=== PATIENT | female | born 1950 | race Caucasian/White ===

== ENCOUNTER → 2017-09-16 13:21 | Outpatient (CLI) | payer MEDICARE, OTHER, SELFPAY ==
--- NOTE | 2017-09-16 13:25 | US_ITS ---
STUDY: ULTRASOUND BREAST - RIGHT REASON FOR EXAM: Female, 67 years old. 4 month follow-up for lumpectomy in the upper outer quadrant of the breasts. TECHNIQUE: Axial and longitudinal images of the RIGHT breast were performed with a high resolution ultrasound transducer. COMPARISON: Comparison is made with prior examination dated May 14, 2017. FINDINGS: RIGHT Breast: At the lumpectomy site at the 10:00 position breast at 3 cm some nipple, there is a 2.6 cm x 1.6 cm x 2.1 cm area of shadowing. This has an irregular shape. This is unchanged. This most likely is postoperative scarring. US/Breast Limited Unilateral IMPRESSION: Stable examination. The findings most likely correspond to postoperative scarring. ASSESSMENT CATEGORY: BIRADS Category 2: Benign. A letter regarding these results will be sent to the patient by the facility within 30 days. Electronically Signed: Tomi Hinton MD at 14:14 EDT Tel [phone], Service support ,
== END ==
PROVIDERS: Family Provider Family Medicine; PCP Family Medicine; Visit Provider Surgery
DX: R92.8 Other abnormal and inconclusive findings on diagnostic imaging of breast (principal)
CPT/HCPCS: 76642

== ENCOUNTER → 2017-10-15 09:25 | Outpatient (CLI) | payer MEDICARE, OTHER, SELFPAY ==
[2017-10-15 12:31] LABS: Cholesterol 163 mg/dL (200); Glucose 97 mg/dL (74-106); High Density Lipoprotein 57 mg/dL; Triglycerides 91 mg/dL; Very Low Density Lipoprotein 18 mg/dL (5-40)
== END ==
PROVIDERS: Family Provider Family Medicine; PCP Family Medicine; Visit Provider Family Medicine
DX: I10 Essential (primary) hypertension (principal); E78.5 Hyperlipidemia, unspecified; Z13.1 Encounter for screening for diabetes mellitus
CPT/HCPCS: 36415; 80061; 82947

== ENCOUNTER 2017-11-01 08:35 | Day surgery (SDC) | payer MEDICARE, OTHER, SELFPAY ==
[2017-11-01 09:16] VITALS: BP 178/61; PULSE 64; RESP 14; TEMP 36.4; O2SAT 98; BMI 32.3
--- NOTE | 2017-11-01 10:04 | PCM.HP.STD ---
Problem List (1) Personal history of colonic polyps Status: Acute History of Present Illness Date of Admission: 11/01/17 The patient is a 67 year old F is been feeling well. Her most recent colonoscopy was 5 years ago. That point she had some benign colon polyps. She has no family history of colon cancer. She does have a personal history of surgically treated bilateral breast cancer. She denies chest pain. No shortness of breath. No abdominal pain. No bright red blood per rectum or melena. No change of bowel habits. She has not had any previous DVT. 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) Allergies No Known Allergies Allergy (Unverified 10/29/17 09:46) Home Medications: Ambulatory Orders Medication Instructions Recorded Escitalopram Oxalate [Lexapro] 20 mg PO DAILY 04/22/17 Esomeprazole Mag Trihydrate 40 mg PO DAILY 04/22/17 [Nexium] Lorazepam [Ativan] 1 mg PO QHS 04/22/17 Metoprolol Succinate [Toprol Xl] 50 mg PO DAILY 04/22/17 Simvastatin [Zocor] 20 mg PO QHS 04/22/17 Surgical History: cholecystectomy, - - Previous bilateral breast surgery for bilateral breast cancer at separate intervals Smoking Status: Never smoker Tobacco Use: Non-smoker Review of Systems Constitutional: Denies: Anorexia Eyes: Denies: Blurred vision HEENT: Denies: Difficulty Hearing Cardiovascular: Denies: Chest Pain Respiratory: Denies: Cough Gastrointestinal: Denies: Abdominal Pain Genitourinary: Denies: Dysuria Psychiatric: Reports: Anxiety Endocrine: Denies: Change in Body Habitus VTE Information - Inpt Only VTE Present on Admission: No Patient Problems: Active and Suspected Problems Personal history of colonic polyps (Acute) - Physical Exam General: Alert, Oriented x3, Cooperative, No apparent distress HEENT: Atraumatic Oral: Moist Mucosa Neck: Supple Lungs: Clear to auscultation Cardiovascular: Regular rate, Regular Rhythm Abdomen: Bowel Sounds Present, Soft, Non Tender, Non-Distended Extremities: No clubbing Skin: No rashes Musculoskeletal: No Tenderness to Palpation of Joints or Extremities Lymphatic: No Cervical, Supraclavicular, or Inguinal Adenopathy Neurological: Cranial nerves II-XII grossly intact Psych/Mental Status: Normal Affect Vital Signs Temp Pulse Resp BP Pulse Ox 97.6 F L 64 14 178/61 H 98 11/01/17 09:16 11/01/17 09:16 11/01/17 09:16 11/01/17 09:16 11/01/17 09:16 Oxygen Delivery Method Room Air Weight: 182 lb 12.211 oz Body Mass Index (BMI) 32.3 Assessment/Plan Active and Suspected Problems Personal history of colonic polyps (Acute) Plan is to proceed with colonoscopy with possible biopsy or polypectomy is indicated. The patient is aware of the technique, benefits, risks, alternatives. She has had an opportunity to ask and have questions answered. We will proceed at her discretion. Fco Jarvis M.D., F.A.C.S.
--- NOTE | 2017-11-01 10:30 | PCM.OPRPT ---
Problem List (1) Personal history of colonic polyps Status: Acute Report of Operation Date of Procedure: 11/01/17 Pre-Operative Diagnosis: Personal history of colon polyps Post-Operative Diagnosis: Minimal sigmoid diverticulosis Surgery/Procedure Performed:: Colonoscopy Description of Surgical Findings:: Timeout and informed consent was obtained. 67-year-old female was taken to the endoscopy suite. Throughout the procedure in aliquots she received a total of 150 mg of Demerol and 3 mg of Versed is intravenous sedation. Digital rectal exam performed. Normal anal tone. No mass lesions. Flexible colonoscope inserted the rectum advanced with tight tortuous sigmoid colon with some minimal scattered few diverticula. Scope was advanced past the flexure the patient needed to be placed supine to get the scope to advanced through the transverse colon and then with some transabdominal pressure was advanced to the ascending colon down to the cecum. The cecum ileocecal valve area was achieved. The patient has a lipoma of the ileocecal valve. No other mass lesions. The scope was carefully withdrawn from the ascending transverse descending and sigmoid colon. Bowel prep was good. No acute findings noted. Scope was retroflexed within the rectum. Anorectal verge inspected no acute findings. Excess fluid and air was aspirated with free procedure was completed with the patient tolerating it well. Impression Minimal few scattered sigmoid diverticula. No acute findings. Patient has a remote history of colon polyps. Consider follow-up colonoscopy at 5 years. Previous colonoscopy was 5 years ago Cc: Dr. Javon Early Medications were given at 1010 seizure started at 1012. The cecum was reached at 1022. Procedure was completed at 1028. Fco Jarvis M.D., F.A.C.S. Type of Anesthesia:: IV Sedation
[2017-11-01 10:35] VITALS: BP 121/51; BP 178/61; PULSE 65; RESP 16; TEMP 36.7; O2SAT 94
[2017-11-01 10:40] VITALS: BP 126/53; BP 178/61; PULSE 65; RESP 16; O2SAT 96
[2017-11-01 10:45] VITALS: BP 128/50; BP 178/61; PULSE 63; RESP 16; O2SAT 96
[2017-11-01 10:50] VITALS: BP 130/50; BP 178/61; PULSE 66; RESP 16; TEMP 36.4; O2SAT 96
[2017-11-01 11:12] VITALS: BP 178/61
== END 2017-11-01 11:40 | disposition home or self-care (01) ==
LOC: EN 08:35 → AC 08:36
PROVIDERS: Family Provider Family Medicine; PCP Family Medicine; Visit Provider Surgery
PROC: 0DJD8ZZ Inspection of Lower Intestinal Tract, Via Natural or Artificial Opening Endoscopic (ICD-10-PCS; CPT 45378; principal; 2017-11-01 09:40)
DX: Z12.11 Encounter for screening for malignant neoplasm of colon (principal); K57.30 Diverticulosis of large intestine without perforation or abscess without bleeding; D17.79 Benign lipomatous neoplasm of other sites; Z79.899 Other long term (current) drug therapy; Z86.010 Personal history of colon polyps; Z85.3 Personal history of malignant neoplasm of breast
CPT/HCPCS: G0105; 99152; 99153; J7120

== ENCOUNTER → 2018-05-07 09:58 | Outpatient (CLI) | payer MEDICARE, OTHER, SELFPAY ==
--- NOTE | 2018-05-07 10:03 | BI_ITS ---
MAMMOGRAPHY - UNILATERAL DIAGNOSTIC: RIGHT BREAST REASON FOR EXAM: Female, 68 years old. Status post left mastectomy. Right lateral breast soreness for 6 weeks. Prior right lumpectomy and radiation therapy. PERTINENT HISTORY: Personal history of breast cancer. TECHNIQUE: Digital unilateral breast alison (3D mammographic acquisition) in the CC and MLO projections. 2-D mediolateral oblique (MLO) and craniocaudad (CC) views of both breasts were obtained. CAD: Full Field Digital Mammography with Computer Added Detection was performed. COMPARISON: Comparison is made with prior examination dated May 06, 2017 and April 25, 2016. FINDINGS: Breast Composition: There are scattered areas of fibroglandular density. Architectural distortion is once again seen in the deep slightly lateral portion of the right breast with a resultant postoperative changes. There is also evidence of postoperative changes at the level of the areola. No new abnormality is present. No other significant abnormalities are identified. There has been no significant change since the prior study. BI/UNILAT RT SCRN W/CAD IMPRESSION: Stable unilateral diagnostic mammogram. One year follow-up mammogram recommended. (A) ASSESSMENT CATEGORY: BIRADS Category 2: Benign. A letter regarding these results will be sent to the patient by the facility within 30 days. Approximately 10% of breast cancers are not detected by mammography. A normal mammogram should not delay biopsy of a clinically suspicious abnormality. Electronically Signed: Tomi Hinton MD at 12:18 EST Tel [phone], Service support ,
--- OUTSIDE RECORDS SUMMARY | 2018-07-02 17:51 | XMS RPT_ITS ---
:1950 Author Organization OHIP Care Team Providers Name Role Phone Miranda Nguyen Attending Unavailable Javon Early Primary Care Unavailable Fco Jarvis Attending Unavailable Fco Jarvis Referring Unavailable Nneka, Javon Primary Care Unavailable Nurse, Surgery Attending Unavailable Javon Early Referring Unavailable Javon Early Attending Unavailable Nneka, Javon Primary Care Unavailable Fco Jarvis Attending Unavailable Javon Early Referring Unavailable Nneka, Javon Primary Care Unavailable Fco Jarvis Attending Unavailable Nneka, Javon Referring Unavailable Nneka, Javon Primary Care Unavailable Fco Jarvis Consulting Unavailable Miranda Nguyen Attending Unavailable Nneka, Javon Primary Care Unavailable NnekaJavon gonzales Attending Unavailable Nneka, Javon Primary Care Unavailable Miranda Nguyen Attending Unavailable Javon Early Primary Care Unavailable Miranda Nguyen Consulting Unavailable PROBLEMS PROBLEMS DATE TYPE CONDITION / CODE ATTENDING STATUS SOURCE 05/14/2018 Unknown C50.911 - Fabio Nguyen Malignant neoplasm [facility] of unspecified Hospital site of right Repository female breast / C50.911(ICD-10) 05/12/2018 Unknown I10 - Essential NnekaJavon gonzalesoster (primary) [facility] hypertension / Hospital I10(ICD-10) Repository 05/12/2018 Unknown E78.5 - Javon Early [facility] [place] Hyperlipidemia, [facility] unspecified / Hospital E78.5(ICD-10) Repository 01/28/2018 Unknown Z12.11 - Encounter Fco Jarvis [place] for screening for [facility] malignant neoplasm [facility] colon / Repository Z12.11(ICD-10) 01/28/2018 Unknown R92.8 - [facility] Hospital findings on Repository diagnostic imaging of breast / R92.8(ICD-10) PROCEDURES PROCEDURES No Procedure Records FoundRESULTS RESULTS ONCOLOGY VISIT REPORT Observed: 05/14/2018 Status: F Source: [place] 2:06 PM [facility] REPOSITORY [facility] Medical Oncology [address] [place] [address] OFFICE VISIT Date of Service: 05/14/18 1340 MR#: [id number] Acct: [id number] Name: MAGDY RUFF Rep #: [id number] : 1950 From: Miranda Nguyen MD Age/Sex: 68/F Location: OMD Status: Signed - Problem List (1) Malignant neoplasm of right female breast Status: Chronic (2) 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 DCIS of the left breast status post mastectomy in 1995. 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 Date of diagnosis was March 2002. - Past Medical/Social History Past Medical History Past Medical History: Anxiety,Osteopenia Other Past Medical History: IBS Cancer: Breast cancer Other Cancer History: DCIS LEFT BREAST INVASIVE CARCINOMA RT BREAST Past Surgical History Surgical: Hysterectomy,Tubal ligation Other Surgical History: LUMPECTOMY RT BREAST WITH AXILLARY DISSECTION OF LYMPH NODE Family History Paternal Past Medical History: Liver disease Maternal Past Medical History: Heart disease,Hypertension Social History Smoking Status Never smoker Review of Systems Constitutional:: Denies: Fever, Sweats, Weight loss, Appetite change, Chills Cardiovascular:: Denies: Chest pain, Palpitations, Dyspnea on exertion, Orthopnea, PND, Shortness of breath Respiratory: Denies: Cough, Hemoptysis, Shortness of Breath, Wheezing Gastrointestinal:: Denies: Abdominal pain, Nausea, Vomiting, Diarrhea, Constipation, Hematochezia Genitourinary: Denies: Dysuria, Hematuria, 15, Flank pain Musculoskeletal:: Denies: Back pain, Myalgia, Arthralgia Skin: Denies: Rash, Skin Changes, Wounds Neurological:: Denies: Headache, Dizziness, Visual changes, Tinnitus, Hearing loss Psychiatric: Denies: Anxiety, Depression, Homicidal Ideations, Suicidal Ideations Vital Signs Weight: 84.822 kg Weight in Pounds 187.0 lbs Pulse Ox 97 - Physical Exam General: Alert, Oriented x3, No apparent distress, - - ECOG 0, overweight HEENT: Atraumatic, PERRLA, EOMI, Normocephalic Oropharynx:: Dry mucosa Neck:: Supple, Trachea midline. Negative for: JVD, bilateral Cardiac:: Regular rate, Regular rhythm, Normal S1, Normal S2. Negative for: Murmur Lungs: Clear to auscultation, Excusion symmetrical. Negative for: Rhonchi, Wheezes Abdomen:: Soft, Non-tender, Non-distended. Negative for: Hepatosplenomegaly Extremities:: Negative for: Cyanosis, Edema Neurological: Neuro grossly intact Skin:: Negative for: Lesions, Rash, Petechiae, Ecchymosis Psychiatric:: Appropriate affect, Euthymic Lymphatics:: Negative for: Cervical lymphadenopathy, Supraclavicular lymphadenopathy, Axillary lymphadenopathy Breast:: - - Left breast mastectomy scar and right breast with scar of a prior surgery, no masses Laboratory Data: CBC, CMP May 2018 reviewed in EMR Diagnostic Data: Mammogram April 2018 Neg Assessment and Plan 68-year-old female with 1. Stage I invasive ductal cancer of the right breast status post partial mastectomy and axillary dissection 2001 followed by adjuvant chemotherapy and radiation therapy (see HPI for details). No evidence to suggest cancer recurrence or post chemotherapy complications. 2. DCIS of the left breast status post simple mastectomy 1995 From medical oncology will continue annual surveillance. Medications: Prescriptions This Visit Medication Instructions Recorded Escitalopram Oxalate [Lexapro] 20 mg PO DAILY 04/22/17 Esomeprazole Mag Trihydrate 40 mg PO DAILY 04/22/17 Primary Care Provider: Javon Early MD Referring Provider: 05/14/18 1406 <Electronically signed by Miranda Nguyen MD> Date Miranda Nguyen MD Cosigner Signature: Date (if applicable) CC: Javon Early MD CBC W/DIFF, AUTOMATED Collected: 05/12/2018 Status: F Source: [place] 2:32 PM [facility] [place] TYPE CODE TESTS RESULT OUT OF RANGE REFERENCE UNITS LAB L100.1000 4.4-11.0 K/mm3 Normal WBC 6.2 LAB L100.1200 4.2-5.4 M/mm3 Normal RBC 4.60 LAB L100.1300 12.0-15.0 g/dl Normal HGB 14.5 LAB L100.1400 37-47 % Normal HCT 44.5 LAB L100.1500 81-99 fL Normal MCV 96.7 LAB L100.1600 27.0-32.0 pg Normal MCH 31.5 LAB L100.1700 32-36 g/gl Normal MCHC 32.6 LAB L100.1810 11.6-14.6 % Normal RDW CV 13.4 LAB L100.1820 35.1-43.9 fl High RDW SD 46.2 LAB L100.1900 150-450 K/mm3 Normal PLT 208 LAB L100.2000 6.2-12.0 fl Normal MPV 11.3 LAB L100.2100 47-70 % High NEUT% 72.7 LAB L100.2200 19-41 % Low LY% 18.8 LAB L100.2300 0-10 % Normal MONO% 7.1 LAB L100.2400 0-5 % Normal EO% 1.1 LAB L100.2500 0-1 % Normal BASO% 0.3 LAB L100.2550 0.0-0.9 % Normal IM GRAN % 0.000 Result Comment: IG% - Immature Granulocytes (promyelocytes, myelocytes and metamyelocytes) > 1% indicates that a LEFT SHIFT is Present. LAB L100.2620 2.0-7.7 X10 3/uL Normal Absolute Neut 4.5 LAB L100.2720 0.83-4.51 X10 3/ul Normal Absolute Lymph 1.16 Performed By: #### L100.0100 #### [facility] [address] [place], [address] BASIC METABOLIC Collected: 05/12/2018 Status: F Source: [place] PROFILE (BMP) 2:32 PM [facility] [place] TYPE CODE TESTS RESULT OUT OF RANGE REFERENCE UNITS LAB L501.0100 74-106 mg/dL Normal GLU 86 Result Comment: Please note revised GLUCOSE reference range effective 2017. LAB L501.1000 7-18 mg/dL Normal BUN 15 LAB L501.1100 0.55-1.02 mg/dL Normal CREAT,SERUM 0.80 Result Comment: The validity of the calculated GFR AND GFRAA in patients over 70 years has not been determined. Clinical correlation is essential. LAB L501.1110 >60 mL/min Normal EST GFR 76 Result Comment: Non- GFR Calc LAB L501.1115 >60 mL/min Normal EST GFR - AA 91 Result Comment: GFR Calc LAB L501.1300 10-20 RATIO Normal BUN/CRE 18.8 LAB L501.2200 8.5-10.1 mg/dL CA Normal 9.2 LAB L501.5300 136-145 mmol/L NA Normal 142 LAB L501.5600 3.5-5.1 mmol/L K Normal 4.6 LAB L501.5900 98-107 mmol/L CL Normal 107 LAB L501.6100 21.0-32.0 mmol/L Normal CO2 27.0 LAB L501.6200 5-15 Normal GAP 8 Performed By: #### L500.2500, L501.9520 #### [facility] [address] [place], [address] THYROID STIM HORMONE Collected: 05/12/2018 Status: F Source: [place] (TSH) 2:32 PM [facility] [place] TYPE CODE TESTS RESULT OUT OF RANGE REFERENCE UNITS LAB L501.9520 0.358-3.74 uIU/mL Normal TSH 2.05 Performed By: #### L500.2500, L501.9520 #### [facility] [address] [place], [address] UNILAT RT SCRN Observed: 05/07/2018 Status: F Source: [place] W/CAD 10:03 AM [facility] [place] [facility] Imaging Services [address] [facility] [place] [address] UNILAT RT SCRN W/CAD MR#: [id number] Acct: [id number] Name: MAGDY RUFF Rep #: [id number] : 1950 F 68 From: Tomi Hinton MD PCP: Javon Early MD Status: REG CLI Study: UNILAT RT SCRN W/CAD Date of Exam: 05/07/18 Exam# [id number] Ordering Dr: Miranda Nguyen MD MAMMOGRAPHY - UNILATERAL DIAGNOSTIC: RIGHT BREAST REASON FOR EXAM: Female, 68 years old. Status post left mastectomy. Right lateral breast soreness for 6 weeks. Prior right lumpectomy and radiation therapy. PERTINENT HISTORY: Personal history of breast cancer. TECHNIQUE: Digital unilateral breast alison (3D mammographic acquisition) in the CC and MLO projections. 2-D mediolateral oblique (MLO) and craniocaudad (CC) views of both breasts were obtained. CAD: Full Field Digital Mammography with Computer Added Detection was performed. COMPARISON: Comparison is made with prior examination dated May 06, 2017 and April 25, 2016. FINDINGS: Breast Composition: There are scattered areas of fibroglandular density. Architectural distortion is once again seen in the deep slightly lateral portion of the right breast with a resultant postoperative changes. There is also evidence of postoperative changes at the level of the areola. No new abnormality is present. No other significant abnormalities are identified. There has been no significant change since the prior study. BI/UNILAT RT SCRN W/CAD IMPRESSION: Stable unilateral diagnostic mammogram. One year follow-up mammogram recommended. (A) ASSESSMENT CATEGORY: BIRADS Category 2: Benign. A letter regarding these results will be sent to the patient by the facility within 30 days. Approximately 10% of breast cancers are not detected by mammography. A normal mammogram should not delay biopsy of a clinically suspicious abnormality. Electronically Signed: Tomi Hinton MD at 12:18 EST Tel [phone], Service support , CC: Miranda Nguyen MD; Javon Early MD Soil Science Teacher: Signed OPERATIVE REPORT Observed: 11/01/2017 Status: F Source: [place] 10:34 AM [facility] [place] [facility] Medical Records Department [address] [place] [address] Operative Report 11/01/17 1030 MR#: [id number] Acct: [id number] Name: MAGDY RUFF Rep #: [id number] : 1950 67 From: Fco Jarvis MD PCP: Javon Early Status: REG [facility] [place] Location: [place] [address]- Problem List (1) Personal history of colonic polyps Status: Acute Report of Operation Date of Procedure: 11/01/17 Pre-Operative Diagnosis: Personal history of colon polyps Post-Operative Diagnosis: Minimal sigmoid diverticulosis Surgery/Procedure Performed:: Colonoscopy Description of Surgical Findings:: Timeout and informed consent was obtained. 67-year-old female was taken to the endoscopy suite. Throughout the procedure in aliquots she received a total of 150 mg of Demerol and 3 mg of Versed is intravenous sedation. Digital rectal exam performed. Normal anal tone. No mass lesions. Flexible colonoscope inserted the rectum advanced with tight tortuous sigmoid colon with some minimal scattered few diverticula. Scope was advanced past the flexure the patient needed to be placed supine to get the scope to advanced through the transverse colon and then with some transabdominal pressure was advanced to the ascending colon down to the cecum. The cecum ileocecal valve area was achieved. The patient has a lipoma of the ileocecal valve. No other mass lesions. The scope was carefully withdrawn from the ascending transverse descending and sigmoid colon. Bowel prep was good. No acute findings noted. Scope was retroflexed within the rectum. Anorectal verge inspected no acute findings. Excess fluid and air was aspirated with free procedure was completed with the patient tolerating it well. Impression Minimal few scattered sigmoid diverticula. No acute findings. Patient has a remote history of colon polyps. Consider follow- up colonoscopy at 5 years. Previous colonoscopy was 5 years ago Cc: Dr. Javon Early Medications were given at 1010 seizure started at 1012. The cecum was reached at 1022. Procedure was completed at 1028. Fco Jarvis M.D., F.A.C.S. Type of Anesthesia:: IV Sedation 11/01/17 1034 <Electronically signed by Fco Jarvis MD> Date Fco Jarvis MD CC: Fco Jarvis MD; Javon Early Signed HISTORY AND PHYSICAL Observed: 11/01/2017 Status: F Source: [place] EXAM 10:07 AM [facility] [place] [facility] Medical Records Department [address] [place] [address] History and Physical 11/01/17 1004 MR#: [id number] Acct: [id number] Name: MAGDY RUFF Antione Rep #: [id number] : 1950 67 From: Fco Jarvis MD PCP: Javon Early Status: REG [facility] Y Location: [place] [address] Problem List (1) Personal history of colonic polyps Status: Acute History of Present Illness Date of Admission: 11/01/17 The patient is a 67 year old F is been feeling well. Her most recent colonoscopy was 5 years ago. That point she had some benign colon polyps. She has no family history of colon cancer. She does have a personal history of surgically treated bilateral breast cancer. She denies chest pain. No shortness of breath. No abdominal pain. No bright red blood per rectum or melena. No change of bowel habits. She has not had any previous DVT. 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) Allergies No Known Allergies Allergy (Unverified 10/29/17 09:46) Home Medications: Ambulatory Orders Medication Instructions Recorded Escitalopram Oxalate [Lexapro] 20 mg PO DAILY 04/22/17 Esomeprazole Mag Trihydrate 40 mg PO DAILY 04/22/17 Surgical History: cholecystectomy, - - Previous bilateral breast surgery for bilateral breast cancer at separate intervals Smoking Status: Never smoker Tobacco Use: Non-smoker Review of Systems Constitutional: Denies: Anorexia Eyes: Denies: Blurred vision HEENT: Denies: Difficulty Hearing Cardiovascular: Denies: Chest Pain Respiratory: Denies: Cough Gastrointestinal: Denies: Abdominal Pain Genitourinary: Denies: Dysuria Psychiatric: Reports: Anxiety Endocrine: Denies: Change in Body Habitus VTE Information - Inpt Only VTE Present on Admission: No Patient Problems: Active and Suspected Problems Personal history of colonic polyps (Acute) - Physical Exam General: Alert, Oriented x3, Cooperative, No apparent distress HEENT: Atraumatic Oral: Moist Mucosa Neck: Supple Lungs: Clear to auscultation Cardiovascular: Regular rate, Regular Rhythm Abdomen: Bowel Sounds Present, Soft, Non Tender, Non-Distended Extremities: No clubbing Skin: No rashes Musculoskeletal: No Tenderness to Palpation of Joints or Extremities Lymphatic: No Cervical, Supraclavicular, or Inguinal Adenopathy Neurological: Cranial nerves II-XII grossly intact Psych/Mental Status: Normal Affect Vital Signs Temp Pulse Resp BP Pulse Ox 97.6 F L 64 14 178/61 H 98 11/01/17 09:16 11/01/17 09:16 11/01/17 09:16 11/01/17 09:16 11/01/17 09:16 Oxygen Delivery Method Room Air Weight: 182 lb 12.211 oz Body Mass Index (BMI) 32.3 Assessment/Plan Active and Suspected Problems Personal history of colonic polyps (Acute) Plan is to proceed with colonoscopy with possible biopsy or polypectomy is indicated. The patient is aware of the technique, benefits, risks, alternatives. She has had an opportunity to ask and have questions answered. We will proceed at her discretion. Fco Jarvis M.D., F.A.C.S. 11/01/17 1007 <Electronically signed by Fco Jarvis MD> Date Fco Jarvis MD Cosigner Signature: Date (if applicable) CC: Fco Jarvis MD; Javon Early Signed LIPID PROFILE Collected: 10/15/2017 Status: F Source: [place] 9:27 AM [facility] [place] TYPE CODE TESTS RESULT OUT OF RANGE REFERENCE UNITS LAB L501.4900 200 mg/dL Normal CHOL 163 Result Comment: <200 mg/dL Desirable 200-240 mg/dL Borderline >240 mg/dL High Risk LAB L501.5000 mg/dL Normal TRIG 91 Result Comment: The drugs N-Acetylcysteine and Metamizole may falsely depress this assay. Serum Triglycerides Reference Interval Normal <150 mg/dL Borderline high 150 - 199 mg/dL High 200 - 499 mg/dL Very High > or = 500 mg/dL LAB L501.6400 mg/dL Normal HDL 57 Result Comment: The drugs N-Acetylcysteine and Metamizole may falsely depress this assay. Reference Range HDL <40 mg/dL Low HDL Cholesterol HDL >or= 60 mg/dL High HDL Cholesterol LAB L501.6500 0-130 mg/dL Normal LDL 88 LAB L501.6600 5-40 mg/dL Normal VLDL 18 Performed By: #### L500.4100, L501.0100 #### [facility] [address] [place], [address] GLUCOSE Collected: 10/15/2017 Status: F Source: [place] 9:27 AM [facility] [place] TYPE CODE TESTS RESULT OUT OF RANGE REFERENCE UNITS LAB L501.0100 74-106 mg/dL Normal GLU 97 Result Comment: Please note revised GLUCOSE reference range effective 2017. Performed By: #### L500.4100, L501.0100 #### [facility] [address] [place], [address] BREAST LIMITED Observed: 09/16/2017 Status: F Source: [place] UNILATERAL 1:28 PM [facility] [place] Imaging Services [address] [place] [address] Breast Limited Unilateral MR#: [id number] Acct: [id number] Name: MAGDY RUFF Rep #: [id number] : 1950 F 67 From: Tomi Hinton MD PCP: Javon Early Status: REG CLI Study: Breast Limited Unilateral Date of Exam: 09/16/17 Exam# [id number] Ordering Dr: Fco Jarvis MD STUDY: ULTRASOUND BREAST - RIGHT REASON FOR EXAM: Female, 67 years old. 4 month follow-up for lumpectomy in the upper outer quadrant of the breasts. TECHNIQUE: Axial and longitudinal images of the RIGHT breast were performed with a high resolution ultrasound transducer. COMPARISON: Comparison is made with prior examination dated May 14, 2017. FINDINGS: RIGHT Breast: At the lumpectomy site at the 10:00 position breast at 3 cm some nipple, there is a 2.6 cm x 1.6 cm x 2.1 cm area of shadowing. This has an irregular shape. This is unchanged. This most likely is postoperative scarring. US/Breast Limited Unilateral IMPRESSION: Stable examination. The findings most likely correspond to postoperative scarring. ASSESSMENT CATEGORY: BIRADS Category 2: Benign. A letter regarding these results will be sent to the patient by the facility within 30 days. Electronically Signed: Tomi Hinton MD at 14:14 EDT Tel [phone], Service support , CC: Fco Jarvis MD; Javon Early Soil Science Teacher: Signed ALLERGIES ALLERGIES DATE TYPE / CODE NAME / CODE REACTION SEVERITY SOURCE 05/14/2018 Drug No Known Unknown [place] [facility] Allergy/4160 Allergies/F00 Hospital 52123(SNOMED 1642265(RXNOR Repository CT) M) ENCOUNTERS ENCOUNTERS ADMIT/DISCHARGE ACCOUNT ADMITTING ENCOUNTER LOCATION SOURCE NUMBER CLASS 05/14/2018 [id number] Ambulatory BMSBuilding:B [place] 9 MS.CF.Critical access hospital Repository 05/14/2018 [id number] Ambulatory [place] 4 [facility] ing:OMD Repository 05/12/2018 [id number] Ambulatory [place] 7 [facility] ing:BFHLAB Repository 05/07/2018 [id number] Ambulatory [place] 1 [facility] ing:OPBI Repository 11/01/2017/ [id number] Ambulatory [place] 8 8 [facility] ing:EN Repository 11/01/2017 [id number] Ambulatory BMSBuilding:B [place] 7 [facility].CF.[facility] Repository 10/15/2017 [id number] Ambulatory [place] 0 [facility] ing:BFHLAB Repository 10/14/2017/ [id number] Ambulatory BMSBuilding:B [place] 8 6 [facility] Repository 09/16/2017 [id number] Ambulatory [place] 8 [facility] ing:OPUS Repository PAYERS PAYERS ENCOUNTER GUARANTOR PAYER SUBSCRIBER SOURCE 05/14/2018 TRAVIS Alvarado Primary MAGDY Talbot [place] [id number] Insurance:MEDICARE PATTERSONDOB: Community [place]ALA PART A [facility] [id number] Repository [id number]: 330 [id number] [phone] () Date:2017-01-02 05/14/2018 Secondary MAGDY Talbot [place] Insurance:PHYSICIAN PATTERSONDOB: Community MUTUAL INS COPolicy [id number] Hospital Number: Repository [id number] Date:[id number] [place] [address]LT: 05/14/2018 Tertiary NOT GIVENUNK [place] Insurance:SELF PAY [facility] Number: Effective Repository Date:2018-05-14 05/14/2018 TRAVIS Alvarado Primary MAGDY Talbot [place] [id number] Insurance:MEDICARE PATTERSONDOB: Community [place] PART A [facility] [id number] Number: Repository [id number]: 330 [id number] [phone] () Date:2017-01-02 05/14/2018 Secondary MAGDY Talbot [place] Insurance:PHYSICIAN PATTERSONDOB: Community [facility]UTUAL INS [facility] [id number] Hospital Number: Repository [id number] Date:[id number] [address] [place] [address]UX: 05/14/2018 Tertiary NOT GIVENUNK [place] Insurance:SELF PAY [facility] Number: Effective Repository Date:2017-01-02 05/12/2018 MAGDY Talbot Primary MAGDY Talbot [place] [id number] Insurance:MEDICARE PATTERSONDOB: Community [employer]AL[employer] PART A [facility] [id number] Number: Repository [id number]: 330 [id number] [phone] () Date:2018-05-12 05/12/2018 Secondary MAGDY Talbot [place] Insurance:PHYSICIAN PATTERSONDOB: Community M[employer]UAL INS [employer]olicy [id number] Hospital Number: Repository [id number] Date:[id number] [address]DQ: 05/12/2018 Tertiary NOT GIVENUNK [place] Insurance:SELF PAY [facility] Effective Repository Date:2018-05-12 05/07/2018 TRAVIS Alvarado Primary MAGDY Talbot [place] [id number] Insurance:MEDICARE PATTERSONDOB: Community Impala PART A [id number] [place] Number[facility] Repository [id number]: [phone] [id number] [phone] () Date:2018-03-12 05/07/2018 Secondary MAGDY Talbot [place] Insurance:PHYSICIAN PATTERSONDOB: Community MUTUAL INS [facility] [id number] Hospital Number: Repository [id number] Date:[id number] [address]MG: 05/07/2018 Tertiary NOT GIVENUNK [place] Insurance:SELF PAY [facility] Number: Effective Repository Date:2018-03-12 11/01/2017 Travis Alvarado Primary MAGDY Talbot [place] [id number] Insurance:MEDICARE PATTERSONDOB: Community [employer] PART A [facility] [id number] [place] Number: Repository [id number]: [phone] [id number] [phone] () Date:2017-10-14 11/01/2017 Secondary MAGDY Talbot [place] Insurance:PHYSICIAN PATTERSONDOB: Community [facility] [id number] Hospital Number: Repository [id number] Date:[id number] [address]EO: 11/01/2017 Tertiary NOT GIVENUNK [place] Insurance:SELF PAY [facility] Rep[facility] Date:2017-10-14 11/01/2017 Travis Alvarado Primary MAGDY Talbot Harper [id number] Insurance:MEDICARE PATTERSONDOB: Community [place] PART A [facility] [id number] [place] Number: Repository [id number]: [id number] [phone] Date:2017-10-14 (HP) 11/01/2017 Secondary MAGDY Talbot Carol Insurance:PHYSICIAN PATTERSONDOB: Community MUTUAL INS [employer] [id number] Hospital Number: Repository [id number] Date:[id number] [address]GH: 11/01/2017 Tertiary NOT GIVENUNK Carol Insurance:SELF PAY [facility] Effective Repository Date:2017-11-01 10/15/2017 Travis Alvarado Primary MAGDY Talbot Harper [id number] Insurance:MEDICARE PATTERSONDOB: Community [place] PART A [facility] [id number] Number: Repository [id number]: [phone] [id number] [phone] () Date:2017-10-15 10/15/2017 Secondary MAGDY Talbot Harper Insurance:PHYSICIAN PATTERSONDOB: Community MUTUAL INS COP[employer]icy [id number] Hospital Number: Repository [id number] Date:[id number] [address]ZZ: 10/15/2017 Tertiary NOT GIVENUNK Harper Insurance:SELF PAY [facility] Number: Effective Repository Date:2017-10-15 10/14/2017 Travis Alvarado Primary MAGDY Talbot Harper [id number] Insurance:MEDICARE PATTERSONDOB: Community [place] PART A [facility] [id number] Number[place] [id number]: [id number] [phone] Date:2017-10-14 (HP) 10/14/2017 Secondary MAGDY Talbot Harper Insurance:PHYSICIAN PATTERSONDOB: Community MUTUAL INS [employer]icy [id number] Hospital Number: Repository [id number] Date:[id number] [address]YW: 10/14/2017 Tertiary NOT GIVENUNK Harper Insurance:SELF PAY [facility] Number: Effective Repository Date:2017-10-14 09/16/2017 Travis Alvarado Primary MAGDY Medina [id number] Insurance:MEDICARE PATTERSONDOB: Community [place] PART A [facility] [id number] Number: Repository [address]Khd: [phone] [id number] [phone] () Date:2017-09-12 09/16/2017 Secondary MAGDY Medina Insurance:PHYSICIAN PATTERSONDOB: Community MUTUAL INS [facility] [id number] Hospital Number: Repository [id number] Date:[id number] [address]RD: 09/16/2017 Tertiary NOT GIVENKERLINE Medina Insurance:SELF PAY [facility] Number: Effective Repository Date:2017-09-12
== END ==
PROVIDERS: Family Provider Family Medicine; PCP Family Medicine; Visit Provider Internal Medicine Hematology & Oncology
DX: Z12.31 Encounter for screening mammogram for malignant neoplasm of breast (principal); Z85.3 Personal history of malignant neoplasm of breast
CPT/HCPCS: 77061; 77063; 77067; G0279

== ENCOUNTER → 2018-05-12 14:29 | Outpatient (CLI) | payer MEDICARE, OTHER, SELFPAY ==
[2018-05-12 17:35] LABS: Absolute Lymphocyte Count 1.16 X10^3/ul (0.83-4.51); Absolute Neutrophil Count 4.5 X10^3/uL (2.0-7.7); Basophil# 0.02 X10^3/uL; Basophil% 0.3 % (0-1); Eosinophil# 0.07 X10^3/uL; Eosinophils% 1.1 % (0-5); Hematocrit 44.5 % (37-47); Hemoglobin 14.5 g/dl (12.0-15.0); Lymphocyte # 1.16 X10^3/ul (4.0); Lymphocyte % 18.8 % (19-41); Mean Corp Hgb Conc 32.6 g/gl (32-36); Mean Corpuscular Hgb 31.5 pg (27.0-32.0); Mean Corpuscular Volume 96.7 fL (81-99); Mean Platelet Vol. 11.3 fl (6.2-12.0); Monocyte# 0.44 X10^3/uL; Monocyte% 7.1 % (0-10); Neutrophil # 4.49 X10^3/uL (2.7-7.7); Neutrophil % 72.7 % (47-70); Platelet Count 208 K/mm3 (150-450); RBC Distribution Width CV 13.4 % (11.6-14.6); RBC Distribution Width SD 46.2 fl (35.1-43.9); White Blood Count 6.2 K/mm3 (4.4-11.0)
[2018-05-12 17:36] LABS: POSITIVE COUNT NO; POSITIVE DIFFERENTIAL NO; POSITIVE MORPHOLOGY NO
[2018-05-12 17:52] LABS: Anion Gap 8 (5-15); BUN 15 mg/dL (7-18); BUN/Creat Ratio 18.8 RATIO (10-20); Calcium,Total 9.2 mg/dL (8.5-10.1); Chloride 107 mmol/L (98-107); EST Glomerular Filtration Rate 76 mL/min (>60); Est Glom Filt Rate - Afr Amer 91 mL/min (>60); Glucose 86 mg/dL (74-106); Potassium 4.6 mmol/L (3.5-5.1); Sodium Level 142 mmol/L (136-145); Thyroid Stim Hormone (TSH) 2.05 uIU/mL (0.358-3.74)
== END ==
PROVIDERS: Family Provider Family Medicine; PCP Family Medicine; Visit Provider Family Medicine
DX: I10 Essential (primary) hypertension (principal); E78.5 Hyperlipidemia, unspecified
CPT/HCPCS: 36415; 80048; 84443; 85025

== ENCOUNTER → 2018-11-27 14:54 | Outpatient (CLI) | payer MEDICARE, OTHER, SELFPAY ==
[2018-11-12 09:26] VITALS: BMI 32.1
--- NOTE | 2018-11-27 14:55 | ECHODONC_ITS ---
Reason For Study: HLD, ABNL diagnostic imaging of heart test (calcium CT) Procedure This was a 2D Doppler, Color Flow transthoracic echocardiogram. Myocardial strain analysis was performed in this exam to aid in the assessment of cardiac function. Exam performed in department. Left Ventricle Normal LV size. Left ventricular systolic function is normal. The estimated ejection fraction is 65 %. Stage 2 diastolic dysfunction. No regional wall motion abnormalities noted. Right Ventricle Normal RV size. Normal systolic function. Atria Normal left atrium. Normal right atrium. Mitral Valve Normal mitral valve. Mild (1+) eccentric mitral valve insufficiency. Tricuspid Valve Normal tricuspid valve. Mild tricuspid valve insufficiency. Pulmonary artery systolic pressure is 35 mmHg. Aortic Valve Normal aortic valve. Trisinus/trileaflet aortic valve. Pulmonic Valve Normal pulmonic valve. Great Vessels Normal aortic root. The pulmonary artery is normal size. Normal inferior vena cava. Pericardium/Pleural No pericardial effusion. MMode/2D Measurements & Calculations LVIDd: 5.1 cm IVSd: 1.0 cm Ao root diam: 2.9 cm LVIDs: 2.9 cm LVPWd: 1.0 cm RVDd: 3.4 cm FS: 42.7 % LAV(MOD-bp): 57.4 ml LA A4 area: 18.0 cm2 LA dimension(2D): 4.0 cm LAV(MOD-bp) Indexed: 31.0 ml/m2 LAV(MOD-sp2): 59.1 ml LAV(MOD-sp4): 50.9 ml RA A4 area: 13.2 cm2 Time Measurements MV dec time: 0.18 sec Doppler Measurements & Calculations MV E max mamadou: 102.8 cm/sec Lat Peak E' Mamadou: 9.1 cm/sec Med Peak E' Mamadou: 6.0 cm/sec MV A max mamadou: 73.2 cm/sec E/E' lat: 11.3 E/E' med: 17.1 MV E/A: 1.4 MV V2 max: 554.8 cm/sec Ao V2 max: 137.9 cm/sec LV V1 max: 71.8 cm/sec MV max P.1 mmHg Ao max P.6 mmHg LV V1 max P.1 mmHg MV V2 mean: 451.5 cm/sec MV mean P.0 mmHg MV V2 VTI: 221.9 cm MR max mamadou: 586.7 cm/sec PA V2 max: 90.6 cm/sec TR max mamadou: 278.3 cm/sec MR max P.7 mmHg TR max P.1 mmHg Interpretation Summary Normal LV size. Left ventricular systolic function is normal. The estimated ejection fraction is 65 %. Stage 2 diastolic dysfunction. Mild (1+) eccentric mitral valve insufficiency. The global longitudinal strain is normal. The global longitudinal strain = -19.9 % (normal). Ordering Physician: Rakan Adkins Referring Physician: Javon Early Performed By: Caprice Wang, KAYLI, RVT
== END ==
PROVIDERS: Family Provider Family Medicine; PCP Family Medicine; Referring Provider Internal Medicine Cardiovascular Disease; Visit Provider Internal Medicine Cardiovascular Disease
DX: I11.9 Hypertensive heart disease without heart failure (principal); I34.0 Nonrheumatic mitral (valve) insufficiency; E78.5 Hyperlipidemia, unspecified; R00.1 Bradycardia, unspecified; C50.911 Malignant neoplasm of unspecified site of right female breast; D05.12 Intraductal carcinoma in situ of left breast; R93.1 Abnormal findings on diagnostic imaging of heart and coronary circulation; Z92.21 Personal history of antineoplastic chemotherapy
CPT/HCPCS: 0399T; 93306

== ENCOUNTER → 2019-01-27 12:03 | Outpatient (CLI) | payer MEDICARE, OTHER, SELFPAY ==
[2018-11-12 09:26] VITALS: BMI 32.1
--- NOTE | 2019-01-27 12:10 | RAD_ITS ---
STUDY: X-RAY - PELVIS AND LEFT HIP REASON FOR EXAM: Female, 68 years old. Left hip pain TECHNIQUE: 3 views of the pelvis and hip. COMPARISON: None. FINDINGS: There is a non-specific bowel gas pattern. Normal visualized soft tissue structures. Intact bilateral iliac wings, sacroiliac joints and visualized sacrum. Intact bilateral superior and inferior pubic rami. Mild pubic symphysitis Normal bilateral ischial tuberosities. [id number]-[id number] left and mild right osteoarthritis of the hip joints. RAD/HIP, UNI W/ Pelvis 2-3 Views IMPRESSION: Gpdi-[id number]-[id number] left and mild right osteoarthritis of the hip joints. Electronically Signed: Michael Najera MD at 15:40 EDT Tel [phone], Service support ,
== END ==
PROVIDERS: Family Provider Family Medicine; PCP Family Medicine; Referring Provider Family Medicine; Visit Provider Family Medicine
DX: M70.62 Trochanteric bursitis, left hip (principal); Y93.9 Activity, unspecified; M25.552 Pain in left hip
CPT/HCPCS: 73502

== ENCOUNTER → 2019-03-04 16:37 | Outpatient (CLI) | payer MEDICARE, OTHER, SELFPAY ==
[2018-11-12 09:26] VITALS: BMI 32.1
--- NOTE | 2019-03-04 16:41 | RAD_ITS ---
STUDY: X-RAY - LUMBAR SPINE REASON FOR EXAM: Female, 68 years old. Low back and hip pain TECHNIQUE: 5 view(s) of the lumbar spine were obtained. COMPARISON: Report of previous study of 08/13/2011 FINDINGS: Normal lumbar lordosis. There is no substantial scoliosis. There is a normal alignment of the vertebrae. There is endplate spondylosis of L2 and L3. There is severe narrowing of the L2-3 disc space and mild narrowing of the L1-2 and L3-4 disc spaces. There is no demonstrated fracture. There is no demonstrated spondylolysis of the pars interarticulares. There are calcified plaques of the abdominal aorta. RAD/L/S Spine Min 4 Views IMPRESSION: Degenerative changes of the spine, as detailed above. Electronically Signed: Duncan Leonard MD at 22:45 EDT , Service support ,
== END ==
PROVIDERS: Family Provider Family Medicine; PCP Family Medicine; Referring Provider Nurse Practitioner Family; Visit Provider Nurse Practitioner Family
DX: M51.37 Other intervertebral disc degeneration, lumbosacral region (principal); M54.9 Dorsalgia, unspecified
CPT/HCPCS: 72110

== ENCOUNTER → 2019-04-21 09:55 | Outpatient (CLI) | payer MEDICARE, OTHER, SELFPAY ==
[2018-11-12 09:26] VITALS: BMI 32.1
[2019-04-21 12:24] LABS: Absolute Lymphocyte Count 0.99 X10^3/uL (0.83-4.51); Absolute Neutrophil Count 4.4 X10^3/uL (2.0-7.7); Basophil# 0.03 X10^3/uL; Basophil% 0.5 % (0-1); Eosinophil# 0.05 X10^3/uL; Eosinophils% 0.9 % (0-5); Hematocrit 43.4 % (37-47); Hemoglobin 14.2 g/dL (12.0-15.0); Lymphocyte # 0.99 X10^3/ul (4.0); Mean Corp Hgb Conc 32.7 g/dL (32-36); Mean Corpuscular Hgb 31.9 pg (27.0-32.0); Mean Corpuscular Volume 97.5 fL (81-99); Monocyte# 0.36 X10^3/uL; Monocyte% 6.2 % (0-10); NRBC Flagged by Analyzer 0 % (0-5); Neutrophil # 4.37 X10^3/uL (2.7-7.7); Neutrophil % 75.2 % (47-70); Platelet Count 226 K/mm3 (150-450); RBC Distribution Width CV 13.3 % (11.6-14.6); Red Blood Count 4.45 M/mm3 (4.2-5.4); White Blood Count 5.8 K/mm3 (4.4-11.0)
[2019-04-21 12:55] LABS: Hemoglobin A1c 5.4 % (4.2-6.3)
[2019-04-21 13:09] LABS: AST(SGOT) 15 U/L (15-37); Alanine Aminotransfer ALT/SGPT 24 U/L (13-56); Albumin, Serum 3.3 g/dL (3.2-5.0); Alkaline Phosphatase 77 U/L (45-117); Anion Gap 6 (5-15); BUN 18 mg/dL (7-18); Chloride 108 mmol/L (98-107); Creatinine, Serum 0.82 mg/dL (0.55-1.02); EST Glomerular Filtration Rate 73 mL/min (>60); Est Glom Filt Rate - Afr Amer 89 mL/min (>60); Globulin 3.4 g/dL (2.2-4.2); Glucose 95 mg/dL (74-106); Potassium 4.2 mmol/L (3.5-5.1); Protein, Total 6.7 g/dL (6.4-8.2); Sodium Level 141 mmol/L (136-145); Thyroid Stim Hormone (TSH) 2.42 uIU/mL (0.358-3.74)
== END ==
PROVIDERS: Family Provider Family Medicine; PCP Family Medicine; Visit Provider Family Medicine
DX: I10 Essential (primary) hypertension (principal); G47.00 Insomnia, unspecified; E78.5 Hyperlipidemia, unspecified; R73.01 Impaired fasting glucose; Z13.1 Encounter for screening for diabetes mellitus
CPT/HCPCS: 36415; 80053; 83036; 84443; 85025

== ENCOUNTER → 2019-05-14 15:16 | Outpatient (CLI) | payer MEDICARE, OTHER, SELFPAY ==
[2018-11-12 09:26] VITALS: BMI 32.1
--- NOTE | 2019-05-14 15:18 | BI_ITS ---
MAMMOGRAPHY - UNILATERAL SCREENING: RIGHT BREAST REASON FOR EXAM: Female, 69 years old. Routine annual screening examination (unilateral). PERTINENT HISTORY: Personal history of breast cancer. Prior left lumpectomy. Prior right lumpectomy and right stereotactic breast biopsy. TECHNIQUE: Digital unilateral breast marilee (3D mammographic acquisition) in the CC and MLO projections. 2-D mediolateral oblique (MLO) and craniocaudad (CC) views of both breasts were obtained. CAD: Full Field Digital Mammography with Computer Added Detection was performed. COMPARISON: Comparison is made with prior study dated May 07, 2018 and May 06, 2017. FINDINGS: Breast Composition: There are scattered areas of fibroglandular density. There are no dominant masses or suspicious calcifications. Stable postoperative scarring and postoperative calcification in the deep portion of the right breast with evidence of periareolar thickening. This is in keeping with the prior lumpectomy and postoperative scarring. No other significant abnormalities are identified. There has been no significant change since the prior study. BI/SCREEN MAMM (CAD) W/MARILEE UNI R IMPRESSION: Stable unilateral screening mammogram. Yearly follow-up mammogram recommended. (A) ASSESSMENT CATEGORY: BIRADS Category 2: Benign. A letter regarding these results will be sent to the patient by the facility within 30 days. Approximately 10% of breast cancers are not detected by mammography. A normal mammogram should not delay biopsy of a clinically suspicious abnormality. [id number] Electronically Signed: Tomi Hinton, at 8:12 EST , Service support ,
== END ==
PROVIDERS: Family Provider Family Medicine; PCP Family Medicine; Referring Provider Internal Medicine Hematology & Oncology; Visit Provider Internal Medicine Hematology & Oncology
DX: Z12.31 Encounter for screening mammogram for malignant neoplasm of breast (principal); Z85.3 Personal history of malignant neoplasm of breast
CPT/HCPCS: 77063; 77067

== ENCOUNTER → 2020-03-14 14:32 | Outpatient (CLI) | payer MEDICARE, OTHER, SELFPAY ==
[2019-05-19 13:19] VITALS: BMI 32.0
--- NOTE | 2020-03-14 14:35 | RAD_ITS ---
STUDY: X-RAY - LUMBAR SPINE REASON FOR EXAM: Female, 69 years old. LOW BACK PAIN, NO INJURY TECHNIQUE: view(s) of the lumbar spine were obtained. COMPARISON: None FINDINGS: There is straightening of the normal lumbar lordosis. There is no substantial scoliosis. There is 5 mm retrolisthesis at L1-2 and L2-3. There is multilevel endplate spondylosis of the lumbar vertebrae. There is multi-level degenerative disc disease with multi-level disc space narrowing. There is atherosclerotic calcification of the abdominal aorta without a demonstrated aneurysm. RAD/L/S Spine Min 4 Views IMPRESSION: Degenerative changes of the spine, as detailed above. Electronically Signed: Dalton Gloria, at 14:26 EDT Tel , Service support ,
== END ==
PROVIDERS: PCP Family Medicine; Referring Provider Nurse Practitioner Family; Visit Provider Nurse Practitioner Family
DX: M54.9 Dorsalgia, unspecified (principal)
CPT/HCPCS: 72110

== ENCOUNTER → 2020-04-22 10:34 | Outpatient (CLI) | payer MEDICARE, OTHER, SELFPAY ==
[2019-05-19 13:19] VITALS: BMI 32.0
[2020-04-22 12:54] LABS: Absolute Lymphocyte Count 0.84 X10^3/uL (0.83-4.51); Absolute Neutrophil Count 4.9 X10^3/uL (2.0-7.7); Basophil# 0.02 X10^3/uL; Basophil% 0.3 % (0-1); Hematocrit 45.8 % (37-47); Hemoglobin 14.6 g/dL (12.0-15.0); Lymphocyte # 0.84 X10^3/ul (4.0); Lymphocyte % 13.8 % (19-41); Mean Corp Hgb Conc 31.9 g/dL (32-36); Mean Corpuscular Hgb 30.2 pg (27.0-32.0); Mean Corpuscular Volume 94.6 fL (81-99); Monocyte# 0.34 X10^3/uL; Monocyte% 5.6 % (0-10); NRBC Flagged by Analyzer 0 % (0-5); Neutrophil # 4.87 X10^3/uL (2.7-7.7); Platelet Count 244 K/mm3 (150-450); RBC Distribution Width CV 13.2 % (11.6-14.6); RBC Distribution Width SD 46.1 fl (35.1-43.9); Red Blood Count 4.84 M/mm3 (4.2-5.4); White Blood Count 6.1 K/mm3 (4.4-11.0)
[2020-04-22 13:05] LABS: Hemoglobin A1c 5.3 % (3.8-5.6)
[2020-04-22 13:39] LABS: ALB/GLOB Ratio 0.9 RATIO (0.9-2.4); AST(SGOT) 17 U/L (15-37); Alanine Aminotransfer ALT/SGPT 29 U/L (13-56); Albumin, Serum 3.5 g/dL (3.2-5.0); Alkaline Phosphatase 115 U/L (45-117); Anion Gap 6 (5-15); BUN 21 mg/dL (7-18); Calcium,Total 9.2 mg/dL (8.5-10.1); Chloride 110 mmol/L (98-107); Creatinine, Serum 0.75 mg/dL (0.55-1.02); EST Glomerular Filtration Rate 81 mL/min (>60); Est Glom Filt Rate - Afr Amer 98 mL/min (>60); Globulin 3.7 g/dL (2.2-4.2); Glucose 94 mg/dL (74-106); Potassium 3.8 mmol/L (3.5-5.1); Protein, Total 7.2 g/dL (6.4-8.2); Sodium Level 141 mmol/L (136-145); Thyroid Stim Hormone (TSH) 1.31 uIU/mL (0.358-3.74)
== END ==
PROVIDERS: PCP Family Medicine; Visit Provider Family Medicine
DX: E78.5 Hyperlipidemia, unspecified (principal); I10 Essential (primary) hypertension; R73.01 Impaired fasting glucose
CPT/HCPCS: 36415; 80053; 83036; 84443; 85025

== ENCOUNTER → 2020-05-16 10:47 | Outpatient (CLI) | payer MEDICARE, OTHER, SELFPAY ==
[2019-05-19 13:19] VITALS: BMI 32.0
--- NOTE | 2020-05-16 10:52 | BI_ITS ---
MAMMOGRAPHY - UNILATERAL SCREENING: RIGHT BREAST REASON FOR EXAM: Female, 70 years old. Routine annual screening examination (unilateral). PERTINENT HISTORY: Personal history of breast cancer. Prior left mastectomy. History of prior right lumpectomy and right stereotactic breast biopsy. History of right nipple inversion. TECHNIQUE: Digital unilateral breast marilee (3D mammographic acquisition) in the CC and MLO projections. 2-D mediolateral oblique (MLO) and craniocaudad (CC) views of both breasts were obtained. CAD: Full Field Digital Mammography with Computer Added Detection was performed. COMPARISON: Comparison is made with prior study dated 05/14/2019 and 05/07/2018. FINDINGS: Breast Composition: There are scattered areas of fibroglandular density. There are no dominant masses or suspicious calcifications. Stable architectural distortion in the deep retroareolar region of the right breast with evidence of inversion of the right nipple. A tissue clip marker is once again seen in the retroareolar region of the right breast. No other significant abnormalities are identified. There has been no significant change since the prior study. BI/SCREEN MAMM (CAD) W/MARILEE UNI R IMPRESSION: Stable unilateral screening mammogram. Yearly follow-up mammogram recommended. (A) ASSESSMENT CATEGORY: BIRADS Category 2: Benign. A letter regarding these results will be sent to the patient by the facility within 30 days. Approximately 10% of breast cancers are not detected by mammography. A normal mammogram should not delay biopsy of a clinically suspicious abnormality. [id number] Electronically Signed: Tomi Hinton, at 11:35 EST , Service support ,
== END ==
PROVIDERS: PCP Family Medicine; Referring Provider Internal Medicine Hematology & Oncology; Visit Provider Internal Medicine Hematology & Oncology
DX: Z12.31 Encounter for screening mammogram for malignant neoplasm of breast (principal); Z90.13 Acquired absence of bilateral breasts and nipples; Z85.3 Personal history of malignant neoplasm of breast
CPT/HCPCS: 77063; 77067

== ENCOUNTER → 2020-06-30 12:54 | Outpatient (CLI) | payer MEDICARE, OTHER, SELFPAY ==
[2020-05-19 13:46] VITALS: BMI 33.6
--- NOTE | 2020-06-30 13:00 | BD_ITS ---
STUDY: DUAL ENERGY X-RAY ABSORPTIOMETRY / DXA REASON FOR EXAM: Female, 70 years old. Age of sav[place] 38 partial hysterectomy. Pat is 191.7# and 62 and quot; a loss of 2 and quot; per pat. Past use of an inhaler for 30 days a long time ago. Past hx of using Boniva and Evista for short times. Hx of a foot stress fx and a right wrist fx. Hx of melanie breast CA, Left sided mastectomy and a right sided lumpectomy. Patient does not exercise. TECHNIQUE: Bone Mineral Density (BMD) measurements of lumbar spine and bilateral hips were obtained. COMPARISON: Comparison is made with prior examination dated 05/17/2015. FINDINGS: Lumbar Spine (L1-L4): g/cm2 (1.005) / T-score (-1.5) / Z-score (0.2) Findings are suggestive of osteopenia with a low fracture risk. Left Femur Total: g/cm2 (0.813) / T-score (-1.5) / Z-score (0.0) Left Femoral Neck: g/cm2 (0.848) / T-score (-1.4) / Z-score (0.4) Right Femur Total: g/cm2 (0.741) / T-score (-2.1) / Z-score (-0.5) Right Femoral Neck: g/cm2 (0.669) / T-score (-2.7) / Z-score (-0.9) The T-Scores on the most recent prior examination were: Lumbar Spine (L1-L4): There has been no change of bone density since the previous examination. Left Femur Total: which represents a worsening of 2.2%. Right Femur Total: which represents a worsening of 3.5%. BD/Dexa Bone Density Study IMPRESSION: The patient is considered osteoporotic as outlined below according to World Jhon Organization (WHO) criteria with a high fracture risk. There has been worsening of bone density since the previous examination. Reference Information: The T-score is the number of standard deviations above or below the standard which is normal for young adults at their peak bone mineral density. The World Health Organization (WHO) interprets the T-scores as follows: Above -1 Normal bone density Between -1 and -2.5 Osteopenia Equal to / or below -2.5 Osteoporosis As a practical clinical guideline, osteopenia may be graded as follows: Mild -1 through -1.5 Moderate -1.6 through -2.0 Severe -2.1 through -2.4 The Z-score is the number of standard deviations above or below age-matched controls. A Z-score of less than -1.5 would be considered abnormal. References: 1. NIH Osteoporosis and Related Bone Diseases www osteo.org 2. International Society for Clinical Densitometry www iscd.org 3. National Osteoporosis Foundation www nof.org Electronically Signed: Tomi Hinton MD at 13:37 EST , Service support ,
== END ==
PROVIDERS: PCP Family Medicine; Referring Provider Internal Medicine Hematology & Oncology; Visit Provider Internal Medicine Hematology & Oncology
DX: M81.0 Age-related osteoporosis without current pathological fracture (principal)
CPT/HCPCS: 77080

== ENCOUNTER 2020-08-03 14:00 | Outpatient (RCR) | payer MEDICARE, OTHER, SELFPAY ==
[2020-05-19 13:46] VITALS: BMI 33.6
[2020-07-25 13:50] VITALS: BMI 34.4
== END 2020-08-03 23:59 ==
LOC: IMMUN 14:00
PROVIDERS: PCP Family Medicine; Visit Provider Family Medicine
DX: Z23 Encounter for immunization (principal)
CPT/HCPCS: 0011A; 0012A; 91301

== ENCOUNTER → 2020-08-10 12:08 | Outpatient (CLI) | payer MEDICARE, OTHER, SELFPAY ==
[2020-07-25 13:50] VITALS: BMI 34.4
--- NOTE | 2020-08-10 12:12 | CT_ITS ---
STUDY: CT LUMBAR SPINE WITHOUT CONTRAST REASON FOR EXAM: Female, 70 years old. Radiculopathy, lumbar region POSS FRACTURE RADIATION DOSAGE (If Supplied By Facility): CTDIvol = ( 30.43 ) mGy, DLP = ( 853.86 ) mGycm TECHNIQUE: The patient was scanned in a multi detector CT scanner. High resolution transaxial imaging was performed. Images were obtained from L1 to S1 vertebral level. Sagittal and coronal images were reconstructed. Individualized dose optimization techniques were used for this CT. COMPARISON: None FINDINGS: Normal lumbar lordosis. There is no substantial scoliosis. Normal vertebrae of the lumbar spine. L1-2: Mild degree of disc space narrowing and anterior spondylosis. L2-3: Moderate degree of disc space narrowing with spondylosis. Subchondral sclerosis. Mild degree of diffuse posterior disc bulge causing mild degree of bilateral neural foraminal stenosis. L3-4: Mild degree of disc space narrowing. Mild to moderate degree of central canal stenosis due to hypertrophy of facet joints and ligamentum flavum as well as diffuse posterior disc bulge. L4-5: Mild to moderate degree of central canal stenosis due to the hypertrophy of the facet joints as well as the ligamenta flava with diffuse posterior disc bulge. L5-S1: Normal endplates. Normal disc height and morphology. Normal bilateral facet joints. Normal central canal and bilateral lateral recesses. Normal bilateral intervertebral neural foramina. Normal visualized paraspinous soft tissue structures. CT/Spine Lumbar without Contrast IMPRESSION: Multilevel degenerative changes, as described above. Spinal stenosis at the L3-L4 and L4-L5 levels. Electronically Signed: Tomi Hinton MD at 13:03 EST , Service support ,
== END ==
PROVIDERS: PCP Family Medicine; Referring Provider Family Medicine; Visit Provider Family Medicine
DX: M54.16 Radiculopathy, lumbar region (principal); M47.816 Spondylosis without myelopathy or radiculopathy, lumbar region; M48.061 Spinal stenosis, lumbar region without neurogenic claudication
CPT/HCPCS: 72131

== ENCOUNTER → 2020-09-05 15:15 | Outpatient (CLI) | payer MEDICARE, OTHER, SELFPAY ==
[2020-07-25 13:50] VITALS: BMI 34.4
--- NOTE | 2020-09-05 15:20 | RAD_ITS ---
STUDY: X-RAY - PELVIS AND LEFT HIP REASON FOR EXAM: Female, 70 years old. Left hip pain TECHNIQUE: 3 views of the pelvis and hip. COMPARISON: None. FINDINGS: There is a non-specific bowel gas pattern. Normal visualized soft tissue structures. There is narrowing with cortical sclerosis and osteophyte formation of the sacroiliac joint consistent with degenerative osteoarthritic changes. Normal bilateral superior and inferior pubic rami. Normal pubic symphysis. Normal bilateral ischial tuberosities. Normal visualized femoral head. Normal acetabulum. There is moderate articular joint space narrowing of the hip. Similar arthritic changes noted in the right hip. RAD/HIP, UNI W/ Pelvis 2-3 Views IMPRESSION: Age consistent left hip and SI joint arthrosis, no demonstrated fracture or suspicious osseous lesion Electronically Signed: Axel Ledesma MD at 13:41 EDT , Service support ,
== END ==
PROVIDERS: PCP Family Medicine; Referring Provider Nurse Practitioner Family; Visit Provider Nurse Practitioner Family
DX: M13.852 Other specified arthritis, left hip (principal)
CPT/HCPCS: 73502

== ENCOUNTER → 2020-11-22 13:44 | Outpatient (CLI) | payer MEDICARE, OTHER, SELFPAY ==
[2020-07-25 13:50] VITALS: BMI 34.4
--- NOTE | 2020-11-22 13:47 | CDU_ITS ---
Reason For Study: Bilateral disease on screening Rt. Velocities/BP Lt. Velocities/BP Prox CCA 78.6/10.8 cm/sec. Prox CCA 75.2/10.2 cm/sec. Mid CCA 83.9/10.8 cm/sec. Mid CCA 70.3/9 cm/sec. Dist CCA 72.1/12.1 cm/sec. Dist CCA 66.6/9 cm/sec. Prox ICA 117.4/20.6 cm/sec. Prox ICA 152.1/26.1 cm/sec. Mid ICA 84.6/15.2 cm/sec. Mid ICA 85.1/12.6 cm/sec. Dist ICA 75.3/13.9 cm/sec. Dist ICA 74.1/13.9 cm/sec. Rt. ICA/CCA = 1.49. Lt. ICA/CCA = 2.16. Prox ECA 100.8/5.6 cm/sec. Prox ECA 70.4/4.7 cm/sec. Rt. Vert. 61.8 cm/sec. Lt. Vert. 67.9/5.3 cm/sec. Right Extracranial There is heterogeneous, smooth atherosclerotic plaque noted in the right common carotid artery. There is heterogeneous, irregular atherosclerotic plaque noted in the right internal carotid artery. The atherosclerotic plaque causes acoustic shadowing. There is heterogeneous, irregular atherosclerotic plaque noted in the right external carotid artery. Antegrade flow is noted in the right vertebral artery. Left Extracranial There is homogeneous, smooth atherosclerotic plaque noted in the left common carotid artery. There is heterogeneous, irregular atherosclerotic plaque noted in the left internal carotid artery. The atherosclerotic plaque causes acoustic shadowing. There is heterogeneous, irregular atherosclerotic plaque noted in the left external carotid artery. Antegrade flow is noted in the left vertebral artery. Procedure Carotid Duplex [id number]. This is a Carotid Duplex examination using B-mode, color flow and specral Doppler. Exam performed in department. VL/Carotid Duplex Ultrasound Interpretation Summary Irregular calcific plaque with shadowing at the proximal right internal carotid artery with less than 50% stenosis Less than 50% stenosis right external carotid artery Irregular calcific plaque with shadowing at the proximal left internal carotid artery with 50 to 69% stenosis. Less than 50% stenosis left external carotid artery Patent and antegrade vertebral arteries bilaterally Ordering Physician: Javon Early Referring Physician: Javon Early Performed By: Elle Grubbs RVT
== END ==
PROVIDERS: PCP Family Medicine; Referring Provider Family Medicine; Visit Provider Family Medicine
DX: I65.23 Occlusion and stenosis of bilateral carotid arteries (principal)
CPT/HCPCS: 93880

== ENCOUNTER → 2021-05-17 11:35 | Outpatient (CLI) | payer MEDICARE, OTHER, SELFPAY ==
--- NOTE | 2021-05-17 11:37 | BI_ITS ---
MAMMOGRAPHY - UNILATERAL SCREENING: RIGHT BREAST REASON FOR EXAM: Female, 71 years old. Routine annual screening examination (unilateral). PERTINENT HISTORY: Personal history of breast cancer. Prior left mastectomy and right lumpectomy with radiation treatment. There are multiple right stereotactic breast biopsy. TECHNIQUE: Digital unilateral breast marilee (3D mammographic acquisition) in the CC and MLO projections. 2-D mediolateral oblique (MLO) and craniocaudad (CC) views of both breasts were obtained. CAD: Full Field Digital Mammography with Computer Added Detection was performed. COMPARISON: Comparison is made with prior examination dated 05/16/2020 and 05/14/2019. FINDINGS: Breast Composition: There are scattered areas of fibroglandular density. There are no dominant masses or suspicious calcifications. The patient is status post lumpectomy in the deep central aspect of the right breast with resultant architectural distortion and postoperative scarring. Dystrophic calcification is seen at the operative site. This also evidence of overlying skin thickening and deformity of the breast. Surgical clips are seen in the right axillary region. A tissue clip marker is once again seen in the retroareolar region of the right breast. No other significant abnormalities are identified. There has been no significant change since the prior study. BI/SCREEN MAMM (CAD) W/MARILEE UNI R IMPRESSION: Stable unilateral screening mammogram. Yearly follow-up mammogram recommended. (A) ASSESSMENT CATEGORY: BIRADS Category 2: Benign. A letter regarding these results will be sent to the patient by the facility within 30 days. Approximately 10% of breast cancers are not detected by mammography. A normal mammogram should not delay biopsy of a clinically suspicious abnormality. [id number] Electronically Signed: Tomi Hinton MD at 12:42 EST , Service support ,
== END ==
PROVIDERS: PCP Family Medicine; Referring Provider Internal Medicine Hematology & Oncology; Visit Provider Internal Medicine Hematology & Oncology
DX: Z12.31 Encounter for screening mammogram for malignant neoplasm of breast (principal); C50.911 Malignant neoplasm of unspecified site of right female breast; Z90.12 Acquired absence of left breast and nipple; Z85.3 Personal history of malignant neoplasm of breast
CPT/HCPCS: 77063; 77067

== ENCOUNTER 2021-06-29 13:31 | Outpatient (CLI) | payer MEDICARE, OTHER, SELFPAY | END 2021-06-29 23:59 | disposition short-term general hospital (02) | LOC: LABSPEC 13:34 | PROVIDERS: PCP Family Medicine; Referring Provider Physician Assistant; Visit Provider Physician Assistant | DX: Z20.822 Contact with and (suspected) exposure to COVID-19 (principal) | CPT/HCPCS: 87635; U0003; U0005 ==

== ENCOUNTER → 2021-12-27 | Outpatient (CLI) | payer MEDICARE, OTHER, SELFPAY ==
[2021-12-27 10:02] LABS: Absolute Lymphocyte Count 1.12 X10^3/uL (0.83-4.51); Absolute Neutrophil Count 3.2 X10^3/uL (2.0-7.7); Basophil# 0.03 X10^3/uL; Basophil% 0.6 % (0-1); Eosinophil# 0.11 X10^3/uL; Eosinophils% 2.3 % (0-5); Hematocrit 44.2 % (37-47); Hemoglobin 14.8 g/dL (12.0-15.0); Lymphocyte # 1.12 X10^3/ul (0.83-4.51); Lymphocyte % 23.4 % (19-41); Mean Corp Hgb Conc 33.5 g/dL (32-36); Mean Corpuscular Volume 95.7 fL (81-99); Mean Platelet Vol. 10.2 fl (6.2-12.0); Monocyte# 0.29 X10^3/uL; Monocyte% 6.1 % (0-10); NRBC Flagged by Analyzer 0 % (0-5); Neutrophil # 3.22 X10^3/uL (2.7-7.7); Neutrophil % 67.4 % (47-70); Platelet Count 203 K/mm3 (150-450); RBC Distribution Width CV 13.9 % (11.6-14.6); RBC Distribution Width SD 48.8 fl (35.1-43.9); Red Blood Count 4.62 M/mm3 (4.2-5.4); White Blood Count 4.8 K/mm3 (4.4-11.0)
[2021-12-27 10:26] LABS: Hemoglobin A1c 5.6 % (3.8-5.6)
[2021-12-27 11:01] LABS: ALB/GLOB Ratio 0.9 RATIO (0.9-2.4); AST(SGOT) 19 U/L (15-37); Alanine Aminotransfer ALT/SGPT 25 U/L (13-56); Albumin, Serum 3.1 g/dL (3.2-5.0); Alkaline Phosphatase 79 U/L (45-117); Anion Gap 5 (5-15); BUN 15 mg/dL (7-18); BUN/Creat Ratio 18.7 RATIO (10-20); Calcium,Total 9.2 mg/dL (8.5-10.1); Chloride 111 mmol/L (98-107); Cholesterol 168 mg/dL (200); EST Glomerular Filtration Rate 74 mL/min (>60); Est Glom Filt Rate - Afr Amer 90 mL/min (>60); Globulin 3.6 g/dL (2.2-4.2); Glucose 94 mg/dL (74-106); High Density Lipoprotein 60 mg/dL; Protein, Total 6.7 g/dL (6.4-8.2); Sodium Level 143 mmol/L (136-145); Triglycerides 90 mg/dL; Very Low Density Lipoprotein 18 mg/dL (5-40)
== END | disposition home or self-care (01) ==
PROVIDERS: PCP Family Medicine; Referring Provider Family Medicine; Visit Provider Family Medicine
DX: E78.5 Hyperlipidemia, unspecified (principal); I10 Essential (primary) hypertension; R73.01 Impaired fasting glucose
CPT/HCPCS: 36415; 80053; 80061; 83036; 84443; 85025

== ENCOUNTER → 2022-04-10 | Outpatient (CLI) | payer MEDICARE, OTHER, SELFPAY ==
[2022-04-10 11:57] LABS: Erythrocyte Sedimentation Rate 18 mm/hr (0-30)
[2022-04-10 11:58] LABS: Absolute Lymphocyte Count 0.91 X10^3/uL (0.83-4.51); Absolute Neutrophil Count 4.2 X10^3/uL (2.0-7.7); Basophil# 0.02 X10^3/uL; Basophil% 0.4 % (0-1); Eosinophil# 0.04 X10^3/uL; Eosinophils% 0.7 % (0-5); Hematocrit 43.4 % (37-47); Hemoglobin 14.4 g/dL (12.0-15.0); Lymphocyte # 0.91 X10^3/ul (0.83-4.51); Lymphocyte % 16.2 % (19-41); Mean Corp Hgb Conc 33.2 g/dL (32-36); Mean Corpuscular Hgb 32.4 pg (27.0-32.0); Mean Corpuscular Volume 97.7 fL (81-99); Mean Platelet Vol. 10.3 fl (6.2-12.0); Monocyte% 7.1 % (0-10); NRBC Flagged by Analyzer 0 % (0-5); Neutrophil # 4.24 X10^3/uL (2.7-7.7); Neutrophil % 75.4 % (47-70); Platelet Count 240 K/mm3 (150-450); RBC Distribution Width CV 13.3 % (11.6-14.6); RBC Distribution Width SD 48.1 fl (35.1-43.9); Red Blood Count 4.44 M/mm3 (4.2-5.4); White Blood Count 5.6 K/mm3 (4.4-11.0)
[2022-04-10 12:07] LABS: ALB/GLOB Ratio 0.9 RATIO (0.9-2.4); AST(SGOT) 30 U/L (15-37); Alanine Aminotransfer ALT/SGPT 42 U/L (13-56); Albumin, Serum 3.4 g/dL (3.2-5.0); Alkaline Phosphatase 149 U/L (45-117); Amylase 37 U/L (25-115); Anion Gap 5 (5-15); BUN 15 mg/dL (7-18); BUN/Creat Ratio 18.7 RATIO (10-20); Calcium,Total 9.3 mg/dL (8.5-10.1); Chloride 108 mmol/L (98-107); EST Glomerular Filtration Rate 74 mL/min (>60); Est Glom Filt Rate - Afr Amer 90 mL/min (>60); Globulin 3.6 g/dL (2.2-4.2); Glucose 95 mg/dL (74-106); LDH 176 U/L (84-246); Lipase 115 U/L (73-393); Potassium 4.4 mmol/L (3.5-5.1); Sodium Level 140 mmol/L (136-145)
[2022-04-11 14:09] LABS: Endomysial Antibody IgA Negative (Negative)
[2022-04-11 16:29] LABS: Immunoglobulin A 300 mg/dL (64-422); t-Transglutaminase IgA <2 U/mL (0-3)
[2022-04-18 12:08] LABS: Anti-Centromere B Ab <0.2 AI (0.0-0.9); Anti-Chromatin <0.2 AI (0.0-0.9); Anti-Jo <0.2 AI (0.0-0.9); Anti-Scleroderma-70 AB <0.2 AI (0.0-0.9); Beef <0.10 kU/L (Class 0); Corn <0.10 kU/L (Class 0); Egg, Whole 0.14 kU/L (Class 0/I); Peanut <0.10 kU/L (Class 0); Pork <0.10 kU/L (Class 0); RNP Ab <0.2 AI (0.0-0.9); SJOGREN'S Anti-SS-A test < 0.2 AI (0.0-0.9); SJOGREN'S Anti-SS-B test < 0.2 AI (0.0-0.9); Smith Ab <0.2 AI (0.0-0.9); Soybean <0.10 kU/L (Class 0); Wheat <0.10 kU/L (Class 0)
[2022-04-18 17:03] LABS: Anti-dsDNA Ab <1 IU/mL (0-9); Chocolate <0.10 kU/L (Class 0)
[2022-04-18 22:07] LABS: Albumin 3.4 g/dL (2.9-4.4); Alpha-1-Globulins 0.3 g/dL (0.0-0.4); Alpha-2-Globulins 0.8 g/dL (0.4-1.0); Cytoplasmic Ab (C-ANCA) <1:20 titer (Neg:<1:20); Gamma Globulin 0.6 g/dL (0.4-1.8); Immunoglobulin A 293 mg/dL (64-422); Immunoglobulin E 55 IU/mL (6-495); Immunoglobulin G 641 mg/dL (586-1602); Immunoglobulin M 73 mg/dL (26-217); PROEL- TOTAL PROTEIN 6.3 g/dL (6.0-8.5)
[2022-04-20 14:35] LABS: Anti-Parietal Cell AB, QN 1.8 Units (0.0-20.0); Gastrin, Serum 564 pg/mL (0-115); Perinuclear Ab (P-ANCA) <1:20 titer (Neg:<1:20)
== END | disposition home or self-care (01) ==
PROVIDERS: PCP Family Medicine; Visit Provider Internal Medicine Gastroenterology
DX: R19.7 Diarrhea, unspecified (principal); C50.911 Malignant neoplasm of unspecified site of right female breast; K21.9 Gastro-esophageal reflux disease without esophagitis; Z17.1 Estrogen receptor negative status [ER-]
CPT/HCPCS: 36415; 80053; 82150; 82784; 82785; 82941; 83516; 83615; 83690; 84165; 85025; 85652; 86003; 86005; 86140; 86225; 86235; 86255; 86256; 86334; 86340

== ENCOUNTER → 2022-04-13 | Outpatient (CLI) | payer MEDICARE, OTHER, SELFPAY ==
[2022-04-18 19:13] LABS: Pancreatic Elastase, Fecal 151 (>200)
[2022-04-20 14:29] LABS: Calprotectin, Stool 43 ug/g (0-120); Fats, Neutral Increased (.); Fats, Total Increased (.)
== END | disposition home or self-care (01) ==
LOC: LAB 11:12 → LABSPEC 11:13
PROVIDERS: PCP Family Medicine; Referring Provider Internal Medicine Gastroenterology; Visit Provider Internal Medicine Gastroenterology
DX: R19.7 Diarrhea, unspecified (principal); K21.9 Gastro-esophageal reflux disease without esophagitis
CPT/HCPCS: 82653; 82705; 83630; 83993; 87177; 87209; 87329; 87493

== ENCOUNTER → 2022-05-21 | Outpatient (CLI) | payer MEDICARE, OTHER, SELFPAY ==
--- NOTE | 2022-05-21 13:03 | BI_ITS ---
MAMMOGRAPHY - UNILATERAL SCREENING: RIGHT BREAST REASON FOR EXAM: Female, 72 years old. Routine annual screening examination (unilateral). PERTINENT HISTORY: Personal history of breast cancer. Prior left mastectomy. History of prior right lumpectomy and right stereotactic breast biopsy with radiation and chemotherapy. Chronic right nipple inversion. TECHNIQUE: Digital unilateral breast marilee (3D mammographic acquisition) in the CC and MLO projections. 2-D mediolateral oblique (MLO) and craniocaudad (CC) views of both breasts were obtained. CAD: Full Field Digital Mammography with Computer Added Detection was performed. COMPARISON: Comparison is made with prior study dated 05/17/2021 and 05/16/2020. FINDINGS: Breast Composition: There are scattered areas of fibroglandular density. There are no dominant masses or suspicious calcifications. The patient is status post lumpectomy in the deep upper slightly lateral aspect of the right breast with postoperative dystrophic calcification and scarring. Surgical clips are also seen in the right axillary region. There is inversion of the right nipple. A tissue clip marker is also seen deep to the right retroareolar complex. No other significant abnormalities are identified. There has been no significant change since the prior study. BI/SCREEN MAMM (CAD) W/MARILEE UNI R IMPRESSION: Stable unilateral screening mammogram. Yearly follow-up mammogram recommended. (A) ASSESSMENT CATEGORY: BIRADS Category 2: Benign. A letter regarding these results will be sent to the patient by the facility within 30 days. Approximately 10% of breast cancers are not detected by mammography. A normal mammogram should not delay biopsy of a clinically suspicious abnormality. [id number] Electronically Signed: Tomi Hinton MD at 14:25 EST ,
== END | disposition home or self-care (01) ==
LOC: OPBI 13:02
PROVIDERS: PCP Family Medicine; Visit Provider Internal Medicine Hematology & Oncology
DX: Z12.31 Encounter for screening mammogram for malignant neoplasm of breast (principal); Z90.12 Acquired absence of left breast and nipple; Z92.21 Personal history of antineoplastic chemotherapy
CPT/HCPCS: 77063; 77067

== ENCOUNTER 2022-07-26 13:00 | Outpatient (RCR) | payer MEDICARE, OTHER, SELFPAY ==
--- NOTE | 2022-06-25 14:28 | HP.PTEVAL_ITS ---
Patient's Visit Information MAGDY RUFF is a 72 year old F referred to Physical Therapy by TJ Peng with a diagnosis of Bilateral Knee Pain. Date of Evaluation: 06/25/22 Physical Therapist: Helen Petty DPT - Visit Plan Frequency: 2x /Week Duration: 4 Weeks Plan: Focus on LE and core strength/stabilization- bilateral knee OA. HEP Given IE: SLR, bridge, hamstring stretch supine, hip add, hip abd, sit to stand - Subjective Patient reports that she has bilateral knee pain- she went to see Flavio Kang and her knees have been really stiff and painful. He did x-rays and they showed some arthritis on the medial side of the knees. She takes medications for her BP in Nov she started to have swelling in her ankles/feet and she started to wear compression garments and feels that the swelling and the compression garments may have let to increased knee discomfort. She feels the knees are worse with the fluid. Flavio gave her a prescription cream and now she is feeling to much better. She can now get out of the chair without using her arms. Strengthening around the knee will help. Pain was limiting her function Worst: 8-9/10 Agg: stairs, being up on them. Eases: cream, sitting. Best: 0/10. She has trouble with hips and low back- she has had pain injections- last ones were about a year ago. She gets bursitis in the left hip. Dr. Kay has given some in her low back and hip. The left is worse than the right. Describes the pain as achy. Pain is located along the whole knee-Does not radiate. No N/T in the toes. She would say she is average in activity- does not have and exercise program. Her overall walking ability has really changed in the last 2-3 years. Sleep: not disturbed. Lives in a first floor set up with a finished basement and laundry. PMHx/Meds: no changes since saw ortho 06/18/22. - Objective Posture: FH, RS- does correct with change of position but does not maintain when stationary in sitting or standing. Gait: decreased ivan, wide base of suppor t no AD. Stairs: asc/desc 8 stairs recip with 1 HR- poor control with descent and asc she requires UE A for propulsion forwards. HR/TR: able with UE A. SLS: weight shift but does not feel confident enough to attempt SLS without UE A. ROM: 0-125 degrees without pain at end ranges. Sensation: WNL to gross touch bilateral. Flex: HS: moderate, Gastroc: moderate. Strength: Core: fair minus, Hip: 4-/5 throughout flexion, abduction, IR/ER, extn: 4/5, Knee: flexion: 4+/5, Extn: 5/5, Ankle: 5/5. Palpation: tender along medial joint line and in the quads right>left - Balance/Special Test Scores Lower Extremity Functional Score: 26 TUG Test Time Seconds: 15 - Goals Goal 1:: Patient will be I with HEP and progression Goal Time Frame: 4-6 Weeks Goal 2:: Patient will asc/desc 8 stairs recip with 1 HR Goal Time Frame: 4-6 Weeks Goal 3:: Patient will ambulate >300 feet with a normalized gait pattern. Goal 4:: Patient will be I with HEP and progression Goal Time Frame: 4-6 Weeks - Rehabilitation Potential Physical Therapy Diagnosis: Patient presents with hypomobility- she has decreased LE and core strength/stabilization, flex and muscular endurance leading to abnormal gait and increased pain with ADL's Rehabilitation Potential: Fair - Anticipated Interventions Patient/Client Instruction: Educate patient on: Benefits of Fitness Program Therapeutic Exercise to Include: Strength training, Endurance training, Coordination, Agility training, Body mechanics, Postural training, Flexibilty training, Gait and locomotor training, Neuromotor development, Dynamic Lumbar Stabilization, Scapular Strength/Stabilization For the Purpose of:: To improve muscle performance and motor function Thank you for the opportunity to evaluate your patient. For Medicare and Medicare HMO plans, please review the plan of care and approve it. It will need to be FAXED BACK to us at [phone] for Medicare purposes. For Medicare only, by signing this I certify the plan of care. Please let me know if there are questions or concerns regarding this plan of care. Physician Signature: Date:
--- NOTE | 2022-07-26 13:27 | HP.PTDCSUM ---
It has been my pleasure to treat MAGDY RUFF referred by TJ Peng, with the diagnosis of Bilateral Knee Pain for a total of 8 visit(s). Discharge Date: Please see the following information for a summary of their discharge status. Subjective: Patient reports that she is happy with progress and her and her would like to joint HP and do an indep HEP % Improvement: 25 Objective/Function: Patient was able to complete without incidence. No questions on machines will attempt indep Goal 1:: Patient will be I with HEP and progression Goal 2:: Patient will asc/desc 8 stairs recip with 1 HR Goal 3:: Patient will ambulate >300 feet with a normalized gait pattern. Goal 4:: Patient will be I with HEP and progression Plan: 07/26/22: d/c to HEP- will ask if questions arise. Focus on LE and core strength/stabilization- bilateral knee OA. HEP Given IE: SLR, bridge, hamstring stretch supine, hip add, hip abd, sit to stand If there are questions or concerns regarding this patient's physical therapy, please feel free to call me at [phone]. Thank you for the referral of this patient. Sincerely, Helen Petty, KARENT Balance/Gait/Functional tests - Balance/Special Test Scores Lower Extremity Functional Score: 38 TUG Test Time Seconds: 15 Tug Test: <20 sec.=mostly independent
== END 2022-07-26 14:27 | disposition home or self-care (01) ==
LOC: PT 13:00
PROVIDERS: PCP Family Medicine; Referring Provider Physician Assistant; Visit Provider Physician Assistant
DX: M17.0 Bilateral primary osteoarthritis of knee
CPT/HCPCS: 97110; 97162; 97530

== ENCOUNTER → 2022-11-02 | Outpatient (CLI) | payer MEDICARE, OTHER, SELFPAY ==
--- NOTE | 2022-11-02 14:54 | ECHODONC_ITS ---
Reason For Study: MV Regurgitation Procedure This was a 2D Doppler, Color Flow transthoracic echocardiogram. Myocardial strain analysis was performed in this exam to aid in the assessment of cardiac function. Exam performed in department. Left Ventricle Normal LV size. Left ventricular systolic function is normal. The estimated ejection fraction is 60 %. Stage 1 diastolic dysfunction. No regional wall motion abnormalities noted. Right Ventricle Normal RV size. Normal systolic function. Atria Normal left atrium. Normal right atrium. Mitral Valve Normal mitral valve. Mild (1+) eccentric mitral valve insufficiency. Tricuspid Valve Normal tricuspid valve. Mild (1+) tricuspid valve insufficiency. Pulmonary artery systolic pressure is 36 mmHg. Aortic Valve Normal aortic valve. Trisinus/trileaflet aortic valve. Pulmonic Valve Normal pulmonic valve. Great Vessels Normal aortic root. The pulmonary artery is normal size. Normal inferior vena cava. Pericardium/Pleural No pericardial effusion. MMode/2D Measurements & Calculations LVIDd: 4.6 cm IVSd: 0.90 cm Ao root diam: 3.0 cm LVIDs: 3.1 cm LVPWd: 0.96 cm RVDd: 2.9 cm FS: 32.5 % LAV(MOD-bp): 44.1 ml LVAd ap4: 24.6 cm2 SV(MOD-sp4): 44.7 ml LAV(MOD-bp) Indexed: 24.4 ml/m2 LVLd ap4: 6.9 cm LAV(MOD-sp2): 51.9 ml EDV(MOD-sp4): 72.3 ml LAV(MOD-sp4): 37.1 ml EDV(sp4-el): 73.9 ml LVAs ap4: 13.4 cm2 LVLs ap4: 5.6 cm ESV(MOD-sp4): 27.6 ml ESV(sp4-el): 27.1 ml EF(MOD-sp4): 61.8 % EF(sp4-el): 63.3 % SV(sp4-el): 46.8 ml LA A4 area: 14.9 cm2 LA dimension(2D): 4.1 cm RA A4 area: 12.1 cm2 Time Measurements MV dec time: 0.26 sec Doppler Measurements & Calculations MV E max mamadou: 70.8 cm/sec Lat Peak E' Mamadou: 6.3 cm/sec Med Peak E' Mamadou: 5.2 cm/sec MV A max mamadou: 77.8 cm/sec E/E' lat: 11.2 E/E' med: 13.7 MV E/A: 0.91 Ao V2 max: 134.4 cm/sec LV V1 max: 106.5 cm/sec MV dec slope: 276.4 cm/sec2 Ao max P.2 mmHg LV V1 max P.5 mmHg Ao V2 mean: 100.3 cm/sec Ao mean P.4 mmHg Ao V2 VTI: 34.3 cm PA V2 max: 89.8 cm/sec PI end-d mamadou: 119.7 cm/sec TR max mamadou: 286.2 cm/sec TR max P.8 mmHg ECHO/ONC Echo Complete Interpretation Summary Normal LV size. Left ventricular systolic function is normal. The estimated ejection fraction is 60 %. Stage 1 diastolic dysfunction. Pulmonary artery systolic pressure is 36 mmHg. The global longitudinal strain is normal. The global longitudinal strain = -17. 8 % (normal). Ordering Physician: Rakan Adkins Referring Physician: Renzo De Paz Performed By: Dianelys Joseph, ANGELCS, RVT
== END | disposition home or self-care (01) ==
LOC: CVS 14:50
PROVIDERS: PCP Family Medicine; Referring Provider Internal Medicine Cardiovascular Disease; Visit Provider Internal Medicine Cardiovascular Disease
DX: I34.0 Nonrheumatic mitral (valve) insufficiency (principal)
CPT/HCPCS: 93306; 93356

== ENCOUNTER → 2022-12-05 | Outpatient (CLI) | payer MEDICARE, OTHER, SELFPAY ==
[2022-12-10 18:07] LABS: Gastrin, Serum 106 pg/mL (0-115)
== END | disposition home or self-care (01) ==
LOC: LAB 13:01
PROVIDERS: PCP Family Medicine; Referring Provider Internal Medicine Gastroenterology; Visit Provider Internal Medicine Gastroenterology
DX: K86.81 Exocrine pancreatic insufficiency (principal); E16.4 Increased secretion of gastrin
CPT/HCPCS: 36415; 82941

== ENCOUNTER → 2022-12-06 | Outpatient (CLI) | payer MEDICARE, OTHER, SELFPAY ==
[2022-12-10 17:07] LABS: Fats, Neutral Normal (.); Fats, Total Increased (.)
[2022-12-17 04:06] LABS: Pancreatic Elastase, Fecal 54 (>200)
== END | disposition home or self-care (01) ==
LOC: LABSPEC 12:06
PROVIDERS: PCP Family Medicine; Referring Provider Internal Medicine Gastroenterology; Visit Provider Internal Medicine Gastroenterology
DX: E16.4 Increased secretion of gastrin (principal)
CPT/HCPCS: 82653; 82705

== ENCOUNTER 2023-03-21 05:24 | Day surgery (SDC) | payer MEDICARE, OTHER, SELFPAY ==
[2023-03-21 05:58] VITALS: BP 170/70; PULSE 74; RESP 18; TEMP 36.2; O2SAT 99; BMI 32.8
[2023-03-21] MEDS: Lactated Ringers 1,000 ML 15 ML IV (06:22)
--- NOTE | 2023-03-21 06:30 | COLBX_PTH ---
PATIENT: MAGDY RUFF LOC: EN U#:[id number] AGE/SX: 72/F ROOM: RE03/21/[address]: Dr. Yonatan Avila DO : 1950 BED: DIS: 03/21/2023 SPEC #: [id number] RECD: 03/21/23 11:09 STATUS: INOCENCIO REBabak #: [id number] DANNY: 03/21/23 06:[address]: Yonatan Avila DEPT: SURGICAL PATHOLOGY RECD BY: Suyapa Romero ENTERED: 03/21/23 11:32 SP TYPE: COLON BX OTHR DR: Dr. Renzo De Paz DO Tissues: A - COLON BIOPSY B - Ileum, NOS C - COLON BIOPSY Procedures: Surgery Specimen Level IV HEADER OPERATION: Colonoscopy ([facility]) PRE-OP DIAGNOSIS: Hypergastrinemia, exocrine pancreatic insufficiency TISSUE SUBMITTED: A - Hepatic flexure, B - Terminal ileum, C - Random colon MICROSCOPIC DIAGNOSIS A. Colonic polyp at hepatic flexure, biopsy: Fragments of hyperplastic polyp. B. Terminal ileum, biopsy: No pathologic change. C. Colon, random biopsy: No pathologic change. AM:raffaele 03/22/2023 MICROSCOPIC DESCRIPTION Slides are reviewed. GROSS DESCRIPTION A - Received in fixative is one container labeled with the patient's name and designated hepatic flexure. The specimen consists of two irregular fragments of light aguirre soft tissue that in aggregate measure 0.6 x 0.3 x 0.1 cm. The specimen is totally submitted in one cassette. B - Received in fixative is one container labeled with the patient's name and designated terminal ileum. The specimen consists of multiple irregular fragments of light aguirre soft tissue that in aggregate measure 1.0 x 0.5 x 0.1 cm. The specimen is totally submitted in one cassette. C - Received in fixative is one container labeled with the patient's name and designated random colon. The specimen consists of multiple irregular fragments of light aguirre soft tissue that in aggregate measure 2.0 x 0.7 x 0.1 cm. The specimen is totally submitted in one cassette. / AM:raffaele 03/21/2023 TC:5 CPT: 74781 x3
--- NOTE | 2023-03-21 06:38 | PCM.HP.BLA ---
History and Physical Date of Admission: 03/21/23 MGUS & Breast cancer follow-up Details: MAGDY RUFF, is a 72 F who presents to the office today for follow up. PMH breast cancer, osteopenia/porosis for which she is supposed to take a medication but because of bloating and diarrhea she is not able to take the additional Vit D and calcium.? PSH cholecystectomy ? *BGI established 04.10.22. Diarrhea and reflux with stomach pain/discomfort has been ongoing for many years.?Nexium?used for the last ten years with varying effectiveness;?Sucralfate?is helpful. EGD with Dr. Jarvis noted gastritis. ? Loose stools 2-3 times a morning with worsening intensity and yellow color and oily consistency with recent worsening to include increased gas, worsening consistency and increased frequency.?Metamucil (citrus flavored),?improved loose stools but caused increased reflux.??PCP also prescribed?Lomotil?which was helpful with increased symptoms and is now returned to her baseline of diarrhea. Increased difficulty with particular foods which she attempts to avoid. ? Biochemical?CBC, amylase, LDH, lipase, ESR, RENEE comp, ANCA, celiac, GAME, anti-parietal ab, intrinsic factor, IBD profile without pertinent abnormality.? AlkP H149, CRP H7.10, gastrin H564, M-Vicente 0.2;?RAST Equivocal/low cow?s milk, egg? Stool testing lactoferrin, C.Difficile, ova/parasite, giardia, calprotectin WNL.?Elastase L151, fecal fats neutral and total +? Zenpep, sucralfate, Nexium. ? OV 07.06.23 Continues to have intermittent epigastric pain and minimal bloating. Overall though her symptoms have much improved with use of Zenpep to include resolution of loose stools. ? Would like to know if she should use sucralfate (Rx?d by PCP) versus Nexium. Is looking at steroid injections but would like to know if this will affect her pancreatic function. ? ? Pt doing better since last visit. Denies HB, abdominal pain and bloating. States Pepcid has been helpful. Has increased Zenpep to 3 with meals and diarrhea has gotten better but still has some issues. Has 2 loose BM in the morning but is fine the rest of the day.. ROS Const Constitutional: Positive for weakness; No fatigue ENT ENT: No difficulty swallowing Cardio Cardiology: Positive for leg pain with exertion Gastro GI: Positive for bloating, diarrhea, heartburn and excessive flatus; No abdominal pain, belching, change in bowel habits, change in stool character, coffee ground emesis, constipation, cramping, difficulty swallowing, feeling full early, incontinent of stools, Vomiting blood/hematemesis, Blood in stool, loose stools, Black,tarry stools, nausea/dyspepsia, pain with swallowing, vomiting or other Musc Musculoskeletal: Positive for joint pain, back pain, stiffness, Arthritis and leg pain with exertion Skin Skin: No yellowing of the eye or itchy eyes Neuro Neurology: Positive for weakness Psych Psychiatric: Positive for anxiety and Positive for depression Endo Endocrine: No fatigue Aller/Imm Allergy/Immunologic: No itchy eyes Jordan/Lymp Hematologic/Lymphatic: No easy bleeding or easy bruising Exam Const General: cooperative and comfortable Nutritional Appearance: average body habitus and well nourished HENMT Head: normal to inspection Ears: hearing grossly normal bilaterally Nose: external nose normal Face and sinus: normal facial exam Mouth: oral mucosae normal Throat: posterior oropharynx normal Eyes General: appearance normal, both eyes and all related structures Neck Neck: normal visual inspection Chest Chest palpation & inspection: normal inspection of the chest and normal palpation of entire chest wall Resp Effort & Inspection: normal respiratory effort Auscultation: Bilateral: Clear to Auscultation Cardio Palpation: normal PMI Rate: regular rate Rhythm: regular rhythm GI Inspection: normal to inspection Auscultation: normal bowel sounds Percussion: normal to percussion Palpation: no hepatosplenomegaly Skin General: no rashes or lesions noted Neuro General: patient alert Extrem General: normal to inspection Psych Affect: normal affect Quality Reporting Tobacco Screening ([facility] 138) Smoking Status: Never smoker Assessment and Plan Assessment and Plan (1) Hypergastrinemia: Status: Acute Plan: I suspect hypergastrinemia is secondary to PPI therapy. Therapy and we will wean her off PPI therapy. She will stop Sulcrafate therapy. I will start her on BID PPI therapy. (2) Exocrine pancreatic insufficiency: Status: Chronic Plan: She will continue on pancreatic enzymes at her current dose. I suspect that she has an activation of pancreatic enzymes due to her she has hypergastrinemia and decrease amount of acid that is needed to activate pancreatic enzymes. Therefore we will continue to supplement her and hopefully when we recheck her fecal elastase will be within normal limits. Orders: Orders Fecal Fat, Qualitative Today E16.4 - Increased secretion of gastrin Pancreatic Elastase, Fecal Today E16.4 - Increased secretion of gastrin Gastrin, Serum Today E16.4 - Increased secretion of gastrin, K86.81 - Exocrine pancreatic insufficiency Medications: New colestipol 2 grams (2 x 1 gram) PO QHS 60 tabs 0RF Refilled famotidine 40 mg PO BID 60 tabs 5RF I have examined the patient and the H&P has been reviewed. There are no clinical changes since date of exam.
[2023-03-21 07:15] VITALS: BP 121/45; BP 170/70; PULSE 75; RESP 16; TEMP 36.1; O2SAT 98
--- NOTE | 2023-03-21 07:17 | OP.CCLET_ITS ---
03/21/2023 Renzo De Paz [address] [facility] [place] [address] Re : Colonoscopy procedure for Lisbet Maradiaga Dear Dr. De Paz This procedure was performed on March. My impressions and recommendations are as follows: Impressions : - Diverticulosis in the recto-sigmoid colon and in the sigmoid colon. - One 7 mm polyp at the hepatic flexure, removed with a hot snare. Resected and retrieved. - Congested mucosa in the recto-sigmoid colon, in the sigmoid colon and at the hepatic flexure. Biopsied. - Congested mucosa in the terminal ileum. Recommendations : - Discharge patient to home. - Resume previous diet. - Continue present medications. - Await pathology results. - Repeat colonoscopy in 5 years for surveillance. My findings are described in the full procedure note, which is enclosed. If I can be of further assistance, please feel free to contact me at . Sincerely, Yonatan Avila, 03/21/2023 7:17:06 AM This report has been signed electronically.
--- NOTE | 2023-03-21 07:17 | OP.COLON_ITS ---
Patient Name: Lisbet Maradiaga Procedure Date: 03/21/2023 6:11 AM Date of : 1950 Age: 72 Procedure: Colonoscopy Indications: Clinically significant diarrhea of unexplained origin Providers: Yonatan Avila DO Medicines: Monitored Anesthesia Care Patient Profile: This is a 72 year old female. Refer to note in patient chart for documentation of history and physical. Last Colonoscopy: date unknown. Unable to locate last colonoscopy report. Complications: No immediate complications. Procedure: Pre-Anesthesia Assessment: - Prior to the procedure, a History and Physical was performed, and patient medications and allergies were reviewed. The risks and benefits of the procedure and the sedation options and risks were discussed with the patient. All questions were answered and informed consent was obtained. Patient identification and proposed procedure were verified by the physician in the pre-procedure area. Mental Status Examination: alert and oriented. Airway Examination: normal oropharyngeal airway and neck mobility. Respiratory Examination: clear to auscultation. CV Examination: normal. Prophylactic Antibiotics: The patient does not require prophylactic antibiotics. Prior Anticoagulants: The patient has taken no anticoagulant or antiplatelet agents. ASA Grade Assessment: II - A patient with mild systemic disease. After reviewing the risks and benefits, the patient was deemed in satisfactory condition to undergo the procedure. The anesthesia plan was to use monitored anesthesia care (MAC). Immediately prior to administration of medications, the patient was re-assessed for adequacy to receive sedatives. The heart rate, respiratory rate, oxygen saturations, blood pressure, adequacy of pulmonary ventilation, and response to care were monitored throughout the procedure. The physical status of the patient was re-assessed after the procedure. After I obtained informed consent, the scope was passed under direct vision. Throughout the procedure, the patient's blood pressure, pulse, and oxygen saturations were monitored continuously. The Colonoscope was introduced through the anus and advanced to the terminal ileum. The colonoscopy was performed without difficulty. The patient tolerated the procedure well. The quality of the bowel preparation was adequate. The terminal ileum, ileocecal valve, appendiceal orifice, and rectum were photographed. Scope In: 6:44:00 AM Scope Withdrawal Time 0 hours 15 minutes 55 seconds Scope Out: 7:09:30 AM Total Procedure Duration Time 0 hours 25 minutes 30 seconds Findings: The perianal and digital rectal examinations were normal. Multiple small and large-mouthed diverticula were found in the recto-sigmoid colon and sigmoid colon. A 7 mm polyp was found in the hepatic flexure. The polyp was sessile. The polyp was removed with a hot snare. Resection and retrieval were complete. Verification of patient identification for the specimen was done. Estimated blood loss was minimal. An area of mildly congested mucosa was found in the recto-sigmoid colon, in the sigmoid colon and at the hepatic flexure. Biopsies for histology were taken with a cold forceps from the entire colon for evaluation of microscopic colitis. Verification of patient identification for the specimen was done. Estimated blood loss was minimal. A patchy area of the terminal ileum was congested. Impression: - Diverticulosis in the recto-sigmoid colon and in the sigmoid colon. - One 7 mm polyp at the hepatic flexure, removed with a hot snare. Resected and retrieved. - Congested mucosa in the recto-sigmoid colon, in the sigmoid colon and at the hepatic flexure. Biopsied. - Congested mucosa in the terminal ileum. Recommendation: - Discharge patient to home. - Resume previous diet. - Continue present medications. - Await pathology results. - Repeat colonoscopy in 5 years for surveillance. Procedure Code(s): --- Professional --- 88911, Colonoscopy, flexible; with removal of tumor(s), polyp(s), or other lesion(s) by snare technique 00843, 59, Colonoscopy, flexible; with biopsy, single or multiple CPT copyright 2021 [employer]. All rights reserved. The codes documented in this report are preliminary and upon tugboat engineer review may be revised to meet current compliance requirements. Yonatan Avila DO 03/21/2023 7:17:06 AM This report has been signed electronically. Number of Addenda: 0 Note Initiated On: 03/21/2023 6:11 AM
[2023-03-21 07:20] VITALS: BP 121/49; BP 170/70; PULSE 66; RESP 16; O2SAT 100
[2023-03-21 07:25] VITALS: BP 156/63; BP 170/70; PULSE 67; RESP 16; O2SAT 100
[2023-03-21 07:29] VITALS: BP 163/68; BP 170/70; PULSE 61; RESP 16; TEMP 36.5; O2SAT 100
[2023-03-21 07:44] VITALS: BP 170/70
== END 2023-03-21 07:58 | disposition home or self-care (01) ==
LOC: EN 05:24 → AC 05:25
PROVIDERS: PCP Family Medicine; Referring Provider Internal Medicine Gastroenterology; Visit Provider Internal Medicine Gastroenterology
PROC: 0DJD8ZZ Inspection of Lower Intestinal Tract, Via Natural or Artificial Opening Endoscopic (ICD-10-PCS; CPT 45378; principal; 2023-03-21 06:25)
DX: K63.5 Polyp of colon (principal); E16.4 Increased secretion of gastrin; K63.89 Other specified diseases of intestine; R19.7 Diarrhea, unspecified; K57.30 Diverticulosis of large intestine without perforation or abscess without bleeding; K86.81 Exocrine pancreatic insufficiency; Z85.3 Personal history of malignant neoplasm of breast; M81.0 Age-related osteoporosis without current pathological fracture
CPT/HCPCS: 45380; 45385; 88305; J7120; J2405

== ENCOUNTER 2023-04-15 08:27 | Emergency (ER) | payer MEDICARE, OTHER, SELFPAY ==
[2023-04-15 08:27] VITALS: BP 144/74; PULSE 73; RESP 14; TEMP 36.1; O2SAT 97
--- NOTE | 2023-04-15 08:46 | ED.VIS.LOWEX ---
HPI History of Present Illness Chief Complaint: Lower Extremity Injury Detail of Chief Complaint: Hip pain right side Informant: patient Occured/Mechanism Comment: No history of trauma. History of osteoporosis. Onset/Context/Timing Onset: Yesterday Context: Sudden Onset Timing: Continuous and Waxes and wanes Quality of Pain: Aching Location: Right inguinal, greater trochanteric and area of ischial tuberosity Current Severity: Gone Maximum Severity: Severe Worsened by: Weightbearing Relieved by: Sitting or supine position Associated Symptoms Associated Symptoms: Negative for Parasthesia, Weakness or Loss of Funtion Narrative Narrative: Patient is a 73-year-old woman history of breast cancer, ductal carcinoma in situ left breast, essential hypertension, hyperlipidemia and osteoporosis who presents with atraumatic pain in the right hip region that started yesterday. She states she went to [facility] with her grandchild. She walked around [facility]. She then got in her car to drive to her brothers. When she arrived at her brother's house she had severe pain with weightbearing. She denies paresthesia, anesthesia or motor weakness. She denies history of DVT. She denies leg swelling or discoloration. She denies symptoms of claudication. She localizes the pain in the right buttocks, greater trochanteric region and right inguinal area. She does complain of pain radiating posteriorly as well as anteriorly. She has an appointment with Dr. Kay her pain management physician this afternoon. She presents because of the pain. She denies weight loss or weight gain. She denies night sweats. She denies fever or chills. She denies dysuria, frequency, urgency or hematuria. She denies similar pain. 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 Essential (primary) hypertension Gastric reflux Herniated disc, cervical History of echocardiogram History of pain when walking Hyperlipidemia IBS (irritable bowel syndrome) Impingement of left shoulder Malignant neoplasm of right breast Malignant neoplasm of right female breast MGUS (monoclonal gammopathy of unknown significance) Non-smoker Obesity Osteoporosis Personal history of colonic polyps Wears glasses Home Medications lorazepam 1 mg tablet 1 mg PO QHS 04/22/17 [History Last Taken Unknown] metoprolol succinate 50 mg tablet,extended release 24 hr 50 mg PO DAILY 04/22/17 [History Last Taken 03/21/23 03:30] acetaminophen 500 mg tablet (Tylenol Extra Strength) 500 mg PO Q6H PRN Pain Score 1-03/1911/12/18 [History Last Taken Unknown] cyclobenzaprine 10 mg tablet 10 mg PO TID PRN muscle spasm 01/30/22 [History Last Taken Unknown] loudth-rcjihvam-vaiuixw 40,000-126,000-168,000 unit capsule, delay rel (Zenpep) See Rx Instructions PO TID #320 caps 04/25/22 [Rx Last Taken Unknown] escitalopram oxalate 20 mg tablet 20 mg PO QHS 05/28/22 [History Last Taken Unknown] simvastatin 40 mg tablet 40 mg PO QHS 05/28/22 [History Last Taken Unknown] lisinopril 10 mg-hydrochlorothiazide 12.5 mg tablet 1 tab PO DAILY 10/19/22 [History Last Taken Unknown] famotidine 40 mg tablet 40 mg PO BID #60 tabs 12/05/22 [Rx Last Taken 03/21/23 03:30] colestipol 1 gram tablet 1 g PO QHS 03/19/23 [History Last Taken Unknown] Allergy/AdvReac Type Severity Reaction Status Date / Time No Known Allergies Allergy Verified 04/15/23 08:30 Family History Mother Heart disease Hypertension Anxiety Hyperlipidemia Sister Diabetes Heart disease Hypertension Brother Diabetes Father Heart disease Hypertension Surgical History History of cholecystectomy History of hysterectomy History of lumpectomy of right breast (2001) History of mastectomy (~1997) Social History (Updated 04/15/23 @ 08:[address] Lonnie Dwyer MD) household members: spouse Smoking Status: Never smoker alcohol intake: never ROS ROS ED Constitutional Constitutional ED: Denies chills, fever(s), subjective, sweats or weight loss Eyes Eyes: Denies blurry vision, change in vision or diplopia Cardiovascular Cardiovascular: Denies chest pain or palpitations Respiratory/Chest Respiratory/Chest: Denies cough, dyspnea or dyspnea on exertion Gastrointestinal Gastrointestinal: Denies abdominal pain, constipation, diarrhea, nausea or vomiting Genitourinary Genitourinary ED: Denies dysuria, hematuria or urinary frequency Musculoskeletal Musculoskeletal: Reports other Details: Per HPI narrative ; Denies arthralgias, back pain, myalgias or neck pain Integumentary Denies rash Neurologic Neurologic: Denies paresthesias or weakness Hematologic/Lymphatic Hematologic/Lymphatic: Denies easy bleeding or easy bruising EXAM Physical Exam Const Vital Signs: 04/15/23 08:27 Temperature 97.0 F L Temperature Source Temporal Pulse Rate 73 Respiratory Rate 14 Blood Pressure 144/74 H Blood Pressure Mean 97 Pulse Ox 97 Oxygen Delivery Method Room Air Positive well nourished, well developed and obese General Appearance ED: well developed and NAD Nutritional Appearance: obese HEENT Reports moist mucous membranes normocephalic and atraumatic Eyes PERRL Eyes Narrative: Extraocular muscles are intact. Sclera is anicteric. Conjunctive is pink Neck full ROM and supple Chest Wall inspection of chest normal and palpation of chest normal Resp normal respiratory effort, no retractions and clear to auscultation bilaterally Cardio regular rate, regular rhythm, S1 normal heart sound, S2 normal heart sound and no murmurs GI non-tender, non-distended and no masses GI Narrative: There is no palpable or pulsatile mass. There is no abdominal bruit. Palpation: soft Back/Spine Lumbar Spine / Lower Back: Negative for lumbar spinal tenderness Extremity normal to inspection and full ROM Extremity Narrative: Patient able to lift her right lower extremity up against gravity. Logrolling does not cause discomfort. Zaid Mathew test is positive with pain in the right inguinal area which would suggest hip pathology. There is no pain with palpation over the greater trochanteric region or the ischial tuberosity. DP and PT pulse are palpable. There is no stigmata of PAD. Passive as well as active flexion and extension at the hip and knee elicits no pain. There are no dermatologic lesions noted. General Extremety ED: Yes weight-bearing difficulty; Negative for cyanosis or edema General Extremity: weight-bearing difficulty; Negative for cyanosis or edema Neuro oriented x3, CN's II-XII intact bilaterally and moves all extremities Sensorium / Orientation: alert Plantar Reflex: Downgoing: bilateral (There is no clonus.) Psych mental status grossly normal Skin no wounds Lesions: no lesions Rashes: no rashes MDM MDM MDM Narrative Medical decision making narrative: Differential diagnosis would include degenerative joint disease, osteoporosis, avascular necrosis. Doubt greater trochanteric bursitis since there is no tenderness over that area. Since patient has no pain with active or passive range of motion doubt pyogenic arthritis or crystal induced arthritis. X-ray was obtained. Patient was offered pain medicine which she declined. History & Record Review Additional record(s) reviewed:: Prior ED visit and Prior labs Radiography Chest X-Ray - ED: Read by ED Physician (Three-view x-ray of the right hip was independent reviewed interpreted by me as degenerative changes. There is no evidence of fracture or changes suggest avascular necrosis. There is no asymmetry of the joint.) Diagnostic Testing: Clinical Impression(s) from Imaging Studies Hip/Pelvis X-Ray 04/15/23 09:10 IMPRESSION: Degenerative changes. Electronically Signed: Tomi Hinton MD at 9:37 EST , Treatment and Re-Evaluation Narrative: Patient and were informed of x-ray results. They were instructed to keep their appointment with Dr. Kay for noon this afternoon. Her pain improved significantly with IV morphine. Since she is in pain management prescription was not dispensed. Furthermore she has an appointment with pain management at noon Discharge Plan Triage Chief Complaint: Lower Extremity Injury ED Provider: Lonnie Dwyer Dx/Rx/DC Orders Clinical Impression: Acute pain of right hip, History of breast cancer, Osteoarthritis of right hip, Hyperlipidemia, GERD (gastroesophageal reflux disease) Instructions: ED Osteoarthritis Prescriptions: No Action acetaminophen [Tylenol Extra Strength] 500 mg tablet 500 mg PO Q6H PRN (Reason: Pain Score 1-10/10) cyclobenzaprine 10 mg tablet 10 mg PO TID PRN (Reason: muscle spasm) simvastatin 40 mg tablet 40 mg PO QHS escitalopram oxalate 20 mg tablet 20 mg PO QHS famotidine 40 mg tablet 40 mg PO BID Qty: 60 5RF lisinopril-hydrochlorothiazide 10-12.5 mg tablet 1 tab PO DAILY metoprolol succinate 50 MG tablet extended release 24 hr 50 mg PO DAILY lorazepam 1 MG tablet 1 mg PO QHS colestipol 1 gram tablet 1 g PO QHS Zenpep 40,000-126,000- 168,000 unit capsule,delayed release(DR/EC) See Rx Instructions PO TID Qty: 320 11RF Rx Instructions: take 2-3 capsules with meals and 1-2 with snacks Primary Care Provider: Renzo De Paz Referrals: Damion Hooks MD [Med Staff - Active Staff] - Keep Brandon appointment Renzo De Paz DO [Primary Care Provider] - Disposition Disposition: Home, Self Care
--- NOTE | 2023-04-15 09:10 | RAD_ITS ---
STUDY: X-RAY - PELVIS AND RIGHT HIP REASON FOR EXAM: Female, 73 years old. Right-sided pain. TECHNIQUE: 3 views of the pelvis and hip. COMPARISON: None. FINDINGS: There is a non-specific bowel gas pattern. Normal visualized soft tissue structures. Normal bilateral iliac wings, sacroiliac joints and visualized sacrum. Normal bilateral superior and inferior pubic rami. Normal pubic symphysis. Normal bilateral ischial tuberosities. Normal visualized femoral head. Normal acetabulum. There is moderate articular joint space narrowing of the hip. Moderate degree of joint space narrowing of the left hip with degenerative spur formation along the femoral head. RAD/HIP, UNI W/ Pelvis 2-3 Views IMPRESSION: Degenerative changes. Electronically Signed: Tomi Hinton MD at 9:37 EST ,
[2023-04-15 10:00] VITALS: BP 128/78; PULSE 64; RESP 14; TEMP 36.4; O2SAT 99
== END 2023-04-15 10:05 | disposition home or self-care (01) ==
PROVIDERS: Emergency Provider Emergency Medicine; PCP Family Medicine; Visit Provider Emergency Medicine
DX: M25.551 Pain in right hip (principal); I10 Essential (primary) hypertension; E78.5 Hyperlipidemia, unspecified; I25.10 Atherosclerotic heart disease of native coronary artery without angina pectoris; Z85.3 Personal history of malignant neoplasm of breast; F41.8 Other specified anxiety disorders; Z79.899 Other long term (current) drug therapy; K21.9 Gastro-esophageal reflux disease without esophagitis; Z90.49 Acquired absence of other specified parts of digestive tract; Z90.710 Acquired absence of both cervix and uterus; Z90.10 Acquired absence of unspecified breast and nipple; M16.11 Unilateral primary osteoarthritis, right hip
CPT/HCPCS: 73502; 99282

== ENCOUNTER 2023-05-07 13:30 | Outpatient (RCR) | payer MEDICARE, OTHER, SELFPAY ==
--- NOTE | 2023-04-03 15:17 | HP.PTEVAL_ITS ---
Patient's Visit Information Visit Information Visit Information: MAGDY RUFF is a 72 year old F referred to Physical Therapy by ENMA Hinton with a diagnosis of Left Shoulder Impingement. Date of Evaluation: 04/03/23 Physical Therapist: Helen Petty DPT Visit Plan Frequency: 2x /Week Duration: 4 Weeks Plan: Focus on scapular strength/stabilization below 90 degrees and gentle ROM HEP Given IE: Posture, Scapular Retractions, Bilateral ER, Upper Trap Stretch Subjective Subjective: Left shoulder- insidious onset- backing her car out- turning her car out and then had a sharp pain- it didn't bother her for awhile and it was okay- on the trip home 3 weeks ago she started having aching pain. Since then lifting and going backwards its just been painful. She saw the PA and she has been using ice. The pain is in the anterior shoulder and down the deltoid but not past the elbow. When she moves the shoulder the pain is sharp. She did have an injection by the ortho PA on 03/28/23- she reports that it is 50% better. She is now able to sleep on that shoulder. It is improved from what it was but it is not right. She just does not want it to get worse. She had an x-ray which showed a little bit of OA. Right hand dominate. No N/T in the hand and no decrease in finger dexterity or measurement technician strength. No neck pain or SHEPARD, blurred vision or dizziness. No injury to the left shoulder. Very careful driving, harder to get dressed, hook her bra, driving and everyday tasks a just a little bit harder. PMHx/Meds: See chart with ortho. Objective Objective: Posture: forward head, rounded shoulders- guarding of the left UE Gait: decreased arm swing and trunk rotation with mild guarding of the left UE Palpation: tender throughout UE occiput throughout upper trap to tip of acromion along medial border of the scapula to the bicipital groove to the elbow ROM: Finger dexterity: WFL, able to make a fist. elbow: WFL, Cervical: WFL with mild soreness and tightness with SB to the right, Shoulder: ROM: AROM: Flexion: WNL with painful arc Abd: 120 degrees with pain, IR to belt line with pain, ER: WNL Strength: Isometric: Shoulder: 4-/5 with discomfort at neutral, Elbow: 4+/5, Magnetic Resonance Technologist: equal to right Special Tests L Shoulder Drop Sign - IS Test: Positive L Shoulder Empty Can - SS: Positive L Shoulder Belly Press - SupScap: Positive L Shoulder Neer - Impingement: Positive L Shoulder Arana Jeremy - Impingement: Positive Balance/Special Test Scores Quick DASH Score: 50.0000 Goals Goal 1:: Patient will report participation in home exercise program activities a minimum of 5 days per week, as adjunct to skilled physical therapy intervention in preparation for independent home management upon discharge. Goal Time Frame: 4-6 Weeks Goal 2:: Patient will report an decrease of 14 in Quick Dash to show minimal clinical significant difference on patients functional outcome measure. Goal Time Frame: 4-6 Weeks Goal 3:: Patient will demo full AROM of the left shoulder without pain to ease ADL's Goal Time Frame: 4-6 Weeks Goal 4:: Patient will maintain proper posture t/o tx session to demo scapular s/s Goal Time Frame: 4-6 Weeks Goal 5:: Patient will report no pain with ADL's for 1 week Goal Time Frame: 4-6 Weeks Rehabilitation Potential Physical Therapy Diagnosis: Patient presents with hypomobility- she has decreased pain free ROM, UE scapular strength/stabilization and muscular endurance leading to poor posture pain and decreased ability to perform ADL's Rehabilitation Potential: Good Anticipated Interventions Patient/Client Instruction: Educate patient on: Benefits of Fitness Program Therapeutic Exercise to Include: Strength training, Endurance training, Agility training, Body mechanics, Postural training, Neuromotor development, Passive ROM and Active ROM For the Purpose of:: To improve muscle performance and motor function TENS: Yes Cryotherapy (ice pack, ice massage): Yes Thermo therapy (hot pack): Yes Ultrasound (thermal/non thermal): Yes Text: Thank you for the opportunity to evaluate your patient. For Medicare and Medicare HMO plans, please review the plan of care and approve it. It will need to be FAXED BACK to us at [phone] for Medicare purposes. For Medicare only, by signing this I certify the plan of care. Please let me know if there are questions or concerns regarding this plan of care. Physician Signature: Date:
--- NOTE | 2023-05-07 14:01 | HP.PTDCSUM ---
Discharge Summary D/C summary: It has been my pleasure to treat MAGDY RUFF referred by ENMA Hinton, with the diagnosis of Left Shoulder Impingement for a total of 9 visit(s). Discharge Date: 05/07/23 Please see the following information for a summary of their discharge status. Subjective Subjective: IT DOESN'T ACHE ANYMORE. I CAN SLEEP ON MY LEFT SIDE. I CAN DO MY REGULAR HOUSE HOLD CHORES AND REGULAR ACTIVITIES INCLUDING PUTTING SEATBELT ON AND HOOKING BRA IN BACK. I CAN EVEN HOLD DRYING IN L HAND. WITH NORMAL ACTIVITIES IT IS MUCH IMPROVED BUT NOT COMPLETELY PAINFREE. PATIENT STATES SHE WOULD LIKE TO SEE HOW IT GOES ON HER OWN AT THIS POINT AND WILL FOLLOW UP WITH HER DOCTOR NEEDED. Pain Left Shoulder: Pain Intensity (Out of 10): 1 Overall Improvement % Improvement: 95 Objective Objective/Function: PATIENT WAS SEEN TODAY FOR RE-ASSESSMENT OF PROGRESS TOWARD THE SET PT GOALS AND THE NEED FOR FURTHER PHYSICAL THERAPY VS READINESS FOR DISCHARGE. UPON EXAM TODAY PATIENT HAS FULL L SHLD ROM ALL PLANES AND DENIES PAIN WITH TESTING EXCEPT MILD PAIN WITH IR TESTING AT THE END OF THE AVAILABLE RANGE. L UE STRENGTH IS 5/5 EXCEPT L SHLD ABD AND ER 4+/5. PATIENT DENIES PAIN WITH MMT'ING. SHE IS INDEP WITH A HEP. SEE QUICK DASH SCORE IMPROVEMENT AND GOAL ASSESSMENT BELOW. Goals Goal 1:: Patient will report participation in home exercise program activities a minimum of 5 days per week, as adjunct to skilled physical therapy intervention in preparation for independent home management upon discharge. Goal Progress: Goal Met Goal 2:: Patient will report an decrease of 14 in Quick Dash to show minimal clinical significant difference on patients functional outcome measure. Goal Progress: Goal Met Goal 3:: Patient will demo full AROM of the left shoulder without pain to ease ADL's Goal 4:: Patient will maintain proper posture t/o tx session to demo scapular s/s Goal Progress: Progressing Goal 5:: Patient will report no pain with ADL's for 1 week Goal Progress: Progressing Plan Plan: D/C TO INDEP HEP D/C Information d/c sentence: If there are questions or concerns regarding this patient's physical therapy, please feel free to call me at [phone]. Thank you for the referral of this patient. Sincerely, Quynh Cole, PT, Cert MDT Balance/Gait/Functional tests Balance/Special Test Scores Quick DASH Score: 6.8175 Improvement % Improvement: 95
== END 2023-05-07 19:00 | disposition home or self-care (01) ==
LOC: PT 13:30
PROVIDERS: PCP Family Medicine; Referring Provider Nurse Practitioner; Visit Provider Nurse Practitioner
DX: M25.812 Other specified joint disorders, left shoulder (principal)
CPT/HCPCS: 97110; 97162; 97164

== ENCOUNTER → 2023-05-08 | Outpatient (CLI) | payer MEDICARE, OTHER, SELFPAY ==
[2023-05-08 12:34] LABS: Absolute Lymphocyte Count 1.32 X10^3/uL (0.83-4.51); Absolute Neutrophil Count 3.4 X10^3/uL (2.0-7.7); Basophil# 0.02 X10^3/uL; Basophil% 0.4 % (0-1); Eosinophil# 0.05 X10^3/uL; Hematocrit 44.9 % (37-47); Hemoglobin 14.6 g/dL (12.0-15.0); Lymphocyte # 1.32 X10^3/ul (0.83-4.51); Lymphocyte % 25.6 % (19-41); Mean Corp Hgb Conc 32.5 g/dL (32-36); Mean Corpuscular Hgb 32.4 pg (27.0-32.0); Mean Corpuscular Volume 99.6 fL (81-99); Mean Platelet Vol. 9.9 fl (6.2-12.0); Monocyte# 0.35 X10^3/uL; Monocyte% 6.8 % (0-10); NRBC Flagged by Analyzer 0 % (0-5); Neutrophil % 65.8 % (47-70); Platelet Count 257 K/mm3 (150-450); RBC Distribution Width CV 14.1 % (11.6-14.6); RBC Distribution Width SD 51.5 fl (35.1-43.9); Red Blood Count 4.51 M/mm3 (4.2-5.4); White Blood Count 5.2 K/mm3 (4.4-11.0)
[2023-05-08 13:09] LABS: Hemoglobin A1c 5.7 % (3.8-5.6)
[2023-05-08 13:28] LABS: ALB/GLOB Ratio 0.9 RATIO (0.9-2.4); AST(SGOT) 19 U/L (15-37); Alanine Aminotransfer ALT/SGPT 24 U/L (13-56); Albumin, Serum 3.1 g/dL (3.2-5.0); Alkaline Phosphatase 69 U/L (45-117); Anion Gap 4 (5-15); BUN 22 mg/dL (7-18); BUN/Creat Ratio 21.6 RATIO (10-20); Calcium,Total 9.5 mg/dL (8.5-10.1); Chloride 109 mmol/L (98-107); Cholesterol 202 mg/dL (200); Creatinine, Serum 1.02 mg/dL (0.55-1.02); EST Glomerular Filtration Rate 56 mL/min (>60); Est Glom Filt Rate - Afr Amer 68 mL/min (>60); Globulin 3.6 g/dL (2.2-4.2); Glucose 96 mg/dL (74-106); High Density Lipoprotein 63 mg/dL; Protein, Total 6.7 g/dL (6.4-8.2); Sodium Level 140 mmol/L (136-145); Triglycerides 121 mg/dL; Very Low Density Lipoprotein 24 mg/dL (5-40)
== END | disposition home or self-care (01) ==
LOC: BFHLAB 09:46
PROVIDERS: PCP Family Medicine; Referring Provider Family Medicine; Visit Provider Family Medicine
DX: I25.10 Atherosclerotic heart disease of native coronary artery without angina pectoris (principal); I10 Essential (primary) hypertension; E78.5 Hyperlipidemia, unspecified; R73.01 Impaired fasting glucose
CPT/HCPCS: 36415; 80053; 80061; 83036; 85025

== ENCOUNTER → 2023-05-13 | Outpatient (CLI) | payer MEDICARE, OTHER, SELFPAY ==
--- NOTE | 2023-05-13 17:58 | MRI_ITS ---
EXAM: MR RIGHT LOWER EXTREMITY WITHOUT INTRAVENOUS CONTRAST, HIP CLINICAL INDICATION: RT HIP PAIN, OA TECHNIQUE: Multiplanar and multisequence MR images of the right hip without intravenous contrast. COMPARISON: April 15, 2023 hip/pelvis FINDINGS: TENDONS: FLEXORS: Unremarkable. Intact. EXTENSORS/HAMSTRING: Unremarkable. Intact. ABDUCTORS: At least high-grade tearing involving the trochanteric attachment of the right gluteus medius tendon. ADDUCTORS: Unremarkable. Intact. ROTATORS: Unremarkable. Intact. MUSCLES: Unremarkable. Normal bulk and signal. FLUID: At least high-grade tearing involving the trochanteric attachment of the right gluteus medius tendon. Fluid signal along the greater trochanter suggests a component of trochanteric bursitis. No significant hip joint effusion. LABRUM: Unremarkable. No evidence of a tear on this non-arthrogram exam. CARTILAGE: Unremarkable. Articular cartilage intact. BONES/JOINTS: At least moderate bilateral hip osteoarthrosis. Degenerative changes of the pubic symphysis. No femoral neck fracture. No avascular necrosis of the femoral head. No sacral insufficiency fracture. No suspicious bone marrow signal alteration. OTHER SOFT TISSUES: Unremarkable. BOWEL: Distal colonic diverticulosis without acute diverticulitis. INTRAPERITONEAL SPACE: Decompressed bladder. No free fluid in the pelvis. MRI/Lower Ext Joint Only (Routine) IMPRESSION: At least high-grade tearing involving the trochanteric attachment of the right gluteus medius tendon. Fluid signal along the greater trochanter suggests a component of trochanteric bursitis. Electronically Signed: Andrei Zavaleta MD at 22:16 EST ,
== END | disposition home or self-care (01) ==
LOC: MRI 12:46
PROVIDERS: PCP Family Medicine; Referring Provider Family Medicine; Visit Provider Family Medicine
DX: M16.11 Unilateral primary osteoarthritis, right hip (principal)
CPT/HCPCS: 73721

== ENCOUNTER → 2023-05-23 | Outpatient (CLI) | payer MEDICARE, OTHER, SELFPAY ==
--- NOTE | 2023-05-23 12:52 | BI_ITS ---
MAMMOGRAPHY - UNILATERAL SCREENING: RIGHT BREAST REASON FOR EXAM: Female, 73 years old. Routine annual screening examination (unilateral). PERTINENT HISTORY: Personal history of breast cancer. Prior left mastectomy. Prior right lumpectomy with radiation and chemotherapy. Right nipple inversion. TECHNIQUE: Digital unilateral breast marilee (3D mammographic acquisition) in the CC and MLO projections. 2-D mediolateral oblique (MLO) and craniocaudad (CC) views of both breasts were obtained. CAD: Full Field Digital Mammography with Computer Added Detection was performed. COMPARISON: Comparison is made with prior examination May 21, 2022 and May 17, 2021. FINDINGS: Breast Composition: There are scattered areas of fibroglandular density. There are no dominant masses or suspicious calcifications. The patient is status post lumpectomy in the deep central slightly upper outer aspect of the right breast with resultant postoperative dystrophic calcification and scarring. There is retraction of the areola. A tissue clip marker is also seen deep to the right retroareolar region. No other significant abnormalities are identified. There has been no significant change since the prior study. BI/SCREEN MAMM (CAD) W/MARILEE UNI R IMPRESSION: Stable unilateral screening mammogram. Yearly follow-up mammogram recommended. (A) ASSESSMENT CATEGORY: BIRADS Category 2: Benign. A letter regarding these results will be sent to the patient by the facility within 30 days. Approximately 10% of breast cancers are not detected by mammography. A normal mammogram should not delay biopsy of a clinically suspicious abnormality. [id number] Electronically Signed: Tomi Hinton MD at 13:57 EST ,
== END | disposition home or self-care (01) ==
LOC: OPBI 12:51
PROVIDERS: PCP Family Medicine; Referring Provider Internal Medicine Hematology & Oncology; Visit Provider Internal Medicine Hematology & Oncology
DX: Z12.31 Encounter for screening mammogram for malignant neoplasm of breast (principal); Z90.12 Acquired absence of left breast and nipple; Z85.3 Personal history of malignant neoplasm of breast
CPT/HCPCS: 77063; 77067

== ENCOUNTER → 2023-06-19 | Outpatient (CLI) | payer MEDICARE, OTHER, SELFPAY ==
--- NOTE | 2023-06-19 10:51 | RAD_ITS ---
INDICATION: PERSISTENT COUGH EXAMINATION/TECHNIQUE: X-RAY - XR Chest 2 Views COMPARISON: Prior study dated: 04/15/2017 FINDINGS: LINES/DEVICES: None. LUNGS: No consolidation, edema or effusion. No pneumothorax. MEDIASTINUM AND CARDIOVASCULAR STRUCTURES: Cardiac silhouette not enlarged. Central airways and mediastinal contour are unremarkable. BONES AND SOFT TISSUES: Surgical clips in the right axilla. Unremarkable osseous structures. RAD/Chest PA and Lateral IMPRESSION: No radiographic evidence of acute cardiopulmonary disease. Electronically Signed: Yang Swan MD at 11:04 EST ,
--- OUTSIDE RECORDS SUMMARY | 2023-06-19 11:11 | XMS RPT_ITS | CCD ---
Author Name Unknown Address [address] [place] [address] Organization [facility] Care Team Providers Care Mystery Shopper Name Role Phone Fco Jarvis MD Unavailable Medications Completed/Discontinued Medications Medication Drug Class(es) Dates Sig (Normalized) Sig (Original) chlorpheniramine (2 sources) Histamine-1 Receptor Antagonist Start: 11-19-2011 CHLOR-TRIMETON prn CHLOR-TRIMETON [place] Problems Active Problems Problem Classification Problem Date Documented Da te Episodic/Chronic Cancer of breast (1 source) Carcinoma of breast ; Translations: [Malignant neoplasm of unspecified site of right female breast] Onset: 03-13-2002 09-30-2014 Chronic Past or Other Problems Problem Classification Problem Date Documented Da te Episodic/Chronic Nonmalignant breast conditions (1 source) Pain of breast; Translations: [Mastodynia] Onset: 05-08-2017 05-08-2017 Episodic Other skin disorders (1 source) Skin lesion; Translations: [Disorder of the skin and subcutaneous tissue, unspecified] Onset: 05-02-2015 05-02-2015 Episodic Results Test Name Value Interpretation Reference Range Facil ity Vital Signs Date Time Vital Sign Value Performing Clinician Facility 05-08-2017 08:55-0500 BMI (Body Mass Index) 32.8 kg/m2 Fco Jarvis MD [facility] Work Phone: 05-08-2017 08:55-0500 Body Temperature 98.1 [degF] Fco Jarvis MD [facility] Work Phone: 05-08-2017 08:55-0500 BP Diastolic 72 mm[Hg] Fco Jarvis MD [facility] Work Phone: 05-08-2017 08:55-0500 BP Systolic 175 mm[Hg] Fco Jarvis MD [facility] Work Phone: 05-08-2017 08:55-0500 Height 160.02 cm Fco Jarvis MD [facility] Work Phone: 05-08-2017 08:55-0500 Pulse (Heart Rate) 62 /min Fco Jarvis MD [facility] Work Phone: 05-08-2017 08:55-0500 Respiratory Rate 18 /min Fco Jarvis MD [facility] Work Phone: 05-08-2017 08:55-0500 Weight 84.01 kg Fco Jarvis MD [facility] Work Phone: 05-07-2016 12:54-0500 BSA (Body Surface Area) 1.88 m2 Fco Jarvis MD [facility] Work Phone: 05-07-2016 12:54-0500 Height 160.02 cm Fco Jarvis MD [facility] Work Phone: 05-07-2016 12:54-0500 Weight 85 kg Fco Jarvis MD [facility] Work Phone: 02-03-2015 10:39-0400 Body Temperature 97.9 [degF] Fco Jarvis MD [facility] Work Phone: Procedures Date Procedure Procedure Detail Performing Clinician Start: 05-08-2017 End: 05-08-2017 Us exam, breast(s) Fco Jarvis MD Work Phone: Start: 10-31-2015 End: 10-31-2015 *CMP Complete Metabolic Panel Mushtaq Nixon Work Phone: Start: 10-31-2015 End: 10-31-2015 Lactate dehydrogenase [Enzymatic activity/volume] in Serum or Plasma Mushtaq Nixon Work Phone: Start: 10-31-2015 End: 10-31-2015 Urate [Mass/volume] in Serum or Plasma Mushtaq Nixon Work Phone: Start: 05-02-2015 End: 05-02-2015 *CMP Complete Metabolic Panel Mushtaq Nixon Work Phone: Start: 05-02-2015 End: 05-02-2015 Lactate dehydrogenase [Enzymatic activity/volume] in Serum or Plasma Mushtaq Nixon Work Phone: Start: 05-02-2015 End: 05-02-2015 Urate [Mass/volume] in Serum or Plasma Mushtaq Nixon Work Phone: Start: 02-03-2015 End: 02-03-2015 *CMP Complete Metabolic Panel Msuhtaq Nixon Work Phone: Start: 02-03-2015 End: 02-03-2015 Lactate dehydrogenase [Enzymatic activity/volume] in Serum or Plasma Mushtaq Nixon Work Phone: Start: 02-03-2015 End: 02-03-2015 Urate [Mass/volume] in Serum or Plasma Mushtaq Nixon Work Phone: Start: 10-07-2014 End: 10-07-2014 *CBC with Differential Mushtaq Nixon Work Phone: Plan of Treatment Date Care Activity Detail Author Start: 05-08-2017 End: 05-08-2017 Us exam, breast(s) US Breast(s) [facility] Work Phone: Start: 05-08-2017 End: 05-08-2017 Appointment Appointment [facility] Work Phone: Start: 10-31-2015 End: 05-02-2015 *CBC with Differential *CBC with Differential [facility] Work Phone: Start: 10-31-2015 End: 10-31-2015 *CMP Complete Metabolic Panel *CMP Complete Metabolic Panel [facility] Work Phone: Start: 10-31-2015 End: 10-31-2015 Lactate dehydrogenase (LDH) *LDH -LDH (Lactate Dehydrogenase) [facility] Work Phone: Start: 10-31-2015 End: 10-31-2015 Urate *Uric Acid Blood [facility] Work Phone: Start: 05-02-2015 End: 03-29-2015 *CBC with Differential *CBC with Differential [facility] Work Phone: Start: 05-02-2015 End: 05-02-2015 *CMP Complete Metabolic Panel *CMP Complete Metabolic Panel [facility] Work Phone: Start: 05-02-2015 End: 05-02-2015 Dermatology Referral Dermatology Referral Sid Oates MD, [address] [place], [address] [facility] Work Phone: Start: 05-02-2015 End: 05-02-2015 Lactate dehydrogenase (LDH) *LDH -LDH (Lactate Dehydrogenase) [facility] Work Phone: Start: 05-02-2015 End: 05-02-2015 Urate *Uric Acid Blood [facility] Work Phone: Start: 02-03-2015 End: 02-02-2015 *CBC with Differential *CBC with Differential [facility] Work Phone: Start: 02-03-2015 End: 02-03-2015 *CMP Complete Metabolic Panel *CMP Complete Metabolic Panel [facility] Work Phone: Start: 02-03-2015 End: 02-03-2015 Lactate dehydrogenase (LDH) *LDH -LDH (Lactate Dehydrogenase) [facility] Work Phone: Start: 02-03-2015 End: 02-03-2015 Urate *Uric Acid Blood [facility] Work Phone: Start: 10-07-2014 End: 10-07-2014 *CBC with Differential *CBC with Differential [facility] Work Phone: Additional Source Comments FOR RECORDS PERTAINING TO PATIENTS WHO ARE OR HAVE BEEN ENROLLED IN A CHEMICAL DEPENDENCY/SUBSTANCEABUSE PROGRAM, SOME INFORMATION MAY BE OMITTED. This clinical summary was aggregated from multiple sources. Caution should be exercised in using it in the provision of clinical care. This summary normalizes information from multiple sources, and as a consequence, information in this document may materially change the coding, format and clinical context of patient data. In addition, data may be omitted in some cases. CLINICAL DECISIONS SHOULD BE BASED ON THE PRIMARY CLINICAL RECORDS. [facility] [employer] [facility]. provides no warranty or guarantee of the accuracy or completeness of information in this document.
== END | disposition home or self-care (01) ==
LOC: MTRAD 10:50
PROVIDERS: PCP Family Medicine; Referring Provider Family Medicine; Visit Provider Family Medicine
DX: R05.3 Chronic cough (principal)
CPT/HCPCS: 71046

== ENCOUNTER → 2023-08-26 | Outpatient (CLI) | payer MEDICARE, OTHER, SELFPAY ==
--- NOTE | 2023-08-26 14:00 | MRI_ITS ---
STUDY: MRI LEFT ANKLE WITHOUT CONTRAST REASON FOR EXAM: Female, 73 years old. Osteoarthritis. TECHNIQUE: Standardized fat and water weighted pulse sequences were obtained in all 3 orthogonal planes. COMPARISON: None. FINDINGS: Normal posterior tibialis tendon. Normal flexor digitorum longus tendon. Normal flexor hallucis longus tendon. Normal peroneus longus and brevis tendons. Normal tibialis anterior tendon. Normal extensor hallucis longus tendon. Normal extensor digitorum longus tendons. Normal Achilles tendon and teno-osseous insertion. Normal plantar fascia. There is a small plantar calcaneal spur. Normal intrinsic muscles of the rearfoot. Normal distal tibiofibular syndesmotic ligamentous complex. Normal lateral ligamentous complex. Normal subtalar ligaments and sinus tarsi. Normal deltoid ligamentous complex. Normal plantar calcaneonavicular (spring) ligament. There is a 7 mm osteochondral lesion along the mid talar dome (sagittal STIR series 10 image 11). There are small tibiotalar and posterior subtalar joint effusions. Normal talonavicular articulation. Normal calcaneocuboid articulation. Normal navicular-cuneiform articulations. There is mild subcutaneous soft tissue edema along the medial and lateral aspects of the ankle. MRI/Lower Ext Joint Only (Routine) IMPRESSION: 7 mm osteochondral lesion along the mid talar dome. Small tibiotalar and posterior subtalar joint effusions. Mild subcutaneous soft tissue edema along the medial and lateral aspects of the ankle. Small plantar calcaneal spur. Electronically Signed: Channing Wills MD at 9:36 EDT ,
== END | disposition home or self-care (01) ==
LOC: MRI 13:29
PROVIDERS: PCP Family Medicine; Referring Provider Podiatrist; Visit Provider Podiatrist
DX: M19.072 Primary osteoarthritis, left ankle and foot (principal)
CPT/HCPCS: 73721

== ENCOUNTER → 2023-08-29 | Outpatient (CLI) | payer MEDICARE, OTHER, SELFPAY | END | disposition home or self-care (01) | LOC: LABSPEC 15:02 | PROVIDERS: PCP Family Medicine; Visit Provider Family Medicine | DX: R39.9 Unspecified symptoms and signs involving the genitourinary system (principal) | CPT/HCPCS: 87077; 87086; 87088; 87186 ==

== ENCOUNTER 2023-10-09 15:34 | Emergency (ER) | payer MEDICARE, OTHER, SELFPAY ==
[2023-10-09 15:35] VITALS: BP 134/78; PULSE 64; RESP 18; TEMP 36.4; O2SAT 99; BMI 33.7
== END 2023-10-09 16:29 | disposition left against medical advice (07) ==
LOC: ED 16:29
PROVIDERS: PCP Family Medicine
DX: Z53.21 Procedure and treatment not carried out due to patient leaving prior to being seen by health care provider (principal)

== ENCOUNTER → 2023-10-09 | Outpatient (CLI) | payer MEDICARE, OTHER, SELFPAY ==
--- NOTE | 2023-10-09 14:55 | VDLE_ITS ---
Reason For Study: BLE PAin RIGHT LEFT GSV is normal. GSV is normal. CFV is compressible, spontaneous, phasic, CFV is compressible, spontaneous, phasic, competent and demonstrates normal competent, and demonstrates normal augmentation. augmentation. FV is compressible, spontaneous, phasic, FV is compressible, spontaneous, phasic, competent and demonstrates normal competent and demonstrates normal augmentation. augmentation. POP V is compressible, spontaneous, phasic, POP V is compressible, spontaneous, and competent and demonstrates normal phasic. augmentation. T/P Trunk is compressible. T/P Trunk is compressible. Acute deep vein thrombosis is noted in the PTV is compressible. PTV. It is dilated and NONCOMPRESSIBLE. RT PerV is compressible. LT PerV is compressible. Procedure This is a venous duplex using B-mode, color flow and spectral Doppler. Exam performed in department. The exam was diagnostic. A preliminary report was called and/or faxed to Dr Meyer. VL/Venous Duplex US - John Extrem Interpretation Summary Acute deep vein thrombosis is noted in the left posterior tibial vein. Deep veins of the right lower extremity are patent and compressible segmentally . There is no evidence of right lower extremity deep vein thrombosis. The bilateral great sap henous veins appear patent and compressible segmentally. Ordering Physician: Damion Meyer Referring Physician: Renzo De Paz Performed By: Lokesh Huang, RVT
== END | disposition home or self-care (01) ==
LOC: CVS 14:55
PROVIDERS: PCP Family Medicine; Referring Provider Podiatrist; Visit Provider Podiatrist
DX: I82.493 Acute embolism and thrombosis of other specified deep vein of lower extremity, bilateral (principal)
CPT/HCPCS: 93970

== ENCOUNTER → 2023-10-18 | Outpatient (CLI) | payer MEDICARE, OTHER, SELFPAY ==
[2023-10-18 17:41] LABS: Absolute Lymphocyte Count 1.38 X10^3/uL (0.83-4.51); Absolute Neutrophil Count 6.8 X10^3/uL (2.0-7.7); Basophil# 0.03 X10^3/uL; Basophil% 0.3 % (0-1); Eosinophil# 0.07 X10^3/uL; Eosinophils% 0.8 % (0-5); Hematocrit 45.2 % (37-47); Hemoglobin 14.3 g/dL (12.0-15.0); Lymphocyte # 1.38 X10^3/ul (0.83-4.51); Lymphocyte % 15.1 % (19-41); Mean Corp Hgb Conc 31.6 g/dL (32-36); Mean Corpuscular Hgb 30.8 pg (27.0-32.0); Mean Corpuscular Volume 97.4 fL (81-99); Mean Platelet Vol. 10.6 fl (6.2-12.0); Monocyte# 0.83 X10^3/uL; Monocyte% 9.1 % (0-10); NRBC Flagged by Analyzer 0 % (0-5); Neutrophil % 74.3 % (47-70); Platelet Count 265 K/mm3 (150-450); RBC Distribution Width SD 50.3 fl (35.1-43.9); Red Blood Count 4.64 M/mm3 (4.2-5.4); White Blood Count 9.2 K/mm3 (4.4-11.0)
[2023-10-18 18:08] LABS: AST(SGOT) 20 U/L (15-37); Alanine Aminotransfer ALT/SGPT 27 U/L (13-56); Albumin, Serum 3.3 g/dL (3.2-5.0); Alkaline Phosphatase 70 U/L (45-117); Anion Gap 6 (5-15); BUN 31 mg/dL (7-18); BUN/Creat Ratio 26.7 RATIO (10-20); Chloride 105 mmol/L (98-107); Creatinine, Serum 1.16 mg/dL (0.55-1.02); EST Glomerular Filtration Rate 48 mL/min (>60); Est Glom Filt Rate - Afr Amer 59 mL/min (>60); Globulin 3.4 g/dL (2.2-4.2); Glucose 111 mg/dL (74-106); Potassium 3.9 mmol/L (3.5-5.1); Protein, Total 6.7 g/dL (6.4-8.2); Sodium Level 138 mmol/L (136-145)
== END | disposition home or self-care (01) ==
LOC: BFHLAB 14:57
PROVIDERS: PCP Family Medicine; Referring Provider Family Medicine; Visit Provider Family Medicine
DX: I10 Essential (primary) hypertension (principal); R79.89 Other specified abnormal findings of blood chemistry; Z51.81 Encounter for therapeutic drug level monitoring
CPT/HCPCS: 36415; 80053; 85025

== ENCOUNTER → 2023-11-11 | Outpatient (CLI) | payer MEDICARE, OTHER, SELFPAY ==
--- NOTE | 2023-11-11 11:00 | MRI_ITS ---
STUDY: MRI LUMBAR SPINE WITHOUT CONTRAST REASON FOR EXAM: Female, 73 years old. RADICULOPATHY, PAIN INTO R LEG TECHNIQUE: Standardized fat and water weighted pulse sequences were obtained in the sagittal and axial planes. COMPARISON: None FINDINGS: T12-L1: Normal endplates. Normal disc height, desiccation and tiny central disc protrusion. Normal bilateral facet joints. Normal central canal and bilateral lateral recesses. Normal bilateral intervertebral neural foramina. Normal lumbar lordosis. There is no substantial scoliosis. Normal conus medullaris that terminates at T12-L1 L1-2: Grade 1 retrolisthesis. Degenerative endplate changes.. Narrowed disc space and minor bulging disc osteophyte complex Normal bilateral facet joints. Normal central canal and bilateral lateral recesses. Normal bilateral intervertebral neural foramina. L2-3: Degenerative endplate changes. Narrowed disc space with desiccation of the disc and mild annular bulge with small left foraminal disc protrusion. Normal facet joints.. Normal central canal and bilateral lateral recesses. Mild right neural foraminal stenosis and moderate narrowing of the left L3-4:: Normal endplates. Normal disc height, desiccation and minor annular bulge with tiny left foraminal disc protrusion. Facet arthropathy and thickening of ligamenta flava.. Normal central canal and bilateral lateral recesses. Mild left neural foraminal stenosis. There is also a small perineural cyst in the left nerve root foramen. L4-5: Grade 1 spondylolisthesis Normal endplates. Normal disc height desiccation of the disc and minor bulging disc osteophyte complex. Facet arthropathy and thickening of ligamenta flava more pronounced on the left. Normal central canal and bilateral lateral recesses. Mild left neural foraminal stenosis L5-S1: Normal endplates. Normal disc height, hydration and morphology. Normal bilateral facet joints. Normal central canal and bilateral lateral recesses. Normal bilateral intervertebral neural foramina. Normal visualized sacral ala. Normal visualized paraspinous soft tissue structures. MRI/Spine Lumbar (Routine) IMPRESSION: No evidence for acute fracture or other significant bony pathology. Mild spondylosis and multilevel spinal stenosis secondary to disc disease and bony hypertrophy Findings as above Electronically Signed: Damion Hickman MD at 20:07 EDT Reading Location ID and State: [address] [place] [address] Tel , Service support ,
== END | disposition home or self-care (01) ==
LOC: MRI 10:27
PROVIDERS: PCP Family Medicine; Referring Provider Family Medicine; Visit Provider Family Medicine
DX: M54.16 Radiculopathy, lumbar region (principal)
CPT/HCPCS: 72148

== ENCOUNTER → 2023-11-20 | Outpatient (CLI) | payer MEDICARE, OTHER, SELFPAY ==
--- NOTE | 2023-11-20 12:34 | MRI_ITS ---
STUDY: MRI LEFT ANKLE WITHOUT CONTRAST REASON FOR EXAM: Female, 73 years old. Posterior tibialis pain. TECHNIQUE: Standardized fat and water weighted pulse sequences were obtained in all 3 orthogonal planes. COMPARISON: None. FINDINGS: Diffuse subcutaneous soft tissue edema (coronal series 9 images 1-21). Superficial subcutaneous lipoma of the medial and posterior aspect of the plantar surface of the foot adjacent to the medial limb of the plantar fascia measuring 2.7 cm x 1.1 cm x 1.2 cm. No aggressive features (axial series 4 images 21-26, sagittal series 7 images 12-15). Minimal posterior tibialis tendinosis with tenosynovitis (axial series 4 images 14-17). Normal flexor digitorum longus tendon. Normal flexor hallucis longus tendon. Normal peroneus longus and brevis tendons. Normal tibialis anterior tendon. Normal extensor hallucis longus tendon. Normal extensor digitorum longus tendons. Normal Achilles tendon and teno-osseous insertion. Normal plantar fascia. Normal plantar calcaneal tubercles. Normal intrinsic muscles of the rearfoot. Normal distal tibiofibular syndesmotic ligamentous complex. Normal lateral ligamentous complex. Normal subtalar ligaments and sinus tarsi. Normal deltoid ligamentous complexes. Normal plantar calcaneonavicular (spring) ligament. Moderate arthrosis of the tibiotalar joint with a large tibiotalar joint effusion (sagittal series 8 images 6-14). Extensive near complete bone marrow edema of the talus with a low signal intensity line in the dome of the talus. Findings are compatible with insufficiency fracture of the dome of the talus. Early avascular necrosis is in the differential diagnosis (sagittal series 8 images 5-15). Mild arthrosis of the subtalar joint (sagittal series 8 images 12-16). Moderate arthrosis of the talonavicular joint with a dorsal dissecting septated ganglion cyst (sagittal series 8 images 11-14). Normal calcaneocuboid articulation. Normal navicular-cuneiform articulations. MRI/Lower Ext Joint Only (Routine) IMPRESSION: Minimal posterior tibialis tendinosis with tenosynovitis. Extensive bone marrow edema within almost the entirety of the talus with a low signal intensity subchondral focus in the dome of the talus. Findings most compatible with insufficiency fracture. Early avascular necrosis is in the differential diagnosis. Superficial subcutaneous lipoma on the plantar surface of the foot adjacent to the medial limb of the plantar fascia. Moderate arthrosis of the tibiotalar joint with a large tibiotalar joint effusion. Mild arthrosis of the subtalar joint. Moderate arthrosis of the talonavicular joint with a dorsal dissecting septated ganglion cyst. Diffuse subcutaneous soft tissue edema. Electronically Signed: Jarrett Sparrow MD at 15:52 EDT ,
== END | disposition home or self-care (01) ==
LOC: MRI 12:28
PROVIDERS: PCP Family Medicine; Referring Provider Podiatrist; Visit Provider Podiatrist
DX: M76.822 Posterior tibial tendinitis, left leg (principal)
CPT/HCPCS: 73721

== ENCOUNTER → 2023-11-28 | Outpatient (CLI) | payer MEDICARE, OTHER, SELFPAY ==
[2023-11-28 15:45] LABS: ALB/GLOB Ratio 0.8 RATIO (0.9-2.4); AST(SGOT) 34 U/L (15-37); Alanine Aminotransfer ALT/SGPT 37 U/L (13-56); Alkaline Phosphatase 154 U/L (45-117); Anion Gap 5 (5-15); BUN 18 mg/dL (7-18); BUN/Creat Ratio 19.1 RATIO (10-20); Calcium,Total 9.6 mg/dL (8.5-10.1); Chloride 109 mmol/L (98-107); Creatinine, Serum 0.94 mg/dL (0.55-1.02); EST Glomerular Filtration Rate 61 mL/min (>60); Est Glom Filt Rate - Afr Amer 74 mL/min (>60); Globulin 3.9 g/dL (2.2-4.2); Glucose 132 mg/dL (74-106); Potassium 3.9 mmol/L (3.5-5.1); Protein, Total 6.9 g/dL (6.4-8.2); Sodium Level 139 mmol/L (136-145)
[2023-11-28 16:59] LABS: Vitamin D,25 Hydroxy 30.7 ng/mL
== END | disposition home or self-care (01) ==
LOC: MTLAB 12:37
PROVIDERS: PCP Family Medicine; Referring Provider Podiatrist; Visit Provider Podiatrist
DX: M84.372D Stress fracture, left ankle, subsequent encounter for fracture with routine healing (principal); N18.31 Chronic kidney disease, stage 3a; M25.572 Pain in left ankle and joints of left foot; X58.XXXD Exposure to other specified factors, subsequent encounter
CPT/HCPCS: 36415; 80053; 82306

== ENCOUNTER → 2023-12-06 | Outpatient (CLI) | payer MEDICARE, OTHER, SELFPAY ==
[2023-12-06 15:35] LABS: Anion Gap 8 (5-15); BUN 20 mg/dL (7-18); BUN/Creat Ratio 20.9 RATIO (10-20); Calcium,Total 9.7 mg/dL (8.5-10.1); Chloride 106 mmol/L (98-107); Creatinine, Serum 0.96 mg/dL (0.55-1.02); EST Glomerular Filtration Rate 60 mL/min (>60); Est Glom Filt Rate - Afr Amer 73 mL/min (>60); Glucose 134 mg/dL (74-106); Potassium 3.9 mmol/L (3.5-5.1); Sodium Level 140 mmol/L (136-145)
== END | disposition home or self-care (01) ==
LOC: BFHLAB 13:11
PROVIDERS: PCP Family Medicine; Referring Provider Family Medicine; Visit Provider Family Medicine
DX: I10 Essential (primary) hypertension (principal)
CPT/HCPCS: 36415; 80048

== ENCOUNTER 2023-12-10 12:43 | Outpatient (CLI) | payer MEDICARE, OTHER, SELFPAY ==
[2023-12-10 12:53] VITALS: BP 157/57; PULSE 73; RESP 16; TEMP 35.8; O2SAT 93; BMI 33.8
[2023-12-10] MEDS: DENOSUMAB 60 MG/ML SC (12:56)
== END 2023-12-10 23:59 | disposition home or self-care (01) ==
LOC: MEDOUTP 12:43
PROVIDERS: PCP Family Medicine; Referring Provider Family Medicine; Visit Provider Family Medicine
DX: M81.0 Age-related osteoporosis without current pathological fracture (principal)
CPT/HCPCS: 96372; J0897

== ENCOUNTER → 2023-12-16 | Outpatient (CLI) | payer MEDICARE, OTHER, SELFPAY ==
--- NOTE | 2023-12-16 09:48 | STRESSREP ---
Stress Test Report Pharmacologic myocardial perfusion stress test. 73-year-old lady with a history of coronary artery disease Resting EKG demonstrates sinus rhythm with a rate of 66 bpm. Resting blood pressure is 138/74 mmHg. 0.4 mg of regadenoson was infused per usual protocol followed by rapid intravenous saline flush injection. Continuous EKG monitoring was performed. The maximum heart rate was 86 bpm which was 59% of max impacted heart rate the maximum workload was 1 metabolic equivalent. At rest there were no ST or T wave changes noted to suggest ischemia and at peak infusion nonspecific ST changes were noted which did not meet the criteria for ischemia. No clinical angina is noted. The final blood pressure was 128/60 mmHg. Myocardial perfusion protocol. 15 mCi of technetium 99m sestamibi was injected at rest. 0.4 mg of regadenoson was infused per usual protocol. At peak infusion 44.3 mCi of technetium 99m sestamibi was injected stress images were obtained stress and rest images were reconstructed and compared in the short axis vertical long and horizontal long axis. Gated images were also obtained. Perfusion SPECT analysis: Review of the stress images demonstrate normal uptake of tracer noted in all areas of the myocardium. The resting images similar demonstrated normal uptake of tracer noted in all areas of the myocardium. No areas of reversibility are noted to suggest ischemia and no previous infarct is noted. Gated SPECT analysis: The gated ejection fraction is 78%. Conclusion: Normal pharmacologic myocardial perfusion stress test. Preserved ejection fraction.
== END | disposition home or self-care (01) ==
LOC: CVS 06:41
PROVIDERS: PCP Family Medicine; Referring Provider Internal Medicine Cardiovascular Disease; Visit Provider Internal Medicine Cardiovascular Disease
DX: I25.10 Atherosclerotic heart disease of native coronary artery without angina pectoris (principal); R93.1 Abnormal findings on diagnostic imaging of heart and coronary circulation
CPT/HCPCS: 78452; 93017; A9500; A4216; J2785

== ENCOUNTER 2023-12-17 14:30 | Outpatient (RCR) | payer MEDICARE, OTHER, SELFPAY ==
--- NOTE | 2023-11-18 19:41 | HP.PTEVAL_ITS ---
Patient's Visit Information Visit Information Visit Information: MAGDY RUFF is a 73 year old F referred to Physical Therapy by Dr. Renzo De Paz DO with a diagnosis of PAIN IN RIGHT LEG. Date of Evaluation: 11/18/23 Physical Therapist: Luis E Briggs PT, Cert MDT, OCS Visit Plan Frequency: 2x /Week Duration: 4 Weeks Plan: PRECAUTIONS: OSTEOPOROSIS PATIENT HAS GLUTEUS MEDIUS TEAR PT INTERVENTIONS GRADED HIP STRENGTHENING ,CORE EX'S ,POSTURAL STRENGTHENING ,OKAY FOR MODALITIES TO GLUT MEDIUS ,ACTIVITY MODIFICATION AND MANUAL THERAPY Subjective Subjective: This 73 y/o female presents to physical therapy with right leg pain with glut medius tear. Patient has had back symptoms back 3 years. Most recently developed buttock feels like pulling ,but also has symptom in hamstrings. Initially seen DR Barnard recommended PT form glut medius tear but had other issues medically to resolve. Patient has developed pain in hip glut. Patient had MRI several years .MRI ankle showed 7 mm osteochondral lesion along the mid talar dome.small tibiotalar and posterior subtalar joint effusions.Mild subcutaneous soft tissue edema along the medial and lateral aspects of ankle. MRI hip least high-grade tearing involving the trochanteric attachment of the right gluteus medius tendon. . Fluid signal along the greater trochanter suggests a component of trochanteric bursitis.suggests a component of trochanteric bursitis. MRI lumbar showed stenosis DDD ,and bulging discs. Patient tries prednisone x 2 trails pain medication . Aggravating factors sitting ,walking standing in posterior,and bending and lifting to glut pain.. Unable to squat /kneeling ,difficulty with stairs .Patient did have cortisone injection right and left hip. Denies paresthesia/tingling right leg but minor left hip.Patient unable to walk on right leg needs walker. Patient pain affects sleeping supine or side. Bowel/bladder -. Coughing/sneezing -. Dr Barnard d iscussed with patient about surgery and would have to go out of town ,but patient wants to try conservative treatment. No abnormal night pain.Patient condition affects QOL and function/walking right glut medius tear . Patient goals to walk normal without pain.Precaution : OSTEOPOROSIS SOCAIL: VOCTAION: RETIRED Pain Right Back: Pain Intensity (Out of 10): 0 Pain Intensity Range: 10 Right Buttocks: Pain Intensity (Out of 10): 8 Objective Objective: POSTURE: mild forward posture NEURO: denies paresthesia/tingling ,reflexes L3-4,L4-5 ,L5-S1 1/3 PALPATION: glut mediums ,right greater trochanter GAIT: reciprocal pattern slow ivan antalgic gait with decrease stance time right leg LUMBAR ROM: flexion mod loss pulling in glut ,extension mod loss ,side glides min loss SEATED BACK FLEXION: pulling in glut HIP PROM: flexion 110 degrees ,IR 40 pian ,ER 55 degrees MMT: quads/hams 4/5 ,hip flexion 4-/5 ,hip IR /ER 4-/5 pain glut medius 10.7 pain Special Tests L/S Slump test left side: Negative L/S Slump test right side: Negative L/S Left Straight Leg Raise: Negative L/S Right Straight Leg Raise: Negative R Hip Scour: Negative R Hip Trendelenberg - Glut Medius: Positive Comment: Pain glut medius Balance/Special Test Scores Lower Extremity Functional Score: 11 Goals Goal 1:: Patient to be I with HEP for hip Goal Time Frame: 6-8 Weeks Goal 2:: Patient to ambulate with straight cane with improved gait pattern 80% Goal Time Frame: 6-8 Weeks Goal 3:: Patient to improve hip strength by 5-10 # to improve gait Goal Time Frame: 6-8 Weeks Goal 4:: Patient to improve LFES score by 5-10 points to improve QOL and functioin. Goal Time Frame: 6-8 Weeks Goal 5:: Patient to demonstrate 50% improvement with less pain and improved function with walking Goal Time Frame: 6-8 Weeks Rehabilitation Potential Physical Therapy Diagnosis: Patient has right gluteus medius tear with pain and weakness glut medius ,impairs gait and standing ,unable to lay supine due to severity of pain in glut medius ,bending causes pulling in glut medius ,Symptoms appear not to be influenced by lumbar but does have h/o back pain and with MRI lumbar only min findings thus will recommend PT Rehabilitation Potential: Good Anticipated Interventions Manual Therapy Techniques to Include: Soft tissue mobilization Comment: STICK IT BAND For the Purpose of:: To decrease pain and To increase ROM Text: Thank you for the opportunity to evaluate your patient. For Medicare and Medicare HMO plans, please review the plan of care and approve it. It will need to be FAXED BACK to us at [phone] for Medicare purposes. For Medicare only, by signing this I certify the plan of care. Please let me know if there are questions or concerns regarding this plan of care. Physician Signature: Date:
--- NOTE | 2023-12-17 15:14 | HP.PTDCSUM ---
Discharge Summary D/C summary: It has been my pleasure to treat MAGDY RUFF referred by Dr. Renzo De Paz DO, with the diagnosis of PAIN IN RIGHT LEG for a total of 5 visit(s). Discharge Date: 12/17/23 Please see the following information for a summary of their discharge status. Subjective Subjective: Patient was able to move better ,bend over ,walking better ,able to do around house Patient missed due to edema edema in legs from medication from HTN Patient had pain after ex's Patient seen MD try to back off ex' s make it easier Pain Right Back: Pain Intensity (Out of 10): 1 Right Buttocks: Pain Intensity (Out of 10): 1 Overall Improvement % Improvement: 75 Objective Objective/Function: Patient doing much better Ambulated with no device reciprocal pattern mild decrease stance time MMT: quads 4/5 ,hamstrings 4/5 ,hip flexion 4-/5 ,hip abduction 3+/5 no pain Goals Goal 1:: Patient to be I with HEP for hip Goal Progress: Goal Met Goal 2:: Patient to ambulate with straight cane with improved gait pattern 80% Goal Progress: Goal Met Goal 3:: Patient to improve hip strength by 5-10 # to improve gait Goal Progress: Progressing Goal 4:: Patient to improve LFES score by 5-10 points to improve QOL and functioin. Goal Progress: Goal Met Goal 5:: Patient to demonstrate 50% improvement with less pain and improved function with walking Goal Progress: Goal Met Plan Plan: D/C TO HEP D/C Information Discharge Comments: HEP d/c sentence: If there are questions or concerns regarding this patient's physical therapy, please feel free to call me at [phone]. Thank you for the referral of this patient. Sincerely, Luis E Briggs, PT, Cert MDT, OCS Balance/Gait/Functional tests Balance/Special Test Scores Lower Extremity Functional Score: 40 Improvement % Improvement: 75
== END 2023-12-17 19:00 | disposition home or self-care (01) ==
LOC: PT 14:30
PROVIDERS: PCP Family Medicine; Referring Provider Family Medicine; Visit Provider Family Medicine
DX: M79.604 Pain in right leg (principal)
CPT/HCPCS: 97035; 97110; 97162; 97530

== ENCOUNTER 2024-01-03 13:20 | Outpatient (CLI) | payer MEDICARE, OTHER, SELFPAY ==
[2024-01-03 14:33] LABS: Absolute Lymphocyte Count 0.96 X10^3/uL (0.83-4.51); Absolute Neutrophil Count 4.3 X10^3/uL (2.0-7.7); Basophil# 0.03 X10^3/uL; Basophil% 0.5 % (0-1); Eosinophil# 0.08 X10^3/uL; Eosinophils% 1.4 % (0-5); Hematocrit 40.9 % (37-47); Lymphocyte # 0.96 X10^3/ul (0.83-4.51); Lymphocyte % 16.4 % (19-41); Mean Corp Hgb Conc 31.8 g/dL (32-36); Mean Corpuscular Hgb 30.3 pg (27.0-32.0); Mean Corpuscular Volume 95.3 fL (81-99); Mean Platelet Vol. 10.3 fl (6.2-12.0); Monocyte% 8.6 % (0-10); NRBC Flagged by Analyzer 0 % (0-5); Neutrophil # 4.27 X10^3/uL (2.7-7.7); Neutrophil % 73.1 % (47-70); Platelet Count 254 K/mm3 (150-450); RBC Distribution Width CV 14.1 % (11.6-14.6); RBC Distribution Width SD 48.9 fl (35.1-43.9); Red Blood Count 4.29 M/mm3 (4.2-5.4); White Blood Count 5.8 K/mm3 (4.4-11.0)
[2024-01-03 15:02] LABS: Anion Gap 5 (5-15); BUN 22 mg/dL (7-18); BUN/Creat Ratio 28.8 RATIO (10-20); Calcium,Total 9.5 mg/dL (8.5-10.1); Chloride 109 mmol/L (98-107); Creatinine, Serum 0.76 mg/dL (0.55-1.02); EST Glomerular Filtration Rate 78 mL/min (>60); Est Glom Filt Rate - Afr Amer 95 mL/min (>60); Ferritin 28 ng/mL (8-252); Glucose 95 mg/dL (74-106); Potassium 3.7 mmol/L (3.5-5.1); Sodium Level 140 mmol/L (136-145)
== END 2024-01-03 23:59 | disposition home or self-care (01) ==
LOC: MTLAB 13:22
PROVIDERS: PCP Family Medicine; Referring Provider Family Medicine; Visit Provider Family Medicine
DX: I10 Essential (primary) hypertension (principal); Z51.81 Encounter for therapeutic drug level monitoring; G25.81 Restless legs syndrome
CPT/HCPCS: 36415; 80048; 82728; 85025

== ENCOUNTER → 2024-01-13 | Outpatient (CLI) | payer MEDICARE, OTHER, SELFPAY ==
[2024-01-13 15:10] LABS: Vitamin B12 491 pg/mL (211-911)
== END | disposition home or self-care (01) ==
LOC: LAB 13:45
PROVIDERS: PCP Family Medicine; Referring Provider Internal Medicine Gastroenterology; Visit Provider Internal Medicine Gastroenterology
DX: E16.4 Increased secretion of gastrin (principal)
CPT/HCPCS: 36415; 82607; 82746

== ENCOUNTER → 2024-01-20 | Outpatient (CLI) | payer MEDICARE, OTHER, SELFPAY ==
--- NOTE | 2024-01-20 12:56 | VDLE_ITS ---
Reason For Study: BLE Edema RIGHT LEFT CFV is compressible, spontaneous, phasic, CFV is compressible, spontaneous, phasic, competent and demonstrates normal competent, and demonstrates normal augmentation. augmentation. FV is compressible, spontaneous, phasic, FV is compressible, spontaneous, phasic, competent and demonstrates normal competent and demonstrates normal augmentation. augmentation. POP V is compressible, spontaneous, phasic, POP V is compressible, spontaneous, phasic, competent and demonstrates normal competent and demonstrates normal augmentation. augmentation. T/P Trunk is compressible. T/P Trunk is compressible. PTV is compressible. PTV is compressible. RT PerV is compressible. LT PerV is compressible. SFJ is competent and measures 0.54 cm. SFJ is competent and measures 0.57 cm. GSV proximal thigh measures 0.44 x 0.44 cm. GSV proximal thigh measures 0.24 x 0.26 cm. GSV at knee measures 0.32 x 0.28 cm. GSV at knee measures 0.21 x 0.25 cm. GSV is competent throughout. GSV is competent throughout. ASV mid calf is INCOMPETENT for greater than ASV proximal thigh is INCOMPETENT for greater 0.5 seconds and measures 0.32 x 0.30 cm. than 0.5 seconds and measures 0.40 x 0.44 cm. SSV proximal calf is competent and measures SSV proximal calf is INCOMPETENT for greater 0.23 x 0.27 cm. than 0.5 seconds and measures 0.34 x 0.34 cm. Procedure Exam performed in department. This is a venous duplex using B-mode, color flow and spectral Doppler. The exam was diagnostic. VL/Venous Duplex US - John Extrem Interpretation Summary Deep veins of the bilateral lower extremities are patent and compressible segme ntally. There is no evidence of bilateral lower extremity deep vein thrombosis. The bilateral great saphenous veins appear patent and compressible segmentally. Positive for reflux in the right accessory saphenous vein in the calf. Positive for reflux in the left accessory saphenous vein in the thigh, small sa phenous vein. Ordering Physician: Renzo De Paz Referring Physician: Renzo De Paz Performed By: Lokesh Huang RVT
== END | disposition home or self-care (01) ==
LOC: CVS 12:54
PROVIDERS: PCP Family Medicine; Referring Provider Family Medicine; Visit Provider Family Medicine
DX: R60.0 Localized edema (principal)
CPT/HCPCS: 93970

== ENCOUNTER → 2024-01-28 | Outpatient (CLI) | payer MEDICARE, OTHER, SELFPAY ==
[2024-01-28 16:02] LABS: Anion Gap 6 (5-15); BUN 14 mg/dL (7-18); BUN/Creat Ratio 18.4 RATIO (10-20); Calcium,Total 9.4 mg/dL (8.5-10.1); Chloride 110 mmol/L (98-107); Creatinine, Serum 0.76 mg/dL (0.55-1.02); EST Glomerular Filtration Rate 78 mL/min (>60); Est Glom Filt Rate - Afr Amer 95 mL/min (>60); Glucose 101 mg/dL (74-106); Potassium 3.9 mmol/L (3.5-5.1); Sodium Level 141 mmol/L (136-145)
== END | disposition home or self-care (01) ==
LOC: MTLAB 13:34
PROVIDERS: PCP Family Medicine; Referring Provider Family Medicine; Visit Provider Family Medicine
DX: Z51.81 Encounter for therapeutic drug level monitoring (principal)
CPT/HCPCS: 36415; 80048

== ENCOUNTER → 2024-05-25 | Outpatient (CLI) | payer MEDICARE, OTHER, SELFPAY ==
--- NOTE | 2024-05-25 13:11 | BI_ITS ---
MAMMOGRAPHY - UNILATERAL SCREENING: RIGHT BREAST REASON FOR EXAM: Female, 74 years old. Routine annual screening examination (unilateral). PERTINENT HISTORY: Personal history of breast cancer. Prior right lumpectomy with chemotherapy and radiation therapy. Prior right stereotactic breast biopsy. Status post left mastectomy. Chronic inversion of the right nipple since radiation therapy. TECHNIQUE: Digital unilateral breast marilee (3D mammographic acquisition) in the CC and MLO projections. 2-D mediolateral oblique (MLO) and craniocaudad (CC) views of both breasts were obtained. CAD: Full Field Digital Mammography with Computer Added Detection was performed. COMPARISON: Comparison is made with prior study dated May 23, 2023 and May 21, 2022. FINDINGS: Breast Composition: There are scattered areas of fibroglandular density. There are no dominant masses or suspicious calcifications. Was again, the patient is status post lumpectomy in the deep central slightly upper outer aspect in the right breast with resultant postoperative dystrophic calcification and scarring. Stable retraction of the right areola.A tissue clip marker is also seen deep to the right retrocrural region. No other significant abnormalities are identified. BI/SCREEN MAMM (CAD) W/MARILEE UNI R IMPRESSION: Stable unilateral screening mammogram. Yearly follow-up mammogram recommended. (A) ASSESSMENT CATEGORY: BIRADS Category 2: Benign. A letter regarding these results will be sent to the patient by the facility within 30 days. Approximately 10% of breast cancers are not detected by mammography. A normal mammogram should not delay biopsy of a clinically suspicious abnormality. [id number] Electronically Signed: Tomi Hinton MD at 14:24 EST ,
== END | disposition home or self-care (01) ==
LOC: OPBI 13:11
PROVIDERS: PCP Family Medicine; Referring Provider Internal Medicine Hematology & Oncology; Visit Provider Internal Medicine Hematology & Oncology
DX: Z12.31 Encounter for screening mammogram for malignant neoplasm of breast (principal); Z85.3 Personal history of malignant neoplasm of breast
CPT/HCPCS: 77063; 77067

== ENCOUNTER 2024-06-12 12:56 | Outpatient (CLI) | payer MEDICARE, OTHER, SELFPAY ==
[2024-06-12 13:14] VITALS: BP 148/58; PULSE 67; RESP 16; TEMP 36.4; O2SAT 97; BMI 33.3
[2024-06-12] MEDS: DENOSUMAB 60 MG/ML SC (13:21)
== END 2024-06-12 23:59 | disposition home or self-care (01) ==
LOC: MEDOUTP 12:57
PROVIDERS: PCP Family Medicine; Referring Provider Family Medicine; Visit Provider Family Medicine
DX: M81.0 Age-related osteoporosis without current pathological fracture (principal)
CPT/HCPCS: 96372; J0897

== ENCOUNTER → 2024-10-28 | Outpatient (CLI) | payer MEDICARE, OTHER, SELFPAY ==
[2024-10-28 14:15] LABS: Hemoglobin A1c 5.7 % (<=5.6)
[2024-10-29 12:09] LABS: Cholesterol 146 mg/dL (<=200); High Density Lipoprotein 51 mg/dL; Low Density Lipoprotein Calc. 70 mg/dL; Triglycerides 125 mg/dL; Very Low Density Lipoprotein 25 mg/dL (5-40); cholesterol:hdl ratio screen 2.86
== END | disposition home or self-care (01) ==
LOC: MTLAB 10:11
PROVIDERS: PCP Family Medicine; Referring Provider Family Medicine; Visit Provider Family Medicine
DX: E78.5 Hyperlipidemia, unspecified (principal); M81.0 Age-related osteoporosis without current pathological fracture; R73.01 Impaired fasting glucose
CPT/HCPCS: 36415; 80061; 82306; 83036

== ENCOUNTER → 2024-11-05 | Outpatient (CLI) | payer MEDICARE, OTHER, SELFPAY ==
--- NOTE | 2024-11-05 13:47 | CDU_ITS ---
Reason For Study Reason For Study: Atherosclerosis L>R Rt. Velocities/BP Lt. Velocities/BP Prox CCA 87.2/7.8 cm/sec. Prox CCA 87.6/11.4 cm/sec. Mid CCA 84.4/8.8 cm/sec. Mid CCA 85.1/9 cm/sec. Dist CCA 78.7/10.7 cm/sec. Dist CCA 82.6/9 cm/sec. Prox ICA 120.7/18.8 cm/sec. Prox ICA 158.7/20.4 cm/sec. Mid ICA 100.3/17.9 cm/sec. Mid ICA 74/10.2 cm/sec. Dist ICA 81.7/12.4 cm/sec. Dist ICA 83.9/15.1 cm/sec. Rt. ICA/CCA = 1.43. Lt. ICA/CCA = 1.86. Prox ECA 86.1 cm/sec. Prox ECA 74 cm/sec. Rt. Vert. 67.4/12.4 cm/sec. Lt. Vert. 56/6 cm/sec. Right Extracranial There is homogeneous, smooth atherosclerotic plaque noted in the right common carotid artery. There is heterogeneous, irregular atherosclerotic plaque noted in the right internal carotid artery. There is heterogeneous, irregular atherosclerotic plaque noted in the right external carotid artery. Antegrade flow is noted in the right vertebral artery. Left Extracranial There is homogeneous, smooth atherosclerotic plaque noted in the left common carotid artery. There is heterogeneous, irregular atherosclerotic plaque noted in the left internal carotid artery. There is heterogeneous, irregular atherosclerotic plaque noted in the left external carotid artery. Antegrade flow is noted in the left vertebral artery. Procedure Carotid Duplex [id number]. This is a Carotid Duplex examination using B-mode, color flow and specral Doppler. Exam performed in department. VL/Carotid Duplex Ultrasound Interpretation Summary Mild (<50%) stenosis right extracranial internal carotid. Mild (<50%) stenosis left extracranial internal carotid. Flow within the vertebral arteries is antegrade bilaterally. Ordering Physician: Renzo De Paz Referring Physician: Renzo De Paz Performed By: Elle Grubbs RVT
== END | disposition home or self-care (01) ==
LOC: CVS 13:44
PROVIDERS: PCP Family Medicine; Referring Provider Family Medicine; Visit Provider Family Medicine
DX: I65.23 Occlusion and stenosis of bilateral carotid arteries (principal)
CPT/HCPCS: 93880

== ENCOUNTER → 2024-11-10 | Outpatient (CLI) | payer MEDICARE, OTHER, SELFPAY ==
--- NOTE | 2024-11-10 13:18 | BD_ITS ---
PROCEDURE: DEXA BONE DENSITY STUDY 11/10/2024 REASON FOR EXAM: F, age 74 y/o . TECHNIQUE: DXA scan of sites with data reported below. Scanner utilized: [employer] W. [facility]ENCE LINKS: [facility] COMPARISON: DEXA scan 06/30/2020 FINDINGS: BMD and T-SCORES Lumbar spine: 0.849 g/cm2, T-score -1.8 Levels: L1 through L4 Change from prior: Dissimilar scan types/analysis methods, showing. Left femoral neck: 0.648 g/cm2, T-score -1.8 Femoral neck comparison data not recommended for monitoring change. Prior T-score -1.4 Left total hip: 0.725 g/cm2, T-score -1.8 Change from prior: Dissimilar scan types/analysis methods, showing. Right femoral neck: 0 point 505 g/cm2, T-score -3.1 Femoral neck comparison data not recommended for monitoring change. Prior T-score -2.7 Right total hip: 0.673 g/cm2, T-score -2.2 Change from prior: Dissimilar scan types/analysis methods, showing The World Health Organization has defined the following categories based on bone density: Normal bone density: T-score equal to or greater than -1.0 Osteopenia: T-score between -1.0 and -2.5 Osteoporosis: T-score equal to or less than -2. BD/Dexa Bone Density Study IMPRESSION: OSTEOPOROSIS. Reading Location: [facility]
== END | disposition home or self-care (01) ==
LOC: OPBD 13:11
PROVIDERS: PCP Family Medicine; Referring Provider Family Medicine; Visit Provider Family Medicine
DX: M81.0 Age-related osteoporosis without current pathological fracture (principal)
CPT/HCPCS: 77080

== ENCOUNTER 2024-11-17 13:30 | Outpatient (RCR) | payer MEDICARE, OTHER, SELFPAY ==
--- NOTE | 2024-11-10 15:40 | HP.PTEVAL_ITS ---
Patient's Visit Information Visit Information Visit Information: MAGDY RUFF is a 74 year old F referred to Physical Therapy by Dr. Renzo De Paz DO with a diagnosis of vertigo. Date of Evaluation: 11/10/24 Physical Therapist: Lazaro Ross, KARENT, OCS, CSCS Visit Plan Frequency: 1x/Week Duration: 2-4 Weeks Plan: weekly x 2-4 for positional treatments and balance/return to function as needed. Treated initially with R modified samantha after obvious positive test and instruction in management at home with HO Subjective Subjective: Vertigo started a month ago at dtrs house lying down adn spun. Got up that night and had to hold on. it has gotten slightly better in severity. Looking up or lying down still causes it. Putting dishes up in cupboard or tilting head up to look through bifocals can make her dizzy. Spinning happens every time she lies down. It lasts 10 seconds. Most of time feels not with it. No falls. Has to be careful. sleep is OK. Retired, hobbies include floweers and has to be careful, hard to get up and down. No regular exercises. Basic ADLs: all I. Objective Objective: 30 romberg eo adn ec, walks in I slowly and hesitant to move head. Trasnfeers chair and bed I. Cervical AROM WFL and without deficits but hesitant to tilt up. UE AROM WFL adn strngth at 4-/5 without myotomal problems or sensation deficits. - L HD + R HD up torsional nystagmus, treated with R modified samantha adn then much better. Balance/Special Test Scores Functional Gait Assessment Score: 25 % Disability: 16.6700 Dizziness Score: 42 Goals Goal 1:: abolish dizzyness in bed at night Goal Time Frame: 2-4 Weeks Goal 2:: Pt able to put dishs away without LOB Goal Time Frame: 2-4 Weeks Goal 3:: Pt feel dizzyness 100% back to normal Goal Time Frame: 2-4 Weeks Goal 4:: DHI score 8 or less. Goal Time Frame: 2-4 Weeks Rehabilitation Potential Physical Therapy Diagnosis: BPPV effecting comfortable funciton. Rehabilitation Potential: Good Anticipated Interventions Patient/Client Instruction: Educate patient on: Condition and Plan of Care For the Purpose of:: To increase tolerance to activity/condition/position and To improve gait and locomotor functions Comment: vestibular positional treatments For the Purpose of:: To increase tolerance to activity/condition/position and To improve safety Text: Thank you for the opportunity to evaluate your patient. For Medicare and Medicare HMO plans, please review the plan of care and approve it. It will need to be FAXED BACK to us at [phone] for Medicare purposes. For Medicare only, by signing this I certify the plan of care. Please let me know if there are questions or concerns regarding this plan of care. Physician Signature: Date:
--- NOTE | 2024-11-17 13:42 | HP.PTDCSUM ---
Discharge Summary D/C summary: It has been my pleasure to treat MAGDY RUFF referred by Dr. Renzo De Paz DO, with the diagnosis of vertigo for a total of 2 visit(s). Discharge Date: 11/17/24 Please see the following information for a summary of their discharge status. Subjective Subjective: No spinning, balance is normal. 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 Goals Goal 1:: abolish dizzyness in bed at night Goal Progress: Goal Met Goal 2:: Pt able to put dishs away without LOB Goal Progress: Goal Met Goal 3:: Pt feel dizzyness 100% back to normal Goal Progress: Goal Met Goal 4:: DHI score 8 or less. Goal Progress: Goal Met Plan Plan: d/c D/C Information Discharge Comments: BPPV resolved at this time. d/c sentence: If there are questions or concerns regarding this patient's physical therapy, please feel free to call me at [phone]. Thank you for the referral of this patient. Sincerely, Lazaro Ross, DPT, OCS, CSCS Balance/Gait/Functional tests Balance/Special Test Scores Functional Gait Assessment Score: 27 % Disability: 10.0000 Dizziness Score: 4 Improvement % Improvement: 100
== END 2024-11-17 19:00 | disposition home or self-care (01) ==
LOC: PT 13:30
PROVIDERS: PCP Family Medicine; Referring Provider Family Medicine; Visit Provider Family Medicine
DX: R42 Dizziness and giddiness (principal)
CPT/HCPCS: 97161; 97530

== ENCOUNTER 2024-12-18 12:30 | Outpatient (CLI) | payer MEDICARE, OTHER, SELFPAY ==
[2024-12-18 12:41] VITALS: BP 140/56; PULSE 64; RESP 16; TEMP 36; O2SAT 96; BMI 33.8
[2024-12-18] MEDS: DENOSUMAB 60 MG/ML SC (12:45)
== END 2024-12-18 23:59 | disposition home or self-care (01) ==
LOC: MEDOUTP 12:31
PROVIDERS: PCP Family Medicine; Referring Provider Family Medicine; Visit Provider Family Medicine
DX: M81.0 Age-related osteoporosis without current pathological fracture (principal)
CPT/HCPCS: 96372; J0897

== ENCOUNTER → 2025-03-16 | Outpatient (CLI) | payer MEDICARE, OTHER, SELFPAY | END | disposition home or self-care (01) | LOC: CVS 13:37 | PROVIDERS: PCP Family Medicine; Referring Provider Internal Medicine Cardiovascular Disease; Visit Provider Internal Medicine Cardiovascular Disease | DX: I34.0 Nonrheumatic mitral (valve) insufficiency (principal) | CPT/HCPCS: 93306; 93356 ==

== ENCOUNTER → 2025-04-26 | Outpatient (CLI) | payer MEDICARE, OTHER, SELFPAY ==
--- NOTE | 2025-04-26 14:09 | MRI_ITS ---
PROCEDURE: LOWER EXT JOINT ONLY (ROUTINE) 04/26/2025 REASON FOR EXAM: OSTEOARTHRITIS TECHNIQUE: Procedure Code: MRILEJ Modality: MR Procedure: LOWER EXT JOINT ONLY (ROUTINE) T1, T2, PD, multiplanar and multisequence images were obtained of the right hip without IV contrast administration. COMPARISON: COMPARISON : None FINDINGS: Bone marrow and osseous structures: There is no abnormal marrow edema to suggest stress reaction or fracture. There is no MR evidence of avascular necrosis. Articular cartilage: No significant joint space narrowing. No full or partial- thickness cartilage defects are identified. Labrum: There is a tear of the anterior superior labrum with a 0.7 x 0.4 cm paralabral cyst. Hip joint: There is no intra-articular body. The ligamentum teres is unremarkable. Hip abductors: The gluteus medius and minimus tendons show increased T2 signal, thickening and attenuation without full-thickness tear, with moderate tendinopathy. There is fluid in the overlying trochanteric bursa. Iliopsoas tendon: Intact without tendinosis or tear. No iliopsoas bursitis. The hamstring origins appear intact. There is a 2.2 x 1.4 cm uncomplicated fat containing right inguinal hernia. MRI/Lower Ext Joint Only (Routine) IMPRESSION: There is a tear of the anterior superior labrum with a 0.7 x 0.4 cm paralabral cyst. The gluteus medius and minimus tendons show increased T2 signal, thickening and attenuation without full-thickness tear, with moderate tendinopathy. There is fluid in the overlying trochanteric bursa. There is a 2.2 x 1.4 cm uncomplicated fat containing right inguinal hernia. Reading Location: [id number]
--- OUTSIDE RECORDS SUMMARY | 2025-04-26 16:52 | XMS RPT_ITS | CCD ---
Author Organization [facility] Care Team Providers Care Batch Trucker Name Role Phone Fco Jarvis MD Dr. Javon Early Primary Care Provider Dr. Javon Early Referring Provider Friend, Dr. Tam Attending Provider [phone] Dr. Renzo De Paz Primary Care Provider 1([facility])[phone] Griselda Pelayo Attending Provider [facility] e Dr. Renzo De Paz Referring Provider Dr. Rakan Adkins Attending Provider Dr. Miranda Nguyen Attending Provider Dr. Yonatan Avila Attending Provider 1([facility])56 Dr. Renzo De Paz Primary Care Provider [phone] Dr. Renzo De Paz Referring Provider Dr. Yonatan Avila Referring Provider 1([facility])56 Dr. Yonatan Avila Other Provider 1([facility])- [phone] Dr. Renzo De Paz Primary Care Provider 1([facility])6 [phone] Dr. Yonatan Avila Attending Provider [phone] Dr. Yonatan Avila Referring Provider [phone] Dr. Yonatan Avila Other Provider [phone] Renzo De Paz Referring Provider 1([facility])[phone] ENMA Henriquez Attending Provider Dr. Rakan Adkins Attending Provider 1([facility])[phone] TJ Brown Attending Provider [phone] MD Javon Barnard Attending Provider Dr. Renzo De Paz Primary Care Provider [phone] Dr. Renzo De Paz Referring Provider TJ Brown Attending Provider MD Javon Barnard Attending Provider Dr. Miranda Nguyen Attending Provider Dr. Renzo De Paz Primary Care Provider Dr. Renzo De Paz Referring Provider Dr. Renzo De Paz Primary Care Provider [phone] Zandra, Dr. Muller Referring Provider Dr. Lazaro Monroy Attending Provider Zandra LARSON, Dr. Muller Primary Care Provider Zandra LARSON, Dr. Muller Referring Provider [phone] Margarita LARSON, Dr. Tam Attending Provider Zandra LARSON, Dr. Muller Attending Provider [phone] Zandra LARSON, Dr. Muller Primary Care Provider Zandra LARSON, Dr. Muller Referring Provider [phone] María RUBI, Dr. Imer Benton Attending Provider Margarita LARSON, Dr. Tam Attending Provider Dr. Renzo De Paz DO Primary Care Physician Zandra LARSON, Dr. Muller Attending Physician Zandra LARSON, Dr. Muller Referring Provider [phone] Margarita LARSON, Dr. Tam Attending Physician Jed RUBI, Dr. Bledsoe Attending Physician Renzo De Paz Primary Care Unavailable Renzo De Paz Referring Unavailable Yonatan Avila Attending Unavailable Renzo De Paz Primary Care Unavailable Renzo De Paz Referring Unavailable Miranda Nguyen Attending Unavailable Kisha Harding NP Attending Unavailable ZandraRenzo clakr Primary Care Unavailable Jed, York Attending Unavailable Zandra, Renzo Primary Care Unavailable Jed, Rakan Attending Unavailable Zandra, Renzo Primary Care Unavailable ZandraRenzo clark Referring Unavailable Zandra, Renzo Attending Unavailable Zandra, Renzo Primary Care Unavailable Zandra, Renzo Referring Unavailable Zandra, Renzo Attending Unavailable Zandra, Renzo Primary Care Unavailable Zandra, Renzo Referring Unavailable Zandra, Renzo Attending Unavailable Zandra, Renzo Primary Care Unavailable Zandra, Renzo Referring Unavailable Zandra, Renzo Primary Care Unavailable Zandra, Renzo Referring Unavailable Zandra, Renzo Attending Unavailable Zandra, Renzo Primary Care Unavailable RadhakarusMiranda Referring Unavailable Miranda Nguyen Attending Unavailable Javon Early Referring Unavailable Zandra, Renzo Primary Care Unavailable IsckarusMiranda Attending Unavailable Jed, York Attending Unavailable Zandra, Renzo Primary Care Unavailable Jed, Rakan Referring Unavailable ZandraRenzo clark Attending Unavailable Zandra, Renzo Primary Care Unavailable ZandraRenzo clark Referring Unavailable ZandraRenzo lcark Attending Unavailable Zandra, Renzo Primary Care Unavailable Zandra, Renzo Referring Unavailable Margarita Yonatan Attending Unavailable Zandra, Renzo Primary Care Unavailable Zandra, Renzo Referring Unavailable Allergies Allergy Classification Reported Allergen(s) Allergy Type Date of Onset Reaction(s) Facility (7 sources) amLODIPine Drug Allergy edema [facility] (7 sources) Pollen Allergy to substance sneezy runny nose [facility] (1 source) amLODIPine Drug Allergy [address] [place] [address] Repository (1 source) Pollen Drug allergy (disorder) [address] [place] [address] Repository Medications Current Medications Medication Drug Class(es) Dates Sig (Normalized) Sig (Original) acetaminophen 500 mg oral tablet (20 sources) Start: 11-12-2018 take 1 tablet by mouth every six hours as needed for pain Acetaminophen (Tylenol Extra Strength) 500 mg tablet Active 500 mg PO EVERY 6 HOURS as needed for Pain Score 1-03/19November 12, 2018 12:00am Complies with drug therapy acetaminophen 325 mg / HYDROcodone bitartrate 5 mg oral tablet (7 sources) Opioid Agonist Start: 07-02-2024 Hydrocodone-Acetamin ophen 5-325 mg tablet Active 1 {tbl} PO AT BEDTIME December 10, 2023 12:00am Complies with drug therapy amylase 858415 unt / lipase 18137 unt / protease [id number] unt delayed release oral capsule (1 source) Start: 04-25-2022 Vzkohu-Lmkpqnfm-Jkwq ase (Zenpep) 40,000-126,000- 168,000 unit capsule,delayed release(DR/EC) Active 0 PO THREE TIMES A DAY 320 April 25, 2022 1:00am take 2-3 capsules with meals and 1-2 with snacks Complies with drug therapy cholecalciferol 0.05 mg oral capsule (7 sources) Vitamin D Start: 06-12-2024 Cholecalciferol (Vitamin D3) (D3) 50 mcg (2,000 unit) capsule Active 2000 U PO DAILY June 12, 2024 1:00am Complies with drug therapy 1 ml denosumab 60 mg/ml prefilled syringe (7 sources) RANK Ligand Inhibitor Start: 01-13-2024 Denosumab (Prolia) 60 mg/mL syringe Active 60 mg SC every 6 months January 13, 2024 12:00am Complies with drug therapy Pwujxl-Ljkqndhg-Mflfc se (Zenpep) 40,000-126,000- 168,000 unit capsule,delayed release(DR/EC) (20 sources) Start: 04-25-2022 Rinish-Agiptehz-Xspa ase (Zenpep) 40,000-126,000- 168,000 unit capsule,delayed release(DR/EC) Active 0 PO THREE TIMES A DAY 320 April 25, 2022 1:00am take 2-3 capsules with meals and 1-2 with snacks Start: 04-25-2022 Lipase-Proteas e-Amylase (Zenpep) 40,000-126,000- 168,000 unit capsule,delayed release(DR/EC) Active 0 PO THREE TIMES A DAY 320 April 25, 2022 1:00am take 2-3 capsules with meals and 1-2 with snacks Start: 04-25-2022 Lipase-Proteas e-Amylase (Zenpep) 40,000-126,000- 168,000 unit capsule,delayed release(DR/EC) Active 0 PO THREE TIMES A DAY 320 April 25, 2022 12:00am take 2-3 capsules with meals and 1-2 with snacks LORazepam 1 mg oral tablet (20 sources) Benzodiazepine Start: 11-19-2011 take 1 tablet by mouth at bedtime Lorazepam 1 MG tablet Active 1 mg PO AT BEDTIME April 22, 2017 1:00am Complies with drug therapy 24 hr metoprolol succinate 50 mg extended release oral tablet (20 sources) beta-Adrenergic Davie Start: 11-19-2011 take 1 tablet by mouth once daily Metoprolol Succinate 50 MG tablet extended release 24 hr Active 50 mg PO DAILY April 22, 2017 1:00am Complies with drug therapy simvastatin 40 mg oral tablet (20 sources) HMG-CoA Reductase Inhibitor Start: 05-28-2022 take 1 tablet by mouth at bedtime Simvastatin 40 mg tablet Active 40 mg PO AT BEDTIME May 28, 2022 1:00am Complies with drug therapy Start: 11-19-2011 End: 05-28-2022 take 1 tablet by mouth at bedtime Simvastatin 20 MG tablet Discontinued 20 mg PO AT BEDTIME April 22, 2017 1:00am May 28, 2022 2:36pm spironolactone 50 mg oral tablet (7 sources) Aldosterone Antagonist Start: 06-12-2024 take 1 tablet by mouth once daily Spironolactone 50 mg tablet Active 50 mg PO DAILY June 12, 2024 1:00am Complies with drug therapy Completed/Discontinued Medications Medication Drug Class(es) Dates Sig (Normalized) Sig (Original) amLODIPine 5 mg oral tablet (20 sources) Dihydropyridine Calcium Channel Davie Start: 11-11-2018 End: 10-19-2022 take 1 tablet by mouth at bedtime Amlodipine 5 mg tablet Discontinued 5 mg PO AT BEDTIME November 11, 2018 12:00am October 19, 2022 10:49am amoxicillin 875 mg / clavulanate 125 mg oral tablet (12 sources) Penicillin-class Antibacterial Start: 06-05-2023 End: 06-15-2023 Amoxicillin-Pot Clavulanate 875-125 mg tablet Discontinued 1 {tbl} PO Q12H 20 10 0 June 05, 2023 1:00am June 14, 2023 1:00am June 15, 2023 1:26am Acute sinusitis, unspecified Start: 06-05-2023 End: 06-15-2023 take 1 tablet by mouth every twelve hours Amoxicillin-Pot Clavulanate Discontinued 1 TABLET PO Q12H 20 June 05, 2023 1:00am June 15, 2023 1:26am chlorpheniramine (2 sources) Histamine-1 Receptor Antagonist Start: 11-19-2011 CHLOR-TRIMETON prn CHLOR-TRIMETON Ines Mann Start: 11-19-2011 End: 02-03-2015 CHLOR-TRIMETON prn CHLOR-TRIMETON Landin Fay Nixon colestipol hydrochloride 1000 mg oral tablet (20 sources) Bile Acid Sequestrant Start: 12-05-2022 End: 07-02-2024 Colestipol 1 gram tablet Discontinued 1 g PO AT BEDTIME March 19, 2023 12:00am May 01, 2023 1:03pm Start: 12-05-2022 End: 03-19-2023 take 2 g by mouth at bedtime Colestipol Discontinued 2 GM PO AT BEDTIME December 05, 2022 12:00am March 19, 2023 10:23am cyclobenzaprine hydrochloride 10 mg oral tablet (20 sources) Muscle Relaxant Start: 01-30-2022 End: 01-14-2025 take 1 tablet by mouth three times daily as needed for muscle spasms Cyclobenzaprine 10 mg tablet Discontinued 10 mg PO THREE TIMES A DAY as needed for muscle spasm January 30, 2022 12:00am January 14, 2025 2:07pm Start: 11-11-2018 End: 11-12-2018 Cyclobenzaprine 10 mg tablet Discontinued PO 30 10 0 November 11, 2018 12:00am November 12, 2018 2:29pm Start: 11-11-2018 End: 11-12-2018 Cyclobenzaprine Discontinued PO 30 10 November 11, 2018 12:00am November 12, 2018 2:29pm escitalopram 20 mg oral tablet (20 sources) Serotonin Reuptake Inhibitor Start: 05-28-2022 End: 05-28-2022 take 2 tablets by mouth once daily Escitalopram Oxalate 20 mg tablet Discontinued 40 mg PO DAILY May 28, 2022 1:00am May 28, 2022 2:38pm Start: 05-28-2022 End: 05-28-2022 take 40 mg by mouth once daily Escitalopram Oxalate Di scontinued 40 MG PO DAILY May 28, 2022 1:00am May 28, 2022 2:38pm Start: 11-19-2011 End: 05-28-2022 take 1 tablet by mouth once daily Escitalopram Oxalate 20 MG tablet Discontinued 20 mg PO DAILY April 22, 2017 1:00am May 28, 2022 2:36pm esomeprazole 20 mg delayed release oral capsule (20 sources) Proton Pump Inhibitor Start: 05-28-2022 End: 03-19-2023 take 2 capsules by mouth once daily Esomeprazole Magnesium (Nexium) 20 mg capsule,delayed release(DR/EC) Discontinued 40 mg PO DAILY May 28, 2022 2:37pm March 19, 2023 10:21am Start: 11-11-2018 End: 05-28-2022 take 1 capsule by mouth once daily Esomeprazole Magnesium (Nexium) 20 mg capsule,delayed release(DR/EC) Discontinued 20 mg PO DAILY November 11, 2018 12:00am May 28, 2022 2:38pm Start: 11-19-2011 End: 11-11-2018 take 1 capsule by mouth once daily Esomeprazole Magnesium 40 MG capsule Discontinued 40 mg PO DAILY April 22, 2017 1:00am November 11, 2018 9:14pm famotidine 40 mg oral tablet (20 sources) Histamine-2 Receptor Antagonist Start: 07-06-2022 End: 11-18-2024 take 1 tablet by mouth twice daily Famotidine 40 mg tablet Discontinued 40 mg PO TWICE A DAY 60 5 May 14, 2024 7:36am November 18, 2024 10:38am ferrous sulfate 325 mg oral tablet (7 sources) Start: 06-12-2024 End: 12-18-2024 take 1 tablet by mouth once daily Ferrous Sulfate (Ferosul) 325 mg (65 mg iron) tablet Discontinued 325 mg PO DAILY June 12, 2024 1:00am December 18, 2024 12:40pm furosemide 40 mg oral tablet (20 sources) Loop Diuretic Start: 01-13-2024 End: 06-12-2024 take 1 tablet by mouth once daily Furosemide 40 mg tablet Discontinued 40 mg PO DAILY January 13, 2024 12:00am June 12, 2024 2:19pm Start: 05-28-2022 End: 05-12-2023 take 1 tablet by mouth once daily Furosemide (Lasix) 20 mg tablet Discontinued 20 mg PO DAILY May 28, 2022 1:00am October 19, 2022 10:51am hydroCHLOROthiazide 12.5 mg oral tablet (7 sources) Thiazide Diuretic Start: 12-10-2023 End: 01-13-2024 take 1 tablet by mouth once daily Hydrochlorothiazide 12.5 mg tablet Discontinued 12.5 mg PO DAILY December 10, 2023 12:00am January 13, 2024 1:02pm hydroCHLOROthiazide 12.5 mg / lisinopril 10 mg oral tablet (20 sources) Thiazide Diuretic, Angiotensin Converting Enzyme Inhibitor Start: 10-19-2022 End: 01-13-2024 Lisinopril-Hydrochlorot hiazide 10-12.5 mg tablet Discontinued 1 {tbl} PO DAILY October 19, 2022 12:00am January 13, 2024 1:04pm Start: 10-19-2022 take 1 tablet by juhi once daily Lisinopril-Hydrochlorothiazide Active 1 TABLET PO DAILY October 19, 2022 12:00am loratadine 10 mg oral tablet (20 sources) Start: 11-11-2018 End: 11-12-2018 take 1 tablet by mouth once daily Loratadine (Claritin) 10 mg tablet Discontinued 10 mg PO DAILY November 11, 2018 12:00am November 12, 2018 2:29pm take 1 tablet by mouth once boaz y CLARITIN 10 MG TABS One tablet by mouth daily. LORATADINE [id number] Mushtaq Talbot Alafay take 1 tablet by mouth every oth er day CLARITIN 10 MG TABS One tablet by mouth every other day LORATADINE [id number] Mushtaq Talbot Alam methylPREDNISolone 4 mg oral tablet (12 sources) Corticosteroid Start: 06-05-2023 End: 06-11-2023 take 1 tablet by mouth once Methylprednisolone (Medrol (Remi)) 4 mg tablets,dose pack Discontinued 4 mg PO per package directions 21 6 0 June 05, 2023 1:00am June 10, 2023 1:00am June 11, 2023 1:05am multivitamin (18 sources) Start: 11-11-2018 End: 11-12-2018 take 1 tablet by mouth once daily Multivitamin Discontinued 1 TABLET PO DAILY November 10, 2018 11:00pm November 12, 2018 1:29pm Start: 11-11-2018 End: 11-12-2018 take 1 tablet by mouth once daily Multivitamin Discontinued 1 TABLET PO DAILY November 11, 2018 12:00am November 12, 2018 2:29pm Start: 11-19-2011 take 1 tablet by juhi th once daily MULTIVITAMIN One tablet by mouth daily MULTIVITAMIN Ines A Johnathan Multivitamin tablet (7 sources) Start: 11-11-2018 End: 11-12-2018 Multivitamin tablet Discontinued 1 {tbl} PO DAILY November 11, 2018 12:00am November 12, 2018 2:29pm nabumetone 500 mg oral tablet (2 sources) Nonsteroidal Anti-inflammatory Drug Start: 11-19-2011 End: 02-03-2015 take 1 tablet by mouth once daily NABUMETONE 500 MG TABS One tablet by mouth daily NABUMETONE [id number] Mushtaq Nixon nitrofurantoin, macrocrystals 25 mg / nitrofurantoin, monohydrate 75 mg oral capsule (2 sources) Start: 11-19-2011 End: 02-03-2015 take 1 tablet by mouth twice daily as needed MACROBID 100 MG CAPS One tablet by mouth twice daily as needed bladder infection NITROFURANTOIN MONOHYD MACRO [id number] Mushtaq Talbot Alam potassium chloride 10 meq extended release oral tablet (20 sources) Start: 05-28-2022 End: 10-19-2022 take 1 tablet by mouth twice daily Potassium Chloride 10 mEq tablet extended release Discontinued 10 meq PO TWICE A DAY May 28, 2022 1:00am October 19, 2022 10:53am rifAXIMin 550 mg oral tablet (18 sources) Rifamycin Antibacterial Start: 12-24-2022 End: 01-07-2023 take 1 tablet by mouth twice daily Rifaximin (Xifaxan) 550 mg tablet Discontinued 550 mg PO TWICE A DAY 28 14 0 December 24, 2022 12:00am January 06, 2023 12:00am January 07, 2023 12:03am sucralfate 1000 mg oral tablet (20 sources) Aluminum Complex Start: 01-30-2022 End: 10-19-2022 take 1 tablet by mouth at bedtime as needed Sucralfate 1 gram tablet Discontinued 1 g PO before meals and at bedtime as needed May 28, 2022 2:36pm October 19, 2022 10:53am 24 hr tolterodine tartrate 4 mg extended release oral capsule (2 sources) Cholinergic Muscarinic Antagonist Start: 11-19-2011 End: 02-03-2015 take 1 tablet by mouth once daily DETROL LA 4 MG [id number] One tablet by mouth daily TOLTERODINE TARTRATE [id number] Mushtaq Nixon warfarin sodium 5 mg oral tablet (7 sources) Vitamin K Antagonist Start: 11-22-2023 End: 06-12-2024 take 1 tablet by mouth once daily Warfarin 5 mg tablet Discontinued 5 mg PO DAILY November 22, 2023 12:00am June 12, 2024 2:19pm Problems Active Problems Problem Classification Problem Date Documented Da te Episodic/Chronic Cancer of breast (20 sources) Carcinoma of breast ; Translations: [Malignant neoplasm of female breast] Onset: 2 09-30-2014 Chronic Disorders of lipid metabolism (20 sources) Hyperlipidemia; Translations: [Hyperlipidemia, unspecified] Onset: 5 05-19-2019 Chronic Esophageal disorders (20 sources) Gastroesophageal reflux disease; Translations: [Gastro-esophageal reflux disease without esophagitis] Chronic Essential hypertension (20 sources) Essential hypertension; Translations: [Essential (primary) hypertension] 05-19-2019 Chronic Heart valve disorders (1 source) Nonrheumatic mitral (valve) insufficiency; Translations: [Nonrheumatic mitral (valve) insufficiency] Onset: 5 Chronic Neoplasms of unspecified nature or uncertain behavior (20 sources) Monoclonal gammopathy of uncertain significance; Translations: [Monoclonal gammopathy] Onset: 5 11-26-2022 Chronic Occlusion or stenosis of precerebral arteries (1 source) Occlusion and stenosis of bilateral carotid arteries; Translations: [Occlusion and stenosis of bilateral carotid arteries] Onset: 5 Chronic Osteoarthritis (20 sources) Primary gonarthrosis, bilateral; Translations: [Bilateral primary osteoarthritis of knee] 06-18-2022 Chronic Osteoporosis (20 sources) Osteoporosis; Translations: [Age-related osteoporosis without current pathological fracture] Onset: 07-16-07-25-2020 Chronic Other and ill-defined heart disease (20 sources) Diastolic dysfunction; Translations: [Other ill-defined heart diseases] 11-28-2018 Chronic Other bone disease and musculoskeletal deformities (20 sources) Postmenopausal osteopenia; Translations: [Other specified disorders of bone density and structure, unspecified site] 05-19-2020 Episodic Other bone disease and musculoskeletal deformities (7 sources) Other specified disorders of bone density and structure, unspecified site; Translations: [Disorder of bone and cartilage, unspecified] 11-19-2022 Episodic Other endocrine disorders (20 sources) Increased gastrin secretion; Translations: [Increased secretion of gastrin] 07-06-2022 Chronic Other endocrine disorders (8 sources) Increased secretion of gastrin; Translations: [Abnormality of secretion of gastrin] 12-05-2022 Chronic Other gastrointestinal disorders (20 sources) Diarrhea; Translations: [Diarrhea, unspecified] 04-10-2022 Episodic Other gastrointestinal disorders (3 sources) Diarrhea, unspecified; Translations: [Diarrhea] Episodic Other non-traumatic joint disorders (20 sources) Pain in left knee; Translations: [Left knee pain] 06-18-2022 Episodic Other non-traumatic joint disorders (17 sources) Disorder of shoulder; Translations: [Other specified joint disorders, left shoulder] 03-28-2023 Episodic Other non-traumatic joint disorders (20 sources) Hip pain; Translations: [Pain in right hip] 2023 Episodic Other non-traumatic joint disorders (17 sources) Pain in left shoulder; Translations: [Left shoulder pain] 03-28-2023 Episodic Other non-traumatic joint disorders (6 sources) Other specified joint disorders, left shoulder; Translations: [Other specified disorders of joint, shoulder region] 03-28-2023 Episodic Other non-traumatic joint disorders (4 sources) Pain in right hip; Translations: [Pain in joint, pelvic region and thigh] 06-11-2023 Episodic Other non-traumatic joint disorders (2 sources) Pain in right knee; Translations: [Right knee pain] 06-18-2022 Episodic Other upper respiratory infections (15 sources) Acute sinusitis; Translations: [Acute sinusitis, unspecified] 06-05-2023 Episodic Pancreatic disorders (not diabetes) (20 sources) Exocrine pancreatic insufficiency; Translations: [Exocrine pancreatic insufficiency] 07-06-2022 Episodic Sprains and strains (16 sources) Tendon rupture - hip; Translations: [Strain of muscle, fascia and tendon of right hip, initial encounter] 06-11-2023 Episodic Past or Other Problems Problem Classification Problem Date Documented Da te Episodic/Chronic Cancer of breast (20 sources) History of malignant neoplasm of breast; Translations: [Personal history of malignant neoplasm of breast] Onset: 06-25-2024 07-25-2020 Episodic Conditions associated with dizziness or vertigo (1 source) Dizziness and giddiness; Translations: [Dizziness and giddiness] Onset: 11-18-2024 Episodic Nonmalignant breast conditions (1 source) Pain of breast; Translations: [Mastodynia] Onset: 05-08-2017 05-08-2017 Episodic Other screening for suspected conditions (not mental disorders or infectious disease) (20 sources) Computed tomography result abnormal; Translations: [Abnormal findings on diagnostic imaging of heart and coronary circulation] Onset: 06-22-2024 12-06-2022 Episodic Other skin disorders (1 source) Skin lesion; Translations: [Disorder of the skin and subcutaneous tissue, unspecified] Onset: 05-02-2015 05-02-2015 Episodic Residual codes; unclassified (1 source) Estrogen receptor negative status [ER-]; Translations: [Estrogen receptor negative status [ER-]] Onset: 06-30-2024 Episodic Results Test Name Value Interpretation Reference Range Facility ONC Echo Complete 03-16-20 ONC Echo Complete [facility] [address] [place] [id number] ONC Echo Complete 03/16/25 1354 MR#: [id number] Acct: [id number] Name: MAGDY RUFF Rep #: [id number] : [id number] From: Rakan Adkins MD Attending Dr: Dr. Rakan Adkins MD Status: WILLIAM DOMINGUEZ Ordering Dr: Rakan Adkins MD Date: 03/16/25 Location: [facility] Sex: F C Admitted: Reason For Study Reason For Study: MITRAL REGURGITATION Procedure This was a 2D Doppler, Color Flow transthoracic echocardiogram. Myocardial strain analysis was performed in this exam to aid in the assessment of cardiac function. Exam performed in department. Left Ventricle Normal LV size. The global longitudinal strain = -18.2 % (normal). The estimated ejection fraction is 57 %. No regional wall motion abnormalities noted. Right Ventricle Normal RV size. Normal systolic function. Atria Normal left atrium. Normal right atrium. Mitral Valve Normal mitral valve. Mild (1+) mitral valve insufficiency. Tricuspid Valve Normal tricuspid valve. Mild (1+) tricuspid valve insufficiency. Pulmonary artery systolic pressure is 34 mmHg. Aortic Valve Trisinus/trileaflet aortic valve. Mild (1+) aortic valve insufficiency. Pulmonic Valve Normal pulmonic valve. Great Vessels Normal aortic root. The pulmonary artery is normal size. Inferior vena cava collapse with respiration. Pericardium/Pleural No pericardial effusion. MMode/2D Measurements Calculations LVIDd: 5.0 cm IVSd: 0.90 cm LVOT diam: 1.9 cm LVIDs: 2.8 cm LVPWd: 0.96 cm LVOT area: 2.7 cm2 RVDd: 3.5 cm FS: 43.3 % asc Aorta Diam: 3.1 cm LAV(MOD-bp): 44.9 ml LVAd ap4: 22.3 cm2 LAV(MOD-bp) Indexed: 24.3 ml/m2 LVLd ap4: 6.6 cm LAV(MOD-sp2): 44.1 ml EDV(MOD-sp4): 61.8 ml LAV(MOD-sp4): 41.4 ml EDV(sp4-el): 63.5 ml LVAs ap4: 13.2 cm2 LVLs ap4: 5.7 cm ESV(MOD-sp4): 26.4 ml ESV(sp4-el): 26.1 ml EF(MOD-sp4): 57.3 % EF(sp4-el): 58.9 % LVAd ap2: 23.2 cm2 SV(MOD-sp4): 35.4 ml SV(MOD-sp2): 38.7 ml LVLd ap2: 7.1 cm SI(MOD-sp4): 19.2 ml/m2 SI(MOD-sp2): 20.9 ml/m2 EDV(MOD-sp2): 63.0 ml EDV(sp2-el): 64.4 ml LVAs ap2: 13.3 cm2 LVLs ap2: 6.1 cm ESV(MOD-sp2): 24.3 ml ESV(sp2-el): 24.7 ml EF(MOD-sp2): 61.4 % SV(sp4-el): 37.4 ml Ao sinus diam: 2.[address] Junction: 2.4 cm LA dimension(2D): 4.1 cm LA A4 area: 16.4 cm2 RA A4 area: 10.8 cm2 TAPSE: 2.0 cm Time Measurements MV dec time: 0.20 sec Doppler Measurements Calculations MV E max brady: 85.7 cm/sec Lat Peak E' Brady: 9.0 cm/sec Med Peak E' Brady: 8.9 cm/sec MV A max brady: 90.7 cm/sec E/E' lat: 9.5 E/E' med: 9.6 MV E/A: 0.94 MV dec slope: 424.3 cm/sec2 Ao V2 max: 136.6 cm/sec AI max brady: 329.8 cm/sec Ao max P.5 mmHg AI max P.5 mmHg Ao V2 mean: 97.5 cm/sec AI dec slope: 125.7 cm/sec2 Ao mean P.3 mmHg AI P1/2t: 768.6 msec Ao V2 VTI: 37.3 cm AV (velocity ratio): 0.86 JANAE(I,D): 2.3 cm2 JANAE(V,D): 2.3 cm2 LV V1 max: 113.6 cm/sec SV(LVOT): 86.5 ml PA V2 max: 65.4 cm/sec LV V1 max P.2 mmHg LV V1 mean P.2 mmHg LV V1 mean: 84.7 cm/sec LV V1 VTI: 31.9 cm TR max brady: 272.5 cm/sec TR max P.8 mmHg ECHO/ONC Echo Complete Interpretation Summary Normal LV size. The global longitudinal strain = -18.2 % (normal). The estimated ejection fraction is 57 %. Mild (1+) mitral valve insufficiency. Mild (1+) aortic valve insufficiency. Structurally normal valves. ___ Ordering Physician: Rakan Adkins Referring Physician: Renzo De Paz Performed By: Debi Brown, [facility] 03/16/25 8558 Date Rakan Adkins MD CC: Dr. Rakan Adkins MD; Dr. Renzo De Paz DO Date Dictated: 03/16/25 1354 Date Transcribed: 03/16/25 7821 Lining Caser: Signed Normal [facility] Cardiology Visit Reporton Cardiology Visit Report [facility] [address] [place] [address] OFFICE VISIT Date of Service: 03/05/25 MR#: [id number] Acct: [id number] Name: MAGDY RUFF Rep #: [id number] : 1950 Provider: Dr. 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 In 2001 she was diagnosed with invasive ductal carcinoma of the right breast for which she underwent partial mastectomy and axillary lymph node dissection. She also has a history of hypertension and hyperlipidemia on therapy. She presents for a cardiac evaluation in the cardio oncology clinic due to previous exposure to anthracycline therapy in 2001. She did have a coronary calcium scan in October 2018 demonstrating a total calcium score of 220 and an echocardiogram demonstrating an ejection fraction of 65% with a global longitudinal strain of -19.9. Minimal carotid stenosis was noted. Her most recent lipid profile demonstrates a total cholesterol 146 HDL of 51 LDL of 70. 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: No Accompanied by: Self Is patient in pain?: Yes (Occasional lower back pain ) Pain scale (1-10): 3 Allergies pollen extracts Allergy (Verified 03/05/25 10:44) sneezy runny nose amlodipine Adverse Reaction (Verified 03/05/25 10:44) edema Medications ???Medication ???Instructions ???Recorded ???Confirmed ???Type lorazepam 1 mg tablet 1 mg PO QHS 04/22/17 03/05/25 Hist ory metoprolol succinate 50 mg 50 mg PO DAILY 04/22/17 03/05/25 H istory tablet,extended release 24 hr acetaminophen 500 mg tablet 500 mg PO Q6H PRN Pain Score 11/1203/05/25 History (Tylenol Extra Strength) 1-03/19 [id number] See Rx Instructions PO TID #320 03/05/25 Rx 40,000-126,000-168,000 unit caps capsule, delay rel (Zenpep) escitalopram oxalate 20 mg tablet 20 mg PO QHS 05/28/22 03/05/25 Hi story simvastatin 40 mg tablet 40 mg PO QHS 05/28/22 03/05/25 His tory hydrocodone-acetaminophen 5-325mg 1 tab PO QHS 12/10/23 03/05/25 Hi story 5mg-325mg denosumab 60 mg/mL subcutaneous 60 mg subcut [id number] 01/13/24 History syringe (Prolia) cholecalciferol (vitamin D3) 50 2,000 unit PO DAILY 06/12/2403/05 History mcg (2,000 unit) capsule (D3-1999) spironolactone 50 mg tablet 50 mg PO DAILY 06/12/24 03/05/25 H istory colestipol 1 gram tablet 1 g PO QHS #30 tabs 07/02/2403/05 Rx famotidine 40 mg tablet 40 mg PO BID #60 tabs 11/18/24 Rx Have you fallen in the past year?: No PFSH Medical History Tear of right gluteus medius tendon Right hip pain Impingement of left shoulder Wears glasses Osteoporosis Herniated disc, cervical Gastric reflux Non-smoker Bursitis History of pain when walking History of echocardiogram Cardiology follow-up encounter Cystocele with rectocele MGUS (monoclonal gammopathy of unknown significance) Bilateral carotid artery stenosis CAD (coronary artery disease) Diastolic dysfunction Essential (primary) hypertension IBS (irritable bowel syndrome) Anxiety and depression DJD (degenerative joint disease), lumbosacral Obesity Hyperlipidemia Personal history of colonic polyps Ductal carcinoma in situ (DCIS) of left breast Malignant neoplasm of right breast Ductal carcinoma in situ (DCIS) of left breast Malignant neoplasm of right female breast Surgical History History of lumpectomy of right breast (2001) History of hysterectomy History of mastectomy ( 1997) History of cholecystectomy Family History Mother Heart disease Hypertension Anxiety Hyperlipidemia Sister Diabetes Heart disease Hypertension Brother Diabetes Father Heart disease Hypertension Social History household members: spouse Smoking Status: Never smoker alcohol intake: never ROS Const Const: Negative for fatigue, body ache, fever(s) or chills ENT ENT: Positive for balance problems; Negative for dizziness or Nosebleed/epistaxis Cardio Chest Pain: No Palpitations: No Edema: (more content not included)... Normal [facility] Gastroenterology Visit Repor ton 01-14-2025 Gastroenterology Visit Report [facility] [address] [place] [address] OFFICE VISIT Date of Service: 01/14/25 MR#: [id number] Acct: [id number] Name: MAGDY RUFF Rep #: [id number] : 1950 Provider: Yonatan Avila DO Age/Sex: 74/F [place] [facility] [place]: Signed Intake Vital Signs 06/30/24 14:31 12/18/24 12:41 Height 5 ft 2 in 5 ft 2 in Intake Visit Reasons: 6 M FU Allergies pollen extracts Allergy (Verified 12/18/24 12:38) sneezy runny nose amlodipine Adverse Reaction (Verified 12/18/24 12:38) edema Medications ???Medication ???Instructions ???Recorded ???Confirmed ???Type lorazepam 1 mg tablet 1 mg PO QHS 04/22/17 01/14/25 Hist ory metoprolol succinate 50 mg 50 mg PO DAILY 04/22/17 01/14/25 H istory tablet,extended release 24 hr acetaminophen 500 mg tablet 500 mg PO Q6H PRN Pain Score 11/1201/14/25 History (Tylenol Extra Strength) 1-03/19 [id number] See Rx Instructions PO TID #320 01/14/25 Rx 40,000-126,000-168,000 unit caps capsule, delay rel (Zenpep) escitalopram oxalate 20 mg tablet 20 mg PO QHS 05/28/22 01/14/25 Hi story simvastatin 40 mg tablet 40 mg PO QHS 05/28/22 01/14/25 His tory hydrocodone-acetaminophen 5-325mg 1 tab PO QHS 12/10/23 01/14/25 Hi story 5mg-325mg denosumab 60 mg/mL subcutaneous 60 mg subcut [id number] 01/13/2401/01 History syringe (Prolia) cholecalciferol (vitamin D3) 50 2,000 unit PO DAILY 06/12/2401/14 History mcg (2,000 unit) capsule (D3-2000) spironolactone 50 mg tablet 50 mg PO DAILY 06/12/24 01/14/25 H istory colestipol 1 gram tablet 1 g PO QHS #30 tabs 07/02/2401/14 Rx famotidine 40 mg tablet 40 mg PO BID #60 tabs 11/18/2401/01 Rx Have you fallen in the past year?: No PFSH Medical History Tear of right gluteus medius tendon Right hip pain Impingement of left shoulder Wears glasses Osteoporosis Herniated disc, cervical Gastric reflux Non-smoker Bursitis History of pain when walking History of echocardiogram Cardiology follow-up encounter Cystocele with rectocele MGUS (monoclonal gammopathy of unknown significance) Bilateral carotid artery stenosis CAD (coronary artery disease) Diastolic dysfunction Essential (primary) hypertension IBS (irritable bowel syndrome) Anxiety and depression DJD (degenerative joint disease), lumbosacral Obesity Hyperlipidemia Personal history of colonic polyps Ductal carcinoma in situ (DCIS) of left breast Malignant neoplasm of right breast Ductal carcinoma in situ (DCIS) of left breast Malignant neoplasm of right female breast Surgical History History of lumpectomy of right breast (2001) History of hysterectomy History of mastectomy ( 1997) History of cholecystectomy Family History Mother Heart disease Hypertension Anxiety Hyperlipidemia Sister Diabetes Heart disease Hypertension Brother Diabetes Father Heart disease Hypertension Social History household members: spouse Smoking Status: Never smoker alcohol intake: never HPI HPI Details: MAGDY RUFF, is a 74 F who presents to the office today for follow up. PMH breast cancer, osteopenia/porosis for which she is supposed to take a medication but because of bloating and diarrhea she is not able to take the additional Vit D and calcium. PSH cholecystectomy *BGI established 04.10.22. Diarrhea and reflux with stomach pain/discomfort has been ongoing for many years. Nexium used for the last ten years with varying effectiveness; Sucralfate is helpful. EGD with Dr. Jarvis noted gastritis. Loose stools 2-3 times a morning with worsening intensity and yellow color and oily consistency with recent worsening to include increased gas, worsening consistency and increased frequency. Metamucil (citrus flavored), improved loose stools but caused increased reflux.??? PCP also prescribed Lomotil which was helpful with increased symptoms and is now returned to her baseline of diarrhea. Increased difficulty with particular foods which she attempts to avoid. Biochemical CBC, amylase, LDH, lipase, ESR, RENEE comp, ANCA, celiac, GAME, anti-parietal ab, intrinsic factor, IBD profile without pertinent abnormality. AlkP H149, CRP H7.10, gastrin H564, M-Vicente 0.2;? RAST Equivocal/low cow???s milk, egg Stool testing lactoferrin, C.Difficile, ova/parasite, giardia, calprotectin WNL.? Elastase L151, fecal fats neutral and total + Zenpep, sucralfate, Nexium. OV 1.23 Continues to have intermittent epigastric pain and minimal bloating. Overa (more content not included)... Normal [facility] PT D/C Summary (1)on 025 PT D/C Summary (1) [facility] Physical Therapy [facility] [address] [place] [address] / REHABILITATION SERVICES DISCHARGE SUMMARY MR#: [id number] Acct: [id number] Name: MAGDY RUFF Rep #: [id number] : 1950 74 From: Lazaro Ross DPT, OCS, CSCS Referring Dr.: Dr. 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 Renzo De Paz DO, with the diagnosis of vertigo for a total of 2 visit(s). Discharge Date: 11/17/24 Please see the following information for a summary of their discharge status. Subjective Subjective: No spinning, balance is normal. 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 Goals Goal 1:: abolish dizzyness in bed at night Goal Progress: Goal Met Goal 2:: Pt able to put dishs away without LOB Goal Progress: Goal Met Goal 3:: Pt feel dizzyness 100% back to normal Goal Progress: Goal Met Goal 4:: DHI score 8 or less. Goal Progress: Goal Met Plan Plan: d/c D/C Information Discharge Comments: BPPV resolved at this time. d/c sentence: If there are questions or concerns regarding this patient's physical therapy, please feel free to call me at [phone]. Thank you for the referral of this patient. Sincerely, Lazaro Ross, DPT, OCS, CSCS Balance/Gait/Functional tests Balance/Special Test Scores Functional Gait Assessment Score: 27 % Disability: 10.0000 Dizziness Score: 4 Improvement % Improvement: 100 11/17/24 1342 CC: Dr. Renzo De Paz DO EBG Signed Normal [facility] Bone density reportOrdered B y: Good Bryant on 11-11-2024 Study report Skeletal system DXA [facility] Imaging Services [address] [place], [place] [address] Dexa Bone Density Study MR#: [id number] Acct: [id number] Name: MAGDY RUFF Rep #: [id number] : 1950 F 74 From: Pratibha Bryant MD PCP: Dr. Renzo De Paz, Status: REG CLI Study:Dexa Bone Density Study Date of Exam: 11/10/24 Exam# [id number] Ordering Dr: Renzo De Paz DO PROCEDURE: DEXA BONE DENSITY STUDY 11/10/2024 REASON FOR EXAM: F, age 74 y/o . TECHNIQUE: DXA scan of sites with data reported below. Scanner utilized: Section 101 W. [facility] COMPARISON: DEXA scan 06/30/2020 FINDINGS: BMD and T-SCORES Lumbar spine: 0.849 g/cm2, T-score -1.8 Levels: L1 through L4 Change from prior: Dissimilar scan types/analysis methods, showing. Left femoral neck: 0.648 g/cm2, T-score -1.8 Femoral neck comparison data not recommended for monitoring change. Prior T-score -1.4 Left total hip: 0.725 g/cm2, T-score -1.8 Change from prior: Dissimilar scan types/analysis methods, showing. Right femoral neck: 0 point 505 g/cm2, T-score -3.1 Femoral neck comparison data not recommended for monitoring change. Prior T-score -2.7 Right total hip: 0.673 g/cm2, T-score -2.2 Change from prior: Dissimilar scan types/analysis methods, showing The World Health Organization has defined the following categories based on bonedensity: Normal bone density: T-score equal to or greater than -1.0 Osteopenia: T-score between -1.0 and -2.5 Osteoporosis: T-score equal to or less than -2. BD/Dexa Bone Density Study IMPRESSION: OSTEOPOROSIS. Reading Location: [id number] CC: Dr. Renzo De Paz DO ~ Lining Caser: Signed [facility] Dexa Bone Density Studyon Dexa Bone Density Study [facility] Imaging Services [address] [place] [address] Dexa Bone Density Study MR#: [id number] Acct: [id number] Name: MAGDY RUFF Rep #: [id number] : 1950 F 74 From: Good Bryant MD PCP: Dr. Renzo De Paz DO Status: REG CLI Study: Dexa Bone Density Study Date of Exam: 11/10/24 Exam# [id number] Ordering Dr: Renzo De Paz DO PROCEDURE: DEXA BONE DENSITY STUDY 11/10/2024 REASON FOR EXAM: F, age 74 y/o . TECHNIQUE: DXA scan of sites with data reported below. Scanner utilized: Section 101 W. REFERENCE LINKS: [facility] Adult Positions COMPARISON: DEXA scan 06/30/2020 FINDINGS: BMD and T-SCORES Lumbar spine: 0.849 g/cm2, T-score -1.8 Levels: L1 through L4 Change from prior: Dissimilar scan types/analysis methods, showing. Left femoral neck: 0.648 g/cm2, T-score -1.8 Femoral neck comparison data not recommended for monitoring change. Prior T-score -1.4 Left total hip: 0.725 g/cm2, T-score -1.8 Change from prior: Dissimilar scan types/analysis methods, showing. Right femoral neck: 0 point 505 g/cm2, T-score -3.1 Femoral neck comparison data not recommended for monitoring change. Prior T-score -2.7 Right total hip: 0.673 g/cm2, T-score -2.2 Change from prior: Dissimilar scan types/analysis methods, showing The World Health Organization has defined the following categories based on bone density: Normal bone density: T-score equal to or greater than -1.0 Osteopenia: T-score between -1.0 and -2.5 Osteoporosis: T-score equal to or less than -2. BD/Dexa Bone Density Study IMPRESSION: OSTEOPOROSIS. Reading Location: [id number] CC: Dr. Renzo De Paz DO Lining Caser: Signed Normal [facility] Inital Evaluation (1) - PTon 11-10-2024 Inital Evaluation (1) - PT [facility] Physical Therapy [facility] [address] [place] [address] [address] [place] [address] / REHABILITATION SERVICES INITIAL EVALUATION MR#: [id number] Acct: [id number] Name: MAGDY RUFF Rep #: [id number] : 1950 74 From: Lazaro Ross DPT, OCS, CSCS Referring Dr.: Dr. 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 Renzo De Paz DO with a diagnosis of vertigo. Date of Evaluation: 11/10/24 Physical Therapist: Lazaro Ross, MADDIE, OCS, CSCS Visit Plan Frequency: 1x/Week Duration: 2-4 Weeks Plan: weekly x 2-4 for positional treatments and balance/return to function as needed. Treated initially with R modified samantha after obvious positive test and instruction in management at home with HO Subjective Subjective: Vertigo started a month ago at rs house lying down adn spun. Got up that night and had to hold on. it has gotten slightly better in severity. Looking up or lying down still causes it. Putting dishes up in cupboard or tilting head up to look through bifocals can make her dizzy. Spinning happens every time she lies down. It lasts 10 seconds. Most of time feels not with it. No falls. Has to be careful. sleep is OK. Retired, hobbies include floweers and has to be careful, hard to get up and down. No regular exercises. Basic ADLs: all I. Objective Objective: 30 romberg eo adn ec, walks in I slowly and hesitant to move head. Trasnfeers chair and bed I. Cervical AROM WFL and without deficits but hesitant to tilt up. UE AROM WFL adn strngth at 4-/5 without myotomal problems or sensation deficits. - L HD + R HD up torsional nystagmus, treated with R modified samantha adn then much better. Balance/Special Test Scores Functional Gait Assessment Score: 25 % Disability: 16.6700 Dizziness Score: 42 Goals Goal 1:: abolish dizzyness in bed at night Goal Time Frame: 2-4 Weeks Goal 2:: Pt able to put dishs away without LOB Goal Time Frame: 2-4 Weeks Goal 3:: Pt feel dizzyness 100% back to normal Goal Time Frame: 2-4 Weeks Goal 4:: DHI score 8 or less. Goal Time Frame: 2-4 Weeks Rehabilitation Potential Physical Therapy Diagnosis: BPPV effecting comfortable funciton. Rehabilitation Potential: Good Anticipated Interventions Patient/Client Instruction: Educate patient on: Condition and Plan of Care For the Purpose of:: To increase tolerance to activity/condition/positi on and To improve gait and locomotor functions Comment: vestibular positional treatments For the Purpose of:: To increase tolerance to activity/condition/positi on and To improve safety Text: Thank you for the opportunity to evaluate your patient. For Medicare and Medicare HMO plans, please review the plan of care and approve it. It will need to be FAXED BACK to us at [phone] for Medicare purposes. For Medicare only, by signing this I certify the plan of care. Please let me know if there are questions or concerns regarding this plan of care. Physician Signature: Date: _ 11/10/24 1540 CC: Dr. Renzo De Paz DO EBG Signed Normal [facility] Inital Evaluation (1) - PT [facility] Physical Therapy [facility] [address] [place] [address] [address] [place] [address] / REHABILITATION SERVICES INITIAL EVALUATION MR#: [id number] Acct: [id number] Name: MAGDY RUFF Rep #: [id number] : 1950 74 From: Lazaro Ross DPT, OCS, CSCS Referring Dr.: Dr. 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 Renzo De Paz DO with a diagnosis of vertigo. Date of Evaluation: 11/10/24 Physical Therapist: Lazaro Cody, DPT, OCS, CSCS Visit Plan Frequency: 1x/Week Duration: 2-4 Weeks Plan: weekly x 2-4 for positional treatments and balance/return to function as needed. Treated initially with R modified samantha after obvious positive test and instruction in management at home with HO Subjective Subjective: Vertigo started a month ago at dtrs house lying down adn spun. Got up that night and had to hold on. it has gotten slightly better in severity. Looking up or lying down still causes it. Putting dishes up in cupboard or tilting head up to look through bifocals can make her dizzy. Spinning happens every time she lies down. It lasts 10 seconds. Most of time feels not with it. No falls. Has to be careful. sleep is OK. Retired, hobbies include floweers and has to be careful, hard to get up and down. No regular exercises. Basic ADLs: all I. Objective Objective: 30 romberg eo adn ec, walks in I slowly and hesitant to move head. Trasnfeers chair and bed I. Cervical AROM WFL and without deficits but hesitant to tilt up. UE AROM WFL adn strngth at 4-/5 without myotomal problems or sensation deficits. - L HD + R HD up torsional nystagmus, treated with R modified samantha adn then much better. Balance/Special Test Scores Functional Gait Assessment Score: 25 % Disability: 16.6700 Dizziness Score: 42 Goals Goal 1:: abolish dizzyness in bed at night Goal Time Frame: 2-4 Weeks Goal 2:: Pt able to put dishs away without LOB Goal Time Frame: 2-4 Weeks Goal 3:: Pt feel dizzyness 100% back to normal Goal Time Frame: 2-4 Weeks Goal 4:: DHI score 8 or less. Goal Time Frame: 2-4 Weeks Rehabilitation Potential Physical Therapy Diagnosis: BPPV effecting comfortable funciton. Rehabilitation Potential: Good Anticipated Interventions Patient/Client Instruction: Educate patient on: Condition and Plan of Care For the Purpose of:: To increase tolerance to activity/condition/positi on and To improve gait and locomotor functions Comment: vestibular positional treatments For the Purpose of:: To increase tolerance to activity/condition/positi on and To improve safety Text: Thank you for the opportunity to evaluate your patient. For Medicare and Medicare HMO plans, please review the plan of care and approve it. It will need to be FAXED BACK to us at [phone] for Medicare purposes. For Medicare only, by signing this I certify the plan of care. Please let me know if there are questions or concerns regarding this plan of care. Physician Signature: Date: _ 11/10/24 1540 CC: Dr. Renzo De Paz DO EBG Signed Normal [facility] Carotid Duplex Ultrasoundon 11-05-2024 Carotid Duplex Ultrasound [facility] Cardiovascular Services [address] [place] [address] Carotid Duplex Ultrasound 11/05/24 1353 MR#: [id number] Acct: [id number] Name: MAGDY RUFF Rep #: [id number] : 1950 74 From: Imer Daniel MD Attending Dr: Dr. Renzo De Paz, DO Status: REG CLI Ordering Dr: Renzo De Paz DO Date: 11/05/24 Location: [facility] Sex: F C Admitted: Reason For Study Reason For Study: Atherosclerosis L>R Rt. Velocities/BP Lt. Velocities/BP Prox CCA 87.2/7.8 cm/sec. Prox CCA 87.6/11.4 cm/sec. Mid CCA 84.4/8.8 cm/sec. Mid CCA 85.1/9 cm/sec. Dist CCA 78.7/10.7 cm/sec. Dist CCA 82.6/9 cm/sec. Prox ICA 120.7/18.8 cm/sec. Prox ICA 158.7/20.4 cm/sec. Mid ICA 100.3/17.9 cm/sec. Mid ICA 74/10.2 cm/sec. Dist ICA 81.7/12.4 cm/sec. Dist ICA 83.9/15.1 cm/sec. Rt. ICA/CCA = 1.43. Lt. ICA/CCA = 1.86. Prox ECA 86.1 cm/sec. Prox ECA 74 cm/sec. Rt. Vert. 67.4/12.4 cm/sec. Lt. Vert. 56/6 cm/sec. Right Extracranial There is homogeneous, smooth atherosclerotic plaque noted in the right common carotid artery. There is heterogeneous, irregular atherosclerotic plaque noted in the right internal carotid artery. There is heterogeneous, irregular atherosclerotic plaque noted in the right external carotid artery. Antegrade flow is noted in the right vertebral artery. Left Extracranial There is homogeneous, smooth atherosclerotic plaque noted in the left common carotid artery. There is heterogeneous, irregular atherosclerotic plaque noted in the left internal carotid artery. There is heterogeneous, irregular atherosclerotic plaque noted in the left external carotid artery. Antegrade flow is noted in the left vertebral artery. Procedure Carotid Duplex 55361. This is a Carotid Duplex examination using B-mode, color flow and specral Doppler. Exam performed in department. VL/Carotid Duplex Ultrasound Interpretation Summary Mild (<50%) stenosis right extracranial internal carotid. Mild (<50%) stenosis left extracranial internal carotid. Flow within the vertebral arteries is antegrade bilaterally. ___ Ordering Physician: Renzo De Paz Referring Physician: Renzo De Paz Performed By: Elle Grubbs T 11/05/242222 Date Imer Daniel MD CC: Dr. Renzo De Paz DO Date Dictated: 11/05/24 1353 Date Transcribed: 11/05/242222 Lining Caser: Signed Normal [facility] Duplex ultrasound of carotid artery reportOrdered By: Imer Daniel on 11-05-2024 Study report [facility] Cardiovascular Services [address] [place] [address] Carotid Duplex Ultrasound 11/05/24 1353 MR#: [id number] Acct: [id number] Name: MAGDY RUFF Rep #:[id number] : 1950 74 From: Imer Daniel MD Attending Dr: Dr. Renzo De Paz, Status: REG CLI Ordering Dr: Renzo De Paz DO Date: 11/05/24 Location: [facility] Sex: F C Admitted: Reason For Study Reason For Study: Atherosclerosis L>R Rt. Velocities/BP Lt. Velocities/BP Prox CCA 87.2/7.8 cm/sec. Prox CCA 87.6/11.4 cm/sec. Mid CCA 84.4/8.8 cm/sec. Mid CCA 85.1/9 cm/sec. Dist CCA 78.7/10.7 cm/sec. Dist CCA 82.6/9 cm/sec. Prox ICA 120.7/18.8 cm/sec. Prox ICA 158.7/20.4 cm/sec. Mid ICA 100.3/17.9 cm/sec. Mid ICA 74/10.2 cm/sec. Dist ICA 81.7/12.4 cm/sec. Dist ICA 83.9/15.1 cm/sec. Rt. ICA/CCA = 1.43. Lt. ICA/CCA = 1.86. Prox ECA 86.1 cm/sec. Prox ECA 74 cm/sec. Rt. Vert. 67.4/12.4 cm/sec. Lt. Vert. 56/6 cm/sec. Right Extracranial There is homogeneous, smooth atherosclerotic plaque noted in the right common carotid artery. There is heterogeneous, irregular atherosclerotic plaque noted in the right internal carotid artery. There is heterogeneous, irregular atherosclerotic plaque noted in the right external carotid artery. Antegrade flow is noted in the right vertebral artery. Left Extracranial There is homogeneous, smooth atherosclerotic plaque noted in the left common carotid artery. There is heterogeneous, irregular atherosclerotic plaque noted in the left internal carotid artery. There is heterogeneous, irregular atherosclerotic plaque noted in the left external carotid artery. Antegrade flowis noted in the left vertebral artery. Procedure Carotid Duplex 06364. This is a Carotid Duplex examination using B-mode, color flow and specral Doppler. Exam performed in department. VL/Carotid Duplex Ultrasound Interpretation Summary Mild (<50%) stenosis right extracranial internal carotid. Mild (<50%) stenosis left extracranial internal carotid. Flow within the vertebral arteries is antegrade bilaterally. ___ Ordering Physician: Renzo De Paz Referring Physician: Renzo De Paz Performed By: Elle Grubbs, MARKUST 11/05/242222 Date _ Imer Daniel MD CC: Dr. Renzo De Paz, DO ~ Date Dictated: 11/05/24 1353 Date Transcribed: 11/05/242222 Lining Caser: Signed [facility] Other Phone: Lipid Profileon 10-29-2024 CHOL:HDL 2.86 Normal [facility] Comment on above: Performed By: #### L 500.4100, L506.1001, L501.9985 #### [facility] [address] [place], [place], [id number] Cholesterol [Mass/Vol] 146 mg/dL Normal <=200 [facility] Comment on above: Result Comment: Chol esterol level, Desirable <200 mg/dL Borderline high cholesterol 200-239 mg/dL High cholesterol >=240 mg/dL Recommendations of the NCEP Adult Treatment Panel for the following risk-cutoff thresholds for the [place] population. Performed By: #### L 500.4100, L506.1001, L501.9985 #### [facility] [address] [place], [place], [id number] Cholesterol in HDL [Mass/Vol] 51 mg/dL Normal [facility] Comment on above: Result Comment: Radha onal Cholesterol Education Program (NCEP) guidelines: <40 mg/dL: Low HDL-cholesterol (major risk factor for CHD) >= 60 mg/dL: High HDL-cholesterol (negative risk factor for CHD) HDL-cholesterol is affected by a number of factors, e.g. smoking, exercise, hormones, sex and age. Performed By: #### L 500.4100, L506.1001, L501.9985 #### [facility] [address] [place], [address] Cholesterol in LDL [Mass/Vol] 70 mg/dL Normal [facility] Comment on above: Result Comment: Bord umyitn=767-486 mg/dL Higher Udhf=575 mg/dL or greater Performed By: #### L 500.4100, L506.1001, L501.9985 #### [facility] [address] [place], [address] Cholesterol in VLDL [Mass/Vol] 25 mg/dL Normal 5-40 [facility] Comment on above: Performed By: #### L 500.4100, L506.1001, L501.9985 #### [facility] [address] [place], [address] Triglyceride [Mass/Vol] 125 mg/dL Normal [facility] Comment on above: Result Comment: The drugs N-Acetylcysteine and Metamizole may falsely depress this assay. Normal range: <150 mg/dL Borderline High: 150-199 mg/dL High: 200-499 mg/dL Very High: >500 mg/dL Performed By: #### L 500.4100, L506.1001, L501.9985 #### [facility] [address] [place], [address] Vitamin D,25 Hydroxyon 10-29 Vitamin D 25-OH 25.0 ng/mL Low 30-100 [facility] Comment on above: Result Comment: Karen min D Status Deficiency: <20 ng/mL (50nmol/L) Insufficiency: 20-30 ng/mL (50-75 nmol/L) Sufficiency: 30-100 ng/mL (75-250 nmol/L) Toxicity: >100 ng/mL (>250 nmol/L) Performed By: #### L 500.4100, L506.1001, L501.9985 #### [facility] [address] [place], [place], [id number] Calculated very low density lipoprotein (VLDL) cholesterol measurementOrdered By: Renzo De Paz on 10-28-2024 Calculated very low density lipoprotein (VLDL) cholesterol measurement 25 mg/dL 5-40 [facility] Hemoglobin A1con 10-28-2024 HbA1c (Bld) [Mass fraction] 5.7 % Normal <=5.6 [facility] Comment on above: Result Comment: Norm al < 5.7 % Prediabetic 5.7 - 6.4 % Diabetic >or= 6.5 % Please note range changes. Performed By: #### L 500.4100, L506.1001, L501.9985 #### [facility] [address] [place], [place], [id number] Hemoglobin A1c percentageOrd ered By: Renzo De Paz on 10-28-2024 HbA1c (Bld) [Mass fraction] 5.7 % <5.7 [facility] Comment on above: Normal < 5.7 % Predi abetic 5.7 - 6.4 % Diabetic >or= 6.5 % Please note range changes. LDL calc ser/plasOrdered By: Renzo De Paz on 10-28-2024 Cholesterol in LDL [Mass/Vol] 70 mg/dL [facility] Comment on above: Ctkmoiptra=189-780 m g/dL & Higher Fwxf=966 mg/dL or greater Screening total cholesterol/ high density lipoprotein (HDL) cholesterol ratioOrdered By: Renzo De Paz on 10-28-2024 Cholesterol.total/Choles terol in HDL [Mass ratio] 2.86 {ratio} [facility] Serum or plasma cholesterol in HDL measurement (mass/volume)Ordered By: Renzo De Paz on 10-28-2024 Cholesterol in HDL [Mass/Vol] 51 mg/dL >40 [facility] Comment on above: National Cholesterol Education Program (NCEP) guidelines:<40 mg/dL: Low HDL-cholesterol (major risk factor for CHD)>= 60 mg/dL: High HDL-cholesterol (negative risk factor for CHD)HDL-cholesterol is affected by a number of factors, e.g. smoking, exercise, hormones, sex and age. Serum or plasma cholesterol measurement (mass/volume)Ordered By: Renzo De Paz on 10-28-2024 Cholesterol [Mass/Vol] 146 mg/dL <201 [facility] Comment on above: Cholesterol level, D esirable <200 mg/dLBorderline high cholesterol 200-239 mg/dLHigh cholesterol >=240 mg/dLRecommendations of the NCEP Adult Treatment Panel for the following risk-cutoff thresholds for the [place] population. Triglycerides measurementOrd ered By: Renzo De Paz on 10-28-2024 Triglyceride [Mass/Vol] 125 mg/dL <199 [facility] Comment on above: The drugs N-Acetylcy steine and Metamizole may falsely depress this assay. Normal range: <150 mg/dLBorderline High: 150-199 mg/dLHigh: 200-499 mg/dLVery High: >500 mg/dL Gastroenterology Visit Repor ton 07-17-2024 Gastroenterology Visit Report [facility] [address] [place] [address] OFFICE VISIT Date of Service: 07/17/24 MR#: [id number] Acct: [id number] Name: MAGDY RUFF Rep #: [id number] : 1950 Provider: Yonatan Avila DO Age/Sex: 74/F [place] [facility] [place]: Signed Intake Vital Signs 12/10/23 12:53 06/30/24 14:31 Height 5 ft 2 in 5 ft 2 in Intake Visit Reasons: 6 M FU Allergies pollen extracts Allergy (Verified 06/30/24 14:29) sneezy runny nose amlodipine Adverse Reaction (Verified 06/30/24 14:29) edema Medications ???Medication ???Instructions ???Recorded ???Confirmed ???Type lorazepam 1 mg tablet 1 mg PO QHS 04/22/17 07/17/24 Hist ory metoprolol succinate 50 mg 50 mg PO DAILY 04/22/17 07/17/24 H istory tablet,extended release 24 hr acetaminophen 500 mg tablet 500 mg PO Q6H PRN Pain Score 11/1207/17/24 History (Tylenol Extra Strength) -03/19 cyclobenzaprine 10 mg tablet 10 mg PO TID PRN muscle spasm 01/0907/17/24 History [id number] See Rx Instructions PO TID #320 07/17/24 Rx 40,000-126,000-168,000 unit caps capsule, delay rel (Zenpep) escitalopram oxalate 20 mg tablet 20 mg PO QHS 05/28/22 07/17/24 Hi story simvastatin 40 mg tablet 40 mg PO QHS 05/28/22 07/17/24 His tory hydrocodone-acetaminophen 5-325mg 1 tab PO QHS 12/10/23 07/17/24 Hi story 5mg-325mg denosumab 60 mg/mL subcutaneous 60 mg subcut [id number] 01/13/2401/01 History syringe (Prolia) famotidine 40 mg tablet 40 mg PO BID #60 tabs 05/14/2401/01 Rx cholecalciferol (vitamin D3) 50 2,000 unit PO DAILY 06/12/2407/17 History mcg (2,000 unit) capsule (D3-2000) ferrous sulfate 325 mg (65 mg 325 mg PO DAILY 06/12/24 07/17/24 History iron) tablet (FeroSul) spironolactone 50 mg tablet 50 mg PO DAILY 06/12/24 07/17/24 H istory colestipol 1 gram tablet 1 g PO QHS #30 tabs 07/02/2407/17 Rx Have you fallen in the past year?: No PFSH Medical History Tear of right gluteus medius tendon Right hip pain Impingement of left shoulder Wears glasses Osteoporosis Herniated disc, cervical Gastric reflux Non-smoker Bursitis History of pain when walking History of echocardiogram Cardiology follow-up encounter Cystocele with rectocele MGUS (monoclonal gammopathy of unknown significance) Bilateral carotid artery stenosis CAD (coronary artery disease) Diastolic dysfunction Essential (primary) hypertension IBS (irritable bowel syndrome) Anxiety and depression DJD (degenerative joint disease), lumbosacral Obesity Hyperlipidemia Personal history of colonic polyps Ductal carcinoma in situ (DCIS) of left breast Malignant neoplasm of right breast Ductal carcinoma in situ (DCIS) of left breast Malignant neoplasm of right female breast Surgical History History of lumpectomy of right breast (2001) History of hysterectomy History of mastectomy ( 1997) History of cholecystectomy Family History Mother Heart disease Hypertension Anxiety Hyperlipidemia Sister Diabetes Heart disease Hypertension Brother Diabetes Father Heart disease Hypertension Social History household members: spouse Smoking Status: Never smoker alcohol intake: never HPI HPI Details: MAGDY RUFF, is a 74 F who presents to the office today for follow up. PMH breast cancer, osteopenia/porosis for which she is supposed to take a medication but because of bloating and diarrhea she is not able to take the additional Vit D and calcium. PSH cholecystectomy 4.2009 *BGI established 11.1.22. Diarrhea and reflux with stomach pain/discomfort has been ongoing for many years. Nexium used for the last ten years with varying effectiveness; Sucralfate is helpful. EGD with Dr. Jarvis noted gastritis. Loose stools 2-3 times a morning with worsening intensity and yellow color and oily consistency with recent worsening to include increased gas, worsening consistency and increased frequency. Metamucil (citrus flavored), improved loose stools but caused increased reflux.??? PCP also prescribed Lomotil which was helpful with increased symptoms and is now returned to her baseline of diarrhea. Increased difficulty with particular foods which she attempts to avoid. Biochemical CBC, amylase, LDH, lipase, ESR, RENEE comp, ANCA, celiac, GAME, anti-parietal ab, intrinsic factor, IBD profile without pertinent abnormality. AlkP H149, CRP H7.10, gastrin H564, M-Vicente 0.2;? RAST Equivocal/low cow???s milk, egg Stool testing lactoferrin, C.Difficile, ova/parasite, giardia, calp (more content not included)... Normal [facility] Oncology Visit Reporton 06-11 Oncology Visit Report [facility] [place] [address] OFFICE VISIT Date of Service: 06/30/24 1425 MR#: [id number] Acct: [id number] Name: MAGDY RUFF Rep #: [id number] : 1950 From: Miranda Nguyen MD Age/Sex: 74/F [place] [facility] [place] Status: Signed HPI Subjective Date of Service 06/30/24 Chief Complaint MGUS Breast cancer follow-up History of Present Illness 73-year-old female surveillance with history notable for: #1 DCIS of the left breast status post mastectomy in 1995. 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 Date of diagnosis was March 2002. #3-In April 2022 she was evaluated for GI symptoms and was found to have an M spike. [facility] Medical History Tear of right gluteus medius tendon Right hip pain Impingement of left shoulder Wears glasses Osteoporosis Herniated disc, cervical Gastric reflux Non-smoker Bursitis History of pain when walking History of echocardiogram Cardiology follow-up encounter Cystocele with rectocele MGUS (monoclonal gammopathy of unknown significance) Bilateral carotid artery stenosis CAD (coronary artery disease) Diastolic dysfunction Essential (primary) hypertension IBS (irritable bowel syndrome) Anxiety and depression DJD (degenerative joint disease), lumbosacral Obesity Hyperlipidemia Personal history of colonic polyps Ductal carcinoma in situ (DCIS) of left breast Malignant neoplasm of right breast Ductal carcinoma in situ (DCIS) of left breast Malignant neoplasm of right female breast Surgical History History of lumpectomy of right breast (2001) History of hysterectomy History of mastectomy ( 1997) History of cholecystectomy Family History Mother Heart disease Hypertension Anxiety Hyperlipidemia Sister Diabetes Heart disease Hypertension Brother Diabetes Father Heart disease Hypertension Social History household members: spouse Smoking Status: Never smoker alcohol intake: never ROS Constitutional Constitutional: Reports systems reviewed and no addt'l complaints, except as documented; Denies fatigue, fever(s) or weight loss Eyes Eyes: Reports systems reviewed and no addt'l complaints, except as documented; Denies change in vision ENT HEENT: Reports systems reviewed and no addt'l complaints, except as documented; Denies headache(s) or mouth lesions Cardiovascular Cardiovascular: Reports systems reviewed and no addt'l complaints, except as documented; Denies chest pain with activity or edema Respiratory/Chest Respiratory/Chest: Reports systems reviewed and no addt'l complaints, except as documented; Denies cough or dyspnea on exertion Gastrointestinal Gastrointestinal: Reports systems reviewed and no addt'l complaints, except as documented, diarrhea, dyspepsia, heartburn and other Details: Has irritable bowel disease, chronic intermittent diarrhea due to chronic pancreatic insufficiency on treatment ; Denies change in bowel habits, dysphagia, hematochezia or melena Genitourinary Genitourinary: Reports systems reviewed and no addt'l complaints, except as documented; Denies hematuria Musculoskeletal Musculoskeletal: Reports systems reviewed and no addt'l complaints, except as documented, arthralgias, back pain and other Details: Chronic low back pain unchanged Integumentary Integumentary: Reports systems reviewed and no addt'l complaints, except as documented; Denies rash Neurologic Neurologic: Reports systems reviewed and no addt'l complaints, except as documented; Denies focal weakness or paresthesias Psychiatric Psychiatric: Reports systems reviewed and no addt'l complaints, except as documented Endocrine Endocrinology: Reports systems reviewed and no addt'l complaints, except as documented; Denies fatigue Hematologic/Lymphatic Hematologic/Lymphatic: Reports systems reviewed and no addt'l complaints, except as documented; Denies easy bleeding, easy bruising or lymphadenopathy Allergic/Immunologic Allergic/Immunologic: Reports systems reviewed and no addt'l complaints, except as documented Intake Vital Signs 12/10/23 12:53 06/12/24 13:14 06/30/24 14:26 06/30/24 14:31 Height 5 ft 2 in 5 ft 2 in 5 ft 2 in 5 ft 2 in Weight: 83.461 kg BMI 33.6 BP 130/75 H Blood Pressure Location Lt brachial Position Sitting Respiration 16 Pulse 64 Pulse Source Monitor Temp 96.7 F L Temperature Source T (more content not included)... Normal [facility] BENY + Protein Elect, Serumon 05-28-2024 Albumin [Mass/Vol] 3.5 g/dL Normal 2.9-4.4 [facility] Comment on above: Order Comment: N Performed By: #### L 504.2610, L100.0100, L3100.3425, L500.4050 #### [facility] [address] [place], [address] Albumin/Globulin [Mass ratio] 1.2 {ratio} Normal 0.7-1.7 [facility] Comment on above: Order Comment: N Performed By: #### L 504.2610, L100.0100, L3100.3425, L500.4050 #### [facility] [address] [place], [address] AICQO-9-QQCU 0.2 g/dL Normal 0.0-0.4 [facility] Comment on above: Order Comment: N Performed By: #### L 504.2610, L100.0100, L3100.3425, L500.4050 #### [facility] [address] [place], [address] PPBDF-1-SNPN 0.8 g/dL Normal 0.4-1.0 [facility] Comment on above: Order Comment: N Performed By: #### L 504.2610, L100.0100, L3100.3425, L500.4050 #### [facility] [address] [place], [address] BETA GLOBULIN 1.2 g/dL Normal 0.7-1.3 [facility] Comment on above: Order Comment: N Performed By: #### L 504.2610, L100.0100, L3100.3425, L500.4050 #### [facility] [address] [place], [address] GAMMA GLOBULIN 0.8 g/dL Normal 0.4-1.8 [facility] Comment on above: Order Comment: N Performed By: #### L 504.2610, L100.0100, L3100.3425, L500.4050 #### [facility] [address] [place], [address] Globulin (S) [Mass/Vol] 3.0 g/dL Normal 2.2-3.9 [facility] Comment on above: Order Comment: N Performed By: #### L 504.2610, L100.0100, L3100.3425, L500.4050 #### [facility] [address] [place], [address] BENY RESULT,S Comment Abnormal . [facility] Comment on above: Order Comment: N Result Comment: Immu nofixation shows IgA monoclonal protein with kappa light chain specificity. Performed By: #### L 504.2610, L100.0100, L3100.3425, L500.4050 #### [facility] [address] [place], [address] IMMUNOGLOB A QN 361 mg/dL Normal 64-422 [facility] Comment on above: Order Comment: N Performed By: #### L 504.2610, L100.0100, L3100.3425, L500.4050 #### [facility] [address] [place], [address] IMMUNOGLOB G QN 788 mg/dL Normal 586-1602 [facility] Comment on above: Order Comment: N Performed By: #### L 504.2610, L100.0100, L3100.3425, L500.4050 #### [facility] [address] [place], [address] IMMUNOGLOB M QN 88 mg/dL Normal 26-217 [facility] Comment on above: Order Comment: N Performed By: #### L 504.2610, L100.0100, L3100.3425, L500.4050 #### [facility] [address] [place], [address] M-Vicente 0.3 g/dL Abnormal Not Observed [facility] Comment on above: Order Comment: N Performed By: #### L 504.2610, L100.0100, L3100.3425, L500.4050 #### [facility] [address] [place], [address] NOTE: Comment Normal . [facility] Comment on above: Order Comment: N Result Comment: Prot ein electrophoresis scan will follow via computer, mail, or ceramic engineering professor delivery. Performed at: [address] [id number] Biomedical Analytical Scientist: Leonardo Abdullahi PhD, Phone: [phone] Performed By: #### L 504.2610, L100.0100, L3100.3425, L500.4050 #### [facility] [address] [place], [address] Protein [Mass/Vol] 6.5 g/dL Normal 6.0-8.5 [facility] Comment on above: Order Comment: N Performed By: #### L 504.2610, L100.0100, L3100.3425, L500.4050 #### [facility] [address] [place], [address] CBC W/Diff, Automatedon 12-1 Absolute Lymph 1.23 X10 3/uL Normal 0.83-4.51 [facility] Comment on above: Performed By: #### L 504.2610, L100.0100, L3100.3425, L500.4050 #### [facility] [address] [place], [address] Absolute Neut 4.7 X10 3/uL Normal 2.0-7.7 [facility] Comment on above: Performed By: #### L 504.2610, L100.0100, L3100.3425, L500.4050 #### [facility] [address] [place], [address] Basophils/100 WBC (Bld) 0.5 % Normal 0-1 [facility] Comment on above: Performed By: #### L 504.2610, L100.0100, L3100.3425, L500.4050 #### [facility] [address] [place], [address] Eosinophils/100 WBC (Bld) 1.5 % Normal 0-5 [facility] Comment on above: Performed By: #### L 504.2610, L100.0100, L3100.3425, L500.4050 #### [facility] [address] [place], [address] Erythrocyte distribution width (RBC) [Ratio] 14.3 % Normal 11.6-14.6 [facility] Comment on above: Performed By: #### L 504.2610, L100.0100, L3100.3425, L500.4050 #### [facility] [address] [place], [address] Hematocrit (Bld) [Volume fraction] 42.8 % Normal 37-47 [facility] Comment on above: Performed By: #### L 504.2610, L100.0100, L3100.3425, L500.4050 #### [facility] [address] [place], [address] Hemoglobin (Bld) [Mass/Vol] 14.2 g/dL Normal 12.0-15.0 [facility] Comment on above: Performed By: #### L 504.2610, L100.0100, L3100.3425, L500.4050 #### [facility] [address] [place], [address] IG% 0.300 Normal 0.0-0.9 [facility] Comment on above: Result Comment: IG% - Immature Granulocytes (promyelocytes, myelocytes and metamyelocytes) > 1% indicates that a LEFT SHIFT is Present. Performed By: #### L 504.2610, L100.0100, L3100.3425, L500.4050 #### [facility] [address] [place], [address] Lymphocytes/100 WBC (Bld) 18.8 % Low 19-41 [facility] Comment on above: Performed By: #### L 504.2610, L100.0100, L3100.3425, L500.4050 #### [facility] [address] [place], [address] MCH (RBC) [Entitic mass] 31.6 pg Normal 27.0-32.0 [facility] Comment on above: Performed By: #### L 504.2610, L100.0100, L3100.3425, L500.4050 #### [facility] [address] [place], [address] MCHC (RBC) [Mass/Vol] 33.2 g/dL Normal 32-36 [facility] Comment on above: Performed By: #### L 504.2610, L100.0100, L3100.3425, L500.4050 #### [facility] [address] [place], [address] MCV (RBC) [Entitic vol] 95.3 fL Normal 81-99 [facility] Comment on above: Performed By: #### L 504.2610, L100.0100, L3100.3425, L500.4050 #### [facility] [address] [place], [address] Monocytes/100 WBC (Bld) 7.6 % Normal 0-10 [facility] Comment on above: Performed By: #### L 504.2610, L100.0100, L3100.3425, L500.4050 #### [facility] [address] [place], [address] Neutrophils/100 WBC (Bld) 71.3 % High 47-70 [facility] Comment on above: Performed By: #### L 504.2610, L100.0100, L3100.3425, L500.4050 #### [facility] [address] [place], [address] Nucleated RBC (Bld) [#/Vol] 0 10*3/uL Normal 0-5 [facility] Comment on above: Performed By: #### L 504.2610, L100.0100, L3100.3425, L500.4050 #### [facility] [address] [place], [address] Platelet mean volume (Bld) [Entitic vol] 10.3 fL Normal 6.2-12.0 [facility] Comment on above: Performed By: #### L 504.2610, L100.0100, L3100.3425, L500.4050 #### [facility] [address] [place], [address] Platelets (Bld) [#/Vol] 234 10*3/uL Normal 150-450 [facility] Comment on above: Performed By: #### L 504.2610, L100.0100, L3100.3425, L500.4050 #### [facility] [address] [place], [address] RBC (Bld) [#/Vol] 4.49 10*6/uL Normal 4.2-5.4 [facility] Comment on above: Performed By: #### L 504.2610, L100.0100, L3100.3425, L500.4050 #### [facility] [address] [place], [address] RDW SD 49.9 fl High 35.1-43.9 [facility] Comment on above: Performed By: #### L 504.2610, L100.0100, L3100.3425, L500.4050 #### [facility] [address] [place], [address] WBC (Bld) [#/Vol] 6.6 10*3/uL Normal 4.4-11.0 [facility] Comment on above: Performed By: #### L 504.2610, L100.0100, L3100.3425, L500.4050 #### [facility] [address] [place], [address] Comprehensive Metabolic Prof ilon 05-25-2024 Albumin [Mass/Vol] 3.5 g/dL Normal 3.2-5.0 [facility] Comment on above: Order Comment: 1 Performed By: #### L 504.2610, L100.0100, L3100.3425, L500.4050 #### [facility] [address] [place], [address] Albumin/Globulin [Mass ratio] 0.9 {ratio} Normal 0.9-2.4 [facility] Comment on above: Order Comment: 1 Performed By: #### L 504.2610, L100.0100, L3100.3425, L500.4050 #### [facility] [address] [place], [address] ALK P 92 U/L Normal 45-117 [facility] Comment on above: Order Comment: 1 Performed By: #### L 504.2610, L100.0100, L3100.3425, L500.4050 #### [facility] [address] [place], [address] ALT [Catalytic activity/Vol] 27 U/L Normal 13-56 [facility] Comment on above: Order Comment: 1 Performed By: #### L 504.2610, L100.0100, L3100.3425, L500.4050 #### [facility] [address] [place], [address] AST [Catalytic activity/Vol] 20 U/L Normal 15-37 [facility] Comment on above: Order Comment: 1 Performed By: #### L 504.2610, L100.0100, L3100.3425, L500.4050 #### [facility] [address] [place], [address] Bilirubin [Mass/Vol] 0.60 mg/dL Normal 0.20-1.00 [facility] Comment on above: Order Comment: 1 Result Comment: For patients on eltrombopag therapy, use of Dimension [place] TBIL is not recommended. Performed By: #### L 504.2610, L100.0100, L3100.3425, L500.4050 #### [facility] [address] [place], [address] BUN/CRE 32.0 RATIO High 10-20 [facility] Comment on above: Order Comment: 1 Performed By: #### L 504.2610, L100.0100, L3100.3425, L500.4050 #### [facility] [address] [place], [address] CA,Total 10.0 mg/dL Normal 8.5-10.1 [facility] Comment on above: Order Comment: 1 Performed By: #### L 504.2610, L100.0100, L3100.3425, L500.4050 #### [facility] [address] [place], [address] Chloride [Moles/Vol] 108 mmol/L High 98-107 [facility] Comment on above: Order Comment: 1 Performed By: #### L 504.2610, L100.0100, L3100.3425, L500.4050 #### [facility] [address] [place], [address] CO2 [Moles/Vol] 26.0 mmol/L Normal 21.0-32.0 [facility] Comment on above: Order Comment: 1 Performed By: #### L 504.2610, L100.0100, L3100.3425, L500.4050 #### [facility] [address] [place], [address] Creatinine [Mass/Vol] 0.84 mg/dL Normal 0.55-1.02 [facility] Comment on above: Order Comment: 1 Result Comment: The validity of the calculated GFR GFRAA in patients over 70 years has not been determined. Clinical correlation is essential. Performed By: #### L 504.2610, L100.0100, L3100.3425, L500.4050 #### [facility] [address] [place], [address] ECRCL 57.07 ml/min Normal [facility] Comment on above: Order Comment: 1 Performed By: #### L 504.2610, L100.0100, L3100.3425, L500.4050 #### [facility] [address] [place], [address] EST GFR - AA 84 mL/min Normal >60 [facility] Comment on above: Order Comment: 1 Result Comment: Afri can [place] GFR Calc Performed By: #### L 504.2610, L100.0100, L3100.3425, L500.4050 #### [facility] [address] [place], [address] GAP 2 Low 5-15 [facility] Comment on above: Order Comment: 1 Performed By: #### L 504.2610, L100.0100, L3100.3425, L500.4050 #### [facility] [address] [place], [address] GFR/1.73 sq M.predicted among non-blacks MDRD (S/P/Bld) [Vol rate/Area] 70 mL/min/{1.73_m2} Normal >60 [facility] Comment on above: Order Comment: 1 Result Comment: Non- GFR Calc Performed By: #### L 504.2610, L100.0100, L3100.3425, L500.4050 #### [facility] [address] [place], [address] Globulin (S) [Mass/Vol] 3.7 g/dL Normal 2.2-4.2 [facility] Comment on above: Order Comment: 1 Performed By: #### L 504.2610, L100.0100, L3100.3425, L500.4050 #### [facility] [address] [place], [address] Glucose [Mass/Vol] 113 mg/dL High 74-106 [facility] Comment on above: Order Comment: 1 Result Comment: Fast ing Glucose result from 100 to 125 mg/dL suggests IMPAIRED HOMEOSTASIS per A.D.A. criteria. Performed By: #### L 504.2610, L100.0100, L3100.3425, L500.4050 #### [facility] [address] [place], [address] Potassium [Moles/Vol] 5.0 mmol/L Normal 3.5-5.1 [facility] Comment on above: Order Comment: 1 Performed By: #### L 504.2610, L100.0100, L3100.3425, L500.4050 #### [facility] [address] [place], [address] Sodium [Moles/Vol] 137 mmol/L Normal 136-145 [facility] Comment on above: Order Comment: 1 Performed By: #### L 504.2610, L100.0100, L3100.3425, L500.4050 #### [facility] [address] [place], [address] T PROT 7.2 g/dL Normal 6.4-8.2 [facility] Comment on above: Order Comment: 1 Performed By: #### L 504.2610, L100.0100, L3100.3425, L500.4050 #### [facility] [address] [place], [address] Urea nitrogen [Mass/Vol] 27 mg/dL High 7-18 [facility] Comment on above: Order Comment: 1 Performed By: #### L 504.2610, L100.0100, L3100.3425, L500.4050 #### [facility] [address] [place], [address] LDHon 05-25-2024 LDH 187 U/L Normal 84-246 [facility] Comment on above: Order Comment: 1 Performed By: #### L 504.2610, L100.0100, L3100.3425, L500.4050 #### [facility] [address] [place], [address] SCREEN MAMM (CAD) W/MARILEE UNI Santana 05-25-2024 SCREEN MAMM (CAD) W/MARILEE UNI R [facility] Services [address] [place] [address] SCREEN MAMM (CAD) W/MARILEE UNI R MR#: [id number] Acct: [id number] Name: MAGDY RUFF Rep #: [id number] : 1950 F 74 From: Tomi allan MD PCP: Dr. Renzo De Paz, DO Status: REG CLI Study: SCREEN MAMM (CAD) W/MARILEE UNI R Date of Exam: 07/26/23 Exam# [id number] Ordering Dr: Miranda Nguyen MD [id number] MAMMOGRAPHY - UNILATERAL SCREENING: RIGHT BREAST REASON FOR EXAM: Female, 74 years old. Routine annual screening examination (unilateral). PERTINENT HISTORY: Personal history of breast cancer. Prior right lumpectomy with chemotherapy and radiation therapy. Prior right stereotactic breast biopsy. Status post left mastectomy. Chronic inversion of the right nipple since radiation therapy. TECHNIQUE: Digital unilateral breast marilee (3D mammographic acquisition) in the CC and MLO projections. 2-D mediolateral oblique (MLO) and craniocaudad (CC) views of both breasts were obtained. CAD: Full Field Digital Mammography with Computer Added Detection was performed. COMPARISON: Comparison is made with prior study dated May 23, 2023 and May 21, 2022. FINDINGS: Breast Composition: There are scattered areas of fibroglandular density. There are no dominant masses or suspicious calcifications. Was again, the patient is status post lumpectomy in the deep central slightly upper outer aspect in the right breast with resultant postoperative dystrophic calcification and scarring. Stable retraction of the right areola.A tissue clip marker is also seen deep to the right retrocrural region. No other significant abnormalities are identified. BI/SCREEN MAMM (CAD) W/MARILEE UNI R IMPRESSION: Stable unilateral screening mammogram. Yearly follow-up mammogram recommended. (A) ASSESSMENT CATEGORY: BIRADS Category 2: Benign. A letter regarding these results will be sent to the patient by the facility within 30 days. Approximately 10% of breast cancers are not detected by mammography. A normal mammogram should not delay biopsy of a clinically suspicious abnormality. [id number] Electronically Signed: Tomi Hinton MD at 14:24 EST , CC: Dr. Miranda Nguyen MD; Dr. Renzo De Paz DO Lining Caser: Signed Normal [facility] Culture, urineOrdered By: Savita De Paz on 08-29-2023 Bacteria identified Cx Nom (U) Klebsiella pneumoniae sp pneum [facility] No Panel InformationOrdered By: Miranda Nguyen on 07-04-2023 Miscellaneous Test Comment MAILED SPECIMEN [facility] Absolute lymphocyte countOrd ered By: Miranda Nguyen on 06-05-2023 Lymphocytes Auto (Unsp spec) [#/Vol] 0.78 10*3/uL 0.83-4.51 [facility] Albumin Elph [Mass/Vol]Order ed By: Miranda Nguyen on 06-05-2023 Albumin [Mass/Vol] 3.3 g/dL 2.9-4.4 [facility] Basophil percentageOrdered B y: Miranda Nguyen on 06-05-2023 Basophils/100 WBC (Bld) 0.4 % 0-1 [facility] Bilirubin [Mass/Vol] 0.50 mg/dL 0.20-1.00 [facility] Comment on above: For patients on eltr ombopag therapy, use of Dimension [place] TBIL is not recommended. Chloride [Moles/Vol] 109 mmol/L 98-107 [facility] Eosinophils/100 WBC (Bld) 0.7 % 0-5 [facility] Glucose [Mass/Vol] 117 mg/dL 74-106 [facility] Comment on above: Fasting Glucose resu lt from 100 to 125 mg/dL suggests IMPAIRED HOMEOSTASIS per A.D.A. criteria. Neutrophils (Bld) [#/Vol] 6.0 10*3/uL 2.0-7.7 [facility] Neutrophils/100 WBC (Bld) 80.7 % 47-70 [facility] Potassium [Moles/Vol] 4.2 mmol/L 3.5-5.1 [facility] Protein [Mass/Vol] 6.7 g/dL 6.4-8.2 [facility] Sodium [Moles/Vol] 143 mmol/L 136-145 [facility] WBC (Bld) [#/Vol] 7.5 10*3/uL 4.4-11.0 [facility] Blood erythrocytes count (nu mber/volume)Ordered By: Miranda Nguyen on 06-05-2023 RBC (Bld) [#/Vol] 4.22 10*6/uL 4.2-5.4 [facility] Blood hemoglobin measurement (mass/volume)Ordered By: Miranda Nguyen on 06-05-2023 Hemoglobin (Bld) [Mass/Vol] 14.2 g/dL 12.0-15.0 [facility] Blood lymphocytes/100 leukoc ytesOrdered By: [facility] on 06-05-2023 Lymphocytes/100 WBC (Bld) 10.4 % 19-41 [facility] Blood monocytes/100 leukocyt esOrdered By: [facility] Nguyen on 06-05-2023 Monocytes/100 WBC (Bld) 7.5 % 0-10 [facility] Blood platelet mean volumeOr dered By: Miranda Nguyen on 06-05-2023 Platelet mean volume (Bld) [Entitic vol] 9.2 fL 6.2-12.0 [facility] Determination of erythrocyte mean corpuscular volume (MCV)Ordered By: Miranda Nguyen on 06-05-2023 MCV (RBC) [Entitic vol] 100.7 fL 81-99 [facility] Hematocrit Auto (Bld) [Volum e fraction]Ordered By: [facility] Nguyen on 06-05-2023 Hematocrit (Bld) [Volume fraction] 42.5 % 37-47 [facility] Interpretation of serum or p lasma protein pattern by immunofixation (narrative resultOrdered By: Miranda Nguyen on 06-05-2023 Protein Fractions Immunofixation Matt [Interp] Comment: g/dL Not Observed [facility] Comment on above: Due to the small gloria ntity of monoclonal protein, unable toquantitate the M-spike. Laboratory - Chemistry and C hemistry - challengeOrdered By: Miranda Nguyen on 06-05-2023 ALP [Catalytic activity/Vol] 77 U/L 45-117 [facility] ALT [Catalytic activity/Vol] 24 U/L 13-56 [facility] CO2 [Moles/Vol] 29.0 mmol/L 21.0-32.0 [facility] Urea nitrogen/Creatinine [Mass ratio] 17.7 mg/mg 10-20 [facility] - Hematology and Cell countsOrdered By: Miranda Nguyen on 06-05-2023 Erythrocyte distribution width (RBC) [Entitic vol] 50.4 fL 35.1-43.9 [facility] Erythrocyte distribution width (RBC) [Ratio] 13.5 % 11.6-14.6 [facility] Immature granulocytes/100 WBC (Bld) 0.300 % 0.0-0.9 [facility] Comment on above: IG% - Immature Granu locytes (promyelocytes, myelocytes and metamyelocytes) > 1% indicates that a LEFT SHIFT is Present. MCH (RBC) [Entitic mass] 33.6 pg 27.0-32.0 [facility] Nucleated RBC/100 WBC (Bld) [Ratio] 0 % 0-5 [facility] MCHC Auto (RBC) [Mass/Vol]Or dered By: Miranda Nguyen on 06-05-2023 MCHC (RBC) [Mass/Vol] 33.4 g/dL 32-36 [facility] No Panel InformationOrdered By: Miranda Nguyen on 06-05-2023 Addendum Document Comment . [facility] Comment on above: Protein electrophore sis scan will follow via computer,mail, or ceramic engineering professor delivery.Performed at: [place] [id number] Director: Leonardo Abdullahi PhD, Phone: [phone] Estimated Creatinine Clearance Calc 44.68 ml/min [facility] Estimated GFR (MDRD) Amer 78 mL/min >60 [facility] Comment on above: GFR Calc Estimated GFR (MDRD) Non-Af Amer 65 mL/min >60 [facility] Comment on above: Non- GFR Calc Platelets bldOrdered By: Abhinav Nguyen on 06-05-2023 Platelets (Bld) [#/Vol] 235 10*3/uL 150-450 [facility] Serum [id number] measu rement by electrophoresisOrdered By: Miranda Nguyen on 06-05-2023 Alpha 1 globulin Elph [Mass/Vol] 0.2 g/dL 0.0-0.4 [facility] Alpha 1 globulin Elph [Mass/Vol] 0.8 g/dL 0.4-1.0 [facility] Serum globulin measurement ( mass/volume)Ordered By: Miranda Nguyen on 06-05-2023 Globulin (S) [Mass/Vol] 2.9 g/dL 2.2-3.9 [facility] Serum or plasma IgA measurem ent (mass/volume)Ordered By: Miranda Nguyen on 06-05-2023 IgA [Mass/Vol] 273 mg/dL 64-422 [facility] Serum or plasma IgG measurem ent (mass/volume)Ordered By: Miranda Nguyen on 06-05-2023 IgG [Mass/Vol] 578 mg/dL 586-1602 [facility] Serum or plasma IgM measurem ent (mass/volume)Ordered By: Miranda Nguyen on 06-05-2023 IgM [Mass/Vol] 76 mg/dL 26-217 [facility] Serum or plasma albumin daljit urement (mass/volume)Ordered By: Miranda Nguyen on 06-05-2023 Albumin [Mass/Vol] 3.1 g/dL 3.2-5.0 [facility] Serum or plasma albumin/glob ulin mass ratioOrdered By: Miranda Nguyen on 06-05-2023 Albumin/Globulin [Mass ratio] 0.9 {ratio} 0.9-2.4 [facility] Serum or plasma beta globuli n measurement by electrophoresis (mass/volume)Ordered By: Miranda Nguyen on 06-05-2023 Beta globulin Elph [Mass/Vol] 1.2 g/dL 0.7-1.3 [facility] Serum or plasma calcium daljit urement (mass/volume)Ordered By: Miranda Nguyen on 06-05-2023 Calcium [Mass/Vol] 9.3 mg/dL 8.5-10.1 [facility] Serum or plasma creatinine m easurement (mass/volume)Ordered By: Miranda Nguyen on 06-05-2023 Creatinine [Mass/Vol] 0.90 mg/dL 0.55-1.02 [facility] Comment on above: The validity of the calculated GFR & GFRAA in patients over 70 years has not been determined. Clinical correlation is essential. Serum or plasma gamma globul in measurement by electrophoresis (mass/volume)Ordered By: Miranda Nguyen on 06-05-2023 Gamma globulin Elph [Mass/Vol] 0.6 g/dL 0.4-1.8 [facility] Serum or plasma immunoelectr ophoresis interpretation (nominal result)Ordered By: Miranda Nguyen on 06-05-2023 Interpretation IEP [Interp] Comment . [facility] Comment on above: Immunofixation shows IgA monoclonal protein with kappalight chain specificity. Serum or plasma urea nitroge n measurement (mass/volume)Ordered By: Miranda Nguyen on 06-05-2023 Urea nitrogen [Mass/Vol] 16 mg/dL 7-18 [facility] Thin prep Papanicolaou smear with manual screeningOrdered By: [facility] on 06-05-2023 Thin prep Papanicolaou smear with manual screening 24 U/L 15-37 [facility] Thin prep Papanicolaou smear with manual screening 5 5-15 [facility] Thin prep Papanicolaou smear with manual screening 1.2 0.7-1.7 [facility] Total protein bloodOrdered B y: Miranda Nguyen on 06-05-2023 Protein [Mass/Vol] 6.2 g/dL 6.0-8.5 [facility] Absolute lymphocyte countOrd ered By: Renzo De Paz on 05-08-2023 Lymphocytes Auto (Unsp spec) [#/Vol] 1.32 10*3/uL 0.83-4.51 [facility] Basophil percentageOrdered B y: Renzo De Paz on 05-08-2023 Basophils/100 WBC (Bld) 0.4 % 0-1 [facility] Bilirubin [Mass/Vol] 0.60 mg/dL 0.20-1.00 [facility] Comment on above: For patients on eltr ombopag therapy, use of Dimension [place] TBIL is not recommended. Chloride [Moles/Vol] 109 mmol/L 98-107 [facility] Cholesterol [Mass/Vol] 202 mg/dL <200 [facility] Comment on above: <200 mg/dL Desirable 200-240 mg/dL Borderline >240 mg/dL High Risk Eosinophils/100 WBC (Bld) 1.0 % 0-5 [facility] Glucose [Mass/Vol] 96 mg/dL 74-106 [facility] Neutrophils (Bld) [#/Vol] 3.4 10*3/uL 2.0-7.7 [facility] Neutrophils/100 WBC (Bld) 65.8 % 47-70 [facility] Potassium [Moles/Vol] 4.0 mmol/L 3.5-5.1 [facility] Protein [Mass/Vol] 6.7 g/dL 6.4-8.2 [facility] Sodium [Moles/Vol] 140 mmol/L 136-145 [facility] Triglyceride [Mass/Vol] 121 mg/dL <199 [facility] Comment on above: The drugs N-Acetylcy steine and Metamizole may falsely depress this assay.Serum Triglycerides Reference Interval Normal <150 mg/dL Borderline high 150 - 199 mg/dL High 200 - 499 mg/dL Very High > or = 500 mg/dL WBC (Bld) [#/Vol] 5.2 10*3/uL 4.4-11.0 [facility] Blood erythrocytes count (nu mber/volume)Ordered By: Renzo De Paz on 05-08-2023 RBC (Bld) [#/Vol] 4.51 10*6/uL 4.2-5.4 [facility] Blood hemoglobin measurement (mass/volume)Ordered By: Renzo De Paz on 05-08-2023 Hemoglobin (Bld) [Mass/Vol] 14.6 g/dL 12.0-15.0 [facility] Blood lymphocytes/100 leukoc ytesOrdered By: Renzo De Paz on 05-08-2023 Lymphocytes/100 WBC (Bld) 25.6 % 19-41 [facility] Blood monocytes/100 leukocyt esOrdered By: Renzo De Paz on 05-08-2023 Monocytes/100 WBC (Bld) 6.8 % 0-10 [facility] Blood platelet mean volumeOr dered By: Renzo De Paz on 05-08-2023 Platelet mean volume (Bld) [Entitic vol] 9.9 fL 6.2-12.0 [facility] Determination of erythrocyte mean corpuscular volume (MCV)Ordered By: Renzo De Paz on 05-08-2023 MCV (RBC) [Entitic vol] 99.6 fL 81-99 [facility] Hematocrit Auto (Bld) [Volum e fraction]Ordered By: Renzo De Paz on 05-08-2023 Hematocrit (Bld) [Volume fraction] 44.9 % 37-47 [facility] - Chemistry and C hemistry - challengeOrdered By: Renzo De Paz on 05-08-2023 ALP [Catalytic activity/Vol] 69 U/L 45-117 [facility] ALT [Catalytic activity/Vol] 24 U/L 13-56 [facility] CO2 [Moles/Vol] 27.0 mmol/L 21.0-32.0 [facility] Globulin (S) [Mass/Vol] 3.6 g/dL 2.2-4.2 [facility] Urea nitrogen/Creatinine [Mass ratio] 21.6 mg/mg 10-20 [facility] - Hematology and Cell countsOrdered By: Renzo De Paz on 05-08-2023 Erythrocyte distribution width (RBC) [Entitic vol] 51.5 fL 35.1-43.9 [facility] Erythrocyte distribution width (RBC) [Ratio] 14.1 % 11.6-14.6 [facility] Immature granulocytes/100 WBC (Bld) 0.400 % 0.0-0.9 [facility] Comment on above: IG% - Immature Granu locytes (promyelocytes, myelocytes and metamyelocytes) > 1% indicates that a LEFT SHIFT is Present. MCH (RBC) [Entitic mass] 32.4 pg 27.0-32.0 [facility] Nucleated RBC/100 WBC (Bld) [Ratio] 0 % 0-5 [facility] MCHC Auto (RBC) [Mass/Vol]Or dered By: Renzo De Paz on 05-08-2023 MCHC (RBC) [Mass/Vol] 32.5 g/dL 32-36 [facility] No Panel InformationOrdered By: Renzo De Paz on 05-08-2023 Estimated GFR (MDRD) Amer 68 mL/min >60 [facility] Comment on above: GFR Calc Estimated GFR (MDRD) Non-Af Amer 56 mL/min >60 [facility] Comment on above: Non- GFR Calc Platelets bldOrdered By: Rand De Paz on 05-08-2023 Platelets (Bld) [#/Vol] 257 10*3/uL 150-450 [facility] Serum or plasma albumin daljit urement (mass/volume)Ordered By: Renzo De Paz on 05-08-2023 Albumin [Mass/Vol] 3.1 g/dL 3.2-5.0 [facility] Serum or plasma albumin/glob ulin mass ratioOrdered By: Renzo De Paz on 05-08-2023 Albumin/Globulin [Mass ratio] 0.9 {ratio} 0.9-2.4 [facility] Serum or plasma calcium daljit urement (mass/volume)Ordered By: Renzo De Paz on 05-08-2023 Calcium [Mass/Vol] 9.5 mg/dL 8.5-10.1 [facility] Serum or plasma cholesterol in HDL measurement (mass/volume)Ordered By: Renzo De Paz on 05-08-2023 Cholesterol in HDL [Mass/Vol] 63 mg/dL >40 [facility] Comment on above: The drugs N-Acetylcy steine and Metamizole may falsely depress this assay. Reference Range HDL <40 mg/dL Low HDL Cholesterol HDL >or= 60 mg/dL High HDL Cholesterol Serum or plasma cholesterol in VLDL measurement (mass/volume)Ordered By: Renzo De Paz on 05-08-2023 Cholesterol in VLDL [Mass/Vol] 24 mg/dL 5-40 [facility] Serum or plasma creatinine m easurement (mass/volume)Ordered By: Renzo De Paz on 05-08-2023 Creatinine [Mass/Vol] 1.02 mg/dL 0.55-1.02 [facility] Comment on above: The validity of the calculated GFR & GFRAA in patients over 70 years has not been determined. Clinical correlation is essential. Serum or plasma low density lipoprotein (LDL) cholesterol measurement (mass/volume)Ordered By: Renzo De Paz on 05-08-2023 Cholesterol in LDL [Mass/Vol] 115 mg/dL 0-130 [facility] Serum or plasma urea nitroge n measurement (mass/volume)Ordered By: Renzo De Paz on 05-08-2023 Urea nitrogen [Mass/Vol] 22 mg/dL 7-18 [facility] Thin prep Papanicolaou smear with manual screeningOrdered By: Renzo De Paz on 05-08-2023 Thin prep Papanicolaou smear with manual screening 19 U/L 15-37 [facility] Thin prep Papanicolaou smear with manual screening 4 5-15 [facility] Whole blood hemoglobin A1c/t otal hemoglobin ratio (mass fraction)Ordered By: Renzo De Paz on 05-08-2023 HbA1c (Bld) [Mass fraction] 5.7 % 3.8-5.6 [facility] Comment on above: Normal < 5.7 % Predi abetic 5.7 - 6.4 % Diabetic >or= 6.5 % Please note range changes. No Panel InformationOrdered By: Yonatan Avila on 12-06-2022 Stool Neutral Fats Normal . [facility] Comment on above: Normal (<60 Droplets /HPF) Stool Pancreatic Elastase 54 >200 [facility] Comment on above: Result Units: ug Eliz st./gResults verified by repeat testing Severe Pancreatic Insufficiency: <100 Moderate Pancreatic Insufficiency: 100 - 200 Normal: >200 Qualitative fecal fat or lip idsOrdered By: Yonatan Avila on 12-06-2022 Fat Ql (Stl) Increased . [facility] Comment on above: Normal (<100 Droplet s/HPF)Performed at: - [facility] [id number] Director: Leonardo Abdullahi PhD, Phone: [phone] Serum or plasma gastrin daljit urement (mass/volume)Ordered By: Yonatan Avila on 12-05-2022 Gastrin [Mass/Vol] 106 pg/mL 0-115 [facility] Comment on above: Siemens Immulite 200 0 Immunochemiluminometric assay (ICMA)Values obtained with different assay methods or kits cannotbe used interchangeably. Results cannot be interpreted asabsolute evidence of the presence or absence of malignantdisease.Performed at: - [facility] [id number] Director: Giselle Delgado MD, Phone: [phone] Absolute lymphocyte countOrd ered By: Miranda Nguyen on 11-19-2022 Lymphocytes Auto (Unsp spec) [#/Vol] 1.16 10*3/uL 0.83-4.51 [facility] Basophil percentageOrdered B y: Miranda Nguyen on 11-19-2022 Basophils/100 WBC (Bld) 0.5 % 0-1 [facility] Bilirubin [Mass/Vol] 0.40 mg/dL 0.20-1.00 [facility] Comment on above: For patients on eltr ombopag therapy, use of Dimension [place] TBIL is not recommended. Chloride [Moles/Vol] 105 mmol/L 98-107 [facility] Eosinophils/100 WBC (Bld) 0.6 % 0-5 [facility] Glucose [Mass/Vol] 100 mg/dL 74-106 [facility] Comment on above: Fasting Glucose resu lt from 100 to 125 mg/dL suggests IMPAIRED HOMEOSTASIS per A.D.A. criteria. Neutrophils (Bld) [#/Vol] 4.8 10*3/uL 2.0-7.7 [facility] Neutrophils/100 WBC (Bld) 73.8 % 47-70 [facility] Potassium [Moles/Vol] 4.2 mmol/L 3.5-5.1 [facility] Protein [Mass/Vol] 7.1 g/dL 6.4-8.2 [facility] Sodium [Moles/Vol] 138 mmol/L 136-145 [facility] WBC (Bld) [#/Vol] 6.5 10*3/uL 4.4-11.0 [facility] Blood erythrocytes count (nu mber/volume)Ordered By: Miranda Nguyen on 11-19-2022 RBC (Bld) [#/Vol] 4.57 10*6/uL 4.2-5.4 [facility] Blood hemoglobin measurement (mass/volume)Ordered By: Miranda Nguyen on 11-19-2022 Hemoglobin (Bld) [Mass/Vol] 14.6 g/dL 12.0-15.0 [facility] Blood lymphocytes/100 leukoc ytesOrdered By: Miranda Nguyen on 11-19-2022 Lymphocytes/100 WBC (Bld) 17.9 % 19-41 [facility] Blood monocytes/100 leukocyt esOrdered By: [facility] Patrick on 11-19-2022 Monocytes/100 WBC (Bld) 6.9 % 0-10 [facility] Blood platelet mean volumeOr dered By: [facility] Patrick on 11-19-2022 Platelet mean volume (Bld) [Entitic vol] 9.4 fL 6.2-12.0 [facility] Determination of erythrocyte mean corpuscular volume (MCV)Ordered By: [facility] Patrick on 11-19-2022 MCV (RBC) [Entitic vol] 100.0 fL 81-99 [facility] Hematocrit Auto (Bld) [Volum e fraction]Ordered By: [facility] Patrick on 11-19-2022 Hematocrit (Bld) [Volume fraction] 45.7 % 37-47 [facility] Laboratory - Chemistry and C hemistry - challengeOrdered By: [facility]-19-2022 Albumin [Mass/Vol] 3.6 g/dL 2.9-4.4 [facility] ALP [Catalytic activity/Vol] 103 U/L 45-117 [facility] ALT [Catalytic activity/Vol] 32 U/L 13-56 [facility] CO2 [Moles/Vol] 27.0 mmol/L 21.0-32.0 [facility] Globulin (S) [Mass/Vol] 3.9 g/dL 2.2-4.2 [facility] Urea nitrogen/Creatinine [Mass ratio] 18.2 mg/mg 10-20 [facility] Laboratory - Hematology and Cell countsOrdered By: [facility] Patrick on 11-19-2022 Erythrocyte distribution width (RBC) [Entitic vol] 50.6 fL 35.1-43.9 [facility] Erythrocyte distribution width (RBC) [Ratio] 13.8 % 11.6-14.6 [facility] Immature granulocytes/100 WBC (Bld) 0.300 % 0.0-0.9 [facility] Comment on above: IG% - Immature Granu locytes (promyelocytes, myelocytes and metamyelocytes) > 1% indicates that a LEFT SHIFT is Present. MCH (RBC) [Entitic mass] 31.9 pg 27.0-32.0 [facility] Nucleated RBC/100 WBC (Bld) [Ratio] 0 % [facility]5 [facility] ([facility]) [Mass/Vol]Or dered By: Miranda Nguyen on 11-19-2022 MCHC (RBC) [Mass/Vol] 31.9 g/dL 32-36 [facility] No Panel InformationOrdered By: Miranda Nguyen on 11-19-2022 Addendum Document Comment . [facility] Comment on above: Faint band in beta r egion suspicious for monoclonalimmunoglobulin. This band may represent a benign spike asseen in older people or could be a paraprotein as seen inMultiple Myeloma, Waldenstrom's Macroglobulinemia orLymphoma. Depending on clinical circumstances, furtherdiagnostic studies may include serum immunofixation orserum free light chain quantitation.Performed at: [facility] [place] [id number] Director: Leonardo Abdullahi PhD, Phone: [phone] Wvsfb-5-Gsrujxjbc 0.2 g/dL 0.0-0.4 [facility] Ctvvo-1-Skqudwztp 0.8 g/dL 0.4-1.0 [facility] Estimated Creatinine Clearance Calc 46.40 ml/min [facility] Estimated GFR (MDRD) Amer 81 mL/min >60 [facility] Comment on above: GFR Calc Estimated GFR (MDRD) Non-Af Amer 67 mL/min >60 [facility] Comment on above: Non- GFR Calc Gamma Globulins 0.6 g/dL 0.4-1.8 [facility] Platelets bldOrdered By: Abhinav Nguyen on 11-19-2022 Platelets (Bld) [#/Vol] 243 10*3/uL 150-450 [facility] Protein Fractions Elph [Inte rp]Ordered By: Miranda Nguyen on 11-19-2022 Protein Fractions [Interp] Comment . [facility] Comment on above: Protein electrophore sis scan will follow via computer,mail, or ceramic engineering professor delivery. Serum albumin to globulin ra brooke by protein electrophoresisOrdered By: Miranda Nguyen on 11-19-2022 Albumin/Globulin Elph [Mass ratio] 1.2 0.7-1.7 [facility] Serum globulin measurement ( mass/volume)Ordered By: Miranda Nguyen on 11-19-2022 Globulin (S) [Mass/Vol] 2.9 g/dL 2.2-3.9 [facility] Serum or plasma albumin daljit urement (mass/volume)Ordered By: Miranda Nguyen on 11-19-2022 Albumin [Mass/Vol] 3.2 g/dL 3.2-5.0 [facility] Serum or plasma albumin/glob ulin mass ratioOrdered By: [facility] on 11-19-2022 Albumin/Globulin [Mass ratio] 0.8 {ratio} 0.9-2.4 [facility] Serum or plasma beta globuli n measurement by electrophoresis (mass/volume)Ordered By: Miranda Nguyen on 11-19-2022 Beta globulin Elph [Mass/Vol] 1.2 g/dL 0.7-1.3 [facility] Serum or plasma calcium daljit urement (mass/volume)Ordered By: Miranda Nguyen on 11-19-2022 Calcium [Mass/Vol] 9.6 mg/dL 8.5-10.1 [facility] Serum or plasma creatinine m easurement (mass/volume)Ordered By: Miranda Nguyen on 11-19-2022 Creatinine [Mass/Vol] 0.88 mg/dL 0.55-1.02 [facility] Comment on above: The validity of the calculated GFR & GFRAA in patients over 70 years has not been determined. Clinical correlation is essential. Serum or plasma urea nitroge n measurement (mass/volume)Ordered By: Miranda Ngyuen on 11-19-2022 Urea nitrogen [Mass/Vol] 16 mg/dL 7-18 [facility] Thin prep Papanicolaou smear with manual screeningOrdered By: Miranda Nguyen on 11-19-2022 Thin prep Papanicolaou smear with manual screening 21 U/L 15-37 [facility] Thin prep Papanicolaou smear with manual screening 6 5-15 [facility] Thin prep Papanicolaou smear with manual screening See comment [facility] Comment on above: SPE shows asymmetric al beta. Total protein bloodOrdered B y: Miranda Nguyen on 11-19-2022 Protein [Mass/Vol] 6.5 g/dL 6.0-8.5 [facility] No Panel Informationon 04-13 Stool Calprotectin 43 ug/g 0-120 [facility] Work Phone: Comment on above: Concentration Interp retation Follow-Up<16 - 50 ug/g Normal None>50 -120 ug/g Borderline Re-evaluate in 4-6 weeks >120 ug/g Abnormal Repeat as clinically indicatedPerformed at: [facility] [id number] Director: Leonardo Abdullahi PhD, Phone: [phone] at: [facility] [id number] Director: Giselle Delgado MD, Phone: [phone] Stool Neutral Fats Increased . [facility] Work Phone: Comment on above: Normal (<60 Droplets /HPF) Stool Pancreatic Elastase 151 >200 [facility] Work Phone: Comment on above: Result Units: ug Eliz st./g Severe Pancreatic Insufficiency: <100 Moderate Pancreatic Insufficiency: 100 - 200 Normal: >200Performed at: [facility] [id number] Director: Giselle Delgado MD, Phone: [phone] Qualitative fecal fat or lip idson 04-13-2022 Fat Ql (Stl) Increased . [facility] Work Phone: Comment on above: Normal (<100 Droplet s/HPF) Absolute lymphocyte counton 04-10-2022 Lymphocytes Auto (Unsp spec) [#/Vol] 0.91 10*3/uL 0.83-4.51 [facility] Work Phone: Atypical perinuclear antineu trophil cytoplasmic antibodies measurementon 04-10-2022 Neutrophil cytoplasmic Ab.perinuclear.atypical IF (S) [Titer] <1:20 titer Neg:<1:20 [facility] Work Phone: Comment on above: The atypical pANCA p attern has been observed in asignificant percentage of patients with ulcerative colitis,primary sclerosing cholangitis and autoimmune hepatitis. Basophil percentageon 2021 Amylase [Catalytic activity/Vol] 37 U/L 25-115 [facility] Work Phone: Basophil percentage < 0.2 AI 0.0-0.9 [facility]: Basophils/100 WBC (Bld) 0.4 % 0-1 [facility] Work Phone: Bilirubin [Mass/Vol] 0.30 mg/dL 0.20-1.00 [facility] Work Phone: Comment on above: For patients on eltr ombopag therapy, use of Dimension [place] TBIL is not recommended. Chloride [Moles/Vol] 108 mmol/L 98-107 [facility] Work Phone: [phone] Eosinophils/100 WBC (Bld) 0.7 % 0-5 [facility] Work Phone: [phone] Glucose [Mass/Vol] 95 mg/dL 74-106 [facility] Work Phone: Neutrophils (Bld) [#/Vol] 4.2 10*3/uL 2.0-7.7 [facility] Work Phone: [phone] Neutrophils/100 WBC (Bld) 75.4 % 47-70 [facility] Work Phone: Potassium [Moles/Vol] 4.4 mmol/L 3.5-5.1 [facility] Work Phone: Protein [Mass/Vol] 7.0 g/dL 6.4-8.2 [facility] Work Phone: Sodium [Moles/Vol] 140 mmol/L 136-145 [facility] Work Phone: WBC (Bld) [#/Vol] 5.6 10*3/uL 4.4-11.0 [facility] Work Phone: Blood erythrocytes count (nu mber/volume)on 04-10-2022 RBC (Bld) [#/Vol] 4.44 10*6/uL 4.2-5.4 [facility] Work Phone: Blood hemoglobin measurement (mass/volume)on 04-10-2022 Hemoglobin (Bld) [Mass/Vol] 14.4 g/dL 12.0-15.0 [facility] Work Phone: Blood lymphocytes/100 leukoc yteson 04-10-2022 Lymphocytes/100 WBC (Bld) 16.2 % 19-41 [facility] Work Phone: Blood monocytes/100 leukocyt eson 04-10-2022 Monocytes/100 WBC (Bld) 7.1 % 0-10 [facility] Work Phone: Blood platelet mean volumeon 04-10-2022 Platelet mean volume (Bld) [Entitic vol] 10.3 fL 6.2-12.0 [facility] Work Phone: Chocolate RASTon 04-10-2022 Chocolate IgE Qn (S) <0.10 kU/L Class 0 [facility] Work Phone: Comment on above: Performed at: [address] [id number] Director: Leonardo Abdullahi PhD, Phone: [phone] at: [facility] [id number] Director: Giselle Delgado MD, Phone: [phone] Determination of erythrocyte mean corpuscular volume (MCV)on 04-10-2022 MCV (RBC) [Entitic vol] 97.7 fL 81-99 [facility] Work Phone: Erythrocyte sedimentation ra brittney 04-10-2022 ESR (Bld) [Velocity] 18 mm/h 0-30 [facility] Work Phone: Hematocrit Auto (Bld) [Volum e fraction]on 04-10-2022 Hematocrit (Bld) [Volume fraction] 43.4 % 37-47 [facility] Work Phone: Interpretation of serum or p lasma protein pattern by immunofixation (narrative resulton 04-10-2022 Protein Fractions Immunofixation Matt [Interp] 0.2 g/dL Not Observed [facility] Work Phone: Laboratory - Chemistry and C hemistry - challengeon 04-10-2022 ALP [Catalytic activity/Vol] 149 U/L 45-117 [facility] Work Phone: ALT [Catalytic activity/Vol] 42 U/L 13-56 [facility] Work Phone: CO2 [Moles/Vol] 27.0 mmol/L 21.0-32.0 [facility] Work Phone: Globulin (S) [Mass/Vol] 3.6 g/dL 2.2-4.2 [facility] Work Phone: Lipase [Catalytic activity/Vol] 115 U/L 73-393 [facility] Work Phone: Urea nitrogen/Creatinine [Mass ratio] 18.7 mg/mg 10-20 [facility] Work Phone: Laboratory - Hematology and Cell countson 04-10-2022 Erythrocyte distribution width (RBC) [Entitic vol] 48.1 fL 35.1-43.9 [facility] Work Phone: Erythrocyte distribution width (RBC) [Ratio] 13.3 % 11.6-14.6 [facility] Work Phone: Immature granulocytes/100 WBC (Bld) 0.200 % 0.0-0.9 [facility] Work Phone: Comment on above: IG% - Immature Granu locytes (promyelocytes, myelocytes and metamyelocytes) > 1% indicates that a LEFT SHIFT is Present. MCH (RBC) [Entitic mass] 32.4 pg 27.0-32.0 [facility] Work Phone: Nucleated RBC/100 WBC (Bld) [Ratio] 0 % 0-5 [facility] Work Phone: Laboratory - Miscellaneous t estson 04-10-2022 Service comment (Unsp spec) [Interp] Comment . [facility] Work Phone: Comment on above: Levels of Specific I gE Class Description of Class ----- < 0.10 0 Negative 0.10 - 0.31 0/I Equivocal/Low 0.32 - 0.55 I Low 0.56 - 1.40 II Moderate 1.41 - 3.90 III High 3.91 - 19.00 IV Very High 19.01 - 100.00 V Very High >100.00 Very High MCHC Auto (RBC) [Mass/Vol]on 04-10-2022 MCHC (RBC) [Mass/Vol] 33.2 g/dL 32-36 [facility] Work Phone: No Panel Informationon 04-10 Addendum Document Comment . [facility] Work Phone: Comment on above: Protein electrophore sis scan will follow via computer,mail, or ceramic engineering professor delivery. Centromere B Antibody <0.2 AI 0.0-0.9 [facility] Work Phone: Endomysial IgA Antibody Negative Negative [facility] Work Phone: Estimated GFR (MDRD) Amer 90 mL/min >60 [facility] Work Phone: Comment on above: GFR Calc Estimated GFR (MDRD) Non-Af Amer 74 mL/min >60 [facility] Work Phone: Comment on above: Non- GFR Calc Immunoglobulin E 55 IU/mL 6-495 [facility] Work Phone: Intrinsic Factor Antibody 1.0 AU/mL 0.0-1.1 [facility] Work Phone: Comment on above: Performed at: [address] [id number] Director: Leonardo Abdullahi PhD, Phone: [phone] at: [address] [id number] Director: Giselle Delgado MD, Phone: [phone] Miscellaneous Test See comment [facility] Work Phone: Comment on above: TEST RESULT LIMITSIB D Expanded PanelgASCA 19 units 0-50 Negative <45 Equivocal 45 - 50 Positive >50ACCA 16 units 0-90 Negative <80 Equivocal 80 - 90 Positive >90ALCA 11 units 0-60 Negative <55 Equivocal 55 - 60 Positive >60AMCA 20 units 0-100 Negative < 90 Equivocal 90 - 100 Positive >100 This test was developed and its performance characteristics determined by [facility]. It has not been cleared or approved by the Food and Drug Administration. The FDA has determined that such clearance or approval is not necessary.Atypical pANCA Negative NegativeCommentsPattern is not suggestive of Inflammatory Bowel Disease. ____ TESTING PERFORMED AT [facility]. ORIGINAL REPORT ON FILE IN LAB CONTAINS ADDITIONAL TEST SITE INFORMATION. SEMICONDUCTOR PACKAGES LEAK TESTER Antibody <0.2 AI 0.0-0.9 [facility] Work Phone: Seafood Group Allergens (RAST) Negative . [facility] Work Phone: Comment on above: Allergens in this mi x are: Blue mussel Fish [place] Shrimp Tuna Platelets bldon 04-10-2022 Platelets (Bld) [#/Vol] 240 10*3/uL 150-450 [facility] Work Phone: Serum DNA double strand anti body assay (units/volume)on 04-10-2022 DNA double strand Ab Qn (S) [IU]/mL 0-9 [facility] Work Phone: Comment on above: Negative <5 Equivoca l 5 - 9 Positive >9 Serum IgA measurement (units /volume)on 04-10-2022 IgA Qn (S) 300 mg/dL 64-422 [facility] Work Phone: Comment on above: Performed at: [address] [id number] Director: Leonardo Abdullahi PhD, Phone: [phone] Serum Felicity-1 antibody assay (u nits/volume)on 04-10-2022 Felicity-1 extractable nuclear Ab Qn (S) <0.2 AI 0.0-0.9 [facility] Work Phone: Serum Scl-70 extractable nuc lear antibody assay (units/volume)on 04-10-2022 SCL-70 extractable nuclear Ab Qn (S) <0.2 AI 0.0-0.9 [facility] Work Phone: Serum [place] extractable nucl ear antibody detectionon 04-10-2022 [place] extractable nuclear Ab Ql (S) <0.2 AI 0.0-0.9 [facility] Work Phone: Serum [id number]-[id number] measu rement by electrophoresison 04-10-2022 Alpha 1 globulin Elph [Mass/Vol] 0.3 g/dL 0.0-0.4 [facility] Work Phone: Alpha 1 globulin Elph [Mass/Vol] 0.8 g/dL 0.4-1.0 [facility] Work Phone: Serum beef IgE antibody assa y (units/volume)on 04-10-2022 Beef IgE Qn (S) <0.10 kU/L Class 0 [facility] Work Phone: Serum classic neutrophil cyt oplasmic antibody assay (units/volume)on 04-10-2022 Neutrophil cytoplasmic Ab.classic Qn (S) <1:20 titer Neg:<1:20 [facility] Work Phone: Serum corn IgE antibody assa y (units/volume)on 04-10-2022 [place] IgE Qn (S) <0.10 kU/L Class 0 [facility] Work Phone: Serum cow milk IgE antibody assay (units/volume)on 04-10-2022 Cow milk IgE Qn (S) 0.10 kU/L Class 0/I [facility] Work Phone: Serum globulin measurement ( mass/volume)on 04-10-2022 Globulin (S) [Mass/Vol] 2.9 g/dL 2.2-3.9 [facility] Work Phone: Serum or plasma C reactive p rotein measurement (mass/volume)on 04-10-2022 CRP [Mass/Vol] 7.10 mg/L 0.0-3.0 [facility] Work Phone: Comment on above: C-Reactive Protein ( CRP) provides useful information for thediagnosis, therapy and monitoring of inflammatory processesand associated diseases. For the evaluation of Relative Riskfor Cardiovascular Disease, a High Sensitivity CRP (HSCRP)should be ordered. Serum or plasma IgA measurem ent (mass/volume)on 04-10-2022 IgA [Mass/Vol] 293 mg/dL 64-422 [facility] Work Phone: Serum or plasma IgG measurem ent (mass/volume)on 04-10-2022 IgG [Mass/Vol] 641 mg/dL [phone] [facility] Work Phone: Serum or plasma IgM measurem ent (mass/volume)on 04-10-2022 IgM [Mass/Vol] 73 mg/dL 26-217 [facility] Work Phone: Serum or plasma albumin daljit urement (mass/volume)on 04-10-2022 Albumin [Mass/Vol] 3.4 g/dL 2.9-4.4 [facility] Work Phone: Serum or plasma albumin/glob ulin mass ratioon 04-10-2022 Albumin/Globulin [Mass ratio] 0.9 {ratio} 0.9-2.4 [facility] Work Phone: [phone] Serum or plasma beta globuli n measurement by electrophoresis (mass/volume)on 04-10-2022 Beta globulin Elph [Mass/Vol] 1.2 g/dL 0.7-1.3 [facility] Work Phone: Serum or plasma calcium daljit urement (mass/volume)on 04-10-2022 Calcium [Mass/Vol] 9.3 mg/dL 8.5-10.1 [facility] Work Phone: Serum or plasma creatinine m easurement (mass/volume)on 04-10-2022 Creatinine [Mass/Vol] 0.80 mg/dL 0.55-1.02 [facility] Work Phone: Comment on above: The validity of the calculated GFR & GFRAA in patients over 70 years has not been determined. Clinical correlation is essential. Serum or plasma gamma globul in measurement by electrophoresis (mass/volume)on 04-10-2022 Gamma globulin Elph [Mass/Vol] 0.6 g/dL 0.4-1.8 [facility] Work Phone: Serum or plasma gastrin daljit urement (mass/volume)on 04-10-2022 Gastrin [Mass/Vol] 564 pg/mL 0-115 [facility] Work Phone: Comment on above: Siemens Immulite 200 0 Immunochemiluminometric assay (ICMA)Values obtained with different assay methods or kits cannotbe used interchangeably. Results cannot be interpreted asabsolute evidence of the presence or absence of malignantdisease. Serum or plasma immunoelectr ophoresis interpretation (nominal result)on 04-10-2022 Interpretation IEP [Interp] Comment . [facility] Work Phone: Comment on above: Immunofixation shows IgA monoclonal protein with kappalight chain specificity. Serum or plasma urea nitroge n measurement (mass/volume)on 04-10-2022 Urea nitrogen [Mass/Vol] 15 mg/dL 7-18 [facility] Work Phone: Serum parietal cell antibody assay (units/volume)on 11-01-2022 Parietal cell Ab Qn (S) 1.8 Units 0.0-20.0 [facility] Work Phone: Comment on above: Negative 0.0 - 20.0 Equivocal 20.1 - 24.9 Positive >24.9Parietal Cell Antibodies are found in 90% of patientswith pernicious anemia and 30% of first degreerelatives with pernicious anemia. Serum peanut IgE antibody as say (units/volume)on 04-10-2022 Peanut IgE Qn (S) <0.10 kU/L Class 0 [facility] Work Phone: Serum perinuclear neutrophil cytoplasmic antibody titer by immunofluorescenceon 04-10-2022 Neutrophil cytoplasmic Ab.perinuclear IF (S) [Titer] <1:20 titer Neg:<1:20 [facility] Work Phone: Comment on above: The presence of posi tive fluorescence exhibiting P-ANCA orC-ANCA patterns alone is not specific for the diagnosis ofWegener's Granulomatosis (WG) or microscopic polyangiitis.Decisions about treatment should not be based solely onANCA IFA results. The [employer] ANCA Group Consensusrecommends follow up testing of positive sera with both WA-3 and MPO-ANCA enzyme immunoassays. As many as 5% serumsamples are positive only by EIA. Ref. AM J Clin [id number];111:507-513. Serum pork IgE antibody assa y (units/volume)on 04-10-2022 Pork IgE Qn (S) <0.10 kU/L Class 0 [facility] Work Phone: Serum soybean IgE antibody a ssay (units/volume)on 04-10-2022 Soybean IgE Qn (S) <0.10 kU/L Class 0 [facility] Work Phone: Serum tissue transglutaminas e IgA antibody assay (units/volume)on 04-10-2022 tTG IgA Qn (S) <2 U/mL 0-3 [facility] Work Phone: Comment on above: Negative 0 - 3 Weak Positive 4 - 10 Positive >10 Tissue Transglutaminase (tTG) has been identified as the endomysial antigen. Studies have demonstr- ated that endomysial IgA antibodies have over 99% specificity for gluten sensitive enteropathy. Serum wheat IgE antibody ass ay (units/volume)on 04-10-2022 Wheat IgE Qn (S) <0.10 kU/L Class 0 [facility] Work Phone: Serum whole egg IgE antibody assay (units/volume)on 04-10-2022 Whole Egg IgE Qn (S) 0.14 kU/L Class 0/I [facility] Work Phone: Thin prep Papanicolaou smear with manual screeningon 04-10-2022 Thin prep Papanicolaou smear with manual screening 30 U/L 15-37 [facility] Work Phone: Thin prep Papanicolaou smear with manual screening 5 5-15 [facility] Work Phone: Thin prep Papanicolaou smear with manual screening 176 U/L 84-246 [facility] Work Phone: Thin prep Papanicolaou smear with manual screening 1.2 0.7-1.7 [facility] Work Phone: Total protein bloodon 2021 Protein [Mass/Vol] 6.3 g/dL 6.0-8.5 [facility] Work Phone: Absolute lymphocyte counton 12-27-2021 Lymphocytes Auto (Unsp spec) [#/Vol] 1.12 10*3/uL 0.83-4.51 [facility] Work Phone: Basophil percentageon 2021 Basophils/100 WBC (Bld) 0.6 % 0-1 [facility] Work Phone: Bilirubin [Mass/Vol] 0.50 mg/dL 0.20-1.00 [facility] Work Phone: Comment on above: For patients on eltr ombopag therapy, use of Dimension [place] TBIL is not recommended. Chloride [Moles/Vol] 111 mmol/L 98-107 [facility] Work Phone: Cholesterol [Mass/Vol] 168 mg/dL <200 [facility] Work Phone: Comment on above: <200 mg/dL Desirable 200-240 mg/dL Borderline >240 mg/dL High Risk Eosinophils/100 WBC (Bld) 2.3 % 0-5 [facility] Work Phone: Glucose [Mass/Vol] 94 mg/dL 74-106 [facility] Work Phone: Neutrophils (Bld) [#/Vol] 3.2 10*3/uL 2.0-7.7 [facility] Work Phone: Neutrophils/100 WBC (Bld) 67.4 % 47-70 [facility] Work Phone: Potassium [Moles/Vol] 4.0 mmol/L 3.5-5.1 [facility] Work Phone: Protein [Mass/Vol] 6.7 g/dL 6.4-8.2 [facility] Work Phone: Sodium [Moles/Vol] 143 mmol/L 136-145 [facility] Work Phone: Triglyceride [Mass/Vol] 90 mg/dL <199 [facility] Work Phone: Comment on above: The drugs N-Acetylcy steine and Metamizole may falsely depress this assay.Serum Triglycerides Reference Interval Normal <150 mg/dL Borderline high 150 - 199 mg/dL High 200 - 499 mg/dL Very High > or = 500 mg/dL WBC (Bld) [#/Vol] 4.8 10*3/uL 4.4-11.0 [facility] Work Phone: Blood erythrocytes count (nu mber/volume)on 12-27-2021 RBC (Bld) [#/Vol] 4.62 10*6/uL 4.2-5.4 [facility] Work Phone: Blood hemoglobin measurement (mass/volume)on 12-27-2021 Hemoglobin (Bld) [Mass/Vol] 14.8 g/dL 12.0-15.0 [facility] Work Phone: Blood lymphocytes/100 leukoc yteson 12-27-2021 Lymphocytes/100 WBC (Bld) 23.4 % 19-41 [facility] Work Phone: Blood monocytes/100 leukocyt eson 12-27-2021 Monocytes/100 WBC (Bld) 6.1 % 0-10 [facility] Work Phone: Blood platelet mean volumeon 12-27-2021 Platelet mean volume (Bld) [Entitic vol] 10.2 fL 6.2-12.0 [facility] Work Phone: Determination of erythrocyte mean corpuscular volume (MCV)on 12-27-2021 MCV (RBC) [Entitic vol] 95.7 fL 81-99 [facility] Work Phone: Hematocrit Auto (Bld) [Volum e fraction]on 12-27-2021 Hematocrit (Bld) [Volume fraction] 44.2 % 37-47 [facility] Work Phone: Laboratory - Chemistry and C hemistry - challengeon 12-27-2021 ALP [Catalytic activity/Vol] 79 U/L 45-117 [facility] Work Phone: ALT [Catalytic activity/Vol] 25 U/L 13-56 [facility] Work Phone: CO2 [Moles/Vol] 27.0 mmol/L 21.0-32.0 [facility] Work Phone: Globulin (S) [Mass/Vol] 3.6 g/dL 2.2-4.2 [facility] Work Phone: Urea nitrogen/Creatinine [Mass ratio] 18.7 mg/mg 10-20 [facility] Work Phone: Laboratory - Hematology and Cell countson 12-27-2021 Erythrocyte distribution width (RBC) [Entitic vol] 48.8 fL 35.1-43.9 [facility] Work Phone: Erythrocyte distribution width (RBC) [Ratio] 13.9 % 11.6-14.6 [facility] Work Phone: Immature granulocytes/100 WBC (Bld) 0.200 % 0.0-0.9 [facility] Work Phone: Comment on above: IG% - Immature Granu locytes (promyelocytes, myelocytes and metamyelocytes) > 1% indicates that a LEFT SHIFT is Present. MCH (RBC) [Entitic mass] 32.0 pg 27.0-32.0 [facility] Work Phone: Nucleated RBC/100 WBC (Bld) [Ratio] 0 % 0-5 [facility] Work Phone: MCHC Auto (RBC) [Mass/Vol]on 12-27-2021 MCHC (RBC) [Mass/Vol] 33.5 g/dL 32-36 [facility] Work Phone: No Panel Informationon 12-27 Estimated GFR (MDRD) Amer 90 mL/min >60 [facility] Work Phone: Comment on above: GFR Calc Estimated GFR (MDRD) Non-Af Amer 74 mL/min >60 [facility] Work Phone: Comment on above: Non- GFR Calc Thyroid Stimulating Hormone (TSH) 2.50 uIU/mL 0.358-3.74 [facility] Work Phone: Platelets bldon 12-27-2021 Platelets (Bld) [#/Vol] 203 10*3/uL 150-450 [facility] Work Phone: Serum or plasma albumin daljit urement (mass/volume)on 12-27-2021 Albumin [Mass/Vol] 3.1 g/dL 3.2-5.0 [facility] Work Phone: Serum or plasma albumin/glob ulin mass ratioon 12-27-2021 Albumin/Globulin [Mass ratio] 0.9 {ratio} 0.9-2.4 [facility] Work Phone: Serum or plasma calcium daljit urement (mass/volume)on 12-27-2021 Calcium [Mass/Vol] 9.2 mg/dL 8.5-10.1 [facility] Work Phone: Serum or plasma cholesterol in HDL measurement (mass/volume)on 12-27-2021 Cholesterol in HDL [Mass/Vol] 60 mg/dL >40 [facility] Work Phone: Comment on above: The drugs N-Acetylcy steine and Metamizole may falsely depress this assay. Reference Range HDL <40 mg/dL Low HDL Cholesterol HDL >or= 60 mg/dL High HDL Cholesterol Serum or plasma cholesterol in VLDL measurement (mass/volume)on 12-27-2021 Cholesterol in VLDL [Mass/Vol] 18 mg/dL 5-40 [facility] Work Phone: Serum or plasma creatinine m easurement (mass/volume)on 12-27-2021 Creatinine [Mass/Vol] 0.80 mg/dL 0.55-1.02 [facility] Work Phone: Comment on above: The validity of the calculated GFR & GFRAA in patients over 70 years has not been determined. Clinical correlation is essential. Serum or plasma low density lipoprotein (LDL) cholesterol measurement (mass/volume)on 12-27-2021 Cholesterol in LDL [Mass/Vol] 90 mg/dL 0-130 [facility] Work Phone: Serum or plasma urea nitroge n measurement (mass/volume)on 12-27-2021 Urea nitrogen [Mass/Vol] 15 mg/dL 7-18 [facility] Work Phone: Thin prep Papanicolaou smear with manual screeningon 12-27-2021 Thin prep Papanicolaou smear with manual screening 19 U/L 15-37 [facility] Work Phone: Thin prep Papanicolaou smear with manual screening 5 5-15 [facility] Work Phone: Whole blood hemoglobin A1c/t otal hemoglobin ratio (mass fraction)on 12-27-2021 HbA1c (Bld) [Mass fraction] 5.6 % 3.8-5.6 [facility] Work Phone: Comment on above: Normal < 5.7 % Predi abetic 5.7 - 6.4 % Diabetic >or= 6.5 % Please note range changes. [facility] Alcoholism counseling (procedure) no Invalid Interpretation Code [facility] [employer] Work Phone: Documentation of current medications (procedure) Done Invalid Interpretation Code [facility] [employer] Work Phone: Fall risk assessment No Invalid Interpretation Code [facility] [employer] Work Phone: Tobacco smoking status NHIS Never Invalid Interpretation Code [facility] [employer] Work Phone: Tobacco use CPHS Never smoker Invalid Interpretation Code [facility] [employer] Work Phone: Lab Report: CBC W/Diff, Auto - EPLAB Onlyon 05-07-2016 Basophils/100 WBC Auto (Bld) 0.7 % Invalid Interpretation Code 0-1 [facility] [employer] Work Phone: Eosinophils/100 leukocytes 1.8 % Invalid Interpretation Code 0-5 [facility] [employer] Work Phone: Erythrocytes (RBC) 4.55 10*6/uL Invalid Interpretation Code 4.2-5.4 [facility] [employer] Work Phone: Hematocrit (HCT) 43.8 % Invalid Interpretation Code 37-47 [facility] [employer] Work Phone: Hemoglobin mass conc (Bld) 14.8 g/dL Invalid Interpretation Code 12.0-15.0 [facility] [employer] Work Phone: Lymphocytes/100 leukocytes 19.6 % Invalid Interpretation Code 19-41 [facility] [employer] Work Phone: MCH 32.4 pg High 27.0-32.0 [facility] [employer] Work Phone: MCHC mass conc (RBC) 33.6 g/dL Invalid Interpretation Code 32-36 [facility] [employer] Work Phone: MCV 96.4 fL Invalid Interpretation Code 81-99 [facility] [employer] Work Phone: Monocytes/100 leukocytes 7.1 % Invalid Interpretation Code 0-10 [facility] [employer] Work Phone: Neutrophils/100 WBC Auto (Bld) 70.8 % High 47-70 [facility] [employer] Work Phone: Platelets 189 10*3/mm3 Invalid Interpretation Code 150-450 [facility] [employer] Work Phone: WBC (Leukocytes) 5.3 10*3/uL Invalid Interpretation Code 4.4-11.0 [facility] [employer] Work Phone: Absolute Neut 3.8 X10 3/UL Invalid Interpretation Code 2.0-7.7 [facility] [employer] Work Phone: Erythrocyte distribution width Auto Ratio (RBC) 12.7 % Invalid Interpretation Code 11.6-14.6 [facility] [employer] Work Phone: Lymphocytes 1.04 X10 3/UL Invalid Interpretation Code 0.83-4.51 [facility] [employer] Work Phone: PMV by Ken 6.8 fL Invalid Interpretation Code 6.2-12.0 [facility] [employer] Work Phone: [facility] Alanine aminotransferase (ALT) 24 U/L Invalid Interpretation Code 12-78 [facility] [employer] Work Phone: Albumin 3.5 g/dL Invalid Interpretation Code 3.4-5.0 [facility] [employer] Work Phone: Albumin/Globulin Ratio 1 {ratio} Invalid Interpretation Code 0.9-2.4 [facility] [employer] Work Phone: Alkaline phosphatase (ALP) 106 U/L Invalid Interpretation Code 45-117 [facility] [employer] Work Phone: Anion gap 8 mmol/L Invalid Interpretation Code 5-15 [facility] [employer] Work Phone: Aspartate aminotransferase (AST) 22 U/L Invalid Interpretation Code 15-37 [facility] [employer] Work Phone: Bilirubin (total) 0.40 mg/dL Invalid Interpretation Code 0.20-1.00 [facility] [employer] Work Phone: BUN/Creatinine Ratio 18.6 RATIO Invalid Interpretation Code 10-20 [facility] [employer] Work Phone: Calcium 9.1 mg/dL Invalid Interpretation Code 8.5-10.1 [facility] [employer] Work Phone: Chloride 105 mmol/L Invalid Interpretation Code 98-107 [facility] [employer] Work Phone: CO2 27.0 mmol/L Invalid Interpretation Code 21.0-32.0 [facility] [employer] Work Phone: Creatinine 0.86 mg/dL Invalid Interpretation Code 0.55-1.02 [facility] [employer] Work Phone: eGFR (non-black) 70 mL/min/{1.73_m2} Invalid Interpretation Code >60 [facility] [employer] Work Phone: eGFR (non-black) 85 mL/min/{1.73_m2} Invalid Interpretation Code >60 [facility] [employer] Work Phone: Globulin 3.6 g/dL High 2.3-3.5 [facility] [employer] Work Phone: Glucose mass conc 94 mg/dL Invalid Interpretation Code 70-110 [facility] [employer] Work Phone: Potassium molar conc 4.5 mmol/L Invalid Interpretation Code 3.5-5.1 [facility] [employer] Work Phone: Protein 7.1 g/dL Invalid Interpretation Code 6.4-8.2 [facility] [employer] Work Phone: Sodium 140 mmol/L Invalid Interpretation Code 136-145 [facility] [employer] Work Phone: Urea nitrogen 16 mg/dL Invalid Interpretation Code 7-18 [facility] [employer] Work Phone: Lab Report: LDHon 05-07-2016 LDH 233 U/L Invalid Interpretation Code 84-246 [facility] [employer] Work Phone: Lab Report: Uric Acidon 04-11 Urate 3.4 mg/dL Invalid Interpretation Code 2.6-6.0 [facility] [employer] Work Phone: Office Visit: 6 month f/u. M ammo prior. PHQ9 Completedon 05-07-2016 Adult depression screening assessment Adult depression screening assessment Invalid Interpretation Code [facility] [employer] Work Phone: Lab Report: Lipid Profileon 01-27-2016 Cholesterol 171 mg/dL Invalid Interpretation Code [address] [facility] [employer] Work Phone: HDL Cholesterol 57 mg/dL Invalid Interpretation Code [facility] [employer] Work Phone: LDL Cholesterol 97 mg/dL Invalid Interpretation Code 0-130 [facility] [employer] Work Phone: Triglyceride 86 mg/dL Invalid Interpretation Code [facility] [employer] Work Phone: very low density lipoproteins 17 mg/dL Invalid Interpretation Code 5-40 [facility] [employer] Work Phone: Lab Report: T4 Free Directon 01-27-2016 Thyroxine (T4) free 0.89 ng/dL Invalid Interpretation Code 0.76-1.46 [facility] [employer] Work Phone: Lab Report: Thyroid Stim Hor jennifer (TSH)on 01-27-2016 Thyroid stimulating hormone (TSH) 2.04 u[iU]/mL Invalid Interpretation Code 0.358-3.74 [facility] [employer] Work Phone: Lab Report: Immunoglobulins G/A/Mon 05-04-2015 IgA 250 mg/dL Invalid Interpretation Code 91-414 [facility] [employer] Work Phone: IgG 801 mg/dL Invalid Interpretation Code 700-1600 [facility] [employer] Work Phone: IgM 99 mg/dL Invalid Interpretation Code 40-230 [facility] [employer] Work Phone: Lab Report: CBC W/Diff, Auto - EPLAB Onlyon 02-03-2015 Absolute Neut 3.8 X10 3/UL Invalid Interpretation Code 2.0-7.7 [facility] [employer] Work Phone: Lymphocytes 0.96 X10 3/UL Invalid Interpretation Code 0.83-4.51 [facility] [employer] Work Phone: Lab Report: LDHon 02-03-2015 Lactate dehydrogenase (LDH) 194 U/L Invalid Interpretation Code 84-246 [facility] [employer] Work Phone: Lab Report: ECBCDon 08-14-19 14 MCHC mass conc (RBC) 0.8 % Normal 0-1 [facility] Work Phone: Lab Report: LIVERon 08-14-19 14 Bilirubin (direct) 0.12 mg/dL Normal 0.00-0.30 [facility] Work Phone: No Panel Information Giardia Antigen (FELISHA) [facility] Work Phone: Ova and parasites Ova and parasites identified LM Nom (Unsp spec) [facility] Work Phone: Vital Signs Date Time Vital Sign Value Performing Clinician Facility 03-05-2025 10:50-0400 Body height 157.[address] Renzo De Paz DO Work Phone: [facility] 03-05-2025 10:50-0400 Body mass index (BMI) [Ratio] 34.2 kg/m2 Dr. Renzo De Paz DO Work Phone: [facility] 03-05-2025 10:50-0400 Body temperature 97.2 [degF] Dr. Renzo De Paz DO Work Phone: [facility] 03-05-2025 10:50-0400 Body weight 84.[address] Renzo De Paz DO Work Phone: [facility] 03-05-2025 10:50-0400 Diastolic blood pressure 74 mm[Hg] Dr. Renzo De Paz DO Work Phone: [facility] 03-05-2025 10:50-0400 Heart rate 55 /min Dr. Rnezo De Paz DO Work Phone: [facility] 03-05-2025 10:50-0400 Respiratory rate 14 /min Dr. Renzo De Paz DO Work Phone: [facility] 03-05-2025 10:50-0400 SaO2% (BldA) [Mass fraction] 98 % Dr. Renzo De Paz DO Work Phone: [facility] 03-05-2025 10:50-0400 Systolic blood pressure 139 mm[Hg] Dr. Renzo De Paz DO Work Phone: [facility] 12-18-2024 12:41-0400 Body height 157.[address] Renzo De Paz DO Work Phone: [facility] 12-18-2024 12:41-0400 Body mass index (BMI) [Ratio] 33.8 kg/m2 Dr. Renzo De Paz DO Work Phone: [facility] 12-18-2024 12:41-0400 Body temperature 96.8 [degF] Dr. Renzo De Paz DO Work Phone: [facility] 12-18-2024 12:41-0400 Body weight 83.[address] Renzo De Paz DO Work Phone: [facility] 12-18-2024 12:41-0400 Diastolic blood pressure 56 mm[Hg] Dr. Renzo De Paz DO Work Phone: [facility] 12-18-2024 12:41-0400 Heart rate 64 /min Dr. Renzo De Paz DO Work Phone: [facility] 12-18-2024 12:41-0400 Respiratory rate 16 /min Dr. Renzo De Paz DO Work Phone: [facility] 12-18-2024 12:41-0400 SaO2% (BldA) [Mass fraction] 96 % Dr. Renzo De Paz DO Work Phone: [facility] 12-18-2024 12:41-0400 Systolic blood pressure 140 mm[Hg] Dr. Renzo De Paz DO Work Phone: [facility] 11-10-2024 13:19-0400 Body height 157.[address] Renzo De Paz DO Work Phone: [facility] 10-09-2023 15:35-0400 Body height 157.[address] Renzo De Paz Work Phone: [facility] 10-09-2023 15:35-0400 Body mass index (BMI) [Ratio] 33.7 kg/m2 Dr. Renzo De Paz Work Phone: [facility] 10-09-2023 15:35-0400 Body temperature 97.6 [degF] Dr. Renzo De Paz Work Phone: [facility] 10-09-2023 15:35-0400 Body weight 83.[address] Renzo De Paz Work Phone: [facility] 10-09-2023 15:35-0400 Diastolic blood pressure 78 mm[Hg] Dr. Renzo De Paz Work Phone: [facility] 10-09-2023 15:35-0400 Heart rate 64 /min Dr. Renzo De Paz Work Phone: [facility] 10-09-2023 15:35-0400 Respiratory rate 18 /min Dr. Renzo De Paz Work Phone: [facility] 10-09-2023 15:35-0400 SaO2% (BldA) [Mass fraction] 99 % Dr. Renzo De Paz Work Phone: [facility] 10-09-2023 15:35-0400 Systolic blood pressure 134 mm[Hg] Dr. Renzo De Paz Work Phone: [facility] 07-04-2023 13:08-0500 Body height 157.[address] Renzo De Paz Work Phone: [facility] 07-04-2023 13:08-0500 Body mass index (BMI) [Ratio] 33.6 kg/m2 Dr. Renzo De Paz Work Phone: [facility] 07-04-2023 13:08-0500 Body temperature 97.7 [degF] Dr. Renzo De Paz Work Phone: [facility] 07-04-2023 13:08-0500 Body weight 83.[address] Renzo De Paz Work Phone: [facility] 07-04-2023 13:08-0500 Diastolic blood pressure 73 mm[Hg] Dr. Renzo De Paz Work Phone: [facility] 07-04-2023 13:08-0500 Heart rate 68 /min Dr. Renzo De Paz Work Phone: [facility] 07-04-2023 13:08-0500 Respiratory rate 18 /min Dr. Renzo De Paz Work Phone: [facility] 07-04-2023 13:08-0500 SaO2% (BldA) [Mass fraction] 96 % Dr. Renzo De Paz Work Phone: [facility] 07-04-2023 13:08-0500 Systolic blood pressure 119 mm[Hg] Dr. Renzo De Paz Work Phone: [facility] 06-05-2023 11:32-0500 Body height 157.[address] Renzo De Paz Work Phone: [facility] 06-05-2023 11:32-0500 Body mass index (BMI) [Ratio] 33.5 kg/m2 Dr. Renzo De Paz Work Phone: [facility] 06-05-2023 11:32-0500 Body temperature 98.2 [degF] Dr. Renzo De Paz Work Phone: [facility] 06-05-2023 11:32-0500 Body weight 83.[address] Renzo De Paz Work Phone: [facility] 06-05-2023 11:32-0500 Diastolic blood pressure 74 mm[Hg] Dr. Renzo De Paz Work Phone: [facility] 06-05-2023 11:32-0500 Heart rate 81 /min Dr. Renzo De Paz Work Phone: [facility] 06-05-2023 11:32-0500 Respiratory rate 17 /min Dr. Renzo De Paz Work Phone: [facility] 06-05-2023 11:32-0500 SaO2% (BldA) [Mass fraction] 97 % Dr. Renzo De Paz Work Phone: [facility] 06-05-2023 11:32-0500 Systolic blood pressure 154 mm[Hg] Dr. Renzo De Paz Work Phone: [facility] 2023 10:00-0500 Body temperature 97.6 [degF] Dr. Renzo De Paz Work Phone: [facility] 2023 10:00-0500 Diastolic blood pressure 78 mm[Hg] Dr. Renzo De Paz Work Phone: [facility] 2023 10:00-0500 Heart rate 64 /min Dr. Renzo De Paz Work Phone: [facility] 2023 10:00-0500 Respiratory rate 14 /min Dr. Renzo De Paz Work Phone: [facility] 2023 10:00-0500 SaO2% (BldA) [Mass fraction] 99 % Dr. Renzo De Paz Work Phone: [facility] 2023 10:00-0500 Systolic blood pressure 128 mm[Hg] Dr. Renzo De Paz Work Phone: [facility] 2023 08:27-0500 Body height 157.[address] Renzo De Paz Work Phone: [facility] 03-21-2023 07:29-0400 Body temperature 97.7 [degF] Dr. Renzo De Paz Work Phone: [facility] 03-21-2023 07:29-0400 Diastolic blood pressure 68 mm[Hg] Dr. Renzo De Paz Work Phone: [facility] 03-21-2023 07:29-0400 Heart rate 61 /min Dr. Renzo De Paz Work Phone: [facility] 03-21-2023 07:29-0400 Respiratory rate 16 /min Dr. Renzo De Paz Work Phone: [facility] 03-21-2023 07:29-0400 SaO2% (BldA) [Mass fraction] 100 % Dr. Renzo De Paz Work Phone: [facility] 03-21-2023 07:29-0400 Systolic blood pressure 163 mm[Hg] Dr. Renzo De Paz Work Phone: [facility] 03-21-2023 05:58-0400 Body height 157.[address] Renzo De Paz Work Phone: [facility] 03-21-2023 05:58-0400 Body mass index (BMI) [Ratio] 32.8 kg/m2 Dr. Renzo De Paz Work Phone: [facility] 03-21-2023 05:58-0400 Body weight 81.[address] Renzo De Paz Work Phone: [facility] 11-26-2022 13:37-0400 Body height 160.[address] Renzo De Paz Work Phone: [facility] 11-26-2022 13:35-0400 Body mass index (BMI) [Ratio] 31.8 kg/m2 Dr. Renzo De Paz Work Phone: [facility] 11-26-2022 13:35-0400 Body temperature 98 [degF] Dr. Renzo De Paz Work Phone: [facility] 11-26-2022 13:35-0400 Body weight 81.[address] Renzo De Paz Work Phone: [facility] 11-26-2022 13:35-0400 Diastolic blood pressure 76 mm[Hg] Dr. Renzo De Paz Work Phone: [facility] 11-26-2022 13:35-0400 Heart rate 62 /min Dr. Renzo De Paz Work Phone: [facility] 11-26-2022 13:35-0400 Respiratory rate 16 /min Dr. Renzo DeP az Work Phone: [facility] 11-26-2022 13:35-0400 SaO2% (BldA) [Mass fraction] 98 % Dr. Renzo De Paz Work Phone: [facility] 11-26-2022 13:35-0400 Systolic blood pressure 130 mm[Hg] Dr. Renzo De Paz Work Phone: [facility] 10-19-2022 10:56-0400 Body mass index (BMI) [Ratio] 31.7 kg/m2 Dr. Renzo De Paz Work Phone: [facility] 10-19-2022 10:56-0400 Body temperature 98 [degF] Dr. Renzo De Paz Work Phone: [facility] 10-19-2022 10:56-0400 Body weight 81.[address] [facility] De Paz Work Phone: [facility] [facility] 10-19-2022 10:56-0400 Diastolic blood pressure 77 mm[Hg] Dr. Renzo De Paz Work Phone: [facility] 10-19-2022 10:56-0400 Heart rate 56 /min Dr. Renzo De Paz Work Phone: [facility] 10-19-2022 10:56-0400 Respiratory rate 20 /min Dr. Renzo De Paz Work Phone: [facility] 10-19-2022 10:56-0400 SaO2% (BldA) [Mass fraction] 99 % Dr. Renzo De Paz Work Phone: [facility] 10-19-2022 10:56-0400 Systolic blood pressure 134 mm[Hg] Dr. Renzo De Paz Work Phone: [facility] 07-25-2020 13:50-0500 Body mass index (BMI) [Ratio] 34.4 kg/m2 Dr. Renzo De Paz Work Phone: [facility] 07-25-2020 13:50-0500 Body temperature 97.7 [degF] Dr. Renzo De Paz Work Phone: [facility] 07-25-2020 13:50-0500 Body weight 88.[address] Renzo De Paz Work Phone: [facility] 07-25-2020 13:50-0500 Diastolic blood pressure 78 mm[Hg] Dr. Renzo De Paz Work Phone: [facility] 07-25-2020 13:50-0500 Heart rate 59 /min Dr. Renzo De Paz Work Phone: [facility] 07-25-2020 13:50-0500 Respiratory rate 17 /min Dr. Renzo De Paz Work Phone: [facility] 07-25-2020 13:50-0500 SaO2% (BldA) [Mass fraction] 97 % Dr. Renzo De Paz Work Phone: [facility] 07-25-2020 13:50-0500 Systolic blood pressure 156 mm[Hg] Dr. Renzo De Paz Work Phone: [facility] 05-08-2017 08:55-0500 BMI (Body Mass Index) 32.8 kg/m2 Fco Jarvis MD [facility] Work Phone: 05-08-2017 08:55-0500 Body Temperature 98.1 [degF] Fco Jarvis MD [facility] Work Phone: 05-08-2017 08:55-0500 BP Diastolic 72 mm[Hg] Fco Jarvis MD [facility] Work Phone: 05-08-2017 08:55-0500 BP Systolic 175 mm[Hg] Fco Jarvis MD [facility] Work Phone: 05-08-2017 08:55-0500 Height 160.02 cm Fco Jarvis MD [facility] Work Phone: 05-08-2017 08:55-0500 Pulse (Heart Rate) 62 /min Fco Jarvis MD [facility] [employer] [facility] Work Phone: 05-08-2017 08:55-0500 Respiratory Rate 18 /min Fco Jarvis MD [facility] Work Phone: 05-08-2017 08:55-0500 Weight 84.01 kg Fco Jarvis MD [facility] [employer] [facility] Work Phone: 05-07-2016 12:54-0500 BSA (Body Surface Area) 1.88 m2 Fco Jarvis MD [facility] [employer] [facility] Work Phone: 05-07-2016 12:54-0500 Height 160.02 cm Fco Jarvis MD [facility] [employer] [facility] Work Phone: 05-07-2016 12:54-0500 Weight 85 kg Fco Jarvis MD [facility] Work Phone: 02-03-2015 10:39-0400 Body Temperature 97.9 [degF] Fco Jarvis MD [facility] [employer] [facility] Work Phone: Encounters Encounter Date Encounter Type Care Provider Facility Start: 03-16-2025 ambulatory Kisha Harding NP Facili ty:[facility] Start: [facility]-16-[facility] Start: 03-16-2025 End: 03-16-2025 ambulatory [facility] Facility:[facility] Start: 03-05-2025 End: 03-05-[address] Rakan Adkins MD -[facility] Work Phone: Start: 03-05-2025 End: 03-05-[address] Renzo De Paz DO Work Phone: -[facility] Start: 01-14-2025 End: 01-14-2025 Patient encounter procedure Yonatan Avila DO -[facility] Work Phone: Start: 01-14-2025 End: 01-14-[address] Renzo De Paz DO Work Phone: -[facility] Start: 12-18-2024 End: 12-18-[address] Renzo De Paz DO -[facility] Out Work Phone: Start: 12-18-2024 End: 12-18-[address] Renzo De Paz DO Work Phone: -[facility] Start: 11-17-2024 End: 11-17-[address] Renzo De Paz DO Work Phone: [facility] Work Phone: Start: 11-17-2024 End: 11-17-[address] Renzo De Paz DO -Physical Therapy Work Phone: Start: 11-10-[address] Renzo De Paz DO -Physical Therapy Work Phone: Start: 11-10-2024 End: 11-10-[address] Renzo De Paz DO Work Phone: [facility] Work Phone: Start: 11-10-2024 End: 11-10-[address] Renzo De Paz DO -Outpatient Bone Densitometry Work Phone: Start: 11-10-2024 End: 11-10-2024 ambulatory Renzo De Paz Facility:[facility] Start: 11-05-2024 End: 11-05-[address] Renzo De Paz DO Work Phone: [facility] Work Phone: Start: 11-05-2024 End: 11-05-[address] Renzo De Paz DO -Cardiovascular Services Work Phone: Start: 11-05-2024 End: 11-05-2024 ambulatory Renzo De Paz Facility:[facility] Start: 10-28-2024 End: 10-28-[address] Renzo De Paz DO Work Phone: [facility] Work Phone: Start: 10-28-2024 End: 10-28-[address] Renzo De Paz DO -[facility] Work Phone: Start: 10-28-2024 End: 10-28-2024 ambulatory Renzo De Paz Facility:[facility] Start: 07-17-2024 End: 07-17-2024 Patient encounter procedure Yonatan Avila [facility] Work Phone: Start: 07-17-2024 End: 07-17-2024 ambulatory Renzo De Paz Facility:[facility] Start: 06-30-2024 End: 06-30-2024 ambulatory Renzo De Paz [facility] Start: 06-12-2024 End: 06-12-2024 ambulatory Renzo Zandra Facility:[facility] Start: 05-25-2024 ambulatory [facility] Facility:[facility] Start: 05-25-2024 End: 05-25-2024 ambulatory [facility] Facility:[facility] Start: 10-09-2023 End: 10-09-2023 Emergency department patient visit Dr. Renzo De Paz Work Phone: [facility]-Emergency Department Work Phone: Start: 10-09-2023 Non-patient / Non-visit Dr. Renzo De Paz Work Phone: [facility] Start: 10-09-2023 End: 10-09-[address] Renzo De Paz Work Phone: [facility] Work Phone: Start: 10-09-2023 End: 10-09-[address] Renzo De Paz Work Phone: [facility]-Cardiovascular Services Work Phone: Start: 08-29-2023 End: 08-29-[address] Renzo De Paz Work Phone: [facility] Work Phone: Start: 08-29-2023 End: 08-29-[address] Renzo De Paz Work Phone: [facility]-Laboratory, Specimen Work Phone: Start: 08-26-2023 End: 08-26-[address] Renzo De Paz Work Phone: [facility] Work Phone: Start: 08-26-2023 End: 08-26-[address] Renzo De Paz Work Phone: [facility] Work Phone: Start: 07-04-[address] Renzo De Paz Work Phone: [facility] Oncology Start: 07-04-2023 End: 07-04-[address] Renzo De Paz Work Phone: [facility] Work Phone: Start: 06-19-2023 End: 06-19-[address] Renzo De Paz Work Phone: [facility] Work Phone: Start: 06-19-2023 End: 06-19-[address] Renzo De Paz Work Phone: [facility]-Radiology, [place] Work Phone: Start: 06-11-2023 End: 06-11-[address] Renzo De Paz Work Phone: [facility] Work Phone: Start: 06-05-[address] Renzo De Paz Work Phone: [facility] Oncology Start: 06-05-2023 End: 06-05-[address] Renzo De Paz Work Phone: [facility] Work Phone: Start: 05-23-2023 End: 05-23-[address] Renzo De Paz Work Phone: [facility] Work Phone: Start: 05-23-2023 End: 05-23-[address] Renzo De Paz Work Phone: [facility]-Outpatient Breast Imaging Work Phone: Start: 05-13-2023 End: 05-13-[address] Renzo De Paz Work Phone: [facility] Work Phone: Start: 05-13-2023 End: 05-13-[address] Renzo De Paz Work Phone: [facility]-MRI - [facility] Work Phone: Start: 05-08-2023 End: 05-08-[address] Renzo De Paz Work Phone: [facility] Work Phone: Start: 05-08-2023 End: 05-08-[address] Renzo De Paz Work Phone: [facility] Start: 05-07-2023 End: 05-07-[address] Renzo De Paz Work Phone: [facility] Work Phone: Start: 05-07-2023 End: 05-07-[address] Renzo De Paz Work Phone: [facility]-Physical Therapy Work Phone: Start: 05-07-[address] Renzo De Paz Work Phone: [facility]-Physical Therapy Work Phone: Start: 05-01-2023 End: 05-01-[address] Renzo De Paz Work Phone: [facility] Work Phone: Start: 2023 End: 2023 Emergency department patient visit Dr. Renzo De Paz Work Phone: [facility]-Emergency Department Work Phone: Start: 04-11-[address] Renzo De Paz Work Phone: [facility]-Physical Therapy Work Phone: Start: 03-28-2023 End: 03-28-[address] Renzo De Paz Work Phone: [facility] Work Phone: Start: 03-21-2023 Non-patient / Non-visit Dr. Renzo De Paz Work Phone: [facility] Start: 03-21-2023 End: 03-21-2023 Admission to same day surgery center Dr. Renzo De Paz Work Phone: [facility]-Endoscopy Work Phone: Start: 03-21-2023 End: 03-21-[address] Renzo De Paz Work Phone: [facility] Work Phone: Start: 12-06-2022 End: 12-06-[address] Renzo De Paz Work Phone: [facility]-Laboratory, Specimen Work Phone: Start: 12-05-2022 End: 12-05-[address] Renzo De Paz Work Phone: [facility] Work Phone: Start: 12-05-2022 End: 12-05-[address] Renzo De Paz Work Phone: [facility] Work Phone: Start: 11-26-2022 End: 11-26-[address] Renzo De Paz Work Phone: [facility] Work Phone: Start: 11-19-[address] Renzo De Paz Work Phone: [facility] On[facility] Start: 11-02-2022 Non-patient / Non-visit [facility] Start: 11-02-2022 End: 11-02-[address] Renzo De Paz Work Phone: [facility] Work Phone: Start: 11-02-2022 End: 11-02-[address] [facility] Start: 10-19-2022 End: 10-19-[address] Renzo De Paz Work Phone: [facility] Work Phone: Start: 09-26-2022 Non-patient / Non-visit Dr. Renzo De Paz Work Phone: [facility] Work Phone: Start: 05-21-2022 End: 05-21-[address] Javon Early Work Phone: [facility] Work Phone: Start: 05-21-2022 End: 05-21-[address] Javon Early Work Phone: [facility]-Outpatient Breast Imaging Start: 04-13-2022 End: 04-13-[address] Javon Earyl Work Phone: [facility] Work Phone: Start: 04-13-2022 End: 04-13-[address] Javon Early Work Phone: [facility]-Laboratory, Specimen Start: 04-10-2022 End: 04-10-[address] Javon Early Work Phone: [facility] Work Phone: Start: 04-10-2022 End: 04-10-[address] Javon Early Work Phone: [facility] Start: 12-27-2021 End: 12-27-2021 Patient encounter procedure [facility]Labor[facility], [place] Procedures Date Procedure Procedure Detail Performing Clinician Start: 11-10-2024 Dual energy X-ray absorptiometry Dr. Renzo De Paz DO Work Phone: Start: 10-28-2024 Vitamin D, 25-hydrox y measurement Dr. Renzo De Paz DO Work Phone: Comment on above: Vitamin D StatusDefi ciency: <20 ng/mL (50nmol/L)Insufficiency: 20-30 ng/mL (50-75 nmol/L)Sufficiency: 30-100 ng/mL (75-250 nmol/L)Toxicity: >100 ng/mL (>250 nmol/L) Start: 08-29-[address] Renzo De Paz Work Phone: Start: 08-26-2023 MRI of joint of lowe r extremity Dr. Renzo De Paz Work Phone: Start: 06-19-2023 Plain chest X-ray Dr. Fay De Paz Work Phone: Start: 05-23-2023 Screening mammograph y of right breast Dr. Renzo De Paz Work Phone: Start: 05-13-2023 MRI of joint of lowe r extremity Dr. Renzo De Paz Work Phone: Start: 2023 Plain x-ray of pelvi s and lower extremity Dr. Renzo De Paz Work Phone: Start: 03-28-2023 Plain X-ray of shoulder Dr. Renzo De Paz Work Phone: Start: 03-21-[address] Renzo holm Work Phone: Start: 05-21-2022 Screening mammograph y of right breast Dr. Javon Early Work Phone: Start: 05-08-2017 End: 05-08-2017 Us exam, breast(s) [...] 02-03-2015 End: 02-03-2015 *CMP Complete Metabolic Panel Mushtaq Nixon Work Phone: Start: 02-03-2015 End: 02-03-2015 Lactate dehydrogenase [Enzymatic activity/volume] in Serum or Plasma Mushtaq Nixon Work Phone: Start: 02-03-2015 End: 02-03-2015 Urate [Mass/volume] in Serum or Plasma Mushtaq Nixon Work Phone: Start: 10-07-2014 End: 10-07-2014 *CBC with Differential Landin M Alam Work Phone: Clostridium difficil e detection Dr. Javon Early Work Phone: Giardia Antigen (FELISHA) Dr. Armnai Early Work Phone: Lactoferrin measurement Dr. Javon Early Work Phone: Ova OR parasites identification Dr. Javon Early Work Phone: Plan of Treatment Date Care Activity Detail Author Start: 08-29-2023 Bacteria identified in Urine by Culture Urine Culture [facility] Start: 08-29-2023 [facility] Start: 06-11-2023 Patient referral [facility] Work Phone: Start: 2023 [facility] Start: 03-28-2023 Patient referral [facility] Work Phone: Start: 03-21-2023 Colonoscopy w/biopsy single/multiple COLONOSCOPY AND BIOPSY [facility] Start: 03-21-2023 Colsc flx w/rmvl of tumor polyp lesion snare tq COLONOSCOPY W/LESION REMOVAL [facility] Start: 03-21-2023 Patient discharge [facility] Start: 12-06-2022 Elastase, pancreatic (el-1), fecal; quantitative [facility] Start: 12-06-2022 Fat [Presence] in Stool [facility] Start: 12-05-2022 Gastrin [Mass/volume] in Serum or Plasma [facility] Start: 10-19-2022 Evaluation of diagnostic study results [facility] Start: 04-13-2022 Elastase, pancreatic (el-1), fecal; quantitative [facility] Work Phone: Start: 04-13-2022 Fat [Presence] in Stool [facility] Work Phone: Start: 04-13-2022 Protein measurement [facility] Work Phone: Start: 04-13-2022 [facility] Work Phone: Start: 04-10-2022 Antibody to gastric parietal cell measurement [facility] Work Phone: Start: 04-10-2022 Gastrin [Mass/volume] in Serum or Plasma [facility] Work Phone: Start: 04-10-2022 General foods mix RAST test [facility] Work Phone: Start: 04-10-2022 Immunoglobulin measurement [facility] Work Phone: Start: 04-10-2022 Serum immunofixation [facility] Work Phone: Start: 04-10-2022 [facility] Work Phone: Start: 05-08-2017 End: 05-08-2017 Us exam, breast(s) US Breast(s) [facility] [employer] Work Phone: Start: 05-08-2017 End: 05-08-[address] [facility] [employer] Work Phone: Start: 10-31-2015 End: 05-02-2015 *CBC with Differential *CBC with Differential [facility] [employer] Work Phone: Start: 10-31-2015 End: 10-31-2015 *CMP Complete Metabolic Panel *CMP Complete Metabolic Panel [facility] [employer] Work Phone: Start: 10-31-2015 End: 10-31-2015 Lactate dehydrogenase (LDH) *LDH -LDH (Lactate Dehydrogenase) [facility] [employer] Work Phone: Start: 10-31-2015 End: 10-31-2015 Urate *Uric Acid Blood [facility] [employer] Work Phone: Start: 05-02-2015 End: 03-29-2015 *CBC with Differential *CBC with Differential [facility] [employer] Work Phone: Start: 05-02-2015 End: 05-02-2015 *CMP Complete Metabolic Panel *CMP Complete Metabolic Panel [facility] [employer] Work Phone: Start: 05-02-2015 End: 05-02-2015 Dermatology Referral Dermatology Referral Sid Oates MD, [address] [place], [address] [facility] Work Phone: Start: 05-02-2015 End: 05-02-2015 Lactate dehydrogenase (LDH) *LDH -LDH (Lactate Dehydrogenase) [facility] Work Phone: Start: 05-02-2015 End: 05-02-2015 Urate *Uric Acid Blood [facility] [employer] Work Phone: Start: 02-03-2015 End: 02-02-2015 *CBC with Differential *CBC with Differential [facility] [employer] Work Phone: Start: 02-03-2015 End: 02-03-2015 *CMP Complete Metabolic Panel *CMP Complete Metabolic Panel [facility] Work Phone: Start: 02-03-2015 End: 02-03-2015 Lactate dehydrogenase (LDH) *LDH -LDH (Lactate Dehydrogenase) [facility] [employer] Work Phone: Start: 02-03-2015 End: 02-03-2015 Urate *Uric Acid Blood [facility] Work Phone: Start: 10-07-2014 End: 10-07-2014 *CBC with Differential *CBC with Differential [facility] Work Phone: Albumin [Moles/volum e] in Serum or Plasma [facility] Work Phone: Albumin/Globulin ratio [facility] Work Phone: Antibody to gastric parietal cell measurement [facility] Work Phone: Antibody to lupus [place] protein measurement [facility] Work Phone: Antibody to SS-A measurement [facility] Work Phone: Bacteria identified in Urine by Culture [facility] Beef IgE Ab [Units/v olume] in Serum [facility] Work Phone: CBC W Auto Different ial panel - Blood [facility] Centromere protein B Ab [Units/volume] in Serum [facility] Work Phone: Chocolate IgE Ab [Units/volume] in Serum [facility] Work Phone: Chromatin Ab [Units/volume] in Serum or Plasma [facility] Work Phone: [place] IgE Ab [Units/v olume] in Serum [facility] Work Phone: Cow milk IgE Ab [Units/volume] in Serum [facility] Work Phone: DNA double strand Ab [Units/volume] in Serum [facility] Work Phone: Electrophoresis: [id number] [facility] Work Phone: Electrophoresis: eve[place] ma globulin [facility] Work Phone: Fat [Mass/mass] in Stool [facility] Fat.neutral [Presenc e] in Stool [facility] Fish [facility] Work Phone: Gastrin [Mass/volume ] in Serum or Plasma [facility] Work Phone: Globulin measurement [facility] Work Phone: IgA [Mass/volume] in Serum or Plasma [facility] Work Phone: IgE [Units/volume] i n Serum or Plasma [facility] Work Phone: IgG [Mass/volume] in Serum or Plasma [facility] Work Phone: IgM [Mass/volume] in Serum or Plasma [facility] Work Phone: Felicity-1 extractable nuc lear Ab [Units/volume] in Serum [facility] Work Phone: Neutrophil cytoplasm ic Ab.classic [Units/volume] in Serum [facility] Work Phone: Ova and parasites identified in Unspecified specimen by Light microscopy [facility] Work Phone: P-ANCA measurement [facility] Work Phone: Patient Education ED Osteoarthritis [facility] Work Phone: Patient referral [facility] Work Phone: Peanut IgE Ab [Units/volume] in Serum [facility] Work Phone: Pork IgE Ab [Units/v olume] in Serum [facility] Work Phone: Protein electrophore sis panel - Serum or Plasma [facility] Work Phone: Protein measurement [facility] Work Phone: SCL-70 extractable n uclear Ab [Units/volume] in Serum by Immunoassay [facility] Work Phone: Serum immunofixation [facility] Serum protein electrophoresis [facility] Work Phone: [place] extractable nu clear Ab [Presence] in Serum [facility] Work Phone: Soybean IgE Ab [Units/volume] in Serum [facility] Work Phone: [facility] Wheat IgE Ab [Units/volume] in Serum [facility] Work Phone: Whole Egg IgE Ab [Units/volume] in Serum [facility] Work Phone: [facility] Immunizations Immunization Date Immunization Notes Care Provider Fa cility 08-31-2020 Covid (Moderna) [facility] 08-03-2020 Covid [facility] 03-21-2020 influenza, injectabl e, quadrivalent, preservative free Dr. Renzo De Paz Work Phone: [facility] 03-21-2020 influenza, seasonal, injectable [facility] Payers Date Payer Category Payer Self-pay [id number] 2017 Unknown [id number] 2013 Medicare [id number] Unknown [id number] 2.16.8 [id number] Unknown [id number] 2.16.8 [id number] Unknown [id number] 2.16.8 [id number] Unknown [id number] 2.16.8 [id number] Unknown [id number] 2.16.8 [id number] Unknown [id number] 2.16.8 [id number] Unknown [id number] 2.16.8 [id number] Unknown [id number] 2.16.8 [id number] Unknown [id number] 2.16.8 [id number] Unknown [id number] 2.16.8 [id number] Unknown [id number] 2.16.8 [id number] Unknown [id number] 2.16.8 [id number] Unknown [id number] 2.16.8 [id number] Unknown [id number] 2.16.8 [id number] Unknown [id number] 2.16.8 [id number] Social History Date Type Detail Facility Start: 07-25-2020 End: 06-11-2023 Tobacco smoking status NHIS Unknown if ever smoked [facility] Start: 07-25-2020 Non-smoker [facility] Start: 1950 Sex Assigned At Female [facility] Start: 06-11-2023 Tobacco smoking status NHIS Never smoked tobacco (finding) [facility] Sex Female [facility] NEGATED: Highlighted row [facility] Goals Date Patient Goal Desired Activity /State Mental Status Date Assessment Result Facility 12-18-2024 Cognitive function Awake;Alert;A ppropriate;Follow s Commands [facility] Work Phone: 03-21-2023 Cognitive function Level Of Cons ciousness Follows Commands;Drowsy [facility] [facility] Work Phone: 03-21-2023 Cognitive function Patient Orien tation Person;Place;Time [facility] Work Phone: Clinical Notes 03-21-2023 to 03-05-2025 Note Date & Type Note Facility 03-05-2025 Progress note [facility] 01-14-2025 Evaluation note Diagnosis Onset Date Resolution Hypergastrinemia acute January 142024 1:58pm Diarrhea chronic January 14 1:58pm Exocrine pancreatic insufficiency chronic January 14, 2025 1:58pm HTN (hypertension), benign acute March 05, 2025 10:26am 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 Renzo De Paz DO, with the diagnosis of vertigo for a total of 2 visit(s). Discharge Date: 11/17/24 Please see the following information for a summary of their discharge status. Subjective Subjective: No spinning, balance is normal. 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 Goals Goal 1:: abolish dizzyness in bed at night Goal Progress: Goal Met Goal 2:: Pt able to put dishs away without LOB Goal Progress: Goal Met Goal 3:: Pt feel dizzyness 100% back to normal Goal Progress: Goal Met Goal 4:: DHI score 8 or less. Goal Progress: Goal Met Plan Plan: d/c D/C Information Discharge Comments: BPPV resolved at this time. d/c sentence: If there are questions or concerns regarding this patient's physical therapy, please feel free to call me at [phone]. Thank you for the referral of thispatient. Sincerely, Lazaro Ross DPT, ERIC, ESTEFANI Balance/Gait/Functional tests Balance/Special Test Scores Functional Gait Assessment Score: 27 % Disability: 10.0000 Dizziness Score: 4 Improvement % Improvement: 100 <Electronically signed by Lazaro Ross DPT, ERIC, CSCS> 11/17/24 1342 CC: Dr. Renzo De Paz DO ~ EBG Signed [facility] Work Phone: 1(941) 477-924706-10-2025 Discharge summary [facility] Physical Therapy [facility] [address] [place] [address] [address] [place] [address] / REHABILITATION SERVICES DISCHARGE SUMMARY MR#: [id number] Acct: [id number] Name: MAGDY RUFF Rep #: : 1950 74 From: Lazaro Ross DPT, ERIC, CSCS Referring Dr.: Dr. 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 Renzo De Paz DO, with the diagnosis of vertigo for a total of 2 visit(s). Discharge Date: 11/17/24 Please see the following information for a summary of their discharge status. Subjective Subjective: No spinning, balance is normal. 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 Goals Goal 1:: abolish dizzyness in bed at night Goal Progress: Goal Met Goal 2:: Pt able to put dishs away without LOB Goal Progress: Goal Met Goal 3:: Pt feel dizzyness 100% back to normal Goal Progress: Goal Met Goal 4:: DHI score 8 or less. Goal Progress: Goal Met Plan Plan: d/c D/C Information Discharge Comments: BPPV resolved at this time. d/c sentence: If there are questions or concerns regarding this patient's physical therapy, please feel free to call me at [phone]. Thank you for the referral of thispatient. Sincerely, Lazaro Ross, DPT, OCS, CSCS Balance/Gait/Functional tests Balance/Special Test Scores Functional Gait Assessment Score: 27 % Disability: 10.0000 Dizziness Score: 4 Improvement % Improvement: 100 11/17/24 1342 CC: Dr. Renzo De Paz, DO ~ EBG Signed [facility]02-07-2025 Evaluation note* Diagnosis Onset Date Resolution Status Admit Date Hypergastrinemia acute July 17, 2024 1:29pm Diarrhea chronic July 17, 2024 1:29pm Exocrine pancreatic insufficiency chronic July 17 1:29pm [facility] Work Phone: 1(107) 867-337411-28-2023 Discharge summary Author Quynh Cole [facility] May 07, 2023 2:01pm Note Date/Time May 07, 2023 2:01pm [facility] Physical Therapy [facility] [address] [place] [address]. [address] [place] [address] / REHABILITATION SERVICES DISCHARGE SUMMARY MR#: [id number] Acct: [id number] Name: MAGDY RUFF Rep #: [id number] : 1950 73 From: Quynh Cole PT, Cert. 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 Discharge Date: 05/07/23 Please see the following information for a summary of their discharge status. Subjective Subjective: IT DOESN'T ACHE ANYMORE. I CAN SLEEP ON MY LEFT SIDE. I CAN DO MYREGULAR HOUSE HOLD CHORES AND REGULAR ACTIVITIES INCLUDING PUTTING SEATBELT ON AND HOOKING BRA IN BACK. I CAN EVEN HOLD DRYING IN L HAND. WITH NORMAL ACTIVITIES IT IS MUCH IMPROVED BUT NOT COMPLETELY PAINFREE. PATIENT STATES SHE WOULD LIKE TO SEE HOW IT GOES ON HER OWN AT THIS POINT AND WILL FOLLOW UP WITH HER DOCTOR NEEDED. Pain Left Shoulder: Pain Intensity (Out of 10): 1 Overall Improvement % Improvement: 95 Objective Objective/Function: PATIENT WAS SEEN TODAY FOR RE-ASSESSMENT OF PROGRESS TOWARD THE SET PT GOALS AND THE NEED FOR FURTHER PHYSICAL THERAPY VS READINESS FOR DISCHARGE. UPON EXAM TODAY PATIENT HAS FULL L SHLD ROM ALL PLANES AND DENIES PAIN WITH TESTING EXCEPT MILD PAIN WITH IR TESTING AT THE END OF THE AVAILABLE RANGE. L UE STRENGTH IS 5/5 EXCEPT L SHLD ABD AND ER 4+/5. PATIENT DENIES PAIN WITH MMT'ING. SHE IS INDEP WITH A HEP. SEE QUICK DASH SCORE IMPROVEMENT AND GOALASSESSMENT BELOW. Goals Goal 1:: Patient will report participation in home exercise program activities aminimum of 5 days per week, as adjunct to skilled physical therapy intervention in preparation for independent home management upon discharge. Goal Progress: Goal Met Goal 2:: Patient will report an decrease of 14 in Quick Dash to show minimal clinical significant difference on patients functional outcome measure. Goal Progress: Goal Met Goal 3:: Patient will demo full AROM of the left shoulder without pain to ease ADL's Goal 4:: Patient will maintain proper posture t/o tx session to demo scapular s/s Goal Progress: Progressing Goal 5:: Patient will report no pain with ADL's for 1 week Goal Progress: Progressing Plan Plan: D/C TO INDEP HEP D/C Information d/c sentence: If there are questions or concerns regarding this patient's physical therapy, please feel free to call me at [phone]. Thank you for the referral of thispatient. Sincerely, Quynh Cole PT, Cert MDT Balance/Gait/Functional tests Balance/Special Test Scores Quick DASH Score: 6.8175 Improvement % Improvement: 95 <Electronically signed by Eduar Mendiola PT. MDT> 05/07/23 1401 CC: Dr. Renzo De Paz DO; Cee Henriquez NP ~ MAURICIO Signed [facility] Work Phone: 1(391) 977-699910-12-2023 Procedure [facility]21[facility]2023 [facility] Lonnie Dwyer [facility] 2023 9:57am Note Date/Time 2023 8 :54am [facility] Medical Records Department [address] [place] [address] Emergency Department Summary 04/15/23 MR#: [id number] Acct: [id number] Name: MAGDY RUFF Rep #:[id number] : 1950 73 From: Lonnie Dwyer MD PCP: Dr. Renzo De Paz DO Status:REG ER Location: ED HPI History of Present Illness Chief Complaint: Lower Extremity Injury Detail of Chief Complaint: Hip pain right side Informant: patient Occured/Mechanism Comment: No history of trauma. History of osteoporosis. Onset/Context/Timing Onset: Yesterday Context: Sudden Onset Timing: Continuous and Waxes and wanes Quality of Pain: Aching Location: Right inguinal, greater trochanteric and area of ischial tuberosity Current Severity: Gone Maximum Severity: Severe Worsened by: Weightbearing Relieved by: Sitting or supine position Associated Symptoms Associated Symptoms: Negative for Parasthesia, Weakness or Loss of Funtion Narrative Narrative: Patient is a 73-year-old woman history of breast cancer, ductal carcinoma in situ left breast, essential hypertension, hyperlipidemia and osteoporosis who presents with atraumatic pain in the right hip region that started yesterday. She states she went to [facility] with her grandchild. She walked around [facility]. Shethen got in her car to drive to her brothers. When she arrived at her brother'med she had severe pain with weightbearing. She denies paresthesia, anesthesia or motor weakness. She denies history of DVT. She denies leg swelling or discoloration. She denies symptoms of claudication. She localizes the pain in the right buttocks, greater trochanteric region and right inguinal area. She does complain of pain radiating posteriorly as well as anteriorly. She has an appointment with Dr. Kay her pain management physician this afternoon. She presents because of the pain. She denies weight loss or weight gain. She denies night sweats. She denies fever or chills. She denies dysuria, frequency, urgency or hematuria. She denies similar pain. 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 Essential (primary) hypertension Gastric reflux Herniated disc, cervical History of echocardiogram History of pain when walking Hyperlipidemia IBS (irritable bowel syndrome) Impingement of left shoulder Malignant neoplasm of right breast Malignant neoplasm of right female breast MGUS (monoclonal gammopathy of unknown significance) Non-smoker Obesity Osteoporosis Personal history of colonic polyps Wears glasses Home Medications lorazepam 1 mg tablet 1 mg PO QHS 04/22/17 [History Last Taken Unknown] metoprolol succinate 50 mg tablet,extended release 24 hr 50 mg PO DAILY 04/22/17[History Last Taken 03/21/23 03:30] acetaminophen 500 mg tablet (Tylenol Extra Strength) 500 mg PO Q6H PRN Pain Score 1-03/1911/12/18 [History Last Taken Unknown] cyclobenzaprine 10 mg tablet 10 mg PO TID PRN muscle spasm 01/30/22 [History Last Taken Unknown] ghicfz-lmlxjvfx-tjdvfed 40,000-126,000-168,000 unit capsule, delay rel (Zenpep) See Rx Instructions PO TID #320 caps 04/25/22 [Rx Last Taken Unknown] escitalopram oxalate 20 mg tablet 20 mg PO QHS 05/28/22 [History Last Taken Unknown] simvastatin 40 mg tablet 40 mg PO QHS 05/28/22 [History Last Taken Unknown] lisinopril 10 mg-hydrochlorothiazide 12.5 mg tablet 1 tab PO DAILY 10/19/22 [History Last Taken Unknown] famotidine 40 mg tablet 40 mg PO BID #60 tabs 12/05/22 [Rx Last Taken 03/21/23 03:30] colestipol 1 gram tablet 1 g PO QHS 03/19/23 [History Last Taken Unknown] Allergy/AdvReac Type Severity Reaction Status Date / Time No Known Allergies Allergy Verified 04/15/23 08:30 Family History Mother Heart disease Hypertension Anxiety Hyperlipidemia Sister Diabetes Heart disease Hypertension Brother Diabetes Father Heart disease Hypertension Surgical History History of cholecystectomy History of hysterectomy History of lumpectomy of right breast (2001) History of mastectomy (~1997) Social History (Updated 04/15/23 @ 08:[address] Lonnie Dwyer MD) household members: spouse Smoking Status: Never smoker alcohol intake: never ROS ROS ED Constitutional Constitutional ED: Denies chills, fever(s), subjective, sweats or weight loss Eyes Eyes: Denies blurry vision, change in vision or diplopia Cardiovascular Cardiovascular: Denies chest pain or palpitations Respiratory/Chest Respiratory/Chest: Denies cough, dyspnea or dyspnea on exertion Gastrointestinal Gastrointestinal: Denies abdominal pain, constipation, diarrhea, nausea or vomiting Genitourinary Genitourinary ED: Denies dysuria, hematuria or urinary frequency Musculoskeletal Musculoskeletal: Reports other Details: Per HPI narrative ; Denies arthralgias, back pain, myalgias or neck pain Integumentary Denies rash Neurologic Neurologic: Denies paresthesias or weakness Hematologic/Lymphatic Hematologic/Lymphatic: Denies easy bleeding or easy bruising EXAM Physical Exam Const Vital Signs: 04/15/23 08:27 Temperature 97.0 F L Temperature Source Temporal Pulse Rate 73 Respiratory Rate 14 Blood Pressure 144/74 H Blood Pressure Mean 97 Pulse Ox 97 Oxygen Delivery Method Room Air Positive well nourished, well developed and obese General Appearance ED: well developed and NAD Nutritional Appearance: obese HEENT Reports moist mucous membranes normocephalic and atraumatic Eyes PERRL Eyes Narrative: Extraocular muscles are intact. Sclera is anicteric. Conjunctive is pink Neck full ROM and supple Chest Wall inspection of chest normal and palpation of chest normal Resp normal respiratory effort, no retractions and clear to auscultation bilaterally Cardio regular rate, regular rhythm, S1 normal heart sound, S2 normal heart sound and no murmurs GI non-tender, non-distended and no masses GI Narrative: There is no palpable or pulsatile mass. There is no abdominal bruit. Palpation: soft Back/Spine Lumbar Spine / Lower Back: Negative for lumbar spinal tenderness Extremity normal to inspection and full ROM Extremity Narrative: Patient able to lift her right lower extremity up against gravity. Logrolling does not cause discomfort. Zaid Mathew test is positive with pain in the right inguinal area which would suggest hip pathology. There is no pain with palpation over the greater trochanteric region or the ischial tuberosity. DP and PT pulse are palpable. There is no stigmata of PAD. Passive as well as active flexion and extension at the hip and knee elicits no pain. There are no dermatologic lesions noted. General Extremety ED: Yes weight-bearing difficulty; Negative for cyanosis or edema General Extremity: weight-bearing difficulty; Negative for cyanosis or edema Neuro oriented x3, CN's II-XII intact bilaterally and moves all extremities Sensorium / Orientation: alert Plantar Reflex: Downgoing: bilateral (There is no clonus.) Psych mental status grossly normal Skin no wounds Lesions: no lesions Rashes: no rashes MDM MDM MDM Narrative Medical decision making narrative: Differential diagnosis would include degenerative joint disease, osteoporosis, avascular necrosis. Doubt greater trochanteric bursitis since there is no tenderness over that area. Since patient has no pain with active or passive range of motion doubt pyogenic arthritis or crystal induced arthritis. X-ray was obtained. Patient was offered pain medicine which she declined. History & Record Review Additional record(s) reviewed:: Prior ED visit and Prior labs Radiography Chest X-Ray - ED: Read by ED Physician (Three-view x-ray of the right hip was independent reviewed interpreted by me as degenerative changes. There is no evidence of fracture or changes suggest avascular necrosis. There is no asymmetry of the joint.) Diagnostic Testing: Clinical Impression(s) from Imaging Studies Hip/Pelvis X-Ray 04/15/23 09:10 IMPRESSION: Degenerative changes. Electronically Signed: Tomi Hinton MD at 9:37 EST , Treatment and Re-Evaluation Narrative: Patient and were informed of x-ray results. They were instructed to keep their appointment with Dr. Kay for noon this afternoon. Her pain improved significantly with IV morphine. Since she is in pain management prescription was not dispensed. Furthermore she has an appointment with pain management at noon Discharge Plan Triage Chief Complaint: Lower Extremity Injury ED Provider: Lonnie Dwyer Dx/Rx/DC Orders Clinical Impression: Acute pain of right hip, History of breast cancer, Osteoarthritis of right hip,Hyperlipidemia, GERD (gastroesophageal reflux disease) Instructions: ED Osteoarthritis Prescriptions: No Action acetaminophen [Tylenol Extra Strength] 500 mg tablet 500 mg PO Q6H PRN (Reason: Pain Score 1-10/10) cyclobenzaprine 10 mg tablet 10 mg PO TID PRN (Reason: muscle spasm) simvastatin 40 mg tablet 40 mg PO QHS escitalopram oxalate 20 mg tablet 20 mg PO QHS famotidine 40 mg tablet 40 mg PO BID Qty: 60 5RF lisinopril-hydrochlorothiazide 10-12.5 mg tablet 1 tab PO DAILY metoprolol succinate 50 MG tablet extended release 24 hr 50 mg PO DAILY lorazepam 1 MG tablet 1 mg PO QHS colestipol 1 gram tablet 1 g PO QHS Zenpep 40,000-126,000- 168,000 unit capsule,delayed release(DR/EC) See Rx Instructions PO TID Qty: 320 11RF Rx Instructions: take 2-3 capsules with meals and 1-2 with snacks Primary Care Provider: Renzo De Paz Referrals: Damion Hooks MD [Med Staff - Active Staff] - Keep Brandon appointment Renzo De Paz DO [Primary Care Provider] - Disposition Disposition: Home, Self Care What to do if you have Problems For any increased pain, shortness of breath, bleeding, nausea or vomiting, chestpain, or any unexpected problems, contact your Primary Care Provider. Call [facility] ([phone]) or report to the closest Emergency Room. Call 911 if necessary. 04/15/23 0957 <Electronically signed by Lonnie Dwyer MD> Cosigner Signature (if applicable): CC: Dr. 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 Malignant neoplasm of right female breast chronic 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 Malignant neoplasm of right female breast chronic MGUS (monoclonal gammopathy of unknown significance) chronic Hypergastrinemia acute Exocrine pancreatic insufficiency chronic [facility] Work Phone: Evaluation note* Diagnosis Onset Date Resolution Status 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 Malignant neoplasm of right female breast chronic MGUS (monoclonal gammopathy of unknown significance) chronic Hypergastrinemia acute Exocrine pancreatic insufficiency chronic [facility] Work Phone: Evaluation note* Diagnosis Onset Date Resolution Status Impingement of left shoulder acute [facility] Work Phone: Evaluation note* Diagnosis Onset Date Resolution Status Impingement of left shoulder acute Hypergastrinemia acute Exocrine pancreatic insufficiency chronic [facility] Work Phone: Evaluation note* Diagnosis Onset Date Resolution Status Impingement of left shoulder acute Hypergastrinemia acute Exocrine pancreatic insufficiency chronic Acute sinusitis acute History of breast cancer acu te Osteoporosis acute 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 Malignant neoplasm of right female breast chronic 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 Right hip pain acute Tear of right gluteus medius tendon acute [facility] Work Phone: Evaluation note* Diagnosis Onset Date Resolution Status Acute sinusitis acute Right hip pain acute Tear of right gluteus medius tendon acute 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 Malignant neoplasm of right female breast chronic MGUS (monoclonal gammopathy of unknown significance) chronic History of breast cancer acu te Osteoporosis acute 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 Malignant neoplasm of right female breast chronic 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 [facility] Work Phone: Evaluation note* Diagnosis Onset Date Resolution Status Right hip pain acute Tear of right gluteus medius tendon acute 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 Malignant neoplasm of right female breast chronic MGUS (monoclonal gammopathy of unknown significance) chronic History of breast cancer acu te Osteoporosis acute 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 Malignant neoplasm of right female breast chronic 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 [facility] Work Phone: Evaluation note* Diagnosis Onset Date Resolution Status 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 Malignant neoplasm of right female breast chronic MGUS (monoclonal gammopathy of unknown significance) chronic History of breast cancer acu te Osteoporosis acute 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 Renzo De Paz, DO Status:[place] [facility] [place]: [address] History and Physical Date of Admission: 03/21/23 MGUS & Breast cancer follow-up Details: MAGDY RUFF, is a 72 F who presents to the office today for follow up. PMH breast cancer, osteopenia/porosis for which she is supposed to take a medication but because of bloating and diarrhea she is not able to take the additional Vit D and calcium.? PSH cholecystectomy ? *BGI established 04.10.22. Diarrhea and reflux with stomach pain/discomfort has been ongoing for many years.?Nexium?used for the last ten years with varying effectiveness;?Sucralfate?is helpful. EGD with Dr. Jarvis noted gastritis. ? Loose stools 2-3 times a morning with worsening intensity and yellow color and oily consistency with recent worsening to include increased gas, worsening consistency and increased frequency.?Metamucil (citrus flavored),?improved loosestools but caused increased reflux.??PCP also prescribed?Lomotil?which was helpful with increased symptoms and is now returned to her baseline of diarrhea.Increased difficulty with particular foods which she attempts to avoid. ? Biochemical?CBC, amylase, LDH, lipase, ESR, RENEE comp, ANCA, celiac, GAME, anti-parietal ab, intrinsic factor, IBD profile without pertinent abnormality.? AlkP H149, CRP H7.10, gastrin H564, M-Vicente 0.2;?RAST Equivocal/low cow?s milk, egg? Stool testing lactoferrin, C.Difficile, ova/parasite, giardia, calprotectin WNL.?Elastase L151, fecal fats neutral and total +? Zenpep, sucralfate, Nexium. ? OV 1.27.23 Continues to have intermittent epigastric pain and minimal bloating. Overall though her symptoms have much improved with use of Zenpep to include resolution of loose stools. ? Would like to know if she should use sucralfate (Rx?d by PCP) versus Nexium. Is looking at steroid injections but would like to know if this will affect her pancreatic function. ? ? Pt doing better since last visit. Denies HB, abdominal pain and bloating. StatesPepcid has been helpful. Has increased Zenpep to 3 with meals and diarrhea has gotten better but still has some issues. Has 2 loose BM in the morning but is fine the rest of the day.. ROS Const Constitutional: Positive for weakness; No fatigue ENT ENT: No difficulty swallowing Cardio Cardiology: Positive for leg pain with exertion Gastro GI: Positive for bloating, diarrhea, heartburn and excessive flatus; No abdominal pain, belching, change in bowel habits, change in stool character, coffee ground emesis, constipation, cramping, difficulty swallowing, feeling full early, incontinent of stools, Vomiting blood/hematemesis, Blood in stool, loose stools, Black,tarry stools, nausea/dyspepsia, pain with swallowing, vomiting or other Musc Musculoskeletal: Positive for joint pain, back pain, stiffness, Arthritis and leg pain with exertion Skin Skin: No yellowing of the eye or itchy eyes Neuro Neurology: Positive for weakness Psych Psychiatric: Positive for anxiety and Positive for depression Endo Endocrine: No fatigue Aller/Imm Allergy/Immunologic: No itchy eyes Jordan/Lymp Hematologic/Lymphatic: No easy bleeding or easy bruising Exam Const General: cooperative and comfortable Nutritional Appearance: average body habitus and well nourished HENHI Head: normal to inspection Ears: hearing grossly normal bilaterally Nose: external nose normal Face and sinus: normal facial exam Mouth: oral mucosae normal Throat: posterior oropharynx normal Eyes General: appearance normal, both eyes and all related structures Neck Neck: normal visual inspection Chest Chest palpation & inspection: normal inspection of the chest and normal palpation of entire chest wall Resp Effort & Inspection: normal respiratory effort Auscultation: Bilateral: Clear to Auscultation Cardio Palpation: normal PMI Rate: regular rate Rhythm: regular rhythm GI Inspection: normal to inspection Auscultation: normal bowel sounds Percussion: normal to percussion Palpation: no hepatosplenomegaly Skin General: no rashes or lesions noted Neuro General: patient alert Extrem General: normal to inspection Psych Affect: normal affect Quality Reporting Tobacco Screening ([facility]) Smoking Status: Never smoker Assessment and Plan Assessment and Plan (1) Hypergastrinemia: Status: Acute Plan: I suspect hypergastrinemia is secondary to PPI therapy. Therapy and we will wean her off PPI therapy. She will stop Sulcrafate therapy. I will start her onBID PPI therapy. (2) Exocrine pancreatic insufficiency: Status: Chronic Plan: She will continue on pancreatic enzymes at her current dose. I suspect that shehas an activation of pancreatic enzymes due to her she has hypergastrinemia and decrease amount of acid that is needed to activate pancreatic enzymes. Therefore we will continue to supplement her and hopefully when we recheck her fecal elastase will be within normal limits. Orders: Orders Fecal Fat, Qualitative Today E16.4 - Increased secretion of gastrin Pancreatic Elastase, Fecal Today E16.4 - Increased secretion of gastrin Gastrin, Serum Today E16.4 - Increased secretion of gastrin, K86.81 - Exocrine pancreatic insufficiency Medications: New colestipol 2 grams (2 x 1 gram) PO QHS 60 tabs 0RF Refilled famotidine 40 mg PO BID 60 tabs 5RF I have examined the patient and the H&P has been reviewed. There are no clinicalchanges since date of exam. 03/21/23637 <Electronically signed by Yonatan Avila DO> Cosigner Signature (if applicable): CC: Dr. Renzo De Paz, DO; Yonatan Avila, ~ Signed [facility] Work Phone: Progress note Author Rakan Adkins [facility] Note Date/Time March 05, 2025 11:06am [facility] [address] [place] [address] OFFICE VISIT Date of Service: 03/05/25 MR#: [id number] Acct: [id number] Name: MAGDY RUFF Rep # : [id number] : 1950 Provider: Dr. 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 In 2001 she was diagnosed with invasive ductal carcinoma of the right breast for which she underwent partial mastectomy and axillary lymph node dissection. She also has a history of hypertension and hyperlipidemia on therapy. She presents for a cardiac evaluation in the cardio oncology clinic due to previous exposure to anthracycline therapy in 2001. She did have a coronary calcium scan in October 2018 demonstrating a total calcium scoreof 220 and an echocardiogram demonstrating an ejection fraction of 65% with a global longitudinal strain of - 19.9. Minimal carotid stenosis was noted. Her most recent lipid profile demonstrates a total cholesterol 146 HDL of 51 LDL of 70. 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: No Accompanied by: Self Is patient in pain?: Yes (Occasional lower back pain ) Pain scale (1-10): 3 Allergies pollen extracts Allergy (Verified 03/05/25 10:44) sneezy runny nose amlodipine Adverse Reaction (Verified 03/05/25 10:44) edema Medications ?Medication ?Instructions ?Recorded ?Confirmed ?Type lorazepam 1 mg tablet 1 mg PO QHS 04/22/17 5 History metoprolol succinate 50 mg 50 mg PO DAILY 04/22/17 History tablet,extended release 24 hr acetaminophen 500 mg tablet 500 mg PO Q6H PRN Pain Sco re 11/12/18 03/05/25 History (Tylenol Extra Strength) -03/19 [id number] See Rx Instructions PO TID # 320 04/25/22 03/05/25 Rx 40,000-126,000-168,000 unit caps capsule, delay rel (Zenpep) escitalopram oxalate 20 mg tablet 20 mg PO QHS 2 03/05/25 History simvastatin 40 mg tablet 40 mg PO QHS 05/28/22 History hydrocodone-acetaminophen 5-325mg 1 tab PO QHS 4 03/05/25 History 5mg-325mg denosumab 60 mg/mL subcutaneous 60 mg subcut [id number] 01/13/24 03/05/25 History syringe (Prolia) cholecalciferol (vitamin D3) 50 2,000 unit PO DAILY 03/05/25 History mcg (2,000 unit) capsule (D3-2000) spironolactone 50 mg tablet 50 mg PO DAILY 06/12/24 History colestipol 1 gram tablet 1 g PO QHS #30 tabs 07/02/24 03/05/25 Rx famotidine 40 mg tablet 40 mg PO BID #60 tabs 03/05/25 Rx Have you fallen in the past year?: No PFSH Medical History Tear of right gluteus medius tendon Right hip pain Impingement of left shoulder Wears glasses Osteoporosis Herniated disc, cervical Gastric reflux Non-smoker Bursitis History of pain when walking History of echocardiogram Cardiology follow-up encounter Cystocele with rectocele MGUS (monoclonal gammopathy of unknown significance) Bilateral carotid artery stenosis CAD (coronary artery disease) Diastolic dysfunction Essential (primary) hypertension IBS (irritable bowel syndrome) Anxiety and depression DJD (degenerative joint disease), lumbosacral Obesity Hyperlipidemia Personal history of colonic polyps Ductal carcinoma in situ (DCIS) of left breast Malignant neoplasm of right breast Ductal carcinoma in situ (DCIS) of left breast Malignant neoplasm of right female breast Surgical History History of lumpectomy of right breast (2001) History of hysterectomy History of mastectomy (~1997) History of cholecystectomy Family History Mother Heart disease Hypertension Anxiety Hyperlipidemia Sister Diabetes Heart disease Hypertension Brother Diabetes Father Heart disease Hypertension Social History household members: spouse Smoking Status: Never smoker alcohol intake: never ROS Const Const: Negative for fatigue, body ache, fever(s) or chills ENT ENT: Positive for balance problems; Negative for dizziness or Nosebleed/epistaxis Cardio Chest Pain: No Palpitations: No Edema: None Muscle aches with walking: None Resp Respiratory: Negative for SOB with activity, SOB at rest, SOB orthopnea\SOB lying down, Cough or paroxysmal nocturnal dyspnea GI GI: Negative nausea, bright, red blood in stools, black,tarry stools or loose stools : Negative for hematuria or frequent nighttime urination/ nocturia Musc Musc: Positive for muscle aches/ myalgia (Lower back ) and balance problems Skin Skin: Negative non-healing lesions Neuro Neuro: Negative for dizziness, lightheadedness, near syncope, syncope or orthostatic symptoms Endo Endo: Negative for fatigue Cardiology Exam Const Appearance: cooperative, healthy appearing, no acute distress, well developed and well groomed Nutritional Appearance: average body habitus and well nourished Orientation: alert, awake and oriented x3 Head Head: normal to inspection, normocephalic and atraumatic Ears: hearing grossly normal bilaterally and external ears normal Nose: external nose normal, nares normal, nasal mucous membranes and turbinates normal, septum normal and no nasal discharge Face and Sinus: face symmetric Mouth: oral mucosae normal, tongue normal, oropharynx normal and moist mucous membranes Teeth and gingiva: dentition normal Throat: posterior oropharynx normal, tonsils normal and uvula midline Eyes General: appearance normal, both eyes and all related structures Eyelids: eyelids normal Conjunctivae: conjunctivae normal Pupils: PERRL, normal by confrontation and accommodation normal EOM: EOM intact bilaterally Neck Neck: normal visual inspection, trachea midline and no JVD JVD: +5 Carotids: normal carotid upstroke and bounding pulses Chest Chest inspection: normal inspection of the chest, symmetric chest movement and normal respiratory effort Auscultation: Bilateral: Clear to Auscultation Cardio Palpation: normal PMI Rate: regular rate Rhythm: regular rhythm Heart sounds: S1 normal, S2 normal and normal, physiologic split S2; Negative rub, gallop or murmur GI GI: normal to inspection, soft, no hepatosplenomegaly and bowel sounds present Neuro General: patient alert, patient awake, patient oriented x3, gait normal, moves all extremities and no focal sensory deficit Skin Skin: no rashes or lesions noted Extremities Pulses: Normal: Right Femoral Pulse, Left Femoral Pulse, Right Dorsalis Pedis Pulse, Left Dorsalis Pedis Pulse, Right Posterior Tibial Pulse, Left Posterior Tibial Pulse, Right Radial Pulse and Left Radial Pulse Lower Extremity Edema: None: Bilateral Musculoskel Musculoskeletal: No joint tenderness Psych Psychological: normal affect Supplemental Info Supplemental Information Labs: HDL Cholesterol, (40-) 51 mg/dL Cholesterol, (<=200) 146 mg/dL Triglycerides, (-199) 125 mg/dL Diagnostics: Electrocardiogram Echocardiogram Stress Test Stress Test Nuclear Medicine Chest X-Ray Carotid Duplex Coronary Angiography CT Venous Doppler Study Past Visits: Cardiology Visit Today Assessment and Plan Assessment and Plan (1) Ductal carcinoma in situ (DCIS) of left breast: Status: Chronic Plan: This appears to be stable. She is following with the oncology service. Her last echocardiogram 2 years ago demonstrated preserved function. Repeat echocardiogram will be performed. (2) HTN (hypertension), benign: Status: Acute Plan: She is currently on metoprolol and spironolactone. It appears the lisinopril and the hydrochlorothiazide has been changed for reasons that are not entirely clear to me. If her electrolytes can be checked at your next visit I will be most grateful. Thank you for allowing me to participate in the care of your patient. Please don't hesitate to call if any issues arise. (3) Abnormal Heart Score CT: Status: Inactive Plan: Due to have normal calcium score she underwent a pharmacologic myocardial perfusion stress test which demonstrated no evidence of ischemia. Orders: Orders ONC Echo Complete Today I34.0 - Nonrheumatic mitral (valve) insufficiency Plan Details Follow Up: 1 Year (java portal developer/onc) Coding Level of Care Code Off vis,est,level 4 Diagnoses Ductal carcinoma in situ (DCIS) of left breast D05.12 HTN (hypertension), benign I10 Abnormal Heart Score CT R93.1 Coding Level of Care Code Off vis,est,level 4 Diagnoses Ductal carcinoma in situ (DCIS) of left breast D05.12 HTN (hypertension), benign I10 Abnormal Heart Score CT R93.1 Clinical Quality Measures Falls Risk Screening/Assistive Devices Have you fallen in the past year?: No 03/05/25 1107 <Electronically signed by Rakan Serna> Date _ Rakan Nazario Signature: Date (if applicable) CC: ~ [facility] Work Phone: Reason for referral (narrative)No reason for referral information availableWKettering Health Main Campus Work Phone: Family History No Family History Records Found Relationship Condition Age at Onset Recorded Date/T raul mother Cardiac disease Unknown Hypertension Unknown sister Diabetes mellitus Unknown Cardiac disease Unknown brother Diabetes mellitus Unknown Relationship Condition Age at Onset Recorded Date/T ralu mother Cardiac disease Unknown Hypertension Unknown Anxiety Unknown Hyperlipidemia Unknown sister Diabetes mellitus Unknown Cardiac disease Unknown brother Diabetes mellitus Unknown father Cardiac disease Unknown Advance Directives No Advanced Directives Records Found Advance Directive Response Recorded Date/ Time Living Will No October 29, 2017 9 :48am Power of Hedis Review Nurse No October 29, 2017 9:48am Advance Directive Response Recorded Date/ Time Living Will No October 29, 2017 8 :48am Power of Hedis Review Nurse No October 29, 2017 8:48am Advance Directive Response Recorded Date/ Time Name of Medical Power of Hedis Review Nurse FANNY GUZMAN March 19, 2023 10:24am Living Will Yes March 19 10:24am Power of Hedis Review Nurse Yes March 19, 2023 10:24am Advance Directive Response Recorded Date/ Time Name of Medical Power of Hedis Review Nurse FANNY GUZMAN March 19, 2023 9:24am Living Will No April 15 8:27am Power of Hedis Review Nurse No 2023 8:27am Advance Directive Response Recorded Date/ Time Living Will No April 15 9:27am Power of Hedis Review Nurse No 2023 9:27am Advance Directive Response Recorded Date/ Time Living Will No April 15 9:27am Do you have a Healthcare Power of Hedis Review Nurse? No 2023 9:27am Chief Complaint and Reason for Visit Chief Complaint Consult E ORDER E ORDER Reason for Visit Diarrhea GERD (gastroesophageal reflux disease) Chief Complaint Consult E ORDER E ORDER SCREENING Reason for Visit Diarrhea GERD (gastroesophageal reflux disease) Chief Complaint Amb Documentation NEW CARDIAC ONC PT MITRAL VALVE REGURGITATION ONC/HEM 6MO F/U -LABS PRIOR 5 MO FU E-OPRDER Reason for Visit HTN (hypertension), benign Ductal carcinoma in situ (DCIS) of left breast History of breast cancer Osteoporosis Ductal carcinoma in situ (DCIS) of left breast Malignant neoplasm of right female breast Osteopenia after menopause Ductal carcinoma in situ (DCIS) of left breast Malignant neoplasm of right female breast MGUS (monoclonal gammopathy of unknown significance) Hypergastrinemia Exocrine pancreatic insufficiency Chief Complaint 6MO F/U -LABS PRIOR 5 MO FU E-OPRDER Reason for Visit Ductal carcinoma in situ (DCIS) of left breast Malignant neoplasm of right female breast MGUS (monoclonal gammopathy of unknown significance) Hypergastrinemia Exocrine pancreatic insufficiency Chief Complaint LEFT SHOULDER RM 2 L SHOULDER RX HERE RIGHT HIP Reason for Visit Impingement of left shoulder Chief Complaint LEFT SHOULDER RM 2 RIGHT HIP 2 WK FU L SHOULDER RX HERE Reason for Visit Impingement of left shoulder Hypergastrinemia Exocrine pancreatic insufficiency Chief Complaint LEFT SHOULDER RM 2 RIGHT HIP 2 WK FU L SHOULDER RX HERE RIGHT HIP PAIN Reason for Visit Impingement of left shoulder Hypergastrinemia Exocrine pancreatic insufficiency Chief Complaint LEFT SHOULDER RM 2 RIGHT HIP 2 WK FU L SHOULDER RX HERE RIGHT HIP PAIN SCREENING Reason for Visit Impingement of left shoulder Hypergastrinemia Exocrine pancreatic insufficiency Chief Complaint LEFT SHOULDER RM 2 RIGHT HIP 2 WK FU L SHOULDER RX HERE RIGHT HIP PAIN SCREENING SORE THROAT, HEADACHE, COUGH, FATIGUE ONC/HEM RIGHT HIP Reason for Visit Impingement of left shoulder Hypergastrinemia Exocrine pancreatic insufficiency Acute sinusitis History of breast cancer Osteoporosis Ductal carcinoma in situ (DCIS) of left breast Malignant neoplasm of right female breast Osteopenia after menopause Right hip pain Tear of right gluteus medius tendon Chief Complaint L SHOULDER RX HERE RIGHT HIP PAIN SCREENING SORE THROAT, HEADACHE, COUGH, FATIGUE RIGHT HIP 6 MO - LABS PRIOR ONC/HEM PRIMARY OSTEOARTHRITIS LEFT ANKLE Reason for Visit Acute sinusitis Right hip pain Tear of right gluteus medius tendon Ductal carcinoma in situ (DCIS) of left breast Malignant neoplasm of right female breast MGUS (monoclonal gammopathy of unknown significance) History of breast cancer Osteoporosis Ductal carcinoma in situ (DCIS) of left breast Malignant neoplasm of right female breast Osteopenia after menopause Chief Complaint RIGHT HIP 6 MO - LABS PRIOR ONC/HEM PRIMARY OSTEOARTHRITIS LEFT ANKLE ACUTE EMBOLISM DVT Reason for Visit Right hip pain Tear of right gluteus medius tendon Ductal carcinoma in situ (DCIS) of left breast Malignant neoplasm of right female breast MGUS (monoclonal gammopathy of unknown significance) History of breast cancer Osteoporosis Ductal carcinoma in situ (DCIS) of left breast Malignant neoplasm of right female breast Osteopenia after menopause Chief Complaint 6 MO - LABS PRIOR ONC/HEM PRIMARY OSTEOARTHRITIS LEFT ANKLE ACUTE EMBOLISM DVT Reason for Visit Ductal carcinoma in situ (DCIS) of left breast Malignant neoplasm of right female breast MGUS (monoclonal gammopathy of unknown significance) History of breast cancer Osteoporosis Ductal carcinoma in situ (DCIS) of left breast Malignant neoplasm of right female breast Osteopenia after menopause Chief Complaint Admit Date 6 M FU July 17, 2024 1 :29pm FASTING October 28, 2024 10:10 am Reason for Visit Admit Date Hypergastrinemia July 17, 2024 1 :29pm Diarrhea July 17, 2024 1 :29pm Exocrine pancreatic insufficiency Februa 2024 1:29pm Chief Complaint Admit Date 6 M FU July 17, 2024 1 :29pm FASTING October 28, 2024 10:10 am ATHEROSCLEROSIS, L>R, UPDATE November 05, 2 025 1:43pm Chief Complaint Admit Date FASTING October 28, 2024 10:10 am ATHEROSCLEROSIS, L>R, UPDATE November 05, 2 025 1:43pm UPDATED BMD, ON PROLIA November 10, 2024 1: 11pm VESTIBULAR, RX HERE November 10, 2024 2:26p m Chief Complaint Admit Date FASTING October 28, 2024 10:10 am ATHEROSCLEROSIS, L>R, UPDATE November 05, 2 025 1:43pm ATHEROSCLEROSIS November 05, 2024 1:53p m UPDATED BMD, ON PROLIA November 10, 2024 1: 11pm VESTIBULAR, RX HERE November 17, 2024 1:30 pm Chief Complaint Admit Date FASTING October 28, 2024 10:10 am ATHEROSCLEROSIS, L>R, UPDATE November 05, 2 025 1:43pm ATHEROSCLEROSIS November 05, 2024 1:53p m UPDATED BMD, ON PROLIA November 10, 2024 1: 11pm VESTIBULAR, RX HERE November 17, 2024 1:30 pm PROLIA December 18, 2024 12:3 0pm Chief Complaint Admit Date FASTING October 28, 2024 10:10 am ATHEROSCLEROSIS, L>R, UPDATE November 05, 2 025 1:43pm ATHEROSCLEROSIS November 05, 2024 1:53p m UPDATED BMD, ON PROLIA November 10, 2024 1: 11pm VESTIBULAR, RX HERE November 17, 2024 1:30 pm PROLIA December 18, 2024 12:3 0pm 6 M FU January 14, 2025 1:5 8pm Chief Complaint Admit Date UPDATED BMD, ON PROLIA November 10, 2024 1: 11pm VESTIBULAR, RX HERE November 17, 2024 1:30 pm PROLIA December 18, 2024 12:3 0pm 6 M FU January 14, 2025 1:5 8pm 1 Y FU March 05, 2025 10:26am Reason for Visit Admit Date Hypergastrinemia January 14, 2025 1:5 8pm Diarrhea January 14, 2025 1:5 8pm Exocrine pancreatic insufficiency January 14, 2025 1:58pm HTN (hypertension), benign February 10:26am Ductal carcinoma in situ (DCIS) of left breast March 05, 2025 10:26am Abnormal Heart Score CT March 05, 2025 10:26am Summary Purpose Additional Source Comments Goals (unrecognized section and content) Goals may be documented in a n alternate sectionGoals may be documented in an alternate sectionGoals may be documented in an alternate sectionGoals may be documented in an alternate sectionGoals may be documented in an alternate sectionGoals may be documented in an alternate sectionGoals may be documented in an alternate sectionGoals may be documented in an alternate sectionGoals may be documented in an alternate sectionGoals may be documented in an alternate sectionGoals may be documented in an alternate sectionGoals may be documented in an alternate sectionGoals may be documented in an alternate sectionGoals may be documented in an alternate sectionGoals may be documented in an alternate sectionGoals may be documented in an alternate sectionGoals may be documented in an alternate section Care Teams (unrecognized sec tion and content) Team Status: Active Member Role Status Dates Dr. Javon Early MD Family Provider Active Dr. Renzo De aPz , DO Primary Care Provider Active Team Status: Inactive Member Role Status Dates Dr. Miranda Nguyen MD Attending Provider Active Dr. Renzo De Paz DO Primary Care Provider, Referrin g Provider Active Team Status: Inactive Member Role Status Dates Dr. Renzo De Paz DO Primary Care Provider, Referrin g Provider Active Dr. Yonatan Avila , DO Attending Provider Active Team Status: Inactive Member Role Status Dates Dr. Renzo De Paz DO Primary Care Provider, Referrin g Provider Active Dr. Rakan Adkins MD Attending Provider Active Team Status: Active Member Role Status Dates Dr. Renzo De Paz DO Primary Care Provider Active Griselda Pelayo Attending Provider Active Team Status: Active Member Role Status Dates Dr. Renzo De Paz DO Primary Care Provider Active Dr. Rakan Adkins MD Attending Provider Active Team Status: Active Member Role Status Dates Dr. Miranda Nguyen MD Attending Provider Active Dr. Javon Early MD Primary Care Provi kathi, Family Provider, Referring Provider Active Team Status: Inactive Member Role Status Dates Dr. Renzo De Paz DO Primary Care Provider Active Dr. Rakan Adkins MD Attending Provider, Referring Pro vider Active Team Status: Active Member Role Status Dates Dr. Renzo De Paz DO Primary Care Provider Active Dr. Yonatan Avila DO Attending Provider, Referring Provider Active Team Status: Inactive Member Role Status Dates Dr. Renzo De Paz DO Primary Care Provider Active Dr. Yonatan Avila , DO Attending Provider, Referring Provider Active Team Status: Active Member Role Status Dates Dr. Renzo De Paz DO Primary Care Provider Active Dr. Yonatan Avila DO Attending Provid er, Referring Provider, Other Provider Active Team Status: Inactive Member Role Status Dates Dr. Renzo De Paz DO Primary Care Provider, Referrin g Provider Active Cee Henriquez NP-C Attending Provider Active Team Status: Inactive Member Role Status Dates Dr. Renzo De Paz DO Primary Care Provider Active Dr. Rakan Adkins MD Attending Provider Active Team Status: Active Member Role Status Dates Dr. Renzo De Paz DO Primary Care Provider Active Cee Henriquez NP-C Attending Provider, Referring P rovider Active Team Status: Inactive Member Role Status Dates Dr. Renzo De Paz DO Primary Care Provider Active Dr. Lonnie Dwyer MD Emergency Provider Active Team Status: Inactive Member Role Status Dates Dr. Renzo De Paz DO Primary Care Provider Active Dr. Lonnie Dwyer MD Attending Provider, Emergency Provi kathi Active Team Status: Inactive Member Role Status Dates Dr. Renzo De Paz DO Primary Care Prov ider, Attending Provider, Referring Provider Active Team Status: Active Member Role Status Dates Dr. Renzo De Paz DO Primary Care Prov ider, Attending Provider, Referring Provider Active Team Status: Inactive Member Role Status Dates Dr. Renzo De Paz DO Primary Care Provider Active Cee Henriquez NP-C Attending Provider, Referring P rovider Active Team Status: Inactive Member Role Status Dates Dr. Renzo De Paz DO Primary Care Provider Active Dr. Miranda Nguyen MD Attending Provider, Referrin g Provider Active Team Status: Inactive Member Role Status Dates Dr. Renzo De Paz DO Primary Care Provider, Referrin g Provider Active Javon Barnard MD Attending Provider Active Team Status: Inactive Member Role Status Dates Dr. Renzo De Paz DO Primary Care Provider, Referrin g Provider Active Patel Rebolledo PA, PA Attending Provider Active Team Status: Inactive Member Role Status Dates Dr. Renzo De Paz DO Primary Care Provider, Referrin g Provider Active Dr. Miranda Nguyen MD Attending Provider Active Team Status: Inactive Member Role Status Dates Dr. Renzo De Paz DO Primary Care Provider Active Dr. Damion Meyer DPM Attending Provider, Referrin g Provider Active Team Status: Active Member Role Status Dates Dr. Renzo De Paz DO Primary Care Provider, Attendin g Provider Active Team Status: Inactive Member Role Status Dates Dr. Renzo De Paz DO Primary Care Provider, Attendin g Provider Active Team Status: Inactive Member Role Status Dates Dr. Renzo De Paz DO Primary Care Provider Active Ed Physician Provider Emergency Provider Active Team Status: Active Member Role Status Dates Dr. Renzo De Paz DO Primary Care Provider Active Dr. Damion Meyer DPM Attending Provider, Referrin g Provider Active Team Status: Active Member Role Status Dates Dr. Renzo De Paz DO Primary Care Provider Active Dr. Lazaro Monroy MD Attending Provider Active Team Status: Active Member Role Status Dates Dr. Renzo De Paz DO Primary Care Provider Active Team Status: Inactive Member Role Status Dates Dr. Renzo De Paz DO Primary Care Provider Active Start: July 17, 2024 End: July 17, 2024 Dr. Renzo De Paz DO Referring Provider Active Start: July 17, 2024 End: July 17, 2024 Dr. Yonatan Avila DO Attending Provider Active Start: July 17, 2024 End: July 17, 2024 Team Status: Inactive Member Role Status Dates Dr. Renzo De Paz DO Primary Care Provider Active Start: October 28, 2024 End: October 28, 2024 Dr. Renzo De Paz DO Attending Provider Active Start: October 28, 2024 End: October 28, 2024 Dr. Renzo De Paz DO Referring Provider Active Start: October 28, 2024 End: October 28, 2024 Team Status: Inactive Member Role Status Dates Dr. Renzo De Paz DO Primary Care Provider Active Start: November 05, 2024 End: November 05, 2024 Dr. Renzo De Paz DO Attending Provider Active Start: November 05, 2024 End: November 05, 2024 Dr. Renzo De Paz DO Referring Provider Active Start: November 05, 2024 End: November 05, 2024 Team Status: Inactive Member Role Status Dates Dr. Renzo De Paz DO Primary Care Provider Active Start: November 10, 2024 End: November 10, 2024 Dr. Renzo De Paz DO Attending Provider Active Start: November 10, 2024 End: November 10, 2024 Dr. Renzo De Paz DO Referring Provider Active Start: November 10, 2024 End: November 10, 2024 Team Status: Active Member Role Status Dates Dr. Renzo De Paz DO Primary Care Provider Active Start: November 10, 2024 Dr. Renzo De Paz DO Attending Provider Active Start: November 10, 2024 Dr. Renzo De Paz DO Referring Provider Active Start: November 10, 2024 Team Status: Active Member Role Status Dates Dr. Imer Daniel MD Attending Provider Active Start: November 05, 2024 Dr. Renzo De Paz DO Referring Provider Active Start: November 05, 2024 Team Status: Inactive Member Role Status Dates Dr. Renzo De Paz DO Primary Care Provider Active Start: November 17, 2024 End: November 17, 2024 Dr. Renzo De Paz DO Attending Provider Active Start: November 17, 2024 End: November 17, 2024 Dr. Renzo De Paz DO Referring Provider Active Start: November 17, 2024 End: November 17, 2024 Team Status: Active Member Role/Relationship Status Dates Dr. Renzo De Paz DO Primary Care Provider Active Team Status: Inactive Member Role/Relationship Status Dates Dr. Renzo De Paz DO Primary Care Provider Active Start: October 28, 2024 End: October 28, 2024 Dr. Renzo De Paz DO Attending Provider Active Start: October 28, 2024 End: October 28, 2024 Dr. Renzo De Paz DO Referring Provider Active Start: October 28, 2024 End: October 28, 2024 Team Status: Inactive Member Role/Relationship Status Dates Dr. Renzo De Paz DO Primary Care Provider Active Start: November 05, 2024 End: November 05, 2024 Dr. Renzo De Paz DO Attending Provider Active Start: November 05, 2024 End: November 05, 2024 Dr. Renzo De Paz DO Referring Provider Active Start: November 05, 2024 End: November 05, 2024 Team Status: Active Member Role/Relationship Status Dates Dr. Imer Daniel MD Attending Provider Active Start: November 05, 2024 Dr. Renzo De Paz DO Referring Provider Active Start: November 05, 2024 Team Status: Inactive Member Role/Relationship Status Dates Dr. Renzo De Paz DO Primary Care Provider Active Start: November 10, 2024 End: November 10, 2024 Dr. Renzo De Paz DO Attending Provider Active Start: November 10, 2024 End: November 10, 2024 Dr. Renzo De Paz DO Referring Provider Active Start: November 10, 2024 End: November 10, 2024 Team Status: Inactive Member Role/Relationship Status Dates Dr. Renzo De Paz DO Primary Care Provider Active Start: November 17, 2024 End: November 17, 2024 Dr. Renzo De Paz DO Attending Provider Active Start: November 17, 2024 End: November 17, 2024 Dr. Renzo De Paz DO Referring Provider Active Start: November 17, 2024 End: November 17, 2024 Team Status: Inactive Member Role/Relationship Status Dates Dr. Renzo De Paz DO Primary Care Provider Active Start: December 18, 2024 End: December 18, 2024 Dr. Renzo De Paz DO Attending Provider Active Start: December 18, 2024 End: December 18, 2024 Dr. Renzo De Paz DO Referring Provider Active Start: December 18, 2024 End: December 18, 2024 Team Status: Inactive Member Role/Relationship Status Dates Dr. Renzo De Paz DO Primary Care Provider Active Start: January 14, 2025 End: January 14, 2025 Dr. Renzo De Paz DO Referring Provider Active Start: January 14, 2025 End: January 14, 2025 Dr. Yonatan Avila DO Attending Provider Active Start: January 14, 2025 End: January 14, 2025 Team Status: Active Member Role/Relationship Status Dates Dr. Renzo De Paz DO Primary care physician Active Team Status: Inactive Member Role/Relationship Status Dates Dr. Renzo De Paz DO Primary care physician Active Start: November 10, 2024 End: November 10, 2024 Dr. Renzo De Paz DO Attending physician Active Start: November 10, 2024 End: November 10, 2024 Dr. Renzo De Paz DO Referring Provider Active Start: November 10, 2024 End: November 10, 2024 Team Status: Inactive Member Role/Relationship Status Dates Dr. Renzo De Paz DO Primary care physician Active Start: November 17, 2024 End: November 17, 2024 Dr. Renzo De Paz DO Attending physician Active Start: November 17, 2024 End: November 17, 2024 Dr. Renzo De Paz DO Referring Provider Active Start: November 17, 2024 End: November 17, 2024 Team Status: Inactive Member Role/Relationship Status Dates Dr. Renzo De Paz DO Primary care physician Active Start: December 18, 2024 End: December 18, 2024 Dr. Renzo De Paz DO Attending physician Active Start: December 18, 2024 End: December 18, 2024 Dr. Renzo De Paz DO Referring Provider Active Start: December 18, 2024 End: December 18, 2024 Team Status: Inactive Member Role/Relationship Status Dates Dr. Rnezo De Paz DO Primary care physician Active Start: January 14, 2025 End: January 14, 2025 Dr. Renzo De Paz DO Referring Provider Active Start: January 14, 2025 End: January 14, 2025 Dr. Yonatan Avila DO Attending physician Active Start: January 14, 2025 End: January 14, 2025 Team Status: Inactive Member Role/Relationship Status Dates Dr. Renzo De Paz DO Primary care physician Active Start: March 05, 2025 End: March 05, 2025 Dr. Renzo De Paz DO Referring Provider Active Start: March 05, 2025 End: March 05, 2025 Dr. Rakan Adkins MD Attending physician Active Start: March 05, 2025 End: March 05, 2025 INFORMATION SOURCE (unrecogn ized section and content) DATE CREATED AUTHOR 04/05/2025 [facility] FOR RECORDS PERTAINING TO PATIENTS WHO ARE [...] BE BASED ON THE PRIMARY CLINICAL RECORDS. [facility]. provides no warranty or guarantee of the accuracy or completeness of information in this document.
== END | disposition home or self-care (01) ==
LOC: MRI 14:00
PROVIDERS: PCP Family Medicine; Referring Provider Clinical Nurse Specialist Adult Health; Visit Provider Clinical Nurse Specialist Adult Health
DX: M16.11 Unilateral primary osteoarthritis, right hip (principal)
CPT/HCPCS: 73721

== ENCOUNTER → 2025-05-14 | Outpatient (CLI) | payer MEDICARE, OTHER, SELFPAY ==
[2025-05-14 15:22] LABS: Anion Gap 10 (5-15); BUN 18 mg/dL (4-19); BUN/Creat Ratio 20.2 RATIO (10-20); Calcium,Total 10.0 mg/dL (7.6-11.0); Carbon Dioxide 24.1 mmol/L (21.0-32.0); Chloride 107 mmol/L (98-108); Glucose 117 mg/dL (70-99); Potassium 5.1 mmol/L (3.3-5.1)
== END | disposition home or self-care (01) ==
LOC: BFHLAB 13:33
PROVIDERS: PCP Family Medicine; Visit Provider Family Medicine
DX: I10 Essential (primary) hypertension (principal)
CPT/HCPCS: 36415; 80048

== ENCOUNTER → 2025-05-26 | Outpatient (CLI) | payer MEDICARE, OTHER, SELFPAY ==
--- NOTE | 2025-05-26 12:45 | BI_ITS ---
EXAM: SCREEN MAMM (CAD) W/MARILEE UNI R DATE: 05/26/2025 CLINICAL HISTORY: F, Age 75 y/o , ANNUAL SCREENING TECHNIQUE: Procedure Code: [id number] Modality: MG Procedure: SCREEN MAMM (CAD) W/MARILEE UNI R COMPARISON: Prior exam(s) were compared FINDINGS: TISSUE DENSITY: The breast tissue is heterogeneously dense, which may obscure small masses. Unilateral Right Breast Mammographic Findings: No significant masses, calcifications or other abnormalities are identified. BI/SCREEN MAMM (CAD) W/MARILEE UNI R IMPRESSION: No mammographic evidence of malignancy. OVERALL FINAL ASSESSMENT BI-RADS 1: NEGATIVE. RECOMMENDATION: Routine annual follow-up in 1 Year Additional Recommendation none A letter with findings and recommendations will be mailed to the patient. Reading Location: [id number]
== END | disposition home or self-care (01) ==
LOC: OPBI 12:36
PROVIDERS: PCP Family Medicine; Referring Provider Internal Medicine Hematology & Oncology; Visit Provider Internal Medicine Hematology & Oncology
DX: Z12.31 Encounter for screening mammogram for malignant neoplasm of breast (principal)
CPT/HCPCS: 77063; 77067